=== PATIENT | female | born 1945 | race African-American/Black ===

== ENCOUNTER → 2020-02-18 13:51 | Outpatient (BNVA) | payer MEDICARE, SELFPAY | PROVIDERS: PCP Nurse Practitioner Family; Referring Provider Nurse Practitioner Family; Visit Provider Internal Medicine Cardiovascular Disease | DX: I42.1 Obstructive hypertrophic cardiomyopathy (principal); I10 Essential (primary) hypertension; Z87.891 Personal history of nicotine dependence | CPT/HCPCS: 99212 ==

== ENCOUNTER → 2020-03-31 15:30 | Outpatient (BNV) | payer MEDICARE, SELFPAY | PROVIDERS: PCP Nurse Practitioner Family; Visit Provider Internal Medicine Medical Oncology | DX: D47.2 Monoclonal gammopathy (principal) | CPT/HCPCS: 99212; 99213; 99443 ==

== ENCOUNTER → 2020-04-19 12:47 | Outpatient (BNVA) | payer MEDICARE, SELFPAY | PROVIDERS: PCP Nurse Practitioner Family; Referring Provider Nurse Practitioner Family; Visit Provider Surgery Vascular Surgery | DX: I83.12 Varicose veins of left lower extremity with inflammation (principal) | CPT/HCPCS: 99202 ==

== ENCOUNTER 2020-06-01 12:57 | Outpatient (REF) | payer MEDICARE, SELFPAY ==
--- NOTE | ~2020-06-01 | US_ITS ---
EXAMINATION: RIGHT and LEFT LOWER EXTREMITY VENOUS ULTRASOUND (Reflux Exam) CLINICAL INDICATION: Varicose veins of the left lower extremity with inflammation COMPARISON: December 25, 2019 TECHNIQUE: Color flow triplex imaging and compression Doppler was performed to evaluate both the deep and the superficial systems bilaterally. To evaluate the superficial system, the examination was performed in the upright position. Color-flow Doppler ultrasound and compression ultrasound were utilized. In addition, maneuvers were utilized to demonstrate reflux. FINDINGS: 1. DEEP VENOUS ULTRASOUND OF THE RIGHT LOWER EXTREMITY: Respiratory variation, normal compression and augmented flow are noted in the right common femoral vein as well as the right popliteal vein and there is no evidence of deep venous thrombosis at these locations. There is no evidence of reflux in the deep system in either the common femoral vein or the popliteal vein. No popliteal fossa cyst or popliteal artery aneurysm. 2. SUPERFICIAL ULTRASOUND WITH DOPPLER OF RIGHT LOWER EXTREMITY: The right great saphenous vein at the saphenofemoral junction measures 8 mm, at the mid thigh 3 mm, ikqge-[id number] 3 mm, [id number]-[id number] 3 mm, at mid calf 3 mm and at the ankle measures 4 mm. There is no reflux demonstrated in the right great saphenous vein. The right small saphenous vein measures 3 mm and shows no reflux. 3. DEEP VENOUS ULTRASOUND OF THE LEFT LOWER EXTREMITY: Respiratory variation, normal compression and augmented flow are noted in the left common femoral vein as well as the left popliteal vein and there is no evidence of deep venous thrombosis at these locations. There is no evidence of reflux in the deep system in either the common femoral vein or the popliteal vein. . No popliteal fossa cyst or popliteal artery aneurysm. 4. SUPERFICIAL ULTRASOUND WITH DOPPLER OF LEFT LOWER EXTREMITY: Left great saphenous vein at the saphenofemoral junction measures 10 mm with no reflux, at the mid thigh 4 mm with reflux up to 1.5 seconds duration, yjbbn-zyf-[id number] 3 mm no reflux, hfcos-fmr-[id number] 2 mm, at mid calf 3 mm with reflux up to 1.8 seconds, and at the ankle measures 3 mm without reflux. The left small saphenous vein measures 3 mm and shows no reflux. US/US venous duplex LE BI IMPRESSION: 1. No evidence of reflux or thrombus in the common femoral veins or popliteal veins bilaterally. 2. No significant reflux within the right saphenous system. 3. Reflux within the left greater saphenous vein within the proximal thigh and midcalf and not at the saphenofemoral junction.
== END 2020-06-01 12:58 | disposition home or self-care (01) ==
LOC: HO.US 12:57
PROVIDERS: Visit Provider Surgery Vascular Surgery
DX: I83.12 Varicose veins of left lower extremity with inflammation (principal); I83.893 Varicose veins of bilateral lower extremities with other complications
CPT/HCPCS: 93970

== ENCOUNTER → 2020-06-14 14:43 | Outpatient (BNVA) | payer MEDICARE, SELFPAY | PROVIDERS: PCP Nurse Practitioner Family; Visit Provider Surgery Vascular Surgery | DX: I83.12 Varicose veins of left lower extremity with inflammation (principal) | CPT/HCPCS: 99212 ==

== ENCOUNTER → 2021-02-07 13:15 | Outpatient (BNVA) | payer MEDICARE, SELFPAY | PROVIDERS: PCP Nurse Practitioner Family; Visit Provider Internal Medicine | DX: J44.9 Chronic obstructive pulmonary disease, unspecified (principal); G47.33 Obstructive sleep apnea (adult) (pediatric); I42.1 Obstructive hypertrophic cardiomyopathy | CPT/HCPCS: 99202 ==

== ENCOUNTER 2021-03-03 14:46 | Outpatient (REF) | payer MEDICARE, SELFPAY ==
--- NOTE | 2021-03-03 16:48 | PFT_ITS ---
FLOWS: FEV1 83% of predicted at 1.04 L. FVC 74% of predicted at 1.19 L. FEV1 to FVC ratio of 0.87. No bronchodilator response. LUNG VOLUMES: Total lung capacity 84% of predicted at 3.40 L. Residual volume 107% of predicted at 2.05 L. Slow vital capacity 53% of predicted at 1.65 L. Expiratory reserve volume 21% of predicted at 0.10 L. Diffusion capacity is moderately decreased, diffusion capacity corrects to normal after adjustment for alveolar ventilation. IMPRESSION: No obstructive or restrictive ventilatory defect. No bronchodilator response. Decreased expiratory reserve volume suggests extrathoracic restriction likely secondary to abdominal obesity. Davon Soto MD AP/MODL / [id number]
== END 2021-03-03 14:47 | disposition home or self-care (01) ==
LOC: HO.RESP 14:46
PROVIDERS: PCP Family Medicine; Visit Provider Internal Medicine
DX: J44.9 Chronic obstructive pulmonary disease, unspecified (principal)
CPT/HCPCS: 94060; 94727; 94729

== ENCOUNTER → 2021-03-13 13:02 | Outpatient (REF) | payer MEDICARE, SELFPAY | LOC: HO.SL 13:02 | PROVIDERS: Visit Provider Internal Medicine | DX: G47.33 Obstructive sleep apnea (adult) (pediatric) (principal); J44.9 Chronic obstructive pulmonary disease, unspecified | CPT/HCPCS: 95806 ==

== ENCOUNTER → 2021-05-02 14:47 | Outpatient (BNVA) | payer MEDICARE, SELFPAY | PROVIDERS: PCP Nurse Practitioner Family; Visit Provider Internal Medicine | DX: J45.909 Unspecified asthma, uncomplicated (principal); G47.33 Obstructive sleep apnea (adult) (pediatric); G47.34 Idiopathic sleep related nonobstructive alveolar hypoventilation; Z79.899 Other long term (current) drug therapy | CPT/HCPCS: 99212 ==

== ENCOUNTER → 2021-08-21 19:30 | Outpatient (REF) | payer OTHER, SELFPAY | LOC: HO.SL 19:30 | PROVIDERS: PCP Nurse Practitioner Family; Visit Provider Internal Medicine | DX: G47.33 Obstructive sleep apnea (adult) (pediatric) (principal) | CPT/HCPCS: 95811 ==

== ENCOUNTER → 2021-10-04 15:10 | Outpatient (BNVA) | payer OTHER, SELFPAY | PROVIDERS: PCP Nurse Practitioner Family; Visit Provider Internal Medicine | DX: J45.909 Unspecified asthma, uncomplicated (principal); J44.9 Chronic obstructive pulmonary disease, unspecified; G47.33 Obstructive sleep apnea (adult) (pediatric); G47.34 Idiopathic sleep related nonobstructive alveolar hypoventilation | CPT/HCPCS: 99212 ==

== ENCOUNTER → 2021-11-13 15:16 | Outpatient (BNVA) | payer OTHER, SELFPAY | PROVIDERS: PCP Nurse Practitioner Family; Visit Provider Internal Medicine | DX: J44.9 Chronic obstructive pulmonary disease, unspecified (principal); G47.33 Obstructive sleep apnea (adult) (pediatric); G47.34 Idiopathic sleep related nonobstructive alveolar hypoventilation; Z79.01 Long term (current) use of anticoagulants; Z79.899 Other long term (current) drug therapy; Z95.810 Presence of automatic (implantable) cardiac defibrillator | CPT/HCPCS: 99212 ==

== ENCOUNTER 2022-03-12 19:37 | Emergency (ER) | payer OTHER, SELFPAY ==
--- NOTE | ~2022-03-12 | XR_ITS ---
EXAMINATION: XR CHEST CLINICAL INFORMATION: Shortness of breath COMPARISON: None TECHNIQUE: Frontal view of the chest was obtained. FINDINGS: Minimal linear subsegmental atelectasis in the retrocardiac left lung base. No airspace consolidation. No pleural effusion or pneumothorax visualized. Heart size appears at the upper limits of normal. Prominence of the pulmonary vascularity, suggesting mild pulmonary vascular congestion. No overt pulmonary edema. Left-sided dual-chamber pacer/AICD with lead tips project over the right atrium and right ventricular apex. No acute osseous injury. XR/XR chest 1V IMPRESSION: 1. Mild pulmonary vascular congestion, possibly early interstitial edema. No pleural effusions. 2. Minimal left basilar subsegmental atelectasis.
[2022-03-12 19:53] VITALS: BP 162/68; BP 170/105; PULSE 79; PULSE 80; RESP 20; TEMP 36.7; O2SAT 96; O2SAT 98; BMI 33.1
--- NOTE | 2022-03-12 20:00 | ECG_ITS ---
Test Reason : sob Blood Pressure : / mmHG Vent. Rate : 078 BPM Atrial Rate : 078 BPM P-R Int : 230 ms QRS Dur : 134 ms QT Int : 454 ms P-R-T Axes : 076 025 035 degrees QTc Int : 517 ms Sinus rhythm with 1st degree A-V block Right bundle branch block Abnormal ECG When compared with ECG of 21-AUG-2019 00:24, Right bundle branch block is now Present Heart rate has decreased Referred By: Abdirashid Moore Electronically Signed By:KAJAL ROBLEDO MD
--- NOTE | 2022-03-12 20:07 | ED.SOB ---
HPI - SOB/Dyspnea General Chief Complaint: Dyspnea Stated Complaint: SOB Time Seen by Provider: 03/12/22 19:43 Source: patient Mode of arrival: EMS Limitations: no limitations History of Present Illness HPI Narrative: Patient is 76 years old with history of asthma, hypertension, HOCM status post AICD placement 09/2021, ?paroxysmal AFib on Eliquis comes here for increased shortness of breath for last 1 week with chest pressure-like feeling getting worse for last 3 days not on any diuretics patient feels just heavy in the mid of the chest also feeling she is more puffy with increased leg swelling lately as dry cough and shortness of breath no fever no chills Related Data Home Medications Medication Instructions Recorded Confirmed albuterol sulfate 90 mcg/actuation 90 mcg inhalation Q OTHER DAY 02/18/20 11/30/21 aerosol inhaler cholecalciferol (vitamin D3) 50 50 mcg PO DAILY 02/18/20 11/30/21 mcg (2,000 unit) tablet cyanocobalamin (vitamin B-12) 1,000 mcg PO DAILY 02/18/20 11/30/21 1,000 mcg tablet fluticasone propionate 50 1 spray intranasal BID 02/18/20 11/30/21 mcg/actuation nasal spray,suspension mirtazapine 30 mg tablet 30 mg PO BEDTIME 02/18/20 11/30/21 melatonin 5 mg tablet 5 mg PO BEDTIME PRN insomnia 04/19/20 11/30/21 fluticasone propionate 110 1 puff inhalation BID 02/07/21 11/30/21 mcg/actuation HFA aerosol inhaler (Flovent HFA) omeprazole 20 mg capsule,delayed 20 mg PO DAILY 02/07/21 11/30/21 release albuterol sulfate 2.5 mg/3 mL 2.5 mg inhalation Q6H PRN 05/02/21 11/30/21 (0.083 %) solution for nebulization Shortness Of Breath docusate sodium 100 mg capsule 100 mg PO BID PRN Constipation 05/02/21 11/30/21 (Stool Softener) folic acid 1 mg tablet 1 mg PO DAILY 05/02/21 11/30/21 rosuvastatin 10 mg tablet 10 mg PO BEDTIME 05/02/21 11/30/21 amiodarone 200 mg tablet 200 mg PO DAILY 11/13/21 11/30/21 apixaban 5 mg tablet (Eliquis) 5 mg PO BID 11/13/21 11/30/21 Previous Rx's Medication Instructions Recorded metoprolol succinate 50 mg 50 mg PO DAILY 90 days #90 tabs 10/28/20 tablet,extended release 24 hr furosemide 20 mg tablet (Lasix) 20 mg PO QAM #30 tabs 03/12/22 Allergies Allergy/AdvReac Type Severity Reaction Status Date / Time No Known Allergies Allergy Verified 11/30/21 14:24 [No Known Allergies*] Review of Systems Review of Systems: Yes all other systems are reviewed and are negative [facility] Past Medical History Medical History Asthma Cardiomyopathy COPD (chronic obstructive pulmonary disease) GERD (gastroesophageal reflux disease) Hypercholesteremia Hypertension Insomnia Nocturnal hypoxemia SHORTY (obstructive sleep apnea) Surgical History History of heart surgery History of implantable cardioverter-defibrillator (ICD) insertion Family History Family History Son No problems noted. Son No problems noted. Son No problems noted. Son No problems noted. Mother Diabetes Paternal Grandmother Ovarian cancer Social History Social History Household Members: None Housing: Apartment Are you a primary care services manager to a significant other at home: No Do you presently have visiting nurse or other home services: No Alcohol intake: current Alcohol intake frequency: a few times a month Alcohol type: beer Patient Tobacco Use Status: Former Tobacco user Advance Directives: No Advance Directives Information Provided: Yes service: No Current occupational status: retired Physical Exam Vital Signs: Vital Signs: Last Vital Signs Temp 97.9 F 03/12/22 21:08 Pulse 75 03/12/22 21:08 Resp 20 03/12/22 21:08 BP 178/73 H 03/12/22 21:08 Pulse Ox 95 03/12/22 21:08 O2 Del Method 03/12/22 21:08 BMI result Body Mass Index 33.1 Appearance: Alert. Oriented X3. No acute distress. Eyes: PERRLA, No Nystagmus ENT: Pharynx normal. Oral Mucosa moist puffiness of the face Neck: Normal inspection. Neck supple. CVS: Normal heart rate and rhythm. Pulses normal. No rub/gallop Respiratory: No respiratory distress. Equal air entry bilateral, no wheezing/rales/rhonchi Abdomen: Soft and nontender. Bowel sounds are present, no mass palpable, no CVA tenderness Skin: Skin warm and dry. Normal skin color. Normal skin turgor. Extremities: 2+ lower extremity edema. No calf tenderness Neuro: Oriented X 3. No motor deficit. No sensory deficit.No cerebellar signs , cranial nerves II-XII intact Medications Administered Discontinued Medications Generic Name Dose Route Start Last Admin Trade Name Freq PRN Reason Stop Dose Admin Furosemide 20 mg 03/12/22 22:22 03/12/22 22:56 Furosemide 20 Mg/2 Ml Vial IVPUSH 03/12/22 22:23 20 mg ONCE ONE Administration Protocol MDM - SOB/Dyspnea MDM Narrative Medical decision making narrative: Patient with mild CHF saturating 96% at room air on ambulation came with dull chest pain anddyspnea on exertion patient status post AICD 10/04 no known coronary artery disease 2 sets of high sensitive troponin negative chest x-ray showed mild congestion will start patient on Lasix 20 mg daily at this time patient feels stable and comfortable going home in the ED patient walked to the bathroom and kept her oxygen saturation stayed above 95% at room air patient is well educated and would like to go home and follow-up with licensed psychologist director as outpatient Lab Data Attestation: I reviewed the patient's lab results. Result diagrams: 03/12/22 20:33 03/12/22 20:33 Labs: Lab Results 03/12/22 03/12/22 03/12/22 Range/Units 20:33 20:33 20:33 WBC 5.8 (4.8-10.8) X10*3/uL RBC 3.42 L (4.20-5.50) X10*6/uL Hgb 9.9 L (12.0-16.0) g/dl Hct 32.4 L (37.0-47.0) % MCV 94.7 (80.0-98.0) fL MCH 28.9 (27.0-33.0) pg MCHC 30.6 L (31.0-35.0) g/dl RDW 14.3 (11.0-16.0) % Plt Count 185 (160-400) X10*3/uL MPV 12.0 (9.4-12.3) fL Immature Gran % (Auto) 0.2 (0.0-0.4) % Neut % (Auto) 72.2 (45-73) % Lymph % (Auto) 15.1 L (20-40) % [place] % (Auto) 8.8 (2-11) % Eos % (Auto) 3.4 (0-4) % Baso % (Auto) 0.3 (0-2) % Lymph # (Auto) 0.9 L (1.2-4.9) X10*3/uL [place] # (Auto) 0.5 (0.1-1.2) X10*3/uL Eos # (Auto) 0.2 (0.0-0.4) X10*3/uL Baso # (Auto) 0.0 (0.0-0.2) X10*3/uL Abs Immat Gran (auto) 0.01 (0.00-0.03) X10*3/uL Absolute Neuts (auto) 4.2 (2.0-8.3) x10*3/uL Absolute Nucleated RBC 0.000 (0.0-0.012) X10*3/uL Nucleated RBC % (auto) 0.0 (0.0-0.2) /100WBC PT 18.5 H (10.0-13.1) SEC INR 1.6 H (0.9-1.1) Sodium (135-145) mmol/L Potassium (3.3-5.1) mmol/L Chloride (96-108) mmol/L Carbon Dioxide (22-29) mmol/L Anion Gap (12-20) BUN (9-16) mg/dL Creatinine (0.5-1.4) mg/dL Estim Creat Clear Calc Estimated GFR Random Glucose (60-115) mg/dL Calcium (8.4-10.2) mg/dL Magnesium (1.6-2.6) mg/dL Total Bilirubin (0.0-1.0) mg/dL AST (5-31) U/L ALT (0-31) U/L Alkaline Phosphatase (39-117) U/L Troponin I High Sens 9.0 (<3.5-17.0) ng/L B-Natriuretic Peptide (<100) pg/mL Total Protein (6.5-8.0) g/dL Albumin (3.5-5.0) g/dL TSH (0.32-4.0) uIU/mL 03/12/22 03/12/22 03/12/22 Range/Units 20:33 20:33 22:53 WBC (4.8-10.8) X10*3/uL RBC (4.20-5.50) X10*6/uL Hgb (12.0-16.0) g/dl Hct (37.0-47.0) % MCV (80.0-98.0) fL MCH (27.0-33.0) pg MCHC (31.0-35.0) g/dl RDW (11.0-16.0) % Plt Count (160-400) X10*3/uL MPV (9.4-12.3) fL Immature Gran % (Auto) (0.0-0.4) % Neut % (Auto) (45-73) % Lymph % (Auto) (20-40) % [place] % (Auto) (2-11) % Eos % (Auto) (0-4) % Baso % (Auto) (0-2) % Lymph # (Auto) (1.2-4.9) X10*3/uL [place] # (Auto) (0.1-1.2) X10*3/uL Eos # (Auto) (0.0-0.4) X10*3/uL Baso # (Auto) (0.0-0.2) X10*3/uL Abs Immat Gran (auto) (0.00-0.03) X10*3/uL Absolute Neuts (auto) (2.0-8.3) x10*3/uL Absolute Nucleated RBC (0.0-0.012) X10*3/uL Nucleated RBC % (auto) (0.0-0.2) /100WBC PT (10.0-13.1) SEC INR (0.9-1.1) Sodium 146 H (135-145) mmol/L Potassium 4.0 D (3.3-5.1) mmol/L Chloride 108 (96-108) mmol/L Carbon Dioxide 27 (22-29) mmol/L Anion Gap 15 (12-20) BUN 10 (9-16) mg/dL Creatinine 0.83 (0.5-1.4) mg/dL Estim Creat Clear Calc 57.6 Estimated GFR > 60 Random Glucose 90 (60-115) mg/dL Calcium 9.5 (8.4-10.2) mg/dL Magnesium 2.0 (1.6-2.6) mg/dL Total Bilirubin 0.4 (0.0-1.0) mg/dL AST 7 (5-31) U/L ALT 8 (0-31) U/L Alkaline Phosphatase 62 (39-117) U/L Troponin I High Sens 10.7 (<3.5-17.0) ng/L B-Natriuretic Peptide 680 H (<100) pg/mL Total Protein 7.0 (6.5-8.0) g/dL Albumin 3.7 (3.5-5.0) g/dL TSH 0.97 (0.32-4.0) uIU/mL ECG Data Attestation: I personally reviewed and interpreted this ECG as follows: Interpretation: Normal sinus rhythm heart rate 78 beats per minute right bundle-branch block no acute ST wave changes no acute ischemia Discharge Plan Discharge Clinical Impression: Congestive heart failure, Chest pain Patient Disposition: Home, Self-Care Instructions: Heart Failure (ED), Chest Pain (DC) Additional Instructions: Decrease salt intake Start taking water pill in the morning See your licensed psychologist director for further evaluation Check your weight daily Prescriptions: New furosemide [Lasix] 20 mg tablet 20 mg PO QAM Qty: 30 0RF No Action metoprolol succinate 50 mg tablet extended release 24 hr 50 mg PO DAILY 90 Days Qty: 90 0RF Rx Instructions: Please call and schedule an appointment for refills melatonin 5 mg tablet 5 mg PO BEDTIME PRN (Reason: insomnia) fluticasone propionate 50 mcg/actuation spray,suspension 1 spray intranasal BID cyanocobalamin (vitamin B-12) 1,000 mcg tablet 1,000 mcg PO DAILY mirtazapine 30 mg tablet 30 mg PO BEDTIME cholecalciferol (vitamin D3) 50 mcg (2,000 unit) tablet 50 mcg PO DAILY albuterol sulfate 90 mcg/actuation HFA aerosol inhaler 90 mcg inhalation Q OTHER DAY omeprazole 20 mg capsule,delayed release(DR/EC) 20 mg PO DAILY Flovent HFA 110 mcg/actuation HFA aerosol inhaler 1 puff inhalation BID docusate sodium [Stool Softener] 100 mg capsule 100 mg PO BID PRN (Reason: Constipation) amiodarone 200 mg tablet 200 mg PO DAILY Eliquis 5 mg tablet 5 mg PO BID rosuvastatin 10 mg tablet 10 mg PO BEDTIME folic acid 1 mg tablet 1 mg PO DAILY albuterol sulfate 2.5 mg /3 mL (0.083 %) solution for nebulization 2.5 mg inhalation Q6H PRN (Reason: Shortness Of Breath) Referrals: Severo García MD [Physician] - 1 week
[2022-03-12 20:41] LABS: MANUAL DIFF FLAG NO
[2022-03-12 20:43] LABS: Basophils Percent Auto 0.3 % (0-2); Eosinophils Absolute Auto 0.2 X10*3/uL (0.0-0.4); Eosinophils Percent Auto 3.4 % (0-4); Hematocrit 32.4 % (37.0-47.0); Hemoglobin 9.9 g/dl (12.0-16.0); Imm Gran Abs Auto 0.01 X10*3/uL (0.00-0.03); Imm Gran Pct Auto 0.2 % (0.0-0.4); Lymphocytes Absolute Auto 0.9 X10*3/uL (1.2-4.9); Lymphocytes Percent Auto 15.1 % (20-40); Mean Corpuscular HGB Conc 30.6 g/dl (31.0-35.0); Mean Corpuscular Hemoglobin 28.9 pg (27.0-33.0); Mean Corpuscular Volume 94.7 fL (80.0-98.0); Monocytes Absolute Auto 0.5 X10*3/uL (0.1-1.2); Monocytes Percent Auto 8.8 % (2-11); Neutrophils Absolute Auto 4.2 x10*3/uL (2.0-8.3); Neutrophils Percent Auto 72.2 % (45-73); Platelet Count 185 X10*3/uL (160-400); Red Blood Count 3.42 X10*6/uL (4.20-5.50); Red Cell Distribution Width 14.3 % (11.0-16.0); White Blood Count 5.8 X10*3/uL (4.8-10.8)
[2022-03-12 20:45] LABS: INTERNATIONAL NORM RATIO 1.6 (0.9-1.1); Prothrombin Time 18.5 SEC (10.0-13.1)
[2022-03-12 21:05] LABS: Alanine Aminotransferase 8 U/L (0-31); Albumin Level 3.7 g/dL (3.5-5.0); Alkaline Phosphatase 62 U/L (39-117); Anion Gap 15 (12-20); Aspartate Amino Transferase 7 U/L (5-31); Bilirubin Total 0.4 mg/dL (0.0-1.0); Blood Urea Nitrogen 10 mg/dL (9-16); Calcium 9.5 mg/dL (8.4-10.2); Carbon Dioxide 27 mmol/L (22-29); Chloride 108 mmol/L (96-108); Creatinine Clr Calc Pharmacy 57.6; Estimated Glomerular Filt Rate > 60; Glucose Random 90 mg/dL (60-115); Sodium 146 mmol/L (135-145)
[2022-03-12 21:08] VITALS: BP 178/73; PULSE 75; RESP 20; TEMP 36.6; O2SAT 95
[2022-03-12 21:10] LABS: B Type Natriuretic Peptide 680 pg/mL (<100)
[2022-03-12 21:25] LABS: Thyroid Stimulating Hormone 0.97 uIU/mL (0.32-4.0)
[2022-03-12] MEDS: Furosemide 20 MG/2 ML VIAL IVPUSH (22:56)
[2022-03-12 23:18] LABS: Troponin-I High Sensitivity 10.7 ng/L (<3.5-17.0)
--- NOTE | 2022-03-12 23:59 | PC.NURSE ---
pt's son at bedside at time of discharge. iv removed. pt reports 0/10 pain at this time. discharge packet provided to pt. pt verbalized understanding of discharge plan. this rn assisted pt via wheelchair into sons car at ED main entrance
== END 2022-03-13 00:01 | disposition home or self-care (01) ==
PROVIDERS: Emergency Provider Internal Medicine; PCP Nurse Practitioner Family
DX: I11.0 Hypertensive heart disease with heart failure (principal); I50.9 Heart failure, unspecified; R07.9 Chest pain, unspecified; R06.02 Shortness of breath; J45.909 Unspecified asthma, uncomplicated; E78.00 Pure hypercholesterolemia, unspecified; I48.0 Paroxysmal atrial fibrillation; Z87.891 Personal history of nicotine dependence; Z79.02 Long term (current) use of antithrombotics/antiplatelets; Z79.899 Other long term (current) drug therapy; Z79.01 Long term (current) use of anticoagulants
CPT/HCPCS: 36415; 71045; 80053; 83735; 83880; 84443; 84484; 85025; 85610; 93005; 96374; 99284; J1940

== ENCOUNTER 2022-04-17 15:00 | Outpatient (RCR) | payer OTHER, SELFPAY | END 2022-07-16 12:39 | disposition home or self-care (01) | LOC: HO.PT 15:00 | PROVIDERS: PCP Nurse Practitioner Family; Visit Provider Nurse Practitioner Family | DX: R26.89 Other abnormalities of gait and mobility (principal) | CPT/HCPCS: 97110; 97112; 97116; 97162; 97530; 97535 ==

== ENCOUNTER → 2022-06-05 14:47 | Outpatient (BNVA) | payer OTHER, SELFPAY | PROVIDERS: PCP General Practice; Visit Provider Internal Medicine | DX: G47.33 Obstructive sleep apnea (adult) (pediatric) (principal); G47.34 Idiopathic sleep related nonobstructive alveolar hypoventilation; J44.9 Chronic obstructive pulmonary disease, unspecified | CPT/HCPCS: 99212 ==

== ENCOUNTER 2022-06-27 12:34 | Emergency (ER) | payer OTHER, SELFPAY ==
[2022-06-27] VITALS (7 sets, daily range): BP systolic 136–171; BP diastolic 59–76; PULSE 60–69; RESP 15–20; TEMP 36.6–36.9; O2SAT 96–99; BMI 27.9
--- NOTE | ~2022-06-27 | CT_ITS ---
EXAMINATION: CT HEAD WITHOUT CONTRAST CLINICAL INFORMATION: Dizziness and headaches COMPARISON: None available. TECHNIQUE: Contiguous axial imaging was performed from the skull base to vertex without intravenous administration of contrast. This CT examination was performed using dose optimization techniques as appropriate, variously including the following: *Automated exposure control *Adjustment of mA and/or kV according to patient size (this includes techniques or standardized protocols for targeted exams where dose is matched to indication/reason for exam; i.e. extremities or head) *Use of iterative reconstruction technique DLP: 712 mGy-cm FINDINGS: Sulci and ventricles are appropriate. There are no intra or extra-axial fluid collections or hemorrhage, mass or mass effect. Calvarium intact. There is minor mucoperiosteal thickening in the ethmoid sinuses. CT/CT head/brain wo IV con IMPRESSION: No acute intracranial pathology.
--- NOTE | ~2022-06-27 | XR_ITS ---
EXAMINATION: XR CHEST CLINICAL INFORMATION: Shortness of breath COMPARISON: 03/04/2022 TECHNIQUE: Frontal view of the chest was obtained. FINDINGS: Heart size normal. Normal caliber pulmonary vessels. No evidence for congestive failure at this time. Overall improvement from the prior study. Lungs grossly clear. Left-sided pacer observed with distal tips in stable position. XR/XR chest 1V IMPRESSION: No active disease.
--- NOTE | 2022-06-27 12:41 | ED_ITS ---
HPI - Fall General Chief Complaint: Dyspnea <GEORGE Diop - Last Filed: 06/27/22 16:07> Stated Complaint: SOB/ Left Arm pain <GEORGE Diop - Last Filed: 06/27/22 16:07> Time Seen by Provider: 06/27/22 14:21 <GEORGE Diop - Last Filed: 06/27/22 16:07> Source: patient, family and old records reviewed <GEORGE Meade - Last Filed: 06/27/22 17:37> Mode of arrival: ambulatory <GEORGE Meade - Last Filed: 06/27/22 17:37> Limitations: no limitations <GEORGE Meade - Last Filed: 06/27/22 17:37> History of Present Illness HPI Narrative: 76 yo female with history of CHF, hypertrophic obstructive cardiomyopathy s/p septal ablation 10/09/21, s/p AICD 10/11/21, on Eliquis, CAD, MGUS, SHORTY on QHS O2, COPD, HTN, asthma who presents to the ER from her [employer] office for evaluation of lightheadedness, dizziness, chest heaviness, along with some shortness of breath and headache. 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 She states she has been feeling ?off? for the last couple of days. About 3 or 4 days ago she had episode nausea, upset stomach, shaking arms and legs and feeling very hot. This resolved. Today before she left the house she felt new onset of central chest heaviness. She developed lightheadedness and dizziness. She has a sore left shoulder but does not think this pain is coming from her chest. Her dizziness is worse with position changes and bending down. She states she had a similar episode back in February when she was found to be in acute heart failure. She denies any changes in her diuretic medication, salt intake or weight. She denies any focal neuro deficits. She does endorse a slight frontal headache. No fall or trauma. Currently she states her worst symptom is the ongoing dizziness. Chest heaviness is better since this morning, only mild now. <GEORGE Meade - Last Filed: 06/27/22 17:37> MD complaint: other (Dizziness, presyncopal episode) <GEORGE Meade - Last Filed: 06/27/22 17:37> Onset (ago): hour(s) <GEORGE Meade - Last Filed: 06/27/22 17:37> Associated symptoms (after fall): headache, chest pain, shortness of breath and lightheaded <GEORGE Meade - Last Filed: 06/27/22 17:37> Related Data Home Medications: Home Medications Medication Instructions Recorded Confirmed albuterol sulfate 90 mcg/actuation 90 mcg inhalation Q OTHER DAY 02/18/20 06/27/22 aerosol inhaler cholecalciferol (vitamin D3) 50 50 mcg PO DAILY 02/18/20 06/27/22 mcg (2,000 unit) tablet cyanocobalamin (vitamin B-12) 1,000 mcg PO DAILY 02/18/20 06/27/22 1,000 mcg tablet mirtazapine 30 mg tablet 30 mg PO BEDTIME 02/18/20 06/27/22 melatonin 5 mg tablet 5 mg PO BEDTIME PRN insomnia 04/19/20 06/27/22 fluticasone propionate 110 1 puff inhalation BID 02/07/21 06/27/22 mcg/actuation HFA aerosol inhaler (Flovent HFA) omeprazole 20 mg capsule,delayed 20 mg PO DAILY 02/07/21 06/27/22 release albuterol sulfate 2.5 mg/3 mL 2.5 mg inhalation Q6H PRN 05/02/21 06/27/22 (0.083 %) solution for nebulization Shortness Of Breath docusate sodium 100 mg capsule 100 mg PO BID PRN Constipation 05/02/21 06/27/22 (Stool Softener) folic acid 1 mg tablet 1 mg PO DAILY 05/02/21 06/27/22 rosuvastatin 10 mg tablet 10 mg PO BEDTIME 05/02/21 06/27/22 apixaban 5 mg tablet (Eliquis) 5 mg PO BID 11/13/21 06/27/22 metoprolol succinate 50 mg 50 mg PO BID 06/05/22 06/27/22 tablet,extended release 24 hr montelukast 10 mg tablet 10 mg PO QPM 06/05/22 06/27/22 Previous Rx's Medication Instructions Recorded furosemide 20 mg tablet (Lasix) 20 mg PO QAM #30 tabs 03/12/22 <GEORGE Diop - Last Filed: 06/27/22 16:07> Allergies/Adverse Reactions: Allergies Allergy/AdvReac Type Severity Reaction Status Date / Time No Known Allergies Allergy Verified 06/27/22 12:42 [No Known Allergies*] <GEORGE Diop - Last Filed: 06/27/22 16:07> Review of Systems Review of Systems: Yes all other systems are reviewed and are negative <GEORGE Meade - Last Filed: 06/27/22 17:37> [facility] Past Medical History Medical History: Medical History Asthma Cardiomyopathy COPD (chronic obstructive pulmonary disease) GERD (gastroesophageal reflux disease) Hypercholesteremia Hypertension Insomnia Nocturnal hypoxemia SHORTY (obstructive sleep apnea) <GEORGE Diop - Last Filed: 06/27/22 16:07> Surgical History: Surgical History History of heart surgery History of implantable cardioverter-defibrillator (ICD) insertion <GEORGE Diop - Last Filed: 06/27/22 16:07> Family History Family History: Family History Son No problems noted. Son No problems noted. Son No problems noted. Son No problems noted. Mother Diabetes Paternal Grandmother Ovarian cancer <GEORGE Diop - Last Filed: 06/27/22 16:07> Social History Social History: Social History Household Members: None Housing: Apartment Are you a primary coronary care unit nurse to a significant other at home: No Do you presently have visiting nurse or other home services: No Alcohol intake: never Patient Tobacco Use Status: Former Tobacco user Smoked in Last 30 Days: No Use of substances other than those prescribed or required for medical reasons: No Advance Directives: No Advance Directives Information Provided: Yes service: No Current occupational status: retired <GEORGE Diop Last Filed: 06/27/22 16:07> Physical Exam Vital Signs: Vital Signs: Last Vital Signs Temp 98 F 06/27/22 16:00 Pulse 69 06/27/22 16:00 Resp 16 06/27/22 16:00 BP 162/69 H 06/27/22 16:00 Pulse Ox 99 06/27/22 16:00 O2 Del Method 06/27/22 16:00 BMI result Body Mass Index 27.9 <GEORGE Diop - Last Filed: 06/27/22 16:07> Vital Signs: Last Vital Signs Temp 98 F 06/27/22 16:00 Pulse 69 06/27/22 16:00 Resp 16 06/27/22 16:00 BP 162/69 H 06/27/22 16:00 Pulse Ox 99 06/27/22 16:00 O2 Del Method 06/27/22 16:00 BMI result Body Mass Index 27.9 <GEORGE Meade - Last Filed: 06/27/22 17:37> Appearance: Alert. Oriented X3. No acute distress. Eyes: Pupils equal, round and reactive to light. No nystagmus ENT: Pharynx normal. Neck: Normal inspection. Neck supple. CVS: Normal heart rate and rhythm. +murmur Respiratory: No respiratory distress. Breath sounds normal. Abdomen: Obese Soft and nontender. +BS x4 Skin: Skin warm and dry. Normal skin color. Normal skin turgor. No rashes. Extremities: No lower extremity edema. Neuro: Oriented X 3. No motor deficit. No sensory deficit. CN II-XII intact. Normal speech and cognition. Steady gait. Nonfocal. Normal finger to nose and heel to herrera bilaterally <GEORGE Meade - Last Filed: 06/27/22 17:37> Course Course Course Narrative: RME--68-year-old female with a past medical history of asthma, COPD, GERD, HLD, HTN, SHORTY, defibrillator, presenting to the ED complaining of chest pressure radiating to left shoulder, SOB, room spinning dizziness x today. States unable to lay flat at [employer]'s office for echo [employer] due to feeling dizzy. Lungs CTA. Ambulating with steady gait EKG, labs, CXR, COVID/flu, orthostatics ordered <GEORGE Diop - Last Filed: 06/27/22 16:07> Medical Decision Making Medical Decision Making MDM Narrative: 76 yo female with extensive cardiac history presenting to the ER for evaluation of a pre-syncopal episode at the [employer] office today along with dizziness/lightheadedness, chest heaviness, SOB, headache, left shoulder soreness. VSS on arrival. Reports ongoing lightheadedness w/ position changes. No neuro deficits. Symptoms non-debilitating and are not consistent with posterior CVA. EKG without ischemic changes. 17:30 - Troponin negative x2. Orthostatics are negative. She is feeling better. Steady gait to the bathroom. <GEORGE Meade - Last Filed: 06/27/22 17:37> Differential Diagnosis Differential Diagnoses: The differential diagnosis associated with the presentation includes <GEORGE Meade - Last Filed: 06/27/22 17:37> Vertigo, orthostatic hypotension, dehydration, anemia, acute heart failure exacerbation, ACS, PE, arrhythmia, less likely posterior CVA <GEORGE Meade - Last Filed: 06/27/22 17:37> Admission/Observation Consideration of admission/observation: Escalation of care including admission/observation considered <GEORGE Harmon - Last Filed: 06/27/22 17:37> case d/w Dr. García, patient and son at the bedside - we discussed admission vs d/c home. patient feels comfortable being discharged home. 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 García - given she has negative biomarkers, negative orthostatics and she did have her cardiac ablation to treat her HOCM, she does not require urgent admission/ECHO/or transfer <GEORGE Meade Last Filed: 06/27/22 17:37> Lab Data MDM Lab Attestation statement: I reviewed the patient's lab results. <GEORGE Meade Last Filed: 06/27/22 17:37> Result Diagrams: 06/27/22 13:02 06/27/22 13:02 <GEORGE Diop - Last Filed: 06/27/22 16:07> Labs: Lab Results 06/27/22 06/27/22 06/27/22 Range/Units 13:02 13:02 13:02 WBC 3.9 L (4.8-10.8) X10*3/uL RBC 3.79 L (4.20-5.50) X10*6/uL Hgb 11.0 L (12.0-16.0) g/dl Hct 33.5 L (37.0-47.0) % MCV 88.4 (80.0-98.0) fL MCH 29.0 (27.0-33.0) pg MCHC 32.8 (31.0-35.0) g/dl RDW 13.2 (11.0-16.0) % Plt Count 212 (160-400) X10*3/uL MPV 11.4 (9.4-12.3) fL Immature Gran % (Auto) 0.5 H (0.0-0.4) % Neut % (Auto) 52.0 (45-73) % Lymph % (Auto) 30.7 (20-40) % [place] % (Auto) 11.7 H (2-11) % Eos % (Auto) 4.8 H (0-4) % Baso % (Auto) 0.3 (0-2) % Lymph # (Auto) 1.2 (1.2-4.9) X10*3/uL [place] # (Auto) 0.5 (0.1-1.2) X10*3/uL Eos # (Auto) 0.2 (0.0-0.4) X10*3/uL Baso # (Auto) 0.0 (0.0-0.2) X10*3/uL Abs Immat Gran (auto) 0.02 (0.00-0.03) X10*3/uL Absolute Neuts (auto) 2.1 (2.0-8.3) x10*3/uL Absolute Nucleated RBC 0.000 (0.0-0.012) X10*3/uL Nucleated RBC % (auto) 0.0 (0.0-0.2) /100WBC Sodium 135 (135-145) mmol/L Potassium 4.6 (3.3-5.1) mmol/L Chloride 98 (96-108) mmol/L Carbon Dioxide 27 (22-29) mmol/L Anion Gap 15 (12-20) BUN 14 (9-16) mg/dL Creatinine 0.98 (0.5-1.4) mg/dL Estim Creat Clear Calc 53.6 Estimated GFR 55 Random Glucose 88 (60-115) mg/dL Calcium 9.9 (8.4-10.2) mg/dL Magnesium 1.8 (1.6-2.6) mg/dL Total Bilirubin 0.4 (0.0-1.0) mg/dL Direct Bilirubin < 0.2 (0.0-0.5) mg/dL AST 10 (5-31) U/L ALT 12 (0-31) U/L Alkaline Phosphatase 72 (39-117) U/L Troponin I High Sens 7.4 (<3.5-17.0) ng/L B-Natriuretic Peptide (<100) pg/mL Total Protein 7.1 (6.5-8.0) g/dL Albumin 3.9 (3.5-5.0) g/dL Urine Color Urine Appearance Urine pH (5.0-9.0) Ur Specific [place]ach[place] (1.005-1.025) Urine Protein (Neg-Trace) mg/dL Urine Glucose (UA) (Negative) mg/dL Urine Ketones (Negative) mg/dL Urine Blood (Negative) Urine Nitrite (Negative) Ur Leukocyte Esterase (Negative) Urine RBC (0-2) /HPF Urine WBC (0-5) /HPF Ur Squamous Epith Cells (0-2) /HPF Urine Bacteria (None Seen) Hyaline Casts (0-2) /LPF COVID-19 (CHRISTOPH) (Negative) COVID-19 Clin Com Influenza Type A (ALLYN) (Negative) Influenza Type B (ALLYN) (Negative) Influenza A & B Note 06/27/22 06/27/22 06/27/22 Range/Units 13:02 13:02 13:02 WBC (4.8-10.8) X10*3/uL RBC (4.20-5.50) X10*6/uL Hgb (12.0-16.0) g/dl Hct (37.0-47.0) % MCV (80.0-98.0) fL MCH (27.0-33.0) pg MCHC (31.0-35.0) g/dl RDW (11.0-16.0) % Plt Count (160-400) X10*3/uL MPV (9.4-12.3) fL Immature Gran % (Auto) (0.0-0.4) % Neut % (Auto) (45-73) % Lymph % (Auto) (20-40) % [place] % (Auto) (2-11) % Eos % (Auto) (0-4) % Baso % (Auto) (0-2) % Lymph # (Auto) (1.2-4.9) X10*3/uL [place] # (Auto) (0.1-1.2) X10*3/uL Eos # (Auto) (0.0-0.4) X10*3/uL Baso # (Auto) (0.0-0.2) X10*3/uL Abs Immat Gran (auto) (0.00-0.03) X10*3/uL Absolute Neuts (auto) (2.0-8.3) x10*3/uL Absolute Nucleated RBC (0.0-0.012) X10*3/uL Nucleated RBC % (auto) (0.0-0.2) /100WBC Sodium (135-145) mmol/L Potassium (3.3-5.1) mmol/L Chloride (96-108) mmol/L Carbon Dioxide (22-29) mmol/L Anion Gap (12-20) BUN (9-16) mg/dL Creatinine (0.5-1.4) mg/dL Estim Creat Clear Calc Estimated GFR Random Glucose (60-115) mg/dL Calcium (8.4-10.2) mg/dL Magnesium (1.6-2.6) mg/dL Total Bilirubin (0.0-1.0) mg/dL Direct Bilirubin (0.0-0.5) mg/dL AST (5-31) U/L ALT (0-31) U/L Alkaline Phosphatase (39-117) U/L Troponin I High Sens (<3.5-17.0) ng/L B-Natriuretic Peptide 241 H (<100) pg/mL Total Protein (6.5-8.0) g/dL Albumin (3.5-5.0) g/dL Urine Color Urine Appearance Urine pH (5.0-9.0) Ur Specific [place] (1.005-1.025) Urine Protein (Neg-Trace) mg/dL Urine Glucose (UA) (Negative) mg/dL Urine Ketones (Negative) mg/dL Urine Blood (Negative) Urine Nitrite (Negative) Ur Leukocyte Esterase (Negative) Urine RBC (0-2) /HPF Urine WBC (0-5) /HPF Ur Squamous Epith Cells (0-2) /HPF Urine Bacteria (None Seen) Hyaline Casts (0-2) /LPF COVID-19 (CHRISTOPH) Negative (Negative) COVID-19 Clin Com See Note Influenza Type A (ALLYN) Negative (Negative) Influenza Type B (ALLYN) Negative (Negative) Influenza A & B Note See Note 06/27/22 06/27/22 Range/Units 15:07 16:51 WBC (4.8-10.8) X10*3/uL RBC (4.20-5.50) X10*6/uL Hgb (12.0-16.0) g/dl Hct (37.0-47.0) % MCV (80.0-98.0) fL MCH (27.0-33.0) pg MCHC (31.0-35.0) g/dl RDW (11.0-16.0) % Plt Count (160-400) X10*3/uL MPV (9.4-12.3) fL Immature Gran % (Auto) (0.0-0.4) % Neut % (Auto) (45-73) % Lymph % (Auto) (20-40) % [place] % (Auto) (2-11) % Eos % (Auto) (0-4) % Baso % (Auto) (0-2) % Lymph # (Auto) (1.2-4.9) X10*3/uL [place] # (Auto) (0.1-1.2) X10*3/uL Eos # (Auto) (0.0-0.4) X10*3/uL Baso # (Auto) (0.0-0.2) X10*3/uL Abs Immat Gran (auto) (0.00-0.03) X10*3/uL Absolute Neuts (auto) (2.0-8.3) x10*3/uL Absolute Nucleated RBC (0.0-0.012) X10*3/uL Nucleated RBC % (auto) (0.0-0.2) /100WBC Sodium (135-145) mmol/L Potassium (3.3-5.1) mmol/L Chloride (96-108) mmol/L Carbon Dioxide (22-29) mmol/L Anion Gap (12-20) BUN (9-16) mg/dL Creatinine (0.5-1.4) mg/dL Estim Creat Clear Calc Estimated GFR Random Glucose (60-115) mg/dL Calcium (8.4-10.2) mg/dL Magnesium (1.6-2.6) mg/dL Total Bilirubin (0.0-1.0) mg/dL Direct Bilirubin (0.0-0.5) mg/dL AST (5-31) U/L ALT (0-31) U/L Alkaline Phosphatase (39-117) U/L Troponin I High Sens 8.3 (<3.5-17.0) ng/L B-Natriuretic Peptide (<100) pg/mL Total Protein (6.5-8.0) g/dL Albumin (3.5-5.0) g/dL Urine Color Yellow Urine Appearance Clear Urine pH 8.5 (5.0-9.0) Ur Specific [place]achute <= 1.005 (1.005-1.025) Urine Protein Negative (Neg-Trace) mg/dL Urine Glucose (UA) Negative (Negative) mg/dL Urine Ketones Negative (Negative) mg/dL Urine Blood Negative (Negative) Urine Nitrite Negative (Negative) Ur Leukocyte Esterase Small (1+) H (Negative) Urine RBC 0-2 (0-2) /HPF Urine WBC 0-5 (0-5) /HPF Ur Squamous Epith Cells 3-5 (0-2) /HPF Urine Bacteria None Seen (None Seen) Hyaline Casts 0-2 (0-2) /LPF COVID-19 (CHRISTOPH) (Negative) COVID-19 Clin Com Influenza Type A (ALLYN) (Negative) Influenza Type B (ALLYN) (Negative) Influenza A & B Note <GEORGE Diop - Last Filed: 06/27/22 16:07> Lab Results 06/27/22 06/27/22 06/27/22 Range/Units 13:02 13:02 13:02 WBC 3.9 L (4.8-10.8) X10*3/uL RBC 3.79 L (4.20-5.50) X10*6/uL Hgb 11.0 L (12.0-16.0) g/dl Hct 33.5 L (37.0-47.0) % MCV 88.4 (80.0-98.0) fL MCH 29.0 (27.0-33.0) pg MCHC 32.8 (31.0-35.0) g/dl RDW 13.2 (11.0-16.0) % Plt Count 212 (160-400) X10*3/uL MPV 11.4 (9.4-12.3) fL Immature Gran % (Auto) 0.5 H (0.0-0.4) % Neut % (Auto) 52.0 (45-73) % Lymph % (Auto) 30.7 (20-40) % [place] % (Auto) 11.7 H (2-11) % Eos % (Auto) 4.8 H (0-4) % Baso % (Auto) 0.3 (0-2) % Lymph # (Auto) 1.2 (1.2-4.9) X10*3/uL [place] # (Auto) 0.5 (0.1-1.2) X10*3/uL Eos # (Auto) 0.2 (0.0-0.4) X10*3/uL Baso # (Auto) 0.0 (0.0-0.2) X10*3/uL Abs Immat Gran (auto) 0.02 (0.00-0.03) X10*3/uL Absolute Neuts (auto) 2.1 (2.0-8.3) x10*3/uL Absolute Nucleated RBC 0.000 (0.0-0.012) X10*3/uL Nucleated RBC % (auto) 0.0 (0.0-0.2) /100WBC Sodium 135 (135-145) mmol/L Potassium 4.6 (3.3-5.1) mmol/L Chloride 98 (96-108) mmol/L Carbon Dioxide 27 (22-29) mmol/L Anion Gap 15 (12-20) BUN 14 (9-16) mg/dL Creatinine 0.98 (0.5-1.4) mg/dL Estim Creat Clear Calc 53.6 Estimated GFR 55 Random Glucose 88 (60-115) mg/dL Calcium 9.9 (8.4-10.2) mg/dL Magnesium 1.8 (1.6-2.6) mg/dL Total Bilirubin 0.4 (0.0-1.0) mg/dL Direct Bilirubin < 0.2 (0.0-0.5) mg/dL AST 10 (5-31) U/L ALT 12 (0-31) U/L Alkaline Phosphatase 72 (39-117) U/L Troponin I High Sens 7.4 (<3.5-17.0) ng/L B-Natriuretic Peptide (<100) pg/mL Total Protein 7.1 (6.5-8.0) g/dL Albumin 3.9 (3.5-5.0) g/dL Urine Color Urine Appearance Urine pH (5.0-9.0) Ur Specific [place] (1.005-1.025) Urine Protein (Neg-Trace) mg/dL Urine Glucose (UA) (Negative) mg/dL Urine Ketones (Negative) mg/dL Urine Blood (Negative) Urine Nitrite (Negative) Ur Leukocyte Esterase (Negative) Urine RBC (0-2) /HPF Urine WBC (0-5) /HPF Ur Squamous Epith Cells (0-2) /HPF Urine Bacteria (None Seen) Hyaline Casts (0-2) /LPF COVID-19 (CHRISTOPH) (Negative) COVID-19 Clin Com Influenza Type A (ALLYN) (Negative) Influenza Type B (ALLYN) (Negative) Influenza A & B Note 06/27/22 06/27/22 06/27/22 Range/Units 13:02 13:02 13:02 WBC (4.8-10.8) X10*3/uL RBC (4.20-5.50) X10*6/uL Hgb (12.0-16.0) g/dl Hct (37.0-47.0) % MCV (80.0-98.0) fL MCH (27.0-33.0) pg MCHC (31.0-35.0) g/dl RDW (11.0-16.0) % Plt Count (160-400) X10*3/uL MPV (9.4-12.3) fL Immature Gran % (Auto) (0.0-0.4) % Neut % (Auto) (45-73) % Lymph % (Auto) (20-40) % [place] % (Auto) (2-11) % Eos % (Auto) (0-4) % Baso % (Auto) (0-2) % Lymph # (Auto) (1.2-4.9) X10*3/uL [place] # (Auto) (0.1-1.2) X10*3/uL Eos # (Auto) (0.0-0.4) X10*3/uL Baso # (Auto) (0.0-0.2) X10*3/uL Abs Immat Gran (auto) (0.00-0.03) X10*3/uL Absolute Neuts (auto) (2.0-8.3) x10*3/uL Absolute Nucleated RBC (0.0-0.012) X10*3/uL Nucleated RBC % (auto) (0.0-0.2) /100WBC Sodium (135-145) mmol/L Potassium (3.3-5.1) mmol/L Chloride (96-108) mmol/L Carbon Dioxide (22-29) mmol/L Anion Gap (12-20) BUN (9-16) mg/dL Creatinine (0.5-1.4) mg/dL Estim Creat Clear Calc Estimated GFR Random Glucose (60-115) mg/dL Calcium (8.4-10.2) mg/dL Magnesium (1.6-2.6) mg/dL Total Bilirubin (0.0-1.0) mg/dL Direct Bilirubin (0.0-0.5) mg/dL AST (5-31) U/L ALT (0-31) U/L Alkaline Phosphatase (39-117) U/L Troponin I High Sens (<3.5-17.0) ng/L B-Natriuretic Peptide 241 H (<100) pg/mL Total Protein (6.5-8.0) g/dL Albumin (3.5-5.0) g/dL Urine Color Urine Appearance Urine pH (5.0-9.0) Ur Specific [place] (1.005-1.025) Urine Protein (Neg-Trace) mg/dL Urine Glucose (UA) (Negative) mg/dL Urine Ketones (Negative) mg/dL Urine Blood (Negative) Urine Nitrite (Negative) Ur Leukocyte Esterase (Negative) Urine RBC (0-2) /HPF Urine WBC (0-5) /HPF Ur Squamous Epith Cells (0-2) /HPF Urine Bacteria (None Seen) Hyaline Casts (0-2) /LPF COVID-19 (CHRISTOPH) Negative (Negative) COVID-19 Clin Com See Note Influenza Type A (ALLYN) Negative (Negative) Influenza Type B (ALLYN) Negative (Negative) Influenza A & B Note See Note 06/27/22 06/27/22 Range/Units 15:07 16:51 WBC (4.8-10.8) X10*3/uL RBC (4.20-5.50) X10*6/uL Hgb (12.0-16.0) g/dl Hct (37.0-47.0) % MCV (80.0-98.0) fL MCH (27.0-33.0) pg MCHC (31.0-35.0) g/dl RDW (11.0-16.0) % Plt Count (160-400) X10*3/uL MPV (9.4-12.3) fL Immature Gran % (Auto) (0.0-0.4) % Neut % (Auto) (45-73) % Lymph % (Auto) (20-40) % [place] % (Auto) (2-11) % Eos % (Auto) (0-4) % Baso % (Auto) (0-2) % Lymph # (Auto) (1.2-4.9) X10*3/uL [place] # (Auto) (0.1-1.2) X10*3/uL Eos # (Auto) (0.0-0.4) X10*3/uL Baso # (Auto) (0.0-0.2) X10*3/uL Abs Immat Gran (auto) (0.00-0.03) X10*3/uL Absolute Neuts (auto) (2.0-8.3) x10*3/uL Absolute Nucleated RBC (0.0-0.012) X10*3/uL Nucleated RBC % (auto) (0.0-0.2) /100WBC Sodium (135-145) mmol/L Potassium (3.3-5.1) mmol/L Chloride (96-108) mmol/L Carbon Dioxide (22-29) mmol/L Anion Gap (12-20) BUN (9-16) mg/dL Creatinine (0.5-1.4) mg/dL Estim Creat Clear Calc Estimated GFR Random Glucose (60-115) mg/dL Calcium (8.4-10.2) mg/dL Magnesium (1.6-2.6) mg/dL Total Bilirubin (0.0-1.0) mg/dL Direct Bilirubin (0.0-0.5) mg/dL AST (5-31) U/L ALT (0-31) U/L Alkaline Phosphatase (39-117) U/L Troponin I High Sens 8.3 (<3.5-17.0) ng/L B-Natriuretic Peptide (<100) pg/mL Total Protein (6.5-8.0) g/dL Albumin (3.5-5.0) g/dL Urine Color Yellow Urine Appearance Clear Urine pH 8.5 (5.0-9.0) Ur Specific [place] <= 1.005 (1.005-1.025) Urine Protein Negative (Neg-Trace) mg/dL Urine Glucose (UA) Negative (Negative) mg/dL Urine Ketones Negative (Negative) mg/dL Urine Blood Negative (Negative) Urine Nitrite Negative (Negative) Ur Leukocyte Esterase Small (1+) H (Negative) Urine RBC 0-2 (0-2) /HPF Urine WBC 0-5 (0-5) /HPF Ur Squamous Epith Cells 3-5 (0-2) /HPF Urine Bacteria None Seen (None Seen) Hyaline Casts 0-2 (0-2) /LPF COVID-19 (CHRISTOPH) (Negative) COVID-19 Clin Com Influenza Type A (ALLYN) (Negative) Influenza Type B (ALLYN) (Negative) Influenza A & B Note <GEORGE Meade - Last Filed: 06/27/22 17:37> Independent Interpretation I performed an independent interpretation of an: EKG, Plain X-Ray and CT Scan <GEORGE Meade - Last Filed: 06/27/22 17:37> Interpretation: CXR reviewed - no PNA, pleural effusion, agree w/ radiology read EKG with atrial paced rhythm, HR 60 bpm, RBBB, (old), no ST segment elevations or depressions CT head without obvious bleed or stroke <GEORGE Meade - Last Filed: 06/27/22 17:37> Radiology Impression Discussion of test interpretation with radiology: I have reviewed the radiologist's reading. <GEORGE Meade - Last Filed: 06/27/22 17:37> Radiologist Impression: EXAMINATION: XR CHEST CLINICAL INFORMATION: Shortness of breath COMPARISON: 03/04/2022 TECHNIQUE: Frontal view of the chest was obtained. FINDINGS: Heart size normal. Normal caliber pulmonary vessels. No evidence for congestive failure at this time. Overall improvement from the prior study. Lungs grossly clear. Left-sided pacer observed with distal tips in stable position. XR/XR chest 1V IMPRESSION: No active disease. XAMINATION: CT HEAD WITHOUT CONTRAST CLINICAL INFORMATION: Dizziness and headaches? COMPARISON: None available.? TECHNIQUE: Contiguous axial imaging was performed from the skull base to vertex without intravenous administration of contrast. This CT examination was performed using dose optimization techniques as appropriate, variously including the following: *Automated exposure control *Adjustment of mA and/or kV according to patient size (this includes techniques or standardized protocols for targeted exams where dose is matched to indication/reason for exam; i.e. extremities or head) *Use of iterative reconstruction technique DLP: 712 mGy-cm FINDINGS: Sulci and ventricles are appropriate. There are no intra or extra-axial fluid collections or hemorrhage, mass or mass effect. Calvarium intact. There is minor mucoperiosteal thickening in the ethmoid sinuses. ? CT/CT head/brain wo IV con IMPRESSION: No acute intracranial pathology. ? <GEORGE Meade Last Filed: 06/27/22 17:37> Independent Historian Clinical information obtained from an independent historian. History obtained from or confirmed by: Other (son at the bedside) <GEORGE Meade - Last Filed: 06/27/22 17:37> son confirms she had her septal ablation done in September <GEORGE Meade - Last Filed: 06/27/22 17:37> External Record Review External record reviewed: Office record and Prior outpatient labs <GEORGE Meade - Last Filed: 06/27/22 17:37> Chronic Conditions Patient?s care impacted by: Hypertension and Other (HOCM) <GEORGE Meade - Last Filed: 06/27/22 17:37> Scores Heart Score History: -1- moderately suspicious <GEORGE Meade - Last Filed: 06/27/22 17:37> ECG: -0- normal <GEORGE Meade - Last Filed: 06/27/22 17:37> Age: -2- > or = 65 <GEORGE Meade - Last Filed: 06/27/22 17:37> Risk factory: -1- 1 or 2 risk factors <GEORGE Meade - Last Filed: 06/27/22 17:37> Troponin: -0- < or = normal limit <GEORGE Meade - Last Filed: 06/27/22 17:37> Score: 6 <GEORGE Diop - Last Filed: 06/27/22 16:07> 4 <GEORGE Meade - Last Filed: 06/27/22 17:37> Risk: 16.6% <GEORGE Diop - Last Filed: 06/27/22 16:07> 16.6% <GEORGE Meade - Last Filed: 06/27/22 17:37> Critical Care Time Critical Care Time Critical Care Time: Yes <GEORGE Meade - Last Filed: 06/27/22 17:37> Total Critical Care Time: 36 <GEORGE Meade - Last Filed: 06/27/22 17:37> Attestation: I have personally provided critical care time exclusive of time spent on separately billable procedures. Time includes review of lab data, radiology results, discussion with consultants, and monitoring for potential decompensation. Intervention performed as documented. <GEORGE Meade - Last Filed: 06/27/22 17:37> Discharge Plan Discharge Clinical Impression: Dizziness, Chest heaviness <GEORGE Diop Last Filed: 06/27/22 16:07> Patient Disposition: Home, Self-Care <GEORGE Diop Last Filed: 06/27/22 16:07> Instructions: Lightheadedness (ED) <GEORGE Diop Last Filed: 06/27/22 16:07> Additional Instructions: Your lab workup today was unremarkable. Your heart enzymes the not show any evidence of strain on her heart. Your vital signs when your lying, sitting, standing did not have any concerning changes. Your CT scan was normal. Your x-ray was normal. 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 If you develop new or worsening symptoms call 911 or come back to the ER for further evaluation. <GEORGE Diop - Last Filed: 06/27/22 16:07> Prescriptions: No Action furosemide [Lasix] 20 mg tablet 20 mg PO QAM Qty: 30 0RF melatonin 5 mg tablet 5 mg PO BEDTIME PRN (Reason: insomnia) cyanocobalamin (vitamin B-12) 1,000 mcg tablet 1,000 mcg PO DAILY mirtazapine 30 mg tablet 30 mg PO BEDTIME cholecalciferol (vitamin D3) 50 mcg (2,000 unit) tablet 50 mcg PO DAILY albuterol sulfate 90 mcg/actuation HFA aerosol inhaler 90 mcg inhalation Q OTHER DAY omeprazole 20 mg capsule,delayed release(DR/EC) 20 mg PO DAILY Flovent HFA 110 mcg/actuation HFA aerosol inhaler 1 puff inhalation BID docusate sodium [Stool Softener] 100 mg capsule 100 mg PO BID PRN (Reason: Constipation) Eliquis 5 mg tablet 5 mg PO BID metoprolol succinate 50 mg tablet extended release 24 hr 50 mg PO BID Rx Instructions: Please call and schedule an appointment for refills montelukast 10 mg tablet 10 mg PO QPM rosuvastatin 10 mg tablet 10 mg PO BEDTIME folic acid 1 mg tablet 1 mg PO DAILY albuterol sulfate 2.5 mg /3 mL (0.083 %) solution for nebulization 2.5 mg inhalation Q6H PRN (Reason: Shortness Of Breath) <GEORGE Diop - Last Filed: 06/27/22 16:07> Referrals: Yasmeen Willams MD [Primary Care Provider] - <GEORGE Diop - Last Filed: 06/27/22 16:07>
--- NOTE | 2022-06-27 12:42 | ECG_ITS ---
Test Reason : sob Blood Pressure : / mmHG Vent. Rate : 060 BPM Atrial Rate : 060 BPM P-R Int : 246 ms QRS Dur : 140 ms QT Int : 474 ms P-R-T Axes : 000 012 037 degrees QTc Int : 474 ms Atrial-paced rhythm with prolonged AV conduction Right bundle branch block Possible Inferior infarct , age undetermined Abnormal ECG When compared with ECG of 12-MAR-2022 20:11, Electronic atrial pacemaker has replaced Sinus rhythm Referred By: Soha Chew Electronically Signed By:Severo García
[2022-06-27 13:16] LABS: MANUAL DIFF FLAG NO
[2022-06-27 13:20] LABS: Basophils Percent Auto 0.3 % (0-2); Eosinophils Absolute Auto 0.2 X10*3/uL (0.0-0.4); Eosinophils Percent Auto 4.8 % (0-4); Hematocrit 33.5 % (37.0-47.0); Imm Gran Abs Auto 0.02 X10*3/uL (0.00-0.03); Imm Gran Pct Auto 0.5 % (0.0-0.4); Lymphocytes Absolute Auto 1.2 X10*3/uL (1.2-4.9); Lymphocytes Percent Auto 30.7 % (20-40); Mean Corpuscular HGB Conc 32.8 g/dl (31.0-35.0); Mean Corpuscular Volume 88.4 fL (80.0-98.0); Mean Platelet Volume 11.4 fL (9.4-12.3); Monocytes Absolute Auto 0.5 X10*3/uL (0.1-1.2); Monocytes Percent Auto 11.7 % (2-11); Neutrophils Absolute Auto 2.1 x10*3/uL (2.0-8.3); Platelet Count 212 X10*3/uL (160-400); Red Blood Count 3.79 X10*6/uL (4.20-5.50); Red Cell Distribution Width 13.2 % (11.0-16.0); White Blood Count 3.9 X10*3/uL (4.8-10.8)
[2022-06-27 13:33] LABS: COVID-19 Test Negative (Negative); IDNOW Serial# 08D9AD1C; IDNOW Serial# BCCEAD1C; Influenza A Negative (Negative); Influenza B2 Negative (Negative)
[2022-06-27 13:39] LABS: Alanine Aminotransferase 12 U/L (0-31); Albumin Level 3.9 g/dL (3.5-5.0); Alkaline Phosphatase 72 U/L (39-117); Anion Gap 15 (12-20); Aspartate Amino Transferase 10 U/L (5-31); Bilirubin Direct < 0.2 mg/dL (0.0-0.5); Bilirubin Total 0.4 mg/dL (0.0-1.0); Blood Urea Nitrogen 14 mg/dL (9-16); Calcium 9.9 mg/dL (8.4-10.2); Carbon Dioxide 27 mmol/L (22-29); Chloride 98 mmol/L (96-108); Creatinine Clr Calc Pharmacy 53.6; Estimated Glomerular Filt Rate 55; Glucose Random 88 mg/dL (60-115); Magnesium 1.8 mg/dL (1.6-2.6); Potassium 4.6 mmol/L (3.3-5.1); Sodium 135 mmol/L (135-145); Total Protein 7.1 g/dL (6.5-8.0)
[2022-06-27 13:44] LABS: B Type Natriuretic Peptide 241 pg/mL (<100)
[2022-06-27 13:45] LABS: Troponin-I High Sensitivity 7.4 ng/L (<3.5-17.0)
--- NOTE | 2022-06-27 14:52 | PC.NURSE ---
pt Aox3, vss. ortho stats negative for hypotension. air sampling and monitoring intact.
--- NOTE | 2022-06-27 14:53 | PC.NURSE ---
Addendum entered by Cynthia Verma 06/27/22 14:55: breathsounds clear throughout, though diminished Original Note: pt reports lightheadedness when raising from lying down to sitting up
[2022-06-27 15:19] LABS: Appearance Urine Clear; Color Urine Yellow; Glucose Urine UA Negative (Negative); Leukocyte Esterase Urine Small (1+) (Negative); Nitrite Urine Negative (Negative); PH 8.5 (5.0-9.0); Specific Gravity - Urine <= 1.005 (1.005-1.025); UMIC TRIGGER UACC YES; Urine Blood Negative (Negative); Urine Ketones Negative (Negative); Urine Protein Negative (Neg-Trace)
[2022-06-27 15:26] LABS: Bacteria Urine None Seen (None Seen); Hyaline Casts Urine 0-2 /LPF (0-2); RBC Urine 0-2 /HPF (0-2); UACC Culture Trigger YES; WBC Urine 0-5 /HPF (0-5)
--- NOTE | 2022-06-27 16:26 | PC.NURSE ---
pt resting - reports intermit. dizziness. VSS- pt hypertensive. reports that they took their metoprolol today.
--- NOTE | 2022-06-27 16:53 | PC.NURSE ---
repeat trop drawn by tech and sent
--- NOTE | 2022-06-27 16:58 | PHA.MEDREC ---
Pharmacy Consult ? Medication Reconciliation Pharmacy has completed the medication reconciliation.
[2022-06-27 17:18] LABS: Troponin-I High Sensitivity 8.3 ng/L (<3.5-17.0)
== END 2022-06-27 18:18 | disposition home or self-care (01) ==
PROVIDERS: Physician Assistant; Emergency Provider Emergency Medicine; PCP General Practice
DX: J44.9 Chronic obstructive pulmonary disease, unspecified (principal); R06.02 Shortness of breath; R07.89 Other chest pain; M79.602 Pain in left arm; I10 Essential (primary) hypertension; R42 Dizziness and giddiness; Z20.828 Contact with and (suspected) exposure to other viral communicable diseases; Z20.822 Contact with and (suspected) exposure to COVID-19; Z99.81 Dependence on supplemental oxygen; Z79.899 Other long term (current) drug therapy; Z87.891 Personal history of nicotine dependence
CPT/HCPCS: 36415; 70450; 71045; 80048; 80076; 81001; 83735; 83880; 84484; 85025; 87086; 87502; 87635; 93005; 99284; 99285

== ENCOUNTER → 2022-09-04 14:54 | Outpatient (BNVA) | payer OTHER, SELFPAY ==
[2022-07-13 12:51] VITALS: BP 126/56; BP 142/76
[2022-09-04 13:32] VITALS: BP 104/56; BMI 32.5
== END ==
PROVIDERS: PCP General Practice; Visit Provider Internal Medicine
DX: J44.9 Chronic obstructive pulmonary disease, unspecified (principal); J45.909 Unspecified asthma, uncomplicated; G47.33 Obstructive sleep apnea (adult) (pediatric); G47.34 Idiopathic sleep related nonobstructive alveolar hypoventilation
CPT/HCPCS: 99212

== ENCOUNTER 2022-09-07 12:48 | Outpatient (REF) | payer OTHER, SELFPAY ==
[2022-07-13 12:51] VITALS: BP 126/56; BP 142/76
[2022-09-04 13:32] VITALS: BP 104/56; BMI 32.5
[2022-09-10 18:33] LABS: PES - Abn Protein Band 1 0.7 g/dL (NONE DETECTED); Prot Elec - Albumin 4.2 g/dL (3.8-4.8); Prot Elec - Alpha1 0.5 g/dL (0.2-0.3); Prot Elec - Alpha2 0.7 g/dL (0.5-0.9); Prot Elec - Beta 1 0.4 g/dL (0.4-0.6); Prot Elec - Beta 2 0.3 g/dL (0.2-0.5); Prot Elec - Gamma 1.7 g/dL (0.8-1.7); Prot Elec - Total Protein 7.7 g/dL (6.1-8.1)
[2022-09-12 14:59] LABS: Kappa Light Chain, Free Serum 53.1 mg/L (3.3-19.4); Kappa/Lambda Lt Ch Free Ratio 3.11 (0.26-1.65); Lambda Light Chain, Free Serum 17.1 mg/L (5.7-26.3)
== END 2022-09-07 12:49 | disposition home or self-care (01) ==
LOC: HO.LAB 12:48
PROVIDERS: PCP General Practice; Visit Provider General Practice
DX: D47.2 Monoclonal gammopathy (principal)
CPT/HCPCS: 36415; 83521; 84165

== ENCOUNTER 2022-09-25 11:47 | Emergency (ER) | payer OTHER, SELFPAY ==
[2022-07-13 12:51] VITALS: BP 126/56; BP 142/76
[2022-09-04 13:32] VITALS: BP 104/56; BMI 32.5
--- NOTE | ~2022-09-25 | XR_ITS ---
EXAMINATION: XR CHEST CLINICAL INFORMATION: Shortness of breath COMPARISON: Chest x-ray 06/27/2022 TECHNIQUE: Frontal view of the chest was obtained. FINDINGS: The lungs are well-expanded and clear of acute process. The heart size and pulmonary vascularity is normal. There are dual pacer electrodes in right atrium and right ventricle. No gross bony abnormality seen. XR/XR chest 1V IMPRESSION: Unremarkable chest exam.
[2022-09-25 11:54] VITALS: BP 104/66; PULSE 72; O2SAT 98
--- NOTE | 2022-09-25 11:54 | ECG_ITS ---
Test Reason : CHEST PAIN Blood Pressure : / mmHG Vent. Rate : 062 BPM Atrial Rate : 062 BPM P-R Int : 226 ms QRS Dur : 136 ms QT Int : 484 ms P-R-T Axes : 000 005 026 degrees QTc Int : 491 ms Atrial-paced rhythm with prolonged AV conduction Right bundle branch block Minimal voltage criteria for LVH, may be normal variant ( R in aVL ) Inferior infarct (cited on or before 27-JUN-2022) Abnormal ECG When compared with ECG of 27-JUN-2022 12:47, No significant change was found Referred By: Generic ED Physician Electronically Signed By:MITCH HUNTLEY MD
[2022-09-25 11:57] VITALS: BP 100/54; PULSE 61; RESP 18; TEMP 36.9; O2SAT 97; BMI 32.6
--- NOTE | 2022-09-25 12:03 | ED_ITS ---
HPI - Chest Pain General Chief Complaint: Chest Pain Stated Complaint: CP,ABD PAIN,SOB FROM MD OFFICE PER EMS Time Seen by Provider: 09/25/22 12:01 Source: patient Mode of arrival: EMS Limitations: no limitations History of Present Illness HPI narrative: chest pain for a week. Was seen at cardiac rehab yesterday but has had continual pain. A portable unit went out to see her and sent her in. Patient states when she gets lightheaded. Patient states that she had stents and a defibrillator for one year. MD complaint: chest pain Pertinent past history: coronary artery disease Onset (ago): week(s) Timing of current episode: episodic Pain location: substernal Severity: mild Quality: tightness and aching Risk Factors Coronary artery disease risk factors: hyperlipidemia and hypertension Related Data Home Medications Medication Instructions Recorded Confirmed albuterol sulfate 90 mcg/actuation 90 mcg inhalation Q OTHER DAY 02/18/20 09/04/22 aerosol inhaler cholecalciferol (vitamin D3) 50 50 mcg PO DAILY 02/18/20 09/04/22 mcg (2,000 unit) tablet cyanocobalamin (vitamin B-12) 1,000 mcg PO DAILY 02/18/20 09/04/22 1,000 mcg tablet mirtazapine 30 mg tablet 30 mg PO BEDTIME 02/18/20 09/04/22 melatonin 5 mg tablet 5 mg PO BEDTIME PRN insomnia 04/19/20 09/04/22 fluticasone propionate 110 1 puff inhalation BID 02/07/21 09/04/22 mcg/actuation HFA aerosol inhaler (Flovent HFA) omeprazole 20 mg capsule,delayed 20 mg PO DAILY 02/07/21 09/04/22 release albuterol sulfate 2.5 mg/3 mL 2.5 mg inhalation Q6H PRN 05/02/21 09/04/22 (0.083 %) solution for nebulization Shortness Of Breath docusate sodium 100 mg capsule 100 mg PO BID PRN Constipation 05/02/21 09/04/22 (Stool Softener) folic acid 1 mg tablet 1 mg PO DAILY 05/02/21 09/04/22 rosuvastatin 10 mg tablet 10 mg PO BEDTIME 05/02/21 09/04/22 apixaban 5 mg tablet (Eliquis) 5 mg PO BID 11/13/21 09/04/22 metoprolol succinate 50 mg 50 mg PO BID 06/05/22 09/04/22 tablet,extended release 24 hr montelukast 10 mg tablet 10 mg PO QPM 06/05/22 09/04/22 Previous Rx's Medication Instructions Recorded furosemide 20 mg tablet (Lasix) 20 mg PO QAM #30 tabs 03/12/22 Allergies Allergy/AdvReac Type Severity Reaction Status Date / Time No Known Allergies Allergy Verified 09/25/22 12:03 [No Known Allergies*] Review of Systems Review of Systems: Yes all other systems are reviewed and are negative Cardiovascular: Comments: chest pain and lightheaded Neurologic: Denies Sensory deficit (Neuro) [facility] Past Medical History Medical History Asthma Cardiomyopathy COPD (chronic obstructive pulmonary disease) (Unknown) GERD (gastroesophageal reflux disease) Hypercholesteremia Hypertension Insomnia Nocturnal hypoxemia SHORTY (obstructive sleep apnea) Surgical History History of heart surgery History of implantable cardioverter-defibrillator (ICD) insertion Family History Family History Son No problems noted. Son No problems noted. Son No problems noted. Son No problems noted. Mother Diabetes Paternal Grandmother Ovarian cancer Social History Social History Household Members: None Housing: Apartment Are you a primary animal care service worker to a significant other at home: No Do you presently have visiting nurse or other home services: No Alcohol intake: never Patient Tobacco Use Status: Former Tobacco user Quit Date: 2020 Cigarette Packs Per Day: 0.5 Years Smoked: 5 Smoked in Last 30 Days: No Use of substances other than those prescribed or required for medical reasons: No Advance Directives: No Advance Directives Information Provided: Yes service: No Current occupational status: retired Physical Exam Vital Signs: Vital Signs: Last Vital Signs Temp 98.4 F 09/25/22 14:14 Pulse 64 09/25/22 14:14 Resp 13 09/25/22 14:14 BP 104/53 L 09/25/22 14:14 Pulse Ox 98 09/25/22 14:14 O2 Del Method Room Air 09/25/22 14:14 BMI result Body Mass Index 32.6 Const: Nutritional Appearance: obese Orientation/consciousness: oriented to person and patient oriented x3 Limitations: no limitations HEENT: Head: Yes normal to inspection Ears: external ears normal General nose exam: Normal external nose present Mouth: Normal oral and palatal mucosa present and oropharynx normal Throat: Yes posterior oropharynx normal Eyes: General: appearance normal, both eyes and all related structures Neck: Other: supple Neck: Yes normal visual inspection Chest: Chest palpation & inspection: normal inspection of the chest Resp: Auscultation: clear to auscultation bilaterally Cardio: Jugular venous distension: no JVD Rate: regular rate Rhythm: regular rhythm Heart sounds: S1 normal heart sound present and S2 normal heart sound present GI: Inspection: Yes normal to inspection Palpation (GI): Soft to palpation, nontender and No hepatosplenomegaly present Auscultation: normal bowel sounds : General: Yes no CVA tenderness Back/Spine/Pelvis: Back: no CVA tenderness Skin: General skin exam: no rashes or lesions noted Neuro: General: oriented to person and patient oriented x3 Cranial nerves: Yes CN's II-XII intact bilaterally Motor exam (neuro): 5/5 motor strength present throughout Sensory Exam: No Sensory deficit (Neuro) Extrem: General: Yes normal to inspection Psych: Appearance: grossly normal Course Reevaluation(s) Reevaluation #1: patient with normal labs , non ischemic EKG, negative troponin, normal CXR. no evidence of ischemia or chf will dc home Time: 16:09 Medical Decision Making Differential Diagnosis Differential Diagnoses: The differential diagnosis associated with the presentation includes (Cardiac ischemia, pneumonia, congestive heart failure were all considered) Admission/Observation in this patient with CHF and obesity now with chest pain patient was immediately considered for admission Lab Data MDM Lab Attestation statement: I reviewed the patient's lab results. 09/25/22 12:30 09/25/22 12:30 Labs: Lab Results 09/25/22 09/25/22 09/25/22 Range/Units 12:30 12:30 12:30 WBC 5.4 (4.8-10.8) X10*3/uL RBC 3.36 L (4.20-5.50) X10*6/uL Hgb 10.0 L (12.0-16.0) g/dl Hct 31.1 L (37.0-47.0) % MCV 92.6 (80.0-98.0) fL MCH 29.8 (27.0-33.0) pg MCHC 32.2 (31.0-35.0) g/dl RDW 12.6 (11.0-16.0) % Plt Count 155 L D (160-400) X10*3/uL MPV 12.0 (9.4-12.3) fL Immature Gran % (Auto) 0.4 (0.0-0.4) % Neut % (Auto) 68.9 (45-73) % Lymph % (Auto) 17.1 L (20-40) % [place] % (Auto) 10.6 (2-11) % Eos % (Auto) 2.6 (0-4) % Baso % (Auto) 0.4 (0-2) % Lymph # (Auto) 0.9 L (1.2-4.9) X10*3/uL [place] # (Auto) 0.6 (0.1-1.2) X10*3/uL Eos # (Auto) 0.1 (0.0-0.4) X10*3/uL Baso # (Auto) 0.0 (0.0-0.2) X10*3/uL Abs Immat Gran (auto) 0.02 (0.00-0.03) X10*3/uL Absolute Neuts (auto) 3.7 (2.0-8.3) x10*3/uL Absolute Nucleated RBC 0.000 (0.0-0.012) X10*3/uL Nucleated RBC % (auto) 0.0 (0.0-0.2) /100WBC Sodium 140 (135-145) mmol/L Potassium 4.3 (3.3-5.1) mmol/L Chloride 106 (96-108) mmol/L Carbon Dioxide 27 (22-29) mmol/L Anion Gap 11 L (12-20) BUN 16 (9-16) mg/dL Creatinine 0.86 (0.5-1.4) mg/dL Estim Creat Clear Calc 55.2 Estimated GFR > 60 Random Glucose 95 (60-115) mg/dL Calcium 9.8 (8.4-10.2) mg/dL Troponin I High Sens 5.6 (<3.5-17.0) ng/L B-Natriuretic Peptide (<100) pg/mL 09/25/22 Range/Units 12:30 WBC (4.8-10.8) X10*3/uL RBC (4.20-5.50) X10*6/uL Hgb (12.0-16.0) g/dl Hct (37.0-47.0) % MCV (80.0-98.0) fL MCH (27.0-33.0) pg MCHC (31.0-35.0) g/dl RDW (11.0-16.0) % Plt Count (160-400) X10*3/uL MPV (9.4-12.3) fL Immature Gran % (Auto) (0.0-0.4) % Neut % (Auto) (45-73) % Lymph % (Auto) (20-40) % [place] % (Auto) (2-11) % Eos % (Auto) (0-4) % Baso % (Auto) (0-2) % Lymph # (Auto) (1.2-4.9) X10*3/uL [place] # (Auto) (0.1-1.2) X10*3/uL Eos # (Auto) (0.0-0.4) X10*3/uL Baso # (Auto) (0.0-0.2) X10*3/uL Abs Immat Gran (auto) (0.00-0.03) X10*3/uL Absolute Neuts (auto) (2.0-8.3) x10*3/uL Absolute Nucleated RBC (0.0-0.012) X10*3/uL Nucleated RBC % (auto) (0.0-0.2) /100WBC Sodium (135-145) mmol/L Potassium (3.3-5.1) mmol/L Chloride (96-108) mmol/L Carbon Dioxide (22-29) mmol/L Anion Gap (12-20) BUN (9-16) mg/dL Creatinine (0.5-1.4) mg/dL Estim Creat Clear Calc Estimated GFR Random Glucose (60-115) mg/dL Calcium (8.4-10.2) mg/dL Troponin I High Sens (<3.5-17.0) ng/L B-Natriuretic Peptide 248 H (<100) pg/mL Independent Interpretation I performed an independent interpretation of an: EKG (atrial paced with RBBB no ischemia) and Plain X-Ray (CXR no infiltrate) Independent Historian Clinical information obtained from an independent historian. History obtained from or confirmed by: Other (family) Chronic Conditions Patient?s care impacted by: Hypertension Discharge Plan Discharge Clinical Impression: Chest pain Patient Disposition: Home, Self-Care Instructions: Chest Pain (ED) Prescriptions: No Action furosemide [Lasix] 20 mg tablet 20 mg PO QAM Qty: 30 0RF melatonin 5 mg tablet 5 mg PO BEDTIME PRN (Reason: insomnia) cyanocobalamin (vitamin B-12) 1,000 mcg tablet 1,000 mcg PO DAILY mirtazapine 30 mg tablet 30 mg PO BEDTIME cholecalciferol (vitamin D3) 50 mcg (2,000 unit) tablet 50 mcg PO DAILY albuterol sulfate 90 mcg/actuation HFA aerosol inhaler 90 mcg inhalation Q OTHER DAY omeprazole 20 mg capsule,delayed release(DR/EC) 20 mg PO DAILY Flovent HFA 110 mcg/actuation HFA aerosol inhaler 1 puff inhalation BID docusate sodium [Stool Softener] 100 mg capsule 100 mg PO BID PRN (Reason: Constipation) Eliquis 5 mg tablet 5 mg PO BID metoprolol succinate 50 mg tablet extended release 24 hr 50 mg PO BID Rx Instructions: Please call and schedule an appointment for refills montelukast 10 mg tablet 10 mg PO QPM rosuvastatin 10 mg tablet 10 mg PO BEDTIME folic acid 1 mg tablet 1 mg PO DAILY albuterol sulfate 2.5 mg /3 mL (0.083 %) solution for nebulization 2.5 mg inhalation Q6H PRN (Reason: Shortness Of Breath) Referrals: Yasmeen Willams MD [Primary Care Provider] - 3 days
[2022-09-25 12:04] VITALS: PULSE 61; PULSE 62; O2SAT 97
--- NOTE | 2022-09-25 12:06 | PC.NURSE ---
Pt is alert/oriented. Reports mid chest pain burning and heaviness since Saturday worse last night. States symptomatic at cardiac rehab yesterday with elevated hr and SOB. Cardiac rehab followed up with pt today encouraging her to call EMS which prompted pts visit here. At this time pt rates pain 11/22. Skin pwd. NSR on tele A paced. LS clear. Speaking full sentences. IV placed by portable clinic at home. Pt reports no change s/p nitro given. Pt reports left shoulder discomfort, SOB and lightheaded. Mild LE swelling, pt reports swelling has been worse in past but a little more than her usual.
[2022-09-25 12:40] LABS: MANUAL DIFF FLAG NO
[2022-09-25 12:42] LABS: Basophils Percent Auto 0.4 % (0-2); Eosinophils Absolute Auto 0.1 X10*3/uL (0.0-0.4); Eosinophils Percent Auto 2.6 % (0-4); Hematocrit 31.1 % (37.0-47.0); Imm Gran Abs Auto 0.02 X10*3/uL (0.00-0.03); Imm Gran Pct Auto 0.4 % (0.0-0.4); Lymphocytes Absolute Auto 0.9 X10*3/uL (1.2-4.9); Lymphocytes Percent Auto 17.1 % (20-40); Mean Corpuscular HGB Conc 32.2 g/dl (31.0-35.0); Mean Corpuscular Hemoglobin 29.8 pg (27.0-33.0); Mean Corpuscular Volume 92.6 fL (80.0-98.0); Monocytes Absolute Auto 0.6 X10*3/uL (0.1-1.2); Monocytes Percent Auto 10.6 % (2-11); Neutrophils Absolute Auto 3.7 x10*3/uL (2.0-8.3); Neutrophils Percent Auto 68.9 % (45-73); Platelet Count 155 X10*3/uL (160-400); Red Blood Count 3.36 X10*6/uL (4.20-5.50); Red Cell Distribution Width 12.6 % (11.0-16.0); White Blood Count 5.4 X10*3/uL (4.8-10.8)
[2022-09-25 12:59] LABS: Anion Gap 11 (12-20); Blood Urea Nitrogen 16 mg/dL (9-16); Calcium 9.8 mg/dL (8.4-10.2); Carbon Dioxide 27 mmol/L (22-29); Chloride 106 mmol/L (96-108); Creatinine Clr Calc Pharmacy 55.2; Estimated Glomerular Filt Rate > 60; Glucose Random 95 mg/dL (60-115); Potassium 4.3 mmol/L (3.3-5.1); Sodium 140 mmol/L (135-145)
[2022-09-25 13:03] LABS: B Type Natriuretic Peptide 248 pg/mL (<100)
[2022-09-25 13:07] LABS: Troponin-I High Sensitivity 5.6 ng/L (<3.5-17.0)
--- NOTE | 2022-09-25 13:52 | PC.NURSE ---
Alert and oriented, resting comfortably in bed at this time. States ambulated to the bathroom but still feels a burning sensation on her chest.
[2022-09-25 14:14] VITALS: BP 104/53; PULSE 64; RESP 13; TEMP 36.9; O2SAT 98
--- NOTE | 2022-09-25 16:27 | PC.NURSE ---
Alert and oriented. Discharge plan reviewed with grandson and patient who verbalized understanding
== END 2022-09-25 16:26 | disposition home or self-care (01) ==
PROVIDERS: Emergency Provider Emergency Medicine; PCP General Practice
DX: R07.89 Other chest pain (principal); R06.02 Shortness of breath; Z87.891 Personal history of nicotine dependence; I25.10 Atherosclerotic heart disease of native coronary artery without angina pectoris; Z79.01 Long term (current) use of anticoagulants; Z79.899 Other long term (current) drug therapy
CPT/HCPCS: 36415; 71045; 80048; 83880; 84484; 85025; 93005; 99283; 99285

== ENCOUNTER 2023-01-07 14:46 | Outpatient (AMB) | payer OTHER, SELFPAY ==
[2022-07-13 12:51] VITALS: BP 126/56; BP 142/76
[2022-09-04 13:32] VITALS: BP 104/56; BMI 32.5
--- NOTE | 2023-01-07 15:12 | MHC.OFFVIS ---
Intake Vital Signs 01/07/23 15:13 Height 5 ft 3 in Weight 179 lb BMI 31.7 BP 110/64 Blood Pressure Location Lt brachial Position Sitting Pulse 75 Pulse Source Pulse Oximeter Pulse Oximetry (%) 99 Oxygen Delivery Method Room Air Intake Visit Reasons: Obstructive sleep apnea Intake Note: pt is here for follow up and is using oxygen at night, today she feels little tight/burning in chest before leaving her house. 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: No Allergies No Known Allergies [No Known Allergies*] Allergy (Verified 01/07/23 15:31) Medication List - Last Reconciled 01/07/23 by Emmanuel Cifuentes MD albuterol sulfate 90 mcg/actuation 90 mcg inhalation Q OTHER DAY albuterol sulfate 2.5 mg inhalation Q6H PRN apixaban (Eliquis) 5 mg PO BID cholecalciferol (vitamin D3) 50 mcg PO DAILY docusate sodium (Stool Softener) 100 mg PO BID PRN fluticasone propionate 110 mcg/actuation (Flovent HFA) 1 puff inhalation BID PRN folic acid 1 mg PO DAILY furosemide (Lasix) 20 mg PO QAM melatonin 5 mg PO BEDTIME PRN metoprolol succinate ER 50 mg PO DAILY mirtazapine 30 mg PO BEDTIME montelukast 10 mg PO QPM omeprazole 20 mg PO DAILY rosuvastatin 10 mg PO BEDTIME Do you need a note to return to daycare/school/sports/work: No HPI Obstructive sleep apnea HPI Details 77 years old very pleasant female comes after 6 months for follow-up. She has mild bronchial asthma for which she uses albuterol just as needed. She was also on Flovent but has not been. using it Claims that breathing has been stable, except that on certain days she has some tightness in the chest, which is relieved by using albuterol. She is sleeping at night with oxygen 2 L/minute and sleeps good. She denies any frequent awakening and also denies. Daytime sleepiness She is a case of obstructive sleep apnea was supposed to use BiPAP and oxygen. But could not use the BiPAP. So she is doing well just on oxygen 2 L/minutes. She has been losing weight in small amounts. She say is her cardiac status has remained very stable. And does not retain any fluid. [facility] Medical History Nocturnal hypoxemia SHORTY (obstructive sleep apnea) COPD (chronic obstructive pulmonary disease) (Unknown) Cardiomyopathy Insomnia GERD (gastroesophageal reflux disease) Hypercholesteremia Asthma Hypertension Surgical History History of heart surgery History of implantable cardioverter-defibrillator (ICD) insertion Family History Son No problems noted. Son No problems noted. Son No problems noted. Son No problems noted. Mother Diabetes Paternal Grandmother Ovarian cancer Social History Household Members: None Housing: Apartment Are you a primary rn wound care to a significant other at home: No Do you presently have visiting nurse or other home services: No Alcohol intake: never Patient Tobacco Use Status: Former Tobacco user Quit Date: 2020 Cigarette Packs Per Day: 0.5 Years Smoked: 5 service: No Current occupational status: retired Review of Systems Const All systems reviewed & are unremarkable except as noted in HPI and below Eyes Reports no additional complaints ENT Reports no additional complaints Card Denies chest pain, Denies irregular heart rhythm, Denies leg edema and Reports dyspnea on exertion Resp Reports as per HPI and Reports dyspnea on exertion GI Reports heartburn (Symptoms of GERD being treated with omeprazole) Reports no additional complaints Musc Reports no additional complaints Skin/Breast Reports system reviewed and no additional complaints, except as documented Neuro Reports no additional complaints Psych Reports depression Endo Reports no additional complaints Physical Exam Vital Signs: Last Vital Signs Pulse 75 01/07/23 15:13 BP 110/64 01/07/23 15:13 Pulse Ox 99 01/07/23 15:13 Oxygen Delivery Method Room Air 01/07/23 15:13 BMI result Body Mass Index 31.7 Const General: comfortable, no acute distress, alert and awake Orientation/consciousness: patient oriented x3 HEENT Head: Yes normal to inspection General nose exam: No nasal polyps present and No nasal discharge present Face and sinus: Yes sinuses nontender Mouth: oropharynx normal Throat: Yes posterior oropharynx normal Eyes General: appearance normal, both eyes and all related structures Neck Neck: Yes normal visual inspection, Yes no lymphadenopathy, Yes trachea midline and Yes no JVD Thyroid: Thyroid normal Chest Chest palpation & inspection: normal inspection of the chest, normal palpation of entire chest wall and no tenderness Resp Other: Percussion note resonant, breath sounds are slightly distant. No audible wheezes rhonchi or crepitations. Cardio Palpation: normal PMI Rate: regular rate Rhythm: regular rhythm Heart sounds: no gallops and Murmur heart sound present (Loud systolic murmur over the aortic area and LSB.) GI Palpation (GI): Soft to palpation, nontender, No hepatosplenomegaly present and no masses Auscultation: normal bowel sounds Back/Spine/Pelvis Thoracic/Lumbar Spine: thoracic and lumbar spine normal to inspection Skin General skin exam: no rashes or lesions noted Neuro General: patient oriented x3 and no focal motor deficits Cranial nerves: Yes CN's II-XII intact bilaterally Extrem General: Yes normal to inspection, Yes no clubbing, cyanosis or edema and Yes no calf tenderness Psych Appearance: grossly normal and well kempt Speech and movement: Normal speech and movement present Assessment & Plan Assessment & Plan (1) Asthma: Comment: PULMONARY FUNCTION TEST WAS NEGATIVE FOR ANY SIGNIFICANT COPD, OR REVERSIBLE BRONCHOSPASM. SHE COULD STILL HAVE MILD BRONCHIAL ASTHMA. SHE HAS STOPPED USING THE FLOVENT, USES ALBUTEROL JUST P.R.N.. [place]: ALBUTEROL HFA 2 PUFFS Q 4-6 HOURS ONLY P.R.N. ( NOT ON REGULAR BASIS) Code(s): J45.909 - Unspecified asthma, uncomplicated (2) SHORTY (obstructive sleep apnea): Comment: PATIENT IS A KNOWN CASE OF OBSTRUCTIVE SLEEP APNEA WELL NOCTURNAL HYPOXEMIA. SHE HAD CPAP TITRATION IN THE SLEEP LAB LAST YEAR AND REQUIRED BIPAP, WHICH SHE WAS NOT ABLE TO USE LATER ON. FOR NOCTURNAL HYPOXEMIA SHE HAS BEEN USING O2 2 L/MINUTE EVERY NIGHT REGULARLY SHE CLAIMS THAT SHE SLEEPS GOOD AND WAKES REFRESHED. Code(s): G47.33 - Obstructive sleep apnea (adult) (pediatric) (3) Nocturnal hypoxemia: Comment: THIS WAS PART OF SLEEP APNEA. PATIENT WAS NOT ABLE TO USE THE BIPAP. NOW SHE IS ADVISED TO USE OXYGEN AT LEAST 2 L/MINUTE AT NIGHT. Code(s): G47.34 - Idiopathic sleep related nonobstructive alveolar hypoventilation (4) HOCM (hypertrophic obstructive cardiomyopathy): Comment: Patient being followed by cardiology service. Code(s): I42.1 - Obstructive hypertrophic cardiomyopathy Coding Level of Care Code Est Pt Level 3 (75641) Diagnoses Asthma J45.909 SHORTY (obstructive sleep apnea) G47.33 Nocturnal hypoxemia G47.34 HOCM (hypertrophic obstructive cardiomyopathy) I42.1
[2023-01-07 15:13] VITALS: BP 110/64; PULSE 75; O2SAT 99; BMI 31.7
== END 2023-01-07 15:37 | disposition home or self-care (01) ==
PROVIDERS: Visit Provider Internal Medicine
DX: J45.909 Unspecified asthma, uncomplicated (principal); G47.33 Obstructive sleep apnea (adult) (pediatric); G47.34 Idiopathic sleep related nonobstructive alveolar hypoventilation; I42.1 Obstructive hypertrophic cardiomyopathy
CPT/HCPCS: 99213

== ENCOUNTER → 2023-01-07 14:46 | Outpatient (BNVA) | payer OTHER, SELFPAY ==
[2022-07-13 12:51] VITALS: BP 126/56; BP 142/76
[2023-01-07 14:46] VITALS: BP 114/64; BMI 32.9
== END ==
PROVIDERS: Visit Provider Internal Medicine
DX: J45.909 Unspecified asthma, uncomplicated (principal); G47.33 Obstructive sleep apnea (adult) (pediatric); G47.34 Idiopathic sleep related nonobstructive alveolar hypoventilation; I42.1 Obstructive hypertrophic cardiomyopathy
CPT/HCPCS: 99212

== ENCOUNTER 2023-02-01 13:00 | Outpatient (RCR) | payer OTHER, SELFPAY ==
[2022-07-13 12:51] VITALS: BP 126/56; BP 142/76; BMI 32.5
--- NOTE | 2022-07-13 14:42 | MHC.CR.ITI ---
[address] [phone] F: [phone] Please see additional notes from [facility] Initial Assessment/ITP Cardiac Rehab Initial Assessment/ITP Start: 07/12/22 09:48 Freq: Status: Active Protocol: Activity Type Activity Date Activity User E-sign Co-sign Detail Recorded Client Recorded Date Recorded By Document 07/13/22 12:51 KAITLIN [id number] 07/13/22 13:54 KAITLIN 07/13/22 12:51 Cardiac Rehab ITP Initial [Excercise] -Dumpster Operator Required No -Preferred Language Persian -Number of sessions approved 36 -Diagnosis Current Stable Angina I20.9 -Other Diagnosis PAF with dual chamber PPM ICD , HF, HTN, HLD -Comments ASTHMA, COPD, GERD, INSOMNIA, SHORTY [Functional Assessment] -6 Min Walk (distance in ft) 800 -METS Achieved 2.16 -Resting HR 80 -Resting BP 126/56 -Resting SpO2 95 -Exercise HR 95 -Exercise BP 142/76 -Exercise SpO2 98 -RPE 12 -Dyspnea No -ECG Summary SR -Comments NO PACING NOTED [Pre Rehab] -Pre Rehab Home Exercise Yes -Mode LEG EX'S -Exercise Minutes/Day 15 -Exercise Days/Week 5 -Intensity LIGHT -Comments WAS EX REGULARLY UNTIL 3 WEEKS AGO -Risk Stratification: Low Risk No significant Participants left ventricular dysfunction (EF > = 30%) -Fall Risk Yes -Assistive Devices None -Comments WALKS INDEPENDENTLY BUT HAS MILDLY UNSTEADY GAIT AND HX OF LIGHTHEADEDNESS /DIZZINESS [Exercise Plan] [Intervention] -Exercise Prescription NuStep, Recumbent Bike, Recumbent Elliptical, Rower,Treadmill ,UBE,Upright Bike,Weights -Duration Intensity 0.5-1.0 METS -Frequency 2-3x/week -Angina with Exercise No [Exercise Education] -Exercise Education Exercise orientation, Exercise safety ,Home exercise, RPE,Self pulse checking,Signs and symptoms, Warmup/cooldown -Date Completed 07/13/22 -Initials CPS -Education Summary TODAY AND ONGOING THROUGHOUT REHAB [Exercise Goals] -Exercise Most Days of the Week Yes -Exercise 30-45 mins/day Yes -Target HR Range +20 - +30 beats above resting -Target RPE range 11-13 -Increase METS next 30 days 0.5-1.0 METS Every two weeks -METs goal by Discharge 4 METS -Comments SHE PERSONALLY WOULD LIKE TO EXERCISE DAILY WITHOUT DIZZINESS [Nutrition] [Hyperlipidemia] -Hyperlipidemia Yes -Are lab results available No [Diabetes] -Diabetes No -Are lab results available Yes -HbA1C 5.70 -Date 10/08/21 -Monitors Glucose No [Weight Management] -Height 5 ft 2 in -Weight 83.2 kg -BMI 32.5 -Recommended Diet DASH, LOW SODIUM -Comments SHE TRIES TO EAT HEALTHY DIET AND IS VERY OPEN TO EDUCATION [Drug/Alchohol Use] -Drug/Alcohol Use No -Comment DOES NOT DRINK DUE TO MEDICATION [Nutritional Screen (Rate Your Plate)] -Score 35 -Interpretation of Score THERE ARE WAYS TO HELP DIET TO BE HEALTHIER -Comments SHE WOULD LIKE MORE INFORMATION ON BETTER EATING [Nutrition Plan] [Intervention] -Referral(s) Nutrition Brochures [Nutrition Education] -Nutrition Education Hydration, Nutrition, Reading food labels,Signs and symptoms of Hypo/Hyper- glycemia -Date Completed 07/13/22 -Initials CSP -Education Summary TODAY AND ONGOING [Nutrition Goals] -Goals BMI < 25, Fasting BG 80- 120 mg/dL,HDL > 40,LDL < 70, Total CHOL < 200 -Weight goal 178 -Comments SHE WOULD LIKE TO LOSE SOME WEIGHT [Psycho/Social] -Stage of Change Contemplation, Maintenance,Pre -Contemplation -Learning Barriers None -Occupation Retired -Job Description WORKED IN [employer] -PHQ9 Score 10 -Interpretation of Score AT RISK FOR DEPRESSION -Plan of Action/Follow-up [place] [facility] [employer] [facility] AND ALSO LEANS ON [employer] FOR SUPPORT. USES PRAYER. -Comments FEELS COMFORTABLE REACHING OUT IF MOOD DECLINES -Patient Self-Reports Depression No: I DON'T FEEL DEPRESSED AT ALL -Family Support SON -Comments JUST LACKS ENERGY AND MOTIVATION AT TIMES [Psycho/Social Plan] [Intervention] -Referral(s) Receiving counseling [Psycho/Social Education] -Psycho/Social Education Advanced directives, Coping techniques, Depression and CAD,Positive support system, Relaxation Techniques, Reviewed PHQ9 Score w/pt, Sexuality and CAD,Signs and symptoms of CAD ,Stress management -Date Completed 07/13/22 -Initials CSP -Education Summary TODAY AND ONGOING DURING REHAB SESSIONS [Psycho/Social Goals] -Goals Improve depression screen score, Manage/reduce stress -Comments SHEI SHOPEFUL THAT EXERCISE IMPROVES HER ENERGY LEVEL [Other Core Comp] [Risk Factors] -Risk Factors Diabetes, Dyslipidemia, Family History of CAD, Hypertension, Obesity, Physical Inactivity -Comments: FATHER HAD HEART ATTACK, OF CAD [Hypertension] -Hypertention Yes [Tobacco Use] -Patient Tobacco Use Status Former Tobacco user -Smoking packs per day 0.5 -Years smoked 5 -Patient Interested in Nicotine No Replacement -Smoking Quit Date 2020 -Exposure to secondhand smoke No -Comments SON THAT LIVES WITH HER SMOLES OUTSIDE HAS OYGEN IN HOME SLEEPS WITH IT AT NIGHT. SLEEP APNEA MACHINE TAKEN AWAY DUE TO NOT USING [Heart Failure] -Heart Failure Yes -EF% 55 -Dyspnea at Rest No -Dyspnea with Exercise No -Last Hospitalization 2021 -Comments HAD PACE MAKER PLACED IN SEPTEMBER 2021 [Other Core Comp Plan] [Intervention] -Referral(s) Self Monitoring BP [Other Core Comp Education] -Other Core Comp Education HF Disease progression, Medication compliance,Risk factor modifications, RPD Scale/SOB management, Smoking and CAD ,Tobacco triggers, Understanding hypertension, Not Applicable -Date Completed 07/13/22 -Initials CSP -Education Summary MINIMAL EDUCATION ON HF ADDRESSED TODAY. PAMPHLETS GIVEN AND FURTHER EDUCATION TO OCCUR AT NEXT VISIT AND THEN ONGOING WELL [Other Core Comp Goals] -Goals Improve dyspnea ,Manage risk factors,Manage signs and symptoms of CHF ,Medication compliance, Resting BP < 130/80,Tobacco cessation,Not Applicable -Comments TODAY AND ONGOING SHE HAS BASIC UNDERSTANDING OF HF AND IS OPEN TO FURTHER LEARNING [Medication Plan] [Intervention] -Medications ALBUTEROL 90MCG INHALER PRN Q4HRS AMIONDERONE 200 MG DAILY APIXABAN 5 MG BID CHOLECALCIFEROL 50 MCG DAILY DOCUSATE 100 MG BID FUROSEMIDE 20 MG DAILY ( TITRATE DOES TO 40 MG FOR INCREASED WATER RETENTION FOR A FEW DAYS AT ATIME) MELATONIN 5 MG HS METOPROLOL ER 50 MG DAILY MIRTAZEPINE 30 MG HS MONTELUKAST 10 MG HS OMEPRASOLE 20 MG DAILY ROSUVATATIN 5 MG DAILY -Compliance Patient reports compliance w/ prescribed meds [Medication Education] -Education Importance of medication compliance, Medication purpose, Medication schedule, Medication side effects -Date Completed 07/13/22 -Initials CSP -Education Summary UNDERSTANDS MOST MEDICATIONS. TODAY AND ONGOING. [Medication Goals] -Goals Adherence to medication compliance -Comments CONTINUED MED COMPLIANCE [Treatment Times] -Rehab Services with ECG Monitor -Time 1315 -End Time 1430 -Visit Duration 75
[2022-08-07 09:02] VITALS: BP 104/56; BMI 32.5
--- NOTE | 2022-08-07 09:45 | MHC.CR.ITR ---
[address] [phone] F: [phone] Please see additional notes from [facility] Reassessment/ITP Cardiac Rehab Reassessment/ITP Start: 07/12/22 09:48 Freq: Status: Active Protocol: Activity Type Activity Date Activity User E-sign Co-sign Detail Recorded Client Recorded Date Recorded By Document 08/07/22 09:02 VANE Desktop 08/07/22 09:44 VANE 08/07/22 09:02 Cardiac Rehab Reassessment/ITP [Exercise] -Nursing Home Director Required No -Preferred Language Slovak -Progress Note Type 30-Day Note -Total Sessions Attended 3 -Comments ASTHMA, COPD, GERD, INSOMNIA, SHORTY ATTENDANCE HAS BEEN SPORADIC DUE TO VARIOUS MEDICAL CONDITIONS (NOT CR RELATED) AND TRANSPORTATION ISSUES [Functional Assessment] -ECG Summary SR -Home-Based Rehab Pt approved for home-based exercise -Comments [facility] DID LIGHT LEG EXERCISES 15 MINUTES/ DAY, 5 DAYS/ WEEK UP UNTIL 3 WEEKS BEFOR INTAKE. -Fall Risk Yes [Exercise Plan] [Intervention] -Exercise Prescription NuStep, Recumbent Bike, Recumbent Elliptical, Rower,Treadmill ,UBE,Upright Bike,Weights -Duration Intensity 0.5-1.0 METS -Angina with Exercise No [Home Exercise] -Mode WALK -Frequency DAILY -Intensity MODERATE -Comments ENCOURAGED TO INCREADSE DURATION OF HOME WALKING [Exercise Education] -Exercise Education Exercise orientation, Exercise safety ,Home exercise, RPE,Self pulse checking,Signs and symptoms, Warmup/cooldown -Date Completed 07/13/22 -Initials CPS -Education Summary TODAY AND ONGOING THROUGHOUT REHAB [Exercise Goals] -Exercise Most Days of the Week Yes -Exercise 30-45 mins/day Yes -Target HR Range +20 - +30 beats above resting -Target RPE range 11-13 -Increase METS next 30 days 0.5-1.0 METS Every two weeks -METs goal by Discharge 4 METS -Comments SHE PERSONALLY WOULD LIKE TO EXERCISE DAILY WITHOUT DIZZINESS [Nutrition] [Hyperlipidemia] -Are lab results available No -Hyperlipidemia Yes [Diabetes] -Diabetes No -HbA1C 5.70 -Date 10/08/21 [Weight Management] -Weight 83.2 kg -BMI 32.5 -Comments SHE TRIES TO EAT HEALTHY DIET AND IS VERY OPEN TO EDUCATION [Drug/Alchohol Use] -Drug/Alcohol Use No -Comment DOES NOT DRINK DUE TO MEDICATION [Nutrition Plan] [Intervention] -Attended Nutrition Brochures [Nutrition Education] -Nutrition Education Hydration, Nutrition, Reading food labels,Signs and symptoms of Hypo/Hyper- glycemia -Date Completed 07/13/22 -Initials CSP -Education Summary TODAY AND ONGOING [Nutrition Goals] -Goals BMI < 25, Fasting BG 80- 120 mg/dL,HDL > 40,LDL < 70, Total CHOL < 200 -Weight goal 178 -Comments SHE WOULD LIKE TO LOSE SOME WEIGHT [Psycho/Social] -Stage of Change Contemplation, Maintenance,Pre -Contemplation -Occupation Retired -PHQ9 Score 10 -Interpretation of Score AT RISK FOR DEPRESSION -Plan of Action/Follow-up [facility]IP[facility] ACTIVELY IN [employer] [facility] MONTH AND ALSO LEANS ON [employer] FOR SUPPORT. USES PRAYER. -Patient Self-Reports Depression No: I DON'T FEEL DEPRESSED AT ALL -Comments FEELS COMFORTABLE REACHING OUT IF MOOD DECLINES [Psycho/Social Plan] [Intervention] -Attended Receiving counseling [Psycho/Social Education] -Psycho/Social Education Advanced directives, Coping techniques, Depression and CAD,Positive support system, Relaxation Techniques, Reviewed PHQ9 Score w/pt, Sexuality and CAD,Signs and symptoms of CAD ,Stress management -Date Completed 07/13/22 -Initials CSP -Education Summary TODAY AND ONGOING DURING REHAB SESSIONS [Psycho/Social Goals] -Goals Improve depression screen score, Manage/reduce stress -Comments SHE IS HOPEFUL THAT EXERCISE IMPROVES HER ENERGY LEVEL [Other Core Comp] [Hypertension] -Hypertention Yes -Resting BP: 104/56 -Medication Changes No [Tobacco Use] -Change in Use No -Comments SON THAT LIVES WITH HER SMOLES OUTSIDE HAS OYGEN IN HOME SLEEPS WITH IT AT NIGHT. 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 PAMPHLETS GIVEN AND FURTHER EDUCATION TO OCCUR AT NEXT VISIT AND THEN ONGOING WELL [Other Core Comp Goals] -Goals Improve dyspnea ,Manage risk factors,Manage signs and symptoms of CHF ,Medication compliance, Resting BP < 130/80,Tobacco cessation,Not Applicable -Comments TODAY AND ONGOING SHE HAS BASIC UNDERSTANDING OF HF AND IS OPEN TO FURTHER LEARNING [Medication Plan] [Intervention] -Medications ALBUTEROL 90MCG INHALER PRN Q4HRS AMIONDERONE 200 MG DAILY APIXABAN 5 MG BID CHOLECALCIFEROL 50 MCG DAILY DOCUSATE 100 MG BID FUROSEMIDE 20 MG DAILY ( TITRATE DOES TO 40 MG FOR INCREASED WATER RETENTION FOR A FEW DAYS AT ATIME) MELATONIN 5 MG HS METOPROLOL ER 50 MG DAILY MIRTAZEPINE 30 MG HS MONTELUKAST 10 MG HS OMEPRASOLE 20 MG DAILY ROSUVATATIN 5 MG DAILY -Compliance Patient reports compliance w/ prescribed meds [Medication Education] -Education Importance of medication compliance, Medication purpose, Medication schedule, Medication side effects -Date Completed 07/13/22 -Initials CSP -Education Summary UNDERSTANDS MOST MEDICATIONS. TODAY AND ONGOING. [Medication Goals] -Goals Adherence to medication compliance -Comments CONTINUED MED COMPLIANCE
[2022-09-04 13:32] VITALS: BP 104/56; BMI 32.5
--- NOTE | 2022-09-04 13:43 | MHC.CR.ITR ---
[address] [phone] F: [phone] Please see additional notes from [facility] Reassessment/ITP Cardiac Rehab Reassessment/ITP Start: 07/12/22 09:48 Freq: Status: Active Protocol: Activity Type Activity Date Activity User E-sign Co-sign Detail Recorded Client Recorded Date Recorded By Document 09/04/22 13:32 KAITLIN Desktop 09/04/22 13:43 KAITLIN 09/04/22 13:32 Cardiac Rehab Reassessment/ITP [Exercise] -Commissary Steward Required No -Preferred Language Romansh -Progress Note Type 60-Day Note -Total Sessions Attended 7 -Comments ASTHMA, COPD, GERD, INSOMNIA, SHORTY ATTENDANCE HAS BEEN SPORADIC DUE TO VARIOUS MEDICAL CONDITIONS (NOT CR RELATED) AND TRANSPORTATION ISSUES 60 day Reassessment: Gilless attendance has been inconsistent, and only has attended 4 more visits since last assessment . She has not attended since 08/22/2022. Progress is limited due to attendance. [Functional Assessment] -ECG Summary SR w/rare PVC'S -Home-Based Rehab Pt approved for home-based exercise -Comments [facility] DID LIGHT LEG EXERCISES 15 MINUTES/ DAY, 5 DAYS/ WEEK UP UNTIL 3 WEEKS BEFOR INTAKE. -Fall Risk Yes [Exercise Plan] [Intervention] -Exercise Prescription NuStep, Recumbent Bike, Recumbent Elliptical, Rower,Treadmill ,UBE,Upright Bike,Weights -Duration Intensity 36 Sessions -Exercise Minutes/Day 35 -Exercise Days/Week 1 -Angina with Exercise No -Peak METs 2.4 [Home Exercise] -Mode WALK -Frequency DAILY -Intensity MODERATE -Comments ENCOURAGED TO INCREADSE DURATION OF HOME WALKING [Exercise Education] -Exercise Education Exercise orientation, Exercise safety ,Home exercise, RPE,Self pulse checking,Signs and symptoms, Warmup/cooldown -Date Completed 07/13/22 -Initials CPS -Education Summary TODAY AND ONGOING THROUGHOUT REHAB 09/04/22 becoming more familiar with equip and goals of ex. [Exercise Goals] -Exercise Most Days of the Week Yes -Exercise 30-45 mins/day Yes -Target HR Range +20 - +30 beats above resting -Target RPE range 11-13 -Increase METS next 30 days 0.5-1.0 METS Every two weeks -METs goal by Discharge 4 METS -Comments SHE PERSONALLY WOULD LIKE TO EXERCISE DAILY WITHOUT DIZZINESS No reports of dizziness 09/04 [Nutrition] [Hyperlipidemia] -Are lab results available No -Hyperlipidemia Yes [Diabetes] -Diabetes No -HbA1C 5.70 -Date 10/08/21 [Weight Management] -Weight 83.2 kg -BMI 32.5 -Comments SHE TRIES TO EAT HEALTHY DIET AND IS VERY OPEN TO EDUCATION [Drug/Alchohol Use] -Drug/Alcohol Use No -Comment DOES NOT DRINK DUE TO MEDICATION [Nutrition Plan] [Intervention] -Attended Nutrition Brochures [Nutrition Education] -Nutrition Education Hydration, Nutrition, Reading food labels,Signs and symptoms of Hypo/Hyper- glycemia -Date Completed 07/13/22 -Initials CSP -Education Summary TODAY AND ONGOING [Nutrition Goals] -Goals BMI < 25, Fasting BG 80- 120 mg/dL,HDL > 40,LDL < 70, Total CHOL < 200 -Weight goal 178 -Comments SHE WOULD LIKE TO LOSE SOME WEIGHT [Psycho/Social] -Stage of Change Contemplation, Maintenance,Pre -Contemplation -Occupation Retired -PHQ9 Score 10 -Interpretation of Score AT RISK FOR DEPRESSION -Plan of Action/Follow-up PARTICIPATES ACTIVELY IN [employer] 1 TIME MONTH AND ALSO LEANS ON YARSANISM FOR SUPPORT. USES PRAYER. -Patient Self-Reports Depression No: I DON'T FEEL DEPRESSED AT ALL -Comments FEELS COMFORTABLE REACHING OUT IF MOOD DECLINES [Psycho/Social Plan] [Intervention] -Attended Receiving counseling [Psycho/Social Education] -Psycho/Social Education Advanced directives, Coping techniques, Depression and CAD,Positive support system, Relaxation Techniques, Reviewed PHQ9 Score w/pt, Sexuality and CAD,Signs and symptoms of CAD ,Stress management -Date Completed 07/13/22 -Initials CSP -Education Summary TODAY AND ONGOING DURING REHAB SESSIONS [Psycho/Social Goals] -Goals Improve depression screen score, Manage/reduce stress -Comments SHE IS HOPEFUL THAT EXERCISE IMPROVES HER ENERGY LEVEL [Other Core Comp] [Hypertension] -Hypertention Yes -Resting BP: 104/56 -Medication Changes No [Tobacco Use] -Change in Use No -Comments SON THAT LIVES WITH HER SMOLES OUTSIDE HAS OYGEN IN HOME SLEEPS WITH IT AT NIGHT. 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 PAMPHLETS GIVEN AND FURTHER EDUCATION TO OCCUR AT NEXT VISIT AND THEN ONGOING WELL [Other Core Comp Goals] -Goals Improve dyspnea ,Manage risk factors,Manage signs and symptoms of CHF ,Medication compliance, Resting BP < 130/80,Tobacco cessation,Not Applicable -Comments TODAY AND ONGOING SHE HAS BASIC UNDERSTANDING OF HF AND IS OPEN TO FURTHER LEARNING [Medication Plan] [Intervention] -Medications ALBUTEROL 90MCG INHALER PRN Q4HRS AMIONDERONE 200 MG DAILY APIXABAN 5 MG BID CHOLECALCIFEROL 50 MCG DAILY DOCUSATE 100 MG BID FUROSEMIDE 20 MG DAILY ( TITRATE DOES TO 40 MG FOR INCREASED WATER RETENTION FOR A FEW DAYS AT ATIME) MELATONIN 5 MG HS METOPROLOL ER 50 MG DAILY MIRTAZEPINE 30 MG HS MONTELUKAST 10 MG HS OMEPRASOLE 20 MG DAILY ROSUVATATIN 5 MG DAILY -Compliance Patient reports compliance w/ prescribed meds [Medication Education] -Education Importance of medication compliance, Medication purpose, Medication schedule, Medication side effects -Date Completed 07/13/22 -Initials CSP -Education Summary UNDERSTANDS MOST MEDICATIONS. TODAY AND ONGOING. Reports medication compliance [Medication Goals] -Goals Adherence to medication compliance -Comments CONTINUED MED COMPLIANCE
[2022-10-01 13:48] VITALS: BP 122/64; BMI 32.5
--- NOTE | 2022-10-01 14:02 | MHC.CR.ITR ---
[address] [phone] F: [phone] Please see additional notes from [facility] Cardiac Rehab Reassessment/ITP Cardiac Rehab Reassessment/ITP Start: 07/12/22 09:48 Freq: Status: Active Protocol: Activity Type Activity Date Activity User E-sign Co-sign Detail Recorded Client Recorded Date Recorded By Document 10/01/22 13:48 KAITLIN [id number] 10/01/22 13:53 KAITLIN 10/01/22 13:48 Cardiac Rehab Reassessment/ITP [Exercise] -Fertilizer Mixer Required No -Preferred Language Macedonian -Progress Note Type 60-Day Note -Total Sessions Attended 14 -Comments ASTHMA, COPD, GERD, INSOMNIA, SHORTY ATTENDANCE HAS BEEN SPORADIC DUE TO VARIOUS MEDICAL CONDITIONS (NOT CR RELATED) AND TRANSPORTATION ISSUES 60 day Reassessment: Gilless attendance has been inconsistent, and only has attended 4 more visits since last assessment . She has not attended since 08/22/2022. Progress is limited due to attendance. SHE HAS NOW COMPLETED 14 CR VISITS. MAX METS ACHIEVED IS 2. 75 AND 40 MIN OF EX AT LAST VISIT. SHE WILL BE OFF FOR THE REST OF THIS WEEK WITH FAMILY ENGAGEMENTS AND WILL RETURN NEXT WEEK. SHE IS COMPLIANT WITH MEDICATION AND EXPRESSES NO PERSONAL STRESS . 90 DAY REASSESSMENT : ATTENDANCE HAS IMPROVED. [Functional Assessment] -ECG Summary SR w/rare PVC'S -Home-Based Rehab Pt approved for home-based exercise -Comments STATEWS DID LIGHT LEG EXERCISES 15 MINUTES/ DAY, 5 DAYS/ WEEK UP UNTIL 3 WEEKS BEFOR INTAKE. -Fall Risk Yes [Exercise Plan] [Intervention] -Exercise Prescription NuStep, Recumbent Bike, Recumbent Elliptical, Rower,Treadmill ,UBE,Upright Bike,Weights -Duration Intensity 36 Sessions -Exercise Minutes/Day 35 -Exercise Days/Week 1 -Angina with Exercise No -Peak METs 2.4 [Home Exercise] -Mode WALK -Frequency DAILY -Intensity MODERATE -Comments ENCOURAGED TO INCREADSE DURATION OF HOME WALKING [Exercise Education] -Exercise Education Exercise orientation, Exercise safety ,Home exercise, RPE,Self pulse checking,Signs and symptoms, Warmup/cooldown -Date Completed 07/13/22 -Initials CPS -Education Summary TODAY AND ONGOING THROUGHOUT REHAB 09/04/22 becoming more familiar with equip and goals of ex. [Exercise Goals] -Exercise Most Days of the Week Yes -Exercise 30-45 mins/day Yes -Target HR Range +20 - +30 beats above resting -Target RPE range 11-13 -Increase METS next 30 days 0.5-1.0 METS Every two weeks -METs goal by Discharge 4 METS -Comments SHE PERSONALLY WOULD LIKE TO EXERCISE DAILY WITHOUT DIZZINESS No reports of dizziness 09/04 [Nutrition] [Hyperlipidemia] -Are lab results available No -Hyperlipidemia Yes [Diabetes] -Diabetes No -HbA1C 5.70 -Date 10/08/21 [Weight Management] -Weight 83.2 kg -BMI 32.5 -Comments SHE TRIES TO EAT HEALTHY DIET AND IS VERY OPEN TO EDUCATION [Drug/Alchohol Use] -Drug/Alcohol Use No -Comment DOES NOT DRINK DUE TO MEDICATION [Nutrition Plan] [Intervention] -Attended Nutrition Brochures [Nutrition Education] -Nutrition Education Hydration, Nutrition, Reading food labels,Signs and symptoms of Hypo/Hyper- glycemia -Date Completed 07/13/22 -Initials CSP -Education Summary TODAY AND ONGOING [Nutrition Goals] -Goals BMI < 25, Fasting BG 80- 120 mg/dL,HDL > 40,LDL < 70, Total CHOL < 200 -Weight goal 178 -Comments SHE WOULD LIKE TO LOSE SOME WEIGHT [Psycho/Social] -Stage of Change Contemplation, Maintenance,Pre -Contemplation -Occupation Retired -PHQ9 Score 10 -Interpretation of Score AT RISK FOR DEPRESSION -Plan of Action/Follow-up PARTICIPATES ACTIVELY IN [employer] 1 TIME MONTH AND ALSO LEANS ON [employer] FOR SUPPORT. USES PRAYER. -Patient Self-Reports Depression No: I DON'T FEEL DEPRESSED AT ALL -Comments FEELS COMFORTABLE REACHING OUT IF MOOD DECLINES [Psycho/Social Plan] [Intervention] -Attended Receiving counseling [Psycho/Social Education] -Psycho/Social Education Advanced directives, Coping techniques, Depression and CAD,Positive support system, Relaxation Techniques, Reviewed PHQ9 Score w/pt, Sexuality and CAD,Signs and symptoms of CAD ,Stress management -Date Completed 07/13/22 -Initials CSP -Education Summary TODAY AND ONGOING DURING REHAB SESSIONS [Psycho/Social Goals] -Goals Improve depression screen score, Manage/reduce stress -Comments SHE IS HOPEFUL THAT EXERCISE IMPROVES HER ENERGY LEVEL [Other Core Comp] [Hypertension] -Hypertention Yes -Resting BP: 122/64 -Medication Changes No -Comments RESTING BP A LITTLE HIGHER THAN LAST DOCUMENTATION. (10/01/2022) [Tobacco Use] -Change in Use No -Comments SON THAT LIVES WITH HER SMOLES OUTSIDE HAS OYGEN IN HOME SLEEPS WITH IT AT NIGHT. 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 PAMPHLETS GIVEN AND FURTHER EDUCATION TO OCCUR AT NEXT VISIT AND THEN ONGOING WELL [Other Core Comp Goals] -Goals Improve dyspnea ,Manage risk factors,Manage signs and symptoms of CHF ,Medication compliance, Resting BP < 130/80,Tobacco cessation,Not Applicable -Comments TODAY AND ONGOING SHE HAS BASIC UNDERSTANDING OF HF AND IS OPEN TO FURTHER LEARNING [Medication Plan] [Intervention] -Medications ALBUTEROL 90MCG INHALER PRN Q4HRS AMIONDERONE 200 MG DAILY APIXABAN 5 MG BID CHOLECALCIFEROL 50 MCG DAILY DOCUSATE 100 MG BID FUROSEMIDE 20 MG DAILY ( TITRATE DOES TO 40 MG FOR INCREASED WATER RETENTION FOR A FEW DAYS AT ATIME) MELATONIN 5 MG HS METOPROLOL ER 50 MG DAILY MIRTAZEPINE 30 MG HS MONTELUKAST 10 MG HS OMEPRASOLE 20 MG DAILY ROSUVATATIN 5 MG DAILY -Compliance Patient reports compliance w/ prescribed meds [Medication Education] -Education Importance of medication compliance, Medication purpose, Medication schedule, Medication side effects -Date Completed 07/13/22 -Initials CSP -Education Summary UNDERSTANDS MOST MEDICATIONS. TODAY AND ONGOING. Reports medication compliance [Medication Goals] -Goals Adherence to medication compliance -Comments CONTINUED MED COMPLIANCE
[2022-11-02 14:35] VITALS: BP 114/64; BMI 32.9
--- NOTE | 2022-11-02 15:25 | MHC.CR.ITR ---
[address] [phone] F: [phone] Please see additional notes from [facility] Reassessment/ITP Cardiac Rehab Reassessment/ITP Start: 07/12/22 09:48 Freq: Status: Active Protocol: Activity Type Activity Date Activity User E-sign Co-sign Detail Recorded Client Recorded Date Recorded By Document 11/02/22 14:35 ANISA [id number] 11/02/22 15:24 ANISA 11/02/22 14:35 Cardiac Rehab Reassessment/ITP [Exercise] -Congressional Representative Required No -Preferred Language Maltese -Progress Note Type 120-Day Note -Total Sessions Attended 17 -Comments ASTHMA, COPD, GERD, INSOMNIA, SHORTY ATTENDANCE HAS BEEN SPORADIC DUE TO VARIOUS MEDICAL CONDITIONS (NOT CR RELATED) AND TRANSPORTATION ISSUES 60 day Reassessment: Tabitha's attendance has been inconsistent, and only has attended 4 more visits since last assessment . She has not attended since 08/22/2022. Progress is limited due to attendance. SHE HAS NOW COMPLETED 14 CR VISITS. 120 Day: As above. Tabitha has completed 17 sessions. She expressed plan to be more consistent today. 120 Day-Tabitha has been somewhat inconsistent due to health issues and transportation. MAX METS ACHIEVED IS 2. 75 AND 40 MIN OF EX AT LAST VISIT. SHE WILL BE OFF FOR THE REST OF THIS WEEK WITH FAMILY ENGAGEMENTS AND WILL RETURN NEXT WEEK. SHE IS COMPLIANT WITH MEDICATION AND EXPRESSES NO PERSONAL STRESS . 90 DAY REASSESSMENT : ATTENDANCE HAS IMPROVED. [Functional Assessment] -ECG Summary SR w/rare PVC'S -Home-Based Rehab Pt approved for home-based exercise -Comments [facility] DID LIGHT LEG EXERCISES 15 MINUTES/ DAY, 5 DAYS/ WEEK UP UNTIL 3 WEEKS BEFOR INTAKE. 11/02/22- Stretches reviewed. States she has some intermittent difficulty with right leg feeling like it will give out. She is to discuss PT with PCP. No discomfort today in CR. Some stiffness noted with stretches. -Fall Risk Yes [Exercise Plan] [Intervention] -Exercise Prescription NuStep, Recumbent Bike, Recumbent Elliptical, Rower,Treadmill ,UBE,Upright Bike,Weights -Duration Intensity 36 Sessions -Exercise Minutes/Day 35 -Exercise Days/Week 2 -Angina with Exercise No -Peak METs 2.6 [Home Exercise] -Mode WALK -Frequency DAILY -Intensity MODERATE -Comments ENCOURAGED TO INCREADSE DURATION OF HOME WALKING [Exercise Education] -Exercise Education Exercise orientation, Exercise safety ,Home exercise, RPE,Self pulse checking,Signs and symptoms, Warmup/cooldown -Date Completed 07/13/22 -Initials CPS -Education Summary TODAY AND ONGOING THROUGHOUT REHAB 09/04/22 becoming more familiar with equip and goals of ex. 11/02/22- Equipment reviewed with Tabitha at her request. States she does not always remember instructions. S/S to report discussed. No complaints. [Exercise Goals] -Exercise Most Days of the Week Yes -Exercise 30-45 mins/day Yes -Target HR Range +20 - +30 beats above resting -Target RPE range 11-13 -Increase METS next 30 days 0.5-1.0 METS Every two weeks -METs goal by Discharge 4 METS -Comments SHE PERSONALLY WOULD LIKE TO EXERCISE DAILY WITHOUT DIZZINESS No reports of dizziness 09/0411/02/22-No dizziness. [facility]; medication being considered. She is working with insurance RN when issues arise at home. She had recent nosebleed; states MD/RN is aware. [Nutrition] [Hyperlipidemia] -Are lab results available No -Hyperlipidemia Yes -Medication Changes No [Diabetes] -Diabetes No -HbA1C 5.70 -Date 10/08/21 [Weight Management] -Weight 84.2 kg -BMI 32.9 -Comments SHE TRIES TO EAT HEALTHY DIET AND IS VERY OPEN TO EDUCATION [Drug/Alchohol Use] -Drug/Alcohol Use No -Change in Use No -Comment DOES NOT DRINK DUE TO MEDICATION [Nutrition Plan] [Intervention] -Attended Nutrition Brochures [Nutrition Education] -Nutrition Education Hydration, Nutrition, Reading food labels,Signs and symptoms of Hypo/Hyper- glycemia -Date Completed 07/13/22 -Initials CSP -Education Summary TODAY AND ONGOING 11/02/22-Water during class encouraged. [Nutrition Goals] -Goals BMI < 25, Fasting BG 80- 120 mg/dL,HDL > 40,LDL < 70, Total CHOL < 200 -Weight goal 178 -Comments SHE WOULD LIKE TO LOSE SOME WEIGHT. 11/02/22-Tabitha's attendance has been sporadic. She plans on being more consistent. Will review diet during sessions. [Psycho/Social] -Stage of Change Contemplation, Maintenance,Pre -Contemplation -Occupation Retired -PHQ9 Score 10 -Interpretation of Score AT RISK FOR DEPRESSION -Plan of Action/Follow-up PARTICIPATES ACTIVELY IN COUSELING 1 TIME MONTH AND ALSO LEANS ON JAINISM FOR SUPPORT. 11/02/22-Tabitha is [facility] and medication is being discussed for her anxiety/ depression. She is overwhelmed with her health issues and that her son is leaving for [place] for a month. USES PRAYER. -Patient Self-Reports Depression No: I DON'T FEEL DEPRESSED AT ALL -Comments 11/02/22-Patient reports recent anxiety/ depression. She is working with a support group and MD. She expresses medication is being discussed . FEELS COMFORTABLE REACHING OUT IF MOOD DECLINES 11/02/22-As above. Support given during class today. She is working with MD. Her medications are presently being reviewed before starting new medication per patient. [Psycho/Social Plan] [Intervention] -Attended Receiving counseling, Support group [Psycho/Social Education] -Psycho/Social Education Advanced directives, Coping techniques, Depression and CAD,Positive support system, Relaxation Techniques, Reviewed PHQ9 Score w/pt, Sexuality and CAD,Signs and symptoms of CAD ,Stress management -Date Completed 07/13/22 -Initials CSP -Education Summary TODAY AND ONGOING DURING REHAB SESSIONS 11/02/22-Handout given on coping and relaxation; handout reviewed. Patient teary today. Support given. [Psycho/Social Goals] -Goals Improve depression screen score, Manage/reduce stress -Comments SHE IS HOPEFUL THAT EXERCISE IMPROVES HER ENERGY LEVEL 11/02/22-Working with MD currently. Question if medication will be started. No SI or HI. Support given. [Other Core Comp] [Hypertension] -Hypertention Yes -Resting BP: 114/64 -Medication Changes No -Comments RESTING BP A LITTLE HIGHER THAN LAST DOCUMENTATION. (10/01/2022) 11/02/22-Resting BP 100/58 and 114/64 today. [Tobacco Use] -Change in Use No -Comments SON THAT LIVES WITH HER SMOLES OUTSIDE HAS OYGEN IN HOME SLEEPS WITH IT AT NIGHT. SLEEP APNEA MACHINE TAKEN AWAY DUE TO NOT USING [Heart Failure] -Heart Failure Yes -Dyspnea at Rest No -Dyspnea with Exercise No -Comments HAD PACE MAKER PLACED IN SEPTEMBER 2021. 11/02/22-No S/S of CHF. [Other Core Comp Plan] [Intervention] -Attended Self Monitoring BP [Other Core Comp Education] -Other Core Comp Education HF Disease progression, Medication compliance,Risk factor modifications, RPD Scale/SOB management, Smoking and CAD ,Tobacco triggers, Understanding hypertension, Not Applicable -Date Completed 07/13/22 -Initials CSP -Education Summary MINIMAL EDUCATION ON HF ADDRESSED TODAY. PAMPHLETS GIVEN AND FURTHER EDUCATION TO OCCUR AT NEXT VISIT AND THEN ONGOING WELL 11/02/22-No dyspnea. Not smoking. Medications being reviewed by MD. BP WNL today. [Other Core Comp Goals] -Goals Improve dyspnea ,Manage risk factors,Manage signs and symptoms of CHF ,Medication compliance, Resting BP < 130/80,Tobacco cessation,Not Applicable -Comments TODAY AND ONGOING SHE HAS BASIC UNDERSTANDING OF HF AND IS OPEN TO FURTHER LEARNING 11/02/22- Attendance has been sporadic. EXPRESSES PLAN TO BE MORE CONSISTENT. Will continue education each session. [Medication Plan] [Intervention] -Medications ALBUTEROL 90MCG INHALER PRN Q4HRS AMIONDERONE 200 MG DAILY APIXABAN 5 MG BID CHOLECALCIFEROL 50 MCG DAILY DOCUSATE 100 MG BID FUROSEMIDE 20 MG DAILY ( TITRATE DOES TO 40 MG FOR INCREASED WATER RETENTION FOR A FEW DAYS AT ATIME) MELATONIN 5 MG HS METOPROLOL ER 50 MG DAILY MIRTAZEPINE 30 MG HS MONTELUKAST 10 MG HS OMEPRASOLE 20 MG DAILY ROSUVATATIN 5 MG DAILY -Compliance Patient reports compliance w/ prescribed meds [Medication Education] -Education Importance of medication compliance, Medication purpose, Medication schedule, Medication side effects -Date Completed 07/13/22 -Initials CSP -Education Summary UNDERSTANDS MOST MEDICATIONS. TODAY AND ONGOING. Reports medication compliance 11/02/22-S/S to report with Marthanitin discussed; states she had a recent nosebleed. No other bleeding. Beta Blockers also discussed. Will follow up next visit(pt. states meds being reviewed by MD) [Medication Goals] -Goals Adherence to medication compliance -Comments CONTINUED MED COMPLIANCE
[2023-03-27 14:59] VITALS: BP 126/66; BP 130/64; BMI 32.9
--- NOTE | 2023-03-27 15:18 | MHC.CR.ITD ---
[address] [phone] F: [phone] Please see additional notes from [facility] Discharge/ITP Cardiac Rehab Discharge/ITP Start: 07/12/22 09:48 Freq: Status: Active Protocol: Activity Type Activity Date Activity User E-sign Co-sign Detail Recorded Client Recorded Date Recorded By Document 03/27/23 14:59 KAITLIN Desktop 03/27/23 15:18 KAITLIN 03/27/23 14:59 Cardiac Rehab Discharge/ITP [Exercise] -Handy Worker Required No -Preferred Language Sinhala -Total Sessions Attended 36 -Comments ASTHMA, COPD, GERD, INSOMNIA, SHORTY ATTENDANCE HAS BEEN SPORADIC DUE TO VARIOUS MEDICAL CONDITIONS (NOT CR RELATED) AND TRANSPORTATION ISSUES 60 day Reassessment: Tabitha's attendance has been inconsistent, and only has attended 4 more visits since last assessment . She has not attended since 08/22/2022. Progress is limited due to attendance. SHE HAS NOW COMPLETED 14 CR VISITS. 120 Day: As above. Tabitha has completed 17 sessions. She expressed plan to be more consistent today. 120 Day-Tabitha has been somewhat inconsistent due to health issues and transportation. MAX METS ACHIEVED IS 2. 75 AND 40 MIN OF EX AT LAST VISIT. SHE WILL BE OFF FOR THE REST OF THIS WEEK WITH FAMILY ENGAGEMENTS AND WILL RETURN NEXT WEEK. SHE IS COMPLIANT WITH MEDICATION AND EXPRESSES NO PERSONAL STRESS . 90 DAY REASSESSMENT : ATTENDANCE HAS IMPROVED. Discharge summary: Errol has been inconsistent with attendance and actually has already completed 36 visits. Had he rcome in to complete discharge visit and get assessments completed. She completed PHQ9 , Rate my Plate and 6 min walk . [Functional Assessment] -6 Min Walk (distance in ft) 1,000 -Stress Test (Mode) walk -METS Achieved 2.46 -Resting HR 77 -Resting BP 130/64 -Resting SpO2 96 -Exercise HR 130 -Exercise BP 126/66 -Exercise SpO2 95 -RPE 11 -Dyspnea 0 -ECG Summary SR/ST w/rare PVC'S Pacing as well -Fall Risk Yes [Exercise Plan] [Intervention] -Exercise Prescription NuStep, Recumbent Bike, Recumbent Elliptical, Rower,Treadmill ,UBE,Upright Bike,Weights -Duration Intensity 36 Sessions -Exercise Minutes/Day 35 -Exercise Days/Week 3 -Angina with Exercise No -Peak METs 2.8 [Home Exercise] -Mode WALK -Frequency DAILY -Intensity MODERATE -Comments ENCOURAGED TO INCREADSE DURATION OF HOME WALKING She would like to return to [facility] for phase 3 rehab, however it is dependent on insurance coverage and transportation. [Exercise Education] -Exercise Education Exercise orientation, Exercise safety ,Home exercise, RPE,Self pulse checking,Signs and symptoms, Warmup/cooldown -Date Completed 07/13/22 -Initials CPS -Education Summary TODAY AND ONGOING THROUGHOUT REHAB 09/04/22 becoming more familiar with equip and goals of ex. 11/02/22- Equipment reviewed with Tabitha at her request. States she does not always remember instructions. S/S to report discussed. No complaints. discharge: pt understands she can obtain a pulse oximeter to monitor HR if she wants and reviewed taking self pulse. It is difficult for her. Her BP cuff does give HR. [Exercise Goals] -Exercise Most Days of the Week Yes -Exercise 30-45 mins/day Yes -Target HR Range +20 - +30 beats above resting -Target RPE range 11-13 -Increase METS next 30 days 0.5-1.0 METS Every two weeks -METs goal by Discharge 4 METS -Comments SHE PERSONALLY WOULD LIKE TO EXERCISE DAILY WITHOUT DIZZINESS No reports of dizziness 09/0411/02/22-No dizziness. [facility]; medication being considered. She is working with insurance RN when issues arise at home. She had recent nosebleed; states MD/RN is aware. Met of 2.8 achieved. Pt not consistent enough to make steady gradual gains. She has been out for almost a month. [Nutrition] [Hyperlipidemia] -Are lab results available No -Hyperlipidemia Yes -Comments no new labs available in [facility] at discharge . [Diabetes] -Diabetes No -HbA1C 5.70 -Date 10/08/21 -Comments No new labs available. [Weight Management] -Weight 84.2 kg -BMI 32.9 -Comments SHE TRIES TO EAT HEALTHY DIET AND IS VERY OPEN TO EDUCATION [Drug/Alchohol Use] -Drug/Alcohol Use No -Change in Use No -Comment DOES NOT DRINK DUE TO MEDICATION [Nutrition Plan] [Intervention] -Attended Nutrition Brochures [Nutrition Education] -Nutrition Education Hydration, Nutrition, Reading food labels,Signs and symptoms of Hypo/Hyper- glycemia -Date Completed 07/13/22 -Initials CSP -Education Summary TODAY AND ONGOING 11/02/22-Water during class encouraged. [Nutrition Goals] -Goals BMI < 25, Fasting BG 80- 120 mg/dL,HDL > 40,LDL < 70, Total CHOL < 200 -Weight goal 178 -Comments SHE WOULD LIKE TO LOSE SOME WEIGHT. 11/02/22-Tabitha's attendance has been sporadic. She plans on being more consistent. Will review diet during sessions. Discharge Rate my plate: 58 Showing that she is already implementing healthy eating life style. [Psycho/Social] -Stage of Change Contemplation, Maintenance,Pre -Contemplation -Occupation Retired -PHQ9 Score 6 -Interpretation of Score AT RISK FOR DEPRESSION -Plan of Action/Follow-up PARTICIPATES ACTIVELY IN [employer] [facility] 1 TIME MONTH AND ALSO LEANS ON [employer] FOR SUPPORT. 11/02/22-[facility] and medication is being discussed for her anxiety/ depression. She is overwhelmed with her health issues and that her son is leaving for [place] for a month. USES PRAYER. PHQ9 score down from a 10 to a 6. She states I feel so much better now , than when I started -Patient Self-Reports Depression No: I DON'T FEEL DEPRESSED AT ALL -Comments 11/02/22-Patient reports recent anxiety/ depression. She is working with a support group and MD. She expresses medication is being discussed . FEELS COMFORTABLE REACHING OUT IF MOOD DECLINES 11/02/22-As above. Support given during class today. She is working with MD. Her medications are presently being reviewed before starting new medication per patient. discharge: sees counselor as needed. -Medication Changes Yes: was put on med for allergies but then she stopped it. [Psycho/Social Plan] [Intervention] -Attended Receiving counseling, Support group [Psycho/Social Education] -Psycho/Social Education Advanced directives, Coping techniques, Depression and CAD,Positive support system, Relaxation Techniques, Reviewed PHQ9 Score w/pt, Sexuality and CAD,Signs and symptoms of CAD ,Stress management -Date Completed 07/13/22 -Initials CSP -Education Summary TODAY AND ONGOING DURING REHAB SESSIONS 11/02/22-Handout given on coping and relaxation; handout reviewed. Patient teary today. Support given. 01/02/23 session on Depression and positive support system and Relaxation. [Psycho/Social Goals] -Goals Improve depression screen score, Manage/reduce stress -Comments SHE IS HOPEFUL THAT EXERCISE IMPROVES HER ENERGY LEVEL 11/02/22-Working with MD currently. Question if medication will be started. No SI or HI. Support given. Discharge: pt is doing well emotionally. [Other Core Comp] [Hypertension] -Hypertention Yes -Resting BP: 130/64 -Medication Changes No -Comments RESTING BP A LITTLE HIGHER THAN LAST DOCUMENTATION. (10/01/2022) 11/02/22-Resting BP 100/58 and 114/64 today. Discharge Day. Resting BP a bit higher than usual. [Tobacco Use] -Change in Use No -Comments SON THAT LIVES WITH HER SMOLES OUTSIDE HAS OYGEN IN HOME SLEEPS WITH IT AT NIGHT. SLEEP APNEA MACHINE TAKEN AWAY DUE TO NOT USING [Heart Failure] -Dyspnea at Rest No -Dyspnea with Exercise No -Comments HAD PACE MAKER PLACED IN SEPTEMBER 2021. 11/02/22-No S/S of CHF. [Other Core Comp Plan] [Intervention] -Attended Self Monitoring BP [Other Core Comp Education] -Other Core Comp Education HF Disease progression, Medication compliance,Risk factor modifications, RPD Scale/SOB management, Smoking and CAD ,Tobacco triggers, Understanding hypertension, Not Applicable -Date Completed 07/13/22 -Initials CSP -Education Summary MINIMAL EDUCATION ON HF ADDRESSED TODAY. PAMPHLETS GIVEN AND FURTHER EDUCATION TO OCCUR AT NEXT VISIT AND THEN ONGOING WELL 11/02/22-No dyspnea. Not smoking. Medications being reviewed by MD. BP WNL today. Discharge: Reviewed over risk factor modification during last session. [Other Core Comp Goals] -Goals Improve dyspnea ,Manage risk factors,Manage signs and symptoms of CHF ,Medication compliance, Resting BP < 130/80,Tobacco cessation,Not Applicable -Comments TODAY AND ONGOING SHE HAS BASIC UNDERSTANDING OF HF AND IS OPEN TO FURTHER LEARNING 11/02/22- Attendance has been sporadic. EXPRESSES PLAN TO BE MORE CONSISTENT. Will continue education each session. Discharge: Pt is not afraid to self advocate. She has basic understanding of S%S of HF. [Medication Plan] [Intervention] -Medications ALBUTEROL 90MCG INHALER PRN Q4HRS AMIONDERONE 200 MG DAILY APIXABAN 5 MG BID CHOLECALCIFEROL 50 MCG DAILY DOCUSATE 100 MG BID FUROSEMIDE 20 MG DAILY ( TITRATE DOES TO 40 MG FOR INCREASED WATER RETENTION FOR A FEW DAYS AT ATIME) MELATONIN 5 MG HS METOPROLOL ER 50 MG DAILY MIRTAZEPINE 30 MG HS MONTELUKAST 10 MG HS OMEPRASOLE 20 MG DAILY ROSUVATATIN 5 MG DAILY -Compliance Patient reports compliance w/ prescribed meds [Medication Education] -Education Importance of medication compliance, Medication purpose, Medication schedule, Medication side effects -Date Completed 07/13/22 -Initials CSP -Education Summary UNDERSTANDS MOST MEDICATIONS. TODAY AND ONGOING. Reports medication compliance 11/02/22-S/S to report with Kathy discussed; states she had a recent nosebleed. No other bleeding. Beta Blockers also discussed. Will follow up next visit(pt. states meds being reviewed by MD) [Medication Goals] -Goals Adherence to medication compliance -Comments CONTINUED MED COMPLIANCE Discharge Reports good Med compliance.
== END 2023-04-02 06:58 | disposition home or self-care (01) ==
LOC: HO.CR 13:00
PROVIDERS: PCP General Practice; Visit Provider Internal Medicine Cardiovascular Disease
DX: I20.9 Angina pectoris, unspecified (principal); I42.2 Other hypertrophic cardiomyopathy; I48.0 Paroxysmal atrial fibrillation; I50.32 Chronic diastolic (congestive) heart failure
CPT/HCPCS: 93798

== ENCOUNTER 2023-05-10 10:26 | Outpatient (REF) | payer OTHER, SELFPAY | END 2023-05-10 10:27 | disposition home or self-care (01) | LOC: HO.MDS 10:26 | PROVIDERS: Visit Provider Internal Medicine Medical Oncology | DX: D50.9 Iron deficiency anemia, unspecified (principal) | CPT/HCPCS: 96365; J1756 ==

== ENCOUNTER 2023-05-20 13:58 | Outpatient (REF) | payer OTHER, SELFPAY | END 2023-05-20 13:59 | disposition home or self-care (01) | LOC: HO.MDS 13:58 | PROVIDERS: Visit Provider Internal Medicine Medical Oncology | DX: D50.9 Iron deficiency anemia, unspecified (principal) | CPT/HCPCS: 96365; J1756 ==

== ENCOUNTER 2023-07-01 14:05 | Outpatient (REF) | payer OTHER, SELFPAY ==
[2023-07-01 14:09] VITALS: BP 125/60; PULSE 64; RESP 16; TEMP 36.6; O2SAT 98
--- NOTE | 2023-07-01 14:15 | PC.NURSE ---
pharmacy called for injectafer
[2023-07-01] MEDS: SODIUM CHLORIDE 0.9% IV (14:49)
[2023-07-01] MEDS: FERRIC CARBOXYMALTOSE IV (14:49)
== END 2023-07-01 14:06 | disposition home or self-care (01) ==
LOC: HO.MDS 14:05
PROVIDERS: Visit Provider Internal Medicine Medical Oncology
DX: D50.9 Iron deficiency anemia, unspecified (principal)
CPT/HCPCS: 96374; J1439

== ENCOUNTER 2023-07-22 13:59 | Outpatient (RCR) | payer OTHER, SELFPAY ==
[2023-07-22 14:02] VITALS: BP 126/48; PULSE 62; RESP 18; TEMP 36.4; O2SAT 99; BMI 31.6
[2023-07-22] MEDS: Ferric Carboxymaltose 750 MG in 0.9 % Sodium Chloride 250 ML 1060 MG IV (14:26)
== END 2023-07-22 15:25 | disposition home or self-care (01) ==
LOC: HO.INF 13:59
PROVIDERS: Visit Provider Internal Medicine Medical Oncology
DX: D50.9 Iron deficiency anemia, unspecified (principal)
CPT/HCPCS: 96374; J1439

== ENCOUNTER 2023-09-30 14:04 | Outpatient (REF) | payer OTHER, SELFPAY | END 2023-09-30 14:05 | disposition home or self-care (01) | LOC: HO.HHCL 14:04 | PROVIDERS: Visit Provider Internal Medicine Medical Oncology | DX: Z13.89 Encounter for screening for other disorder (principal) ==

== ENCOUNTER 2023-09-30 14:40 | Outpatient (REF) | payer OTHER, SELFPAY ==
[2023-09-30 15:56] LABS: MANUAL DIFF FLAG NO
[2023-09-30 16:14] LABS: Basophils Percent Auto 0.6 % (0-2); Eosinophils Absolute Auto 0.1 X10*3/uL (0.0-0.4); Eosinophils Percent Auto 3.8 % (0-4); Hematocrit 33.1 % (37.0-47.0); Imm Gran Abs Auto 0.01 X10*3/uL (0.00-0.03); Imm Gran Pct Auto 0.3 % (0.0-0.4); Lymphocytes Percent Auto 29.7 % (20-40); Mean Corpuscular HGB Conc 33.2 g/dl (31.0-35.0); Mean Corpuscular Hemoglobin 30.6 pg (27.0-33.0); Mean Corpuscular Volume 91.9 fL (80.0-98.0); Mean Platelet Volume 11.8 fL (9.4-12.3); Monocytes Absolute Auto 0.4 X10*3/uL (0.1-1.2); Monocytes Percent Auto 12.6 % (2-11); Neutrophils Absolute Auto 1.8 x10*3/uL (2.0-8.3); Platelet Count 193 X10*3/uL (160-400); Red Cell Distribution Width 12.9 % (11.0-16.0); White Blood Count 3.4 X10*3/uL (4.8-10.8)
[2023-09-30 16:42] LABS: Ferritin 977 ng/mL (10-250)
[2023-09-30 16:54] LABS: Alanine Aminotransferase 17 U/L (0-31); Albumin Level 4.1 g/dL (3.5-5.0); Alkaline Phosphatase 75 U/L (39-117); Anion Gap 14 (12-20); Aspartate Amino Transferase 15 U/L (5-31); Bilirubin Total 0.4 mg/dL (0.0-1.0); Blood Urea Nitrogen 12 mg/dL (9-16); Calcium 9.7 mg/dL (8.4-10.2); Carbon Dioxide 25 mmol/L (22-29); Chloride 100 mmol/L (96-108); Estimated Glomerular Filt Rate > 60; Glucose Random 87 mg/dL (60-115); Potassium 4.9 mmol/L (3.3-5.1); Sodium 134 mmol/L (135-145); Total Protein 7.7 g/dL (6.5-8.0)
[2023-10-10 17:29] LABS: Kappa, Serum 372 mg/dL (176-443); Kappa/Lambda Ratio, Serum 3.32 (1.29-2.55); Lambda, Serum 112 mg/dL (91-240)
== END 2023-09-30 14:41 | disposition home or self-care (01) ==
LOC: HO.HHCL 14:40
PROVIDERS: Visit Provider Internal Medicine Medical Oncology
DX: D47.2 Monoclonal gammopathy (principal)
CPT/HCPCS: 36415; 80053; 82728; 83883; 85025

== ENCOUNTER 2024-02-14 11:51 | Outpatient (AMB) | payer OTHER, SELFPAY ==
--- NOTE | 2024-02-14 12:05 | MHC.OFFVIS ---
Vital Signs 02/14/24 12:07 Height 5 ft 2 in Weight 171 lb 1.259 oz BMI 31.3 BP 116/58 L Blood Pressure Location Rt brachial Position Sitting Pulse 62 Pulse Source Pulse Oximeter Pulse Oximetry (%) 98 Oxygen Delivery Method Room Air Intake Visit Reasons: Iron deficiency anemia - initial Intake Note: Relevant Flags or Indicators ? Requires Agency Service Coordinator? N Tabitha presents in office today for a scheduled colonoscopy consult - Iron deficiency anemia. CC; No recent labs, diagnostics, or med orders placed. ?PCP ordered labs. Relevant GI Sx as reported per pt? o?? Constipation - Pt taking powder laxative. ? Abdominal Pain o?? Lower B/L ? Bloating ? Abdominal distention ? Hx of any recent surgeries? None Pertinent Fmhx? Paternal Grandmother -- Ovarian cancer Allergies No Known Allergies [No Known Allergies*] Allergy (Verified 02/14/24 12:07) HPI HPI Iron deficiency anemia - initial: Details: 78-year-old female with past medical history of hypertrophic obstructive cardiomyopathy, MGUS, varicose veins of left lower extremity, nocturnal hypoxemia, SHORTY, COPD, asthma, hypertension, anemia is here today for initial consultation. Patient was sent to us by her chief deputy court clerk who sees patients for anemia. Patient have been on Eliquis, history of pacemaker/defibrillator placement in 2021. No issues with anesthesia in the past. Patient sees Dr. Cifuentes from pulmonology and is using oxygen at night time as she was unable to use BiPAP. No family history of CRC. Patient reports occasional acid reflux, however she states that she is using omeprazole and her symptoms are suppressed for most part. Patient denies any melena, hematochezia, unintentional weight loss or ribbon like stools. Patient denies dyspepsia, dysphagia or odynophagia. Laboratory Tests 06/05/23 12:30 RBC 3.81 L Hgb 10.9 L Hct 34.6 L MCV 90.8 Plt Count 230 Last lab work was done in May, we will have patient go and get the blood work done today. Patient is taking folic acid currently and iron supplements. Patient received iron infusion between April and July of 2023. Patient reports occasional abdominal bloating, occasional left lower quadrant discomfort, states that she is moving her bowels without any issues. [facility] Medical History Nocturnal hypoxemia SHORTY (obstructive sleep apnea) COPD (chronic obstructive pulmonary disease) (Unknown) Cardiomyopathy Insomnia GERD (gastroesophageal reflux disease) Hypercholesteremia Asthma Hypertension Surgical History History of heart surgery History of implantable cardioverter-defibrillator (ICD) insertion Family History Son No problems noted. Son No problems noted. Son No problems noted. Son No problems noted. Mother Diabetes Paternal Grandmother Ovarian cancer Social History Household Members: None Housing: Apartment Are you a primary career education teacher to a significant other at home: No Do you presently have visiting nurse or other home services: No Alcohol intake: never Patient Tobacco Use Status: Former Tobacco user Cigarette Packs Per Day: 0.5 Years Smoked: 5 Smoked in Last 30 Days: No Use of substances other than those prescribed or required for medical reasons: No Have you been hit, kicked, punched, or otherwise hurt by someone within the past year? If so, by whom?: No Do you have thoughts of harming others: None Do you have a plan to hurt others: No Plan Do you have the means to hurt others: No Recently lost weight without trying: No Eating poorly because of decreased appetite: No Patient : No service: No Current occupational status: retired Review of Systems Const Denies weight gain and Denies weight loss ENT Reports no additional complaints, Denies dysphagia and Denies odynophagia Card Reports no additional complaints Resp Reports no additional complaints GI Denies abdominal pain, Denies belching, Denies melena, Reports bloating, Denies change in bowel habits, Reports constipation (Occasional), Denies dysphagia, Denies excessive flatus, Denies dyspepsia, Denies heartburn, Denies diarrhea, Denies loose stools, Denies nausea, Denies odynophagia and Denies vomiting Musc Reports no additional complaints Neuro Reports no additional complaints Psych Reports no additional complaints Endo Reports no additional complaints Physical Exam Vital Signs: Last Vital Signs Pulse 62 02/14/24 12:07 BP 116/58 L 02/14/24 12:07 Pulse Ox 98 02/14/24 12:07 Oxygen Delivery Method Room Air 02/14/24 12:07 BMI result Body Mass Index 31.3 Const General: healthy appearing and no acute distress Nutritional Appearance: well nourished and obese Orientation/consciousness: patient oriented x3 Resp Effort & Inspection: normal respiratory effort, able to speak in complete sentences, no tracheal deviation and symmetric chest movement Auscultation: clear to auscultation bilaterally Cardio Rate: regular rate GI Inspection: Yes normal to inspection, No distended and Yes obesity Palpation (GI): Soft to palpation, not firm, nontender and No hepatosplenomegaly present Auscultation: normal bowel sounds General: Yes no CVA tenderness Back/Spine/Pelvis Back: no CVA tenderness Skin General skin exam: elasticity normal, turgor normal and dry skin Neuro General: patient oriented x3 Psych Appearance: grossly normal Mental Status: mental status grossly normal Assessment & Plan Assessment & Plan (1) Anemia: Code(s): D64.9 - Anemia, unspecified Category: Medical Qualifiers: Anemia type: iron deficiency Iron deficiency anemia type: unspecified iron deficiency Qualified Code(s): D50.9 - Iron deficiency anemia, unspecified (2) Screen for colon cancer: Code(s): Z12.11 - Encounter for screening for malignant neoplasm of colon (3) GERD (gastroesophageal reflux disease): Code(s): K21.9 - Gastro-esophageal reflux disease without esophagitis Qualifiers: Esophagitis presence: esophagitis presence not specified Qualified Code(s): K21.9 - Gastro-esophageal reflux disease without esophagitis Plan Will repeat blood work. Message sent to surgical schedulers to book upper endoscopy and colonoscopy for patient. Continue omeprazole daily. Continue iron supplements for now. Will call patient's soils analyst so she can be cleared for the procedure. As far as patient's SHROTY she uses oxygen at night time. Increase fluid intake and activity to promote better bowel motility. Patient will follow-up in 3 months, sooner on as needed basis. She is agreeable to this plan and verbalizes understanding of instructions. She was given the opportunity to ask questions and all questions answered. Thank you for allowing me to participate in her care Orders: Orders Complete Blood Count no Diff 11/01/24 K21.9 - Gastro-esophageal reflux disease without esophagitis Coding Level of Care Code New Pt Level 4 (76133) Diagnoses Iron deficiency anemia, unspecified iron deficiency anemia type D50.9 Anemia type: iron deficiency Iron deficiency anemia type: unspecified iron deficiency Screen for colon cancer Z12.11 Gastroesophageal reflux disease, unspecified whether esophagitis present K21.9 Esophagitis presence: esophagitis presence not specified Time Spent (min) 45 Comment 30 minutes spent with patient and additional 15 minutes spent reviewing her records
[2024-02-14 12:07] VITALS: BP 116/58; PULSE 62; O2SAT 98; BMI 31.3
== END 2024-02-14 13:02 | disposition home or self-care (01) ==
LOC: HO.HGI 11:52
PROVIDERS: PCP General Practice; Visit Provider Nurse Practitioner Family
DX: D50.9 Iron deficiency anemia, unspecified (principal); Z12.11 Encounter for screening for malignant neoplasm of colon; K21.9 Gastro-esophageal reflux disease without esophagitis
CPT/HCPCS: 99204

== ENCOUNTER → 2024-02-14 11:51 | Outpatient (BNVA) | payer OTHER, SELFPAY | PROVIDERS: PCP General Practice; Visit Provider Nurse Practitioner Family | DX: D50.9 Iron deficiency anemia, unspecified (principal); K21.9 Gastro-esophageal reflux disease without esophagitis; Z12.11 Encounter for screening for malignant neoplasm of colon | CPT/HCPCS: 99202 ==

== ENCOUNTER 2024-02-24 14:48 | Outpatient (REF) | payer OTHER, SELFPAY | END 2024-02-24 14:49 | disposition home or self-care (01) | LOC: HO.LAB 14:48 | PROVIDERS: PCP General Practice; Visit Provider Internal Medicine Medical Oncology | DX: Z13.89 Encounter for screening for other disorder (principal) ==

== ENCOUNTER → 2024-05-18 13:15 | Outpatient (BNVA) | payer OTHER, SELFPAY | PROVIDERS: PCP General Practice; Visit Provider Nurse Practitioner Family | DX: Z12.11 Encounter for screening for malignant neoplasm of colon (principal); K21.9 Gastro-esophageal reflux disease without esophagitis; D50.9 Iron deficiency anemia, unspecified | CPT/HCPCS: 99212 ==

== ENCOUNTER 2024-06-24 14:03 | Outpatient (AMB) | payer OTHER, SELFPAY ==
--- NOTE | 2024-06-24 14:18 | MHC.OFFVIS ---
Vital Signs 06/24/24 14:34 Height 5 ft 2 in Weight 176 lb 12.972 oz BMI 32.3 BP 132/62 Blood Pressure Location Rt brachial Position Sitting Pulse 64 Pulse Source Pulse Oximeter Pulse Oximetry (%) 98 Oxygen Delivery Method Room Air Intake Visit Reasons: discuss prep Intake Note: ESTABLISHED PATIENT for pre op appt. Chief Complaint; C/O intermittent epigastric pressure, bloating, constipation which has remained consistent since last visit. Pt does report having RLQ intermittent pains which typically only last for short periods of time prior to subsiding w/o tx. Pt has been trying different lifestyle adjustments with mixed results. Pt also reports that she had her appt with cardiology yesterday and was approved for surgery. 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 Avoid dietary triggers and late night snacking. Staying upright for minimum 3 hours after meals discussed with patient. Patient will make appointment for upper endoscopy and colonoscopy today with surgical schedulers. What to expect before during and after procedure discussed with patient. I will see patient 2-3 weeks before procedure to make sure that she is feeling better after starting pantoprazole. Stressed the importance of good bowel prep and clear liquid diet day before procedure. Both patient and her son are agreeable to plan of care and verbalizes understanding of instructions. They were given the opportunity to ask questions and all questions answered. ? Thank you for allowing me to participate in her care Medications New pantoprazole take one tablet half an hour before breakfast 40 mg PO DAILY 30 tabs 2RF K21.9 TODAY'S VISIT Patient is here today and reports that she has been feeling little better, however she continues to have bloating and occasional right lower quadrant cramping. Patient tried to change her diet adjust and change what she has been eating. Not much change or improvement. Pantoprazole has been somewhat helpful. Patient denies any dyspepsia, dysphagia or odynophagia. Denies any melena, hematochezia, unintentional weight loss or ribbon like stools. Patient denies any issues with anesthesia in the past. Patient is on Eliquis and cleared by Cardiology. History of sleep apnea and COPD. Patient denies any cardiac or respiratory symptoms. Here today to discuss the prep. Procedure scheduled for the 08 of July [facility] Medical History Depression Nocturnal hypoxemia SHORTY (obstructive sleep apnea) COPD (chronic obstructive pulmonary disease) (Unknown) Cardiomyopathy Insomnia GERD (gastroesophageal reflux disease) Hypercholesteremia Asthma Hypertension Surgical History History of heart surgery History of implantable cardioverter-defibrillator (ICD) insertion Family History Son No problems noted. Son No problems noted. Son No problems noted. Son No problems noted. Mother Diabetes Paternal Grandmother Ovarian cancer Social History Household Members: None Household Members Other:: lives alone Housing: Apartment Are you a primary child day care center worker to a significant other at home: No Do you presently have visiting nurse or other home services: No Alcohol intake: never Patient Tobacco Use Status: Former Tobacco user Cigarette Packs Per Day: 0.5 Years Smoked: 5 Use of substances other than those prescribed or required for medical reasons: No Currently Displaying Signs/Symptoms of Drug Intoxication Withdrawal: No Have you been hit, kicked, punched, or otherwise hurt by someone within the past year? If so, by whom?: No Are you DNR?: No Advance Directives: No Advance Directives Information Provided: Yes Advance Directives on File: No Do you have a plan to hurt others: No Plan Recently lost weight without trying: No Nutrition Risks: No Nutritional Risk Patient : No service: No Current occupational status: retired Review of Systems Const Denies weight gain and Denies weight loss ENT Reports no additional complaints, Denies dysphagia and Denies odynophagia Card Reports no additional complaints Resp Reports no additional complaints GI Denies abdominal pain, Denies belching, Denies melena, Reports bloating, Denies change in bowel habits, Reports constipation (Occasional), Denies dysphagia, Denies excessive flatus, Denies dyspepsia, Reports heartburn, Denies diarrhea, Denies loose stools, Denies nausea, Denies odynophagia and Denies vomiting Reports no additional complaints Musc Reports no additional complaints Neuro Reports no additional complaints Psych Reports no additional complaints Endo Reports no additional complaints Physical Exam Vital Signs: Last Vital Signs Pulse 64 06/24/24 14:34 BP 132/62 06/24/24 14:34 Pulse Ox 98 06/24/24 14:34 Oxygen Delivery Method Room Air 06/24/24 14:34 BMI result Body Mass Index 32.3 Const General: healthy appearing and no acute distress Nutritional Appearance: well nourished and obese Orientation/consciousness: patient oriented x3 Resp Effort & Inspection: normal respiratory effort, able to speak in complete sentences, no tracheal deviation and symmetric chest movement Auscultation: clear to auscultation bilaterally Cardio Rate: regular rate GI Inspection: Yes normal to inspection, No distended and Yes obesity Palpation (GI): Soft to palpation, not firm, nontender and No hepatosplenomegaly present Auscultation: normal bowel sounds General: Yes no CVA tenderness Back/Spine/Pelvis Back: no CVA tenderness Skin General skin exam: elasticity normal, turgor normal and dry skin Neuro General: patient oriented x3 Psych Appearance: grossly normal Mental Status: mental status grossly normal Assessment & Plan Assessment & Plan (1) Anemia: Code(s): D64.9 - Anemia, unspecified Category: Medical Qualifiers: Anemia type: iron deficiency Iron deficiency anemia type: unspecified iron deficiency Qualified Code(s): D50.9 - Iron deficiency anemia, unspecified (2) Screen for colon cancer: Code(s): Z12.11 - Encounter for screening for malignant neoplasm of colon (3) GERD (gastroesophageal reflux disease): Code(s): K21.9 - Gastro-esophageal reflux disease without esophagitis Qualifiers: Esophagitis presence: esophagitis presence not specified Qualified Code(s): K21.9 - Gastro-esophageal reflux disease without esophagitis Plan Continue current dose of pantoprazole. Avoid dietary triggers and late night snacking. Staying upright for minimum 3 hours after meals discussed with patient. Patient will be sent for upper endoscopy as well as colonoscopy. Procedure is scheduled for July 08. What to expect before during and after procedure discussed with patient. Stressed the importance of good bowel prep and clear liquid diet day before procedure. Patient will follow-up in our office after the procedure, sooner on as needed basis. She is agreeable to this plan and verbalizes understanding of instructions. She was given the opportunity to ask questions and all questions answered. Thank you for allowing me to participate in her care Medications: New polyethylene glycol 3350 (Miralax) As directed by gastroenterology department at [facility] 238 grams PO ONCE 238 grams 0RF Z12.11 - Encounter for screening for malignant neoplasm of colon bisacodyl (Dulcolax (bisacodyl)) 10 mg (2 x 5 mg) PO BEDTIME 180 tabs 4RF cetirizine (Zyrtec) 10 mg PO DAILY PRN 30 tabs 0RF allergy symptoms J31.0 - Chronic rhinitis Coding Level of Care Code Est Pt Level 4 (46644) Complex EM visit Add On G2211 Diagnoses Iron deficiency anemia, unspecified iron deficiency anemia type D50.9 Anemia type: iron deficiency Iron deficiency anemia type: unspecified iron deficiency Screen for colon cancer Z12.11 Gastroesophageal reflux disease, unspecified whether esophagitis present K21.9 Esophagitis presence: esophagitis presence not specified Time Spent (min) 35 Comment 25 minutes spent with patient and additional 10 minutes spent reviewing her records
[2024-06-24 14:34] VITALS: BP 132/62; PULSE 64; O2SAT 98; BMI 32.3
--- OUTSIDE RECORDS SUMMARY | 2024-06-24 16:35 | XMS_ITS | Encounter Summary ---
Author Organization [employer] Address [address] [facility] 7t [place] [address] Care Team Providers Care Overhead Crane Truck Loader Name Role Phone Yasmeen Willams MD Primary Care Provider [phone] Reason for Visit * Reason Comments Med Refill Encounter Details Date Type Department Care Team ([facility] Contact Info) Description 09/03/2022 Refill [facility] MEDICINE [address] [place] [address] [phone] Yasmeen Willams MD [address] [place] [address] [phone] Primary insomnia Social History Tobacco Use Types [...] Upcoming Encounters Date Type Department Care Team ([facility] Contact Info) Description 07/24/2024 2:15 PM EDT Office Visit [facility] MEDICINE [address] [place] [address] [phone] Yasmeen Willams MD [address] [place] [phone] documented as of this encounter Visit Diagnoses Diagnosis Primary insomnia Persistent disorder of initiating or maintaining sleep documented in this encounter Care Teams Overhead Crane Truck Loader Relationship Specialty Start Date End Date Yasmeen Willams MD [address] [place] [address] PCP - General Family Medicine 12/09/21 documented as of this encounter
--- OUTSIDE RECORDS SUMMARY | 2024-06-24 16:35 | XMS_ITS | Encounter Summary ---
Author Organization [employer] Address [address] [facility] 7t [place] [address] Care Team Providers Care Chamber Of Commerce Division Manager Name Role Phone Yasmeen Willams MD Primary Care Provider [phone] Reason for Visit * Reason Comments Med Refill Encounter Details Date Type Department Care Team ([facility] st Contact Info) Description 06/09/2024 Refill [facility] MEDICINE [address] [place], [place] [phone] Yasmeen Willams MD [address] [place] [phone] Social History Tobacco Use Types Packs/Day Years [...] Description 07/24/2024 2:15 PM EDT Office Visit [facility] MEDICINE [address] [place] [phone] Yasmeen Willams MD [address] [place] [address] documented as of this encounter Visit Diagnoses Not on filedocumented in this encounter Additional Health Concerns Assessment Noted Time PHQ-9 Depression Total Score: 0 02/03/20 24 1:41 PM EDT documented as of this encounter Care Teams [employer] Division Manager Relationship Specialty Start Date End Date Yasmeen Willams MD [address] [place] [phone] PCP - General Family Medicine 12/09/21 documented as of this encounter
--- OUTSIDE RECORDS SUMMARY | 2024-06-24 16:35 | XMS_ITS | Encounter Summary ---
Author Organization [employer] Address [address] [facility] 7t [place] [address] Care Team Providers Care Knife Setter Assembler Name Role Phone Yasmeen Willams MD Primary Care Provider [phone] Reason for Visit * Reason Comments Med Refill Encounter Details Date Type Department Care Team ([facility] st Contact Info) Description 03/16/2023 Refill [facility] MEDICINE [address] [place], [place] [phone] Yasmeen Willams MD [address] [place], [place] [phone] Social History Tobacco Use Types Packs/Day Years [...] t he electric, gas, oil or water [employer] threatened to shut off services in your [...] Description 07/24/2024 2:15 PM EDT Office Visit [facility] MEDICINE [address] [place] [address] [phone] Yasmeen Willams MD [address] [place] [phone] documented as of this encounter Visit Diagnoses Not on filedocumented in this encounter Care Teams Knife Setter Assembler Relationship Specialty Start Date End Date Yasmeen Willams MD [address] [place] [phone] PCP - General Family Medicine 12/09/21 documented as of this encounter
--- OUTSIDE RECORDS SUMMARY | 2024-06-24 16:35 | XMS_ITS | Encounter Summary ---
Author Organization [employer] Address [address] [facility] 7t [place] [address] Care Team Providers Care Director Speech Name Role Phone Yasmeen Willams MD Primary Care Provider [phone] Reason for Visit * Reason Comments Med Refill Encounter Details Date Type Department Care Team ([facility] st Contact Info) Description 06/07/2024 Refill [facility] MEDICINE [address] [place], [place] [phone] Yasmeen Willams MD [address] [place], [place] [phone] Insomnia, unspecified type; Gastroesophageal reflux disease without [...] Description 07/24/2024 2:15 PM EDT Office Visit [facility] MEDICINE [address] [place] [phone] Yasmeen Willams MD [address] [place] [phone] documented as of this encounter Visit Diagnoses Diagnosis Insomnia, unspecified type Gastroesophageal reflux disease without esophagitis Esophageal reflux documented in this encounter Additional Health Concerns Assessment Noted Time PHQ-9 Depression Total Score: 0 02/03/20 24 1:41 PM EDT documented as of this encounter Care Teams Director Speech Relationship Specialty Start Date End Date Yasmeen Willams MD [address] [place] [phone] PCP - General Family Medicine 12/09/21 documented as of this encounter
--- OUTSIDE RECORDS SUMMARY | 2024-06-24 16:35 | XMS_ITS | Encounter Summary ---
Author Organization [employer] Address [address] [facility] 7t [place] [address] Care Team Providers Care Commercial Green Retrofit Architect Name Role Phone Yasmeen Willams MD Primary Care Provider [phone] Reason for Visit * Reason Comments Med Refill Encounter Details Date Type Department Care Team ([facility] st Contact Info) Description 02/14/[address] [facility] MEDICINE [address] [place], [place] [phone] Yasmeen Willams MD [address] [place], [place] [phone] Other hyperlipidemia Social History Tobacco Use Types [...] 2:15 PM EDT Office Visit [facility] MEDICINE [address] [place], [place] [phone] Yasmeen Willams MD [address] [place] [phone] documented as of this encounter Visit Diagnoses Diagnosis Other hyperlipidemia documented in this encounter Care Teams Commercial Green Retrofit Architect Relationship Specialty Start Date End Date Yasmeen Willams MD [address] [place] [phone] PCP - General Family Medicine 12/09/21 documented as of this encounter
--- OUTSIDE RECORDS SUMMARY | 2024-06-24 16:35 | XMS_ITS | Data Portability ---
Author Organization [employer] Address [address] [place] [address] Care Team Providers Care Director Of Psychiatry Name Role Phone [facility] Referring Provider Assessment Encounter Date Assessment Date Assessment LastModified by Organization Details LastModified Time 09/25/2022 09/25/2022 I provided real -time medical direction via phone for this encounter, and was available for additional phone based assistance as needed. I have reviewed and agree with the Assessment and Plan as documented by the Asset Management Lead. Patient given the opportunity to ask questions. [email or web address] Not available 09/25/2022 14:59:32 04/01/2023 04/01/2023 I provided real -time medical direction via phone for this encounter, and was available for additional phone based assistance as needed. I have reviewed and agree with the Assessment and Plan as documented by the Asset Management Lead. Patient given the opportunity to ask questions. [...] days and a Z-Joe were sent to [facility] which was a pharmacy of her choice. [...] Imaging electrocard iogram 2022 [email or web address], [address], 15:06:51 Medication Orders prednisone 20 mg tablet 2022 023 [id number], [facility] [place], [place], [phone], 18:39:46 azithromyci n 250 mg tablet 2022 023 [facility] #[id number], [address] [place], [place], [phone], 18:39:46 Mucinex 600 mg tablet, extended release 2022 023 [facility] #[id number], [address] [place], [place], [phone], 18:42:07 nitroglycer in 0.4 mg sublingual tablet 2022 023 [email or web address] 0 Not available 15:06:51 Patient TargetsNo targets recorded. Patient Instructions Encounter Date Encounter Id Patient Instructions Last Modified By Organization Details Last Modified Time 09/25/2022 [id number] IV lock, initiate* [email or web address] Not available 09/25/2022 15:06:51 Reason for Referral None Reported. Results Created Date Observation Date Name Description Value Unit Range Abnormal Flag Note LastModifiedBy Organization Detail LastModifiedTime 09/26/19 23 09/25/2022 homero vann am No observ ation record ed. [email or web address] [address], [address], 09/25/2022 15:06:49 Result Notes None recorded. Procedures Surgical History None recorded. Imaging Results Imaging Date Name Status LastModified by Organization Details LastModified Time 09/25/2022 electrocardiogram completed [address], [address], 09/25/2022 15:06:49 Procedure Notes None recorded. Medical [...] % 98 % 72 /min 16 /min 21572.5 6 g 136 mm[Hg] 75 mm[Hg] Not Available [employer] 3 11:07:08 Date Recorded Oxygen saturation Oxygen saturation in Arterial blood by Pulse oximetry Respiratory rate Body height Body temperature Heart rate Body weight Systolic blood pressure Diastolic blood pressure Provider Name and Address Organization Details Last Updated DateTime 3 97 % 97 % 16 /min 157.48 cm 98.7 [degF] 75 /min 30818.6 g 144 mm[Hg] 84 mm[Hg] Not Available [employer] 3 18:37:54 Social History None recorded. Functional Status None recorded. Mental Status None recorded. Family History Nothing Reported. Medical History No medical history recorded. Gynecological HistoryNo gynecological history recorded. Obstetrics History GPAL:G 0 P 0 0 0 0 Past Encounters Encounter ID Performer Location Encounter Start Date Encounter Closed Date Diagnosis/Indication Diagnosis SNOMED-CT Code Diagnosis ICD10 Code Diagnosis Note [id number] Paola Weaver MD [facility] [address] [place] [phone] 09/25/2022 11:06:51 09/26/2022 10:31:30 Chest pain 19921993 R07.9 GIven patient's significan t cardiac PMH- [...] to give another-re port called to the [place] [facility] [id number] Verónica Childs MD [facility] [address] [place] [phone] 04/01/2023 18:37:41 04/02/2023 10:22:53 Acute exacerbation of chronic obstructive pulmonary disease 252507529 J44.1 Health Concerns Section Related Observation LastModified by Organization Detai ls LastModified Time None Recorded Concern Status LastModified by Organization Details LastModified Time None Recorded Advance Directives Directive None Recorded Payers Encounter Date Sequence Insurance Name Policy Number Policy Chu Covered Member ID Chu Member ID Guarantor Name 09/25/2022 1 [facility] - DOS ON OR AFTER 2022 - DUAL ELIGIBLE - USP OPTIONS AND ONE CARE (MEDICARE REPLACEMENT/ADV ANTAGE - HMO) Tabitha Desha [id number] Tabitha Desha 04/01/2023 1 [facility] - DOS ON OR AFTER 2022 - DUAL ELIGIBLE - USP OPTIONS AND ONE CARE (MEDICARE REPLACEMENT/ADV ANTAGE - HMO) Tabitha Desha [id number] Tabitha Desha Notes Date Note Type Note Provider Name [...] procedure , per member she had an [place] . Member was also found to have CHF And on diuretics', also on [employer] RED FLAGS REVIEWED OF WHEN TO CALL 911 .................... .................... .................... .................... .................... .................... .................... . Asset Management Lead Note From Daniel Alexandre: Pt reports intermittent SOB CALI and CP which she describes as midline burning up from her epigastric region for 6 days. Of note, pt has hx of CAD , HTN, HLD, AZ, A-fib, AICD and is currently enrolled in cardiac rehab. Pt presents alert, no distress. VSS. Afebrile. Neuro exam and gait normal. Lungs CTA. ABD is soft, non tender, non distended. No CVAT. No LLE. ECG: sinus with RBBB, several inverted T waves and prolonged QTI. [facility] contacted and advised the pt be seen in the ED and requested IV access and nitro. [facility] requests to hold ASA administration . IV access established and 0. 4 mg SL nitro administered with no change in pt condition or BP. Pt transported to [place] ED via [facility] ambulance. .................... .................... .................... .................... .................... .................... .................... . Disposition: Fulfilled SEGMD: above- has hx cardiomyopathy/ COPD/CHF /on eliquis for AF-CP/epigastric pain constant/ worse with breathing and exertion-no f/c/sweats- has some nausea- no vomiting- denied melena or BRBPR Paola Weaver MD [address] [facility], [place], [address], [employer] [facility]ENJAMIN QUINONES 09/25/2022 17:10:10 04/01/2023 [...] since then. Pt unable to come into [facility]. Agrees to [facility] referral. .................... .................... .................... [...] .................... .................... .................... .................... .................... .................... . Asset Management Lead Note From Daniel Alexandre: Pt reports 3 [...] URI. I recommend azithromycin, prednisone and mucinex. [facility] contacted and pt treated with azithromycin 500 mg PO, prednisone 40 mg PO. Pt instructed to continue her albuterol nebs q4-6h, f/u with PCP tomorrow and to seek emergent medical care for new or worsening sx, which are reviewed with her. .................... .................... .................... .................... .................... .................... .................... . Disposition: Allison Childs MD [address] [facility],[address], [place], [address], [employer] 04/01/2023 18:42:18 OBGyn Episode No OBEpisode recorded.
--- OUTSIDE RECORDS SUMMARY | 2024-06-24 16:35 | XMS_ITS | Clinical Summary ---
Author Organization [employer] Address [address] [facility] [address] [place] [address] Care Team Providers Care Replanter Name Role Phone Yasmeen Willams MD Primary Care Provider [phone] Allergies No known active allergies Medications amiodarone (Pacerone) 100 MG tablet Take 1 tablet by mouth every 12 (twelve) hours. Active apixaban (Eliquis) 5 MG tablet Take 1 tablet by mouth every 12 (twelve) hours. Active neomycin-bacitrac in-polymyxin (Neosporin) ointment apply to blistered skin once daily after cleansing Active psyllium (Metamucil) 0.52 g capsule take one daily for constipation 022 Active metoprolol succinate XL (Toprol-XL) 50 MG 24 hr tablet TAKE 1 TABLET BY MOUTH TWICE DAILY 022 Active dilTIAZem CD (Cardizem CD) 240 MG 24 hr capsule 022 Active Acetaminophen Extra Strength 500 MG tablet 023 Active aluminum-magnesiu m hydroxide-simethi cone (Mintox Maximum Strength) 400-400-40 MG/5ML suspension TAKE 5 ML BY MOUTH EVERY 6 HOURS NEEDED FOR INDIGESTION OR HEARTBURN FOR UP TO 10 DAYS Active montelukast (Singulair) 10 MG tablet TAKE 1 TABLET BY MOUTH EVERY EVENING 90 tablet 1 024 Active Multiple Vitamin (multivitamin) tablet Take 1 tablet by mouth Once per day. 90 tablet 3 024 Active cholecalciferol (Vitamin D-3) 50 MCG (2000 [...] of candidiasis. Do not swallow. 1 each 11 024 2024 Active nystatin (Mycostatin) 941552 UNIT/GM powderIndications :Candidiasis of skin Apply topically [...] NIGHT AT BEDTIME 90 tablet 3 Active chlorhexidine (Peridex) 0.12 % solution SWISH 15 ML IN THE MOUTH FOR 30 SECONDS THEN SPIT TWICE DAILY AFTER A MEAL 946 mL Active rosuvastatin (Crestor) 10 MG tabletIndications :Other hyperlipidemia Take 1 tablet (10 mg) by mouth Once per day. 90 tablet 3 Active docusate sodium (Colace) 100 MG capsuleIndication s:Constipation, unspecified constipation type TAKE ONE CAPSULE BY MOUTH EVERY DAY IF NEEDED FOR CONSTIPATION 90 capsule 3 Active polyethylene glycol, PEG, 3350 (Glycolax) 17 [...] BEFORE BREAKFAST 90 capsule 1 025 Active furosemide (Lasix) 20 MG tablet TAKE 1 TABLET BY MOUTH TWICE DAILY 60 tablet 3 025 Active mirtazapine (Remeron) 30 MG tabletIndications :Insomnia, unspecified type TAKE 1 TABLET BY MOUTH AT BEDTIME 90 tablet 3 024 2024 Discontinued cyanocobalamin (Vitamin B-12) 1000 MCG tablet Take 1 tablet (1,000 mcg) by mouth in the morning. 90 tablet 3 024 2024 omeprazole (PriLOSEC) [address] capsuleIndication s:Gastroesophagea l reflux disease without esophagitis TAKE 1 CAPSULE BY MOUTH EVERY MORNING BEFORE BREAKFAST 90 capsule 1 024 2024 Discontinued furosemide (Lasix) 20 MG tablet TAKE 1 TABLET BY MOUTH TWICE DAILY 60 tablet 3 024 2024 Discontinued Active Problems Problem Noted [...] appt Jan 01, 2023, recommend talking to salon stylist then about travelling Mild major depression 10/11/2022 [...] AM EST): Managed by cards in [facility] Patel, [facility] Monoclonal gammopathy of unknown significance (M MERCEDES) [...] Beta zheng and diuretics daily Follows with [facility] every 3-4 months Assessment & Plan [...] ICD in place and regular followup at [facility] Run of alerts 04/05 for VF, which was actually AF with RVR, at that point cardiology increased Metoprolol to 75mg daily Cardiac rehab ongoing Assessment & Plan (07/05/2022 2:45 PM EDT): Continue Metoprolol 50mg daily, which she has been doing for past week, contact [facility] for followup BNP of 241, increase Lasix [...] Encounters Date Type Department Care Team Description 06/09/2024 Refill [facility] [address] [place] [address] Yasmeen Willams MD 06/07/2024 Refill [facility] [address] [place] [address] Yasmeen Willams MD Insomnia, unspecified type; Gastroesophageal reflux disease without esophagitis 05/20/2024 Telephone [facility] MED[facility]INE [address] [place] [address] Lori Casas [place] Appointment Request 05/19/2024 Telephone [facility] MED[facility]INE [address] [place] [address] Lori Casas, [employer] recall 05/05/2024 Refill [facility]INE [address] [place] [address] Yasmeen Willams MD Monoclonal gammopathy of unknown significance (MGUS) 04/22/2024 Refill [facility] MED[facility]INE [address] [place], [place] [phone] Yasmeen Willams MD 04/11/2024 Refill [facility] MED[facility]INE [address] [place], [place] [phone] Yasmeen Willams MD Constipation, unspecified constipation type [...] Description 07/24/2024 2:15 PM EDT Office Visit [facility] [address] [facility] [place] [address] Yasmeen Willams MD [address] [facility] [place] [address] Health Maintenance Due Date Last Done Comments Zoster Vaccines (2 of 3) 06/28/2015 05/03/2015 [...] patient's age to complete this topic Hepatitis A Vaccines Aged Out No long er eligible [...] ?? Akash ALFREDO et al. ROLDAN. 2013;310(19): 5695-9135 ?? (http://education.[employer].com/faq/EOG920) Non-HDL Cholesterol 132(H) <130 mg/dL (calc) [facility] Comment: For patients with diabetes plus 1 major ASCVD risk ?? factor, treating to a non-HDL-C goal of <100 mg/dL ?? (LDL-C of <70 mg/dL) is considered a therapeutic ?? option. Triglycerides 99 <150 mg/dL [facility] 12/20/2021 2:35 PM EDT us Radha Howard [employer] LAB BLOOD ORDERABLES Final Res ult [facility] [address] from Last 3 Months or Most Recently Relevant to Health Maintenance Insurance [facility] Care Teams Replanter Relationship Specialty Start Date End Date Yasmeen Willams MD [address] [place] [id number] PCP - General Family Medicine 12/09/21
--- OUTSIDE RECORDS SUMMARY | 2024-06-24 16:35 | XMS_ITS | Encounter Summary ---
Author Organization [employer] Address [address] [facility] 7t [place] [address] Care Team Providers Care Chemistry Faculty Member Name Role Phone Yasmeen Willams MD Primary Care Provider [phone] Reason for Visit * Reason Comments Med Refill Encounter Details Date Type Department Care Team ([facility] st Contact Info) Description 12/12/[address] [facility] [address] [place], [place] [phone] Stella Maher MD [address] [place], [place] [phone] Gastroesophageal reflux disease without esophagitis Social History [...] the past 12 months, has t he [employer] oil or water company threatened to shut [...] Description 07/24/2024 2:15 PM EDT Office Visit [facility] [address] [place], [place] [phone] Yasmeen Willams MD [address] [place] [phone] documented as of this encounter Visit Diagnoses Diagnosis Gastroesophageal reflux disease without esophagitis Esophageal reflux documented in this encounter Care Teams Chemistry Faculty Member Relationship Specialty Start Date End Date Yasmeen Willams MD [address] [place] [address] [phone] PCP - General Family Medicine 12/09/21 documented as of this encounter
--- OUTSIDE RECORDS SUMMARY | 2024-06-24 16:35 | XMS_ITS | Encounter Summary ---
Author Organization [employer] Address [address] [facility] 7[address] [place] [address] Care Team Providers Care Senior Systems Engineer Name Role Phone Yasmeen Willams MD Primary Care Provider Reason for Visit * Reason Onset Date Comments Resend Script 06/21/2022 Encounter Details Date Type Department Care Team ([facility] st Contact Info) Description 06/21/2022 Telephone [facility] [address] [place] [address] Yasmeen Willams MD [address] [place] [address] Resend Script Social History Tobacco Use Types [...] - 06/21/2022 10:46 AM EST Tc judith [place] with [facility] requesting script for rosuvastatin (Crestor) 10 MG tablet andfolic acid (Folvite) 1 MG tablet. Pharmacy claims script was never received. Please contact pharmacy if any questions [phone] documented in this encounter Plan of Treatment Upcoming Encounters Date Type Department Care Team (Late st Contact Info) Description 07/24/2024 2:15 PM EDT Office Visit [facility] [address] [place], [place] [phone] Yasmeen Willams MD [address] [place] [address] documented as of this encounter Visit Diagnoses Diagnosis Monoclonal gammopathy of unknown significance (MGUS) Other hyperlipidemia documented in this encounter Care Teams Senior Systems Engineer Relationship Specialty Start Date End Date Yasmeen Willams MD [address] [place], [place] [phone] PCP - General Family Medicine 12/09/21 documented as of this encounter
== END 2024-06-24 14:56 | disposition home or self-care (01) ==
LOC: HO.HGI 14:03
PROVIDERS: PCP General Practice; Visit Provider Nurse Practitioner Family
DX: K21.9 Gastro-esophageal reflux disease without esophagitis (principal); D50.9 Iron deficiency anemia, unspecified; Z12.11 Encounter for screening for malignant neoplasm of colon
CPT/HCPCS: 99214; G2211

== ENCOUNTER → 2024-06-24 14:03 | Outpatient (BNVA) | payer OTHER, SELFPAY | PROVIDERS: PCP General Practice; Visit Provider Nurse Practitioner Family | DX: Z12.11 Encounter for screening for malignant neoplasm of colon (principal); K21.9 Gastro-esophageal reflux disease without esophagitis; D50.9 Iron deficiency anemia, unspecified | CPT/HCPCS: 99212 ==

== ENCOUNTER → 2024-07-08 08:57 | Outpatient (BNV) | payer OTHER, SELFPAY | PROVIDERS: PCP General Practice; Visit Provider Internal Medicine Gastroenterology | DX: D64.9 Anemia, unspecified (principal); K31.7 Polyp of stomach and duodenum; D13.2 Benign neoplasm of duodenum; D12.0 Benign neoplasm of cecum; D12.2 Benign neoplasm of ascending colon; K57.90 Diverticulosis of intestine, part unspecified, without perforation or abscess without bleeding; K64.0 First degree hemorrhoids | CPT/HCPCS: 43236; 43239; 43251; 45380; 45385 ==

== ENCOUNTER → 2024-07-08 12:11 | Outpatient (BNV) | payer OTHER, SELFPAY | PROVIDERS: PCP General Practice; Visit Provider Radiology Diagnostic Radiology | DX: R10.9 Unspecified abdominal pain (principal) | CPT/HCPCS: 71045; 74018; 74176 ==

== ENCOUNTER 2024-07-08 15:34 | Observation (INO) | payer OTHER, SELFPAY ==
--- OUTSIDE RECORDS SUMMARY | 2024-06-08 15:03 | XMS_ITS | Encounter Summary ---
Author Organization [employer] Address [address] [facility] [address] [place] [address] Care Team Providers Care Cold Patcher Name Role Phone Yasmeen Willams MD Primary Care Provider [phone] Reason for Visit * Reason Onset Date Comments Appointment Request 05/20/2024 Encounter Details Date Type Department Care Team ([facility] st Contact Info) Description 05/20/2024 Telephone [facility] [address] [place], [place] [phone] Lori Casas MA Appointment Request Social History Tobacco Use Types Packs/Day Years Used Date Smoking Tobacco: Former Cigarettes Smokeless Tobacco: Never Alcohol Use Standard Drinks/Week Comments Never 0 (1 standard drink = 0.6 oz pur e alcohol) Alcohol Answer Date Recorded Frequency of Alcohol Consumption Not on file 02/03/2024 Average Number of Drinks Not on file 024 Frequency of Binge Drinking Not on file 01/14 Score 0 02/03/2024 Depression Answer Date Recorded Patient Health Questionnaire-9 Score 0 02/03/2024 Patient Health Questionnaire-9 Score 0 02/03/2024 Last PHQ-9: Questionnaire Data Not on file 1 Housing Stability Answer Date Recorded What is your housing situation today? I have annabel bautista 06/14/[address] you li ve. Do you have problems with any of the following? None of the above 06/14/2023 Food Insecurity Answer Date Recorded Within the past 12 months, y ou worried that your food would run out before you got money to buy more: Never True 06/14/2023 Within the past 12 months,th e food you bought just didn't last and you didn't have enough money to get more: Never True 04/2023 Transportation Answer Date Recorded In the past 12 months, has l ack of transportation kept you from medical appts, meetings, work or from getting things needed for daily living? No 06/14/2023 Utilities Answer Date Recorded In the past 12 months, has t he electric, gas, oil or water company threatened to shut off services in your home? No 06/14/2023 Depression Answer Date Recorded Patient Health Questionnaire-2 Score 0 02/03/2024 Internet Access Answer Date Recorded Internet Access Q1 Yes 02/03/2024 Internet Access Q2 Not on file 02/03/2024 Comments Unknown Sex and Gender Information Value Date Recorded Sex Assigned at Female 02/12/2022 10:15 AM EDT Legal Sex Female 10:15 AM EDT Gender Identity Female 02/12/2022 10:15 AM EDT Sexual Orientation Choose not to disclose 2021 10:15 AM EDT documented as of this encounter Miscellaneous Notes * Telephone Encounter - Lori Casas MA - 05/20/2024 9:55 AM EST T/c placed to pt to schedule a tele visit to speak with her pcp. Lvm to cb documented in this encounter Plan of Treatment Upcoming Encounters Date Type Department Care Team (Late st Contact Info) Description 07/24/2024 2:15 PM EDT Office Visit [facility] [address] [place] [phone] Yasmeen Willams MD [address] [place] [phone] documented as of this encounter Visit Diagnoses Not on filedocumented in this encounter Additional Health Concerns Assessment Noted Time PHQ-9 Depression Total Score: 0 02/03/20 24 1:41 PM EDT documented as of this encounter Care Teams Cold Patcher Relationship Specialty Start Date End Date Yasmeen Willams MD [address] [place] [phone] PCP - General Family Medicine 12/09/21 documented as of this encounter
--- OUTSIDE RECORDS SUMMARY | 2024-06-08 15:03 | XMS_ITS | Encounter Summary ---
Author Organization [employer] Address [address] [facility] [address] [place] [address] Care Team Providers Care Infection Control Specialist Name Role Phone Yasmeen Willams MD Primary Care Provider Reason for Visit * Reason Comments Med Refill Encounter Details Date Type Department Care Team ([facility] Contact Info) Description 09/03/2022 Refill [facility] [address] [place] [address] [phone] Yasmeen Willams MD [address] [place] [address] [phone] Primary insomnia Social History Tobacco Use Types Packs/Day Years Used Date Smoking Tobacco: Former Cigarettes Smokeless Tobacco: Never Alcohol Use Standard Drinks/Week Comments Never 0 (1 standard drink = 0.6 oz pur e alcohol) Comments Unknown Sex and Gender Information Value Date Recorded Sex Assigned at Female 02/12/2022 10:15 AM EDT Legal Sex Female 10:15 AM EDT Gender Identity Female 02/12/2022 10:15 AM EDT Sexual Orientation Choose not to disclose 2021 10:15 AM EDT COVID-19 Exposure Response Date Recorded In the last 10 days, have yo u been in contact with someone who was confirmed or suspected to have Coronavirus/COVID-19? No / Unsure 08/31/2022 3:55 PM EDT documented as of this encounter Plan of Treatment Upcoming Encounters Date Type Department Care Team ([facility] Contact Info) Description 07/24/2024 2:15 PM EDT Office Visit [facility] [address] [place] [address] [phone] Yasmeen Willams MD [address] [place] [phone] documented as of this encounter Visit Diagnoses Diagnosis Primary insomnia Persistent disorder of initiating or maintaining sleep documented in this encounter Care Teams Infection Control Specialist Relationship Specialty Start Date End Date Yasmeen Willams MD [address] [place] [phone] PCP - General Family Medicine 12/09/21 documented as of this encounter
--- OUTSIDE RECORDS SUMMARY | 2024-06-08 15:03 | XMS_ITS | Data Portability ---
Author Organization [id number], [employer] Address [address] [place] [address] Care Team Providers Care Segmental Paver Installer Name Role Phone [facility] Referring Provider [phone] Assessment Encounter Date Assessment Date Assessment LastModified by Organization Details LastModified Time 09/25/2022 09/25/2022 I provided real -time medical direction via phone for this encounter, and was available for additional phone based assistance as needed. I have reviewed and agree with the Assessment and Plan as documented by the Crutching Contractor. Patient given the opportunity to ask questions. [email or web address] Not available 09/25/2022 14:59:32 04/01/2023 04/01/2023 I provided real -time medical direction via phone for this encounter, and was available for additional phone based assistance as needed. I have reviewed and agree with the Assessment and Plan as documented by the Crutching Contractor. Patient given the opportunity to ask questions. As per above, patient with about 3 weeks of symptoms that are suggestive of exacerbation of COPD. She does have baseline COPD that is fairly well controlled and over the past 3 weeks has had increasing cough and sputum production. She denies fever or chills. She has been using her nebulizers and inhalers more. She has not been around any sick contacts. She has responded well in the past to prednisone and has no absolute contraindication. She also he has a Z-Joe that is prescribed for her for community acquired pneumonia. A prednisone without taper bolus dose of 40 mg for total of 5 days and a Z-Joe were sent to [facility] which was a pharmacy of her choice. Red flags discussed as to when to seek a higher level of care. She denies any chest pain or severe dyspnea on exertion and shortness of breath. We discussed the diagnostic uncertainty of home visits and the risk associated with this. In this case, the patient and I felt this to be an acceptable and reasonable amount of risk given the benefit of avoiding an ED visit. We discussed the need to seek care urgently/emergentl y in the setting of any new or worsening serious symptoms, particularly fever chills lightheadedness altered mental status [email or web address] Not available 04/01/2023 18:41:25 Plan of Treatment Reminders Order Date Submit Date Provider Last Modified By Organization Details Last Modified Time Details Appointments None recorded. Lab None recorded. Referral None recorded. Procedures None recorded. Surgeries None recorded. Imaging electrocard iogram 2022 [email or web address], [address], 15:06:51 Medication Orders prednisone 20 mg tablet 2022 023 [facility][id number], [facility] [place], [place], [id number], 18:39:46 azithromyci n 250 mg tablet 2022 023 [facility] #[id number], [address] [place], [place], [id number], 18:39:46 Mucinex 600 mg tablet, extended release 2022 023 [facility] #[id number], [address] [place], [place], [id number], 18:42:07 nitroglycer in 0.4 mg sublingual tablet 2022 023 [email or web address] Not available 15:06:51 Patient TargetsNo targets recorded. Patient Instructions Encounter Date Encounter Id Patient Instructions Last Modified By Organization Details Last Modified Time 09/25/2022 [id number] IV lock, initiate* [email or web address] Not available 09/25/2022 15:06:51 Reason for Referral None Reported. Results Created Date Observation Date Name Description Value Unit Range Abnormal Flag Note LastModifiedBy Organization Detail LastModifiedTime 09/26/19 23 09/25/2022 homero vann am No observ ation record ed. [email or web address] [address], [address], 09/25/2022 15:06:49 Result Notes None recorded. Procedures Surgical History None recorded. Imaging Results Imaging Date Name Status LastModified by Organization Details LastModified Time 09/25/2022 electrocardiogram completed [email or web address] [address], [address], 09/25/2022 15:06:49 Procedure Notes None recorded. Medical Equipment None Reported. Allergies No known drug allergies Medications Name Sig Start Date Stop Date Status Note LastModified by Organization Details LastModified Time n/m melatonin 10mg tablets TAKE 1 TABLET BY MOUTH AT BEDTIME. active Not Available Not Available No t Available melatonin tab ex str active Not Available Not Available N ot Available multivitamin tablet TAKE 1 TABLET BY MOUTH EVERY MORNING active Not Available Not Available No t Available albuterol sulfate 2.5 mg/3 mL (0.083 %) solution for nebulization USE 1 VIAL VIA NEBULIZER EVERY 6 HOURS NEEDED active Not Available Not Available No t Available azithromycin 250 mg tablet TAKE 1 TABLET (250 MG) BY ORAL ROUTE ONCE DAILY FOR 4 DAYS active Not Available Not Available No t Available amiodarone 200 mg tablet TAKE 1 TABLET BY MOUTH EVERY DAY active Not Available Not Available No t Available metoprolol succinate ER 50 mg tablet,exten ded release 24 hr TAKE 1 TABLET BY MOUTH TWICE DAILY active Not Available Not Available No t Available prednisone 20 mg tablet TAKE 2 TABLETS BY MOUTH EVERY DAY FOR 4 DAYS active Not Available Not Available No t Available cyanocobalam in (vit B-12) 1,000 mcg tablet TAKE 1 TABLET BY MOUTH EVERY MORNING active Not Available Not Available No t Available acetaminophe n 500 mg tablet active Not Available Not Available Not Available amiodarone 400 mg tablet active Not Available Not Available Not Available mirtazapine 30 mg tablet TAKE 1 TABLET BY MOUTH AT BEDTIME active Not Available Not Available No t Available nitroglyceri n 0.4 mg sublingual tablet 0.4 mg sl x 1 for CP 2022 active Not Available Not Available Not Avai lable docusate sodium 100 mg capsule TAKE 1 CAPSULE BY MOUTH NEEDED FOR FOR CONSTIPATIO N active Not Available Not Available No t Available omeprazole 20 mg capsule,karen yed release TAKE 1 CAPSULE BY MOUTH EVERY DAY BEFORE A MEAL active Not Available Not Available No t Available folic acid 1 mg tablet TAKE 1 TABLET BY MOUTH EVERY DAY active Not Available Not Available No t Available montelukast 10 mg tablet TAKE 1 TABLET BY MOUTH EVERY EVENING active Not Available Not Available No t Available furosemide 20 mg tablet TAKE 1 TABLET BY MOUTH TWICE DAILY active Not Available Not Available No t Available metoprolol succinate ER 25 mg tablet,exten ded release 24 hr TAKE 1 TABLET BY MOUTH IN ADDITION TO 50 MG DAILY active Not Available Not Available Not Available polyethylene glycol 3350 17 gram/dose oral powder MIX 1 SCOOP WITH WATER OR JUICE AND DRINK 1-2 TIMES DAILY NEEDED FOR CONSTIPATIO N active Not Available Not Available No t Available clotrimazole 1 % topical cream APPLY TOPICALLY TO THE AFFECTED AND SURROUNDING AREAS TWICE DAILY IN THE MORNING AND IN THE EVENING active Not Available Not Available No t Available loratadine 10 mg tablet TAKE 1 TABLET BY MOUTH EVERY MORNING active Not Available Not Available No t Available Mucinex 600 mg tablet, extended release Take 1 tablet every 12 hours by oral route for 10 days. 2022 active Not Available Not Available Not Avai lable rosuvastatin 10 mg tablet TAKE 1 TABLET BY MOUTH EVERY DAY active Not Available Not Available No t Available Flovent HFA 110 mcg/actuatio n aerosol inhaler INHALE 2 PUFFS BY MOUTH TWICE DAILY active Not Available Not Available No t Available chlorhexidin e gluconate 0.12 % mouthwash RINSE AND SPIT 15ML BY MOUTH FOR 30 SECONDS TWICE DAILY AFTER A MEAL active Not Available Not Available No t Available Mintox Maximum Strength 400 mg-400 mg-40 mg/5 mL oral suspension TAKE 5 ML BY MOUTH EVERY 6 HOURS NEEDED FOR INDIGESTION OR HEARTBURN FOR UP TO 10 DAYS active Not Available Not Available No t Available melatonin 5 mg tablet TAKE 1 TABLET BY MOUTH EVERY NIGHT AT BEDTIME NEEDED FOR TROUBLE SLEEPING active Not Available Not Available No t Available cholecalcife rol (vitamin D3) 50 mcg (2,000 unit) tablet TAKE 1 TABLET BY MOUTH IN THE MORNING active Not Available Not Available Not Available Wal-Mucil Fiber 0.52 gram capsule TAKE 1 CAPSULE BY MOUTH EVERY DAY FOR CONSTIPATIO N active Not Available Not Available No t Available Eliquis 5 mg tablet active Not Available Not Available Not Available melatonin 10 mg-lemon balm leaf extract 1 mg tablet TAKE 1 TABLET BY MOUTH NEEDED EVERY NIGHT AT BEDTIME active Not Available Not Available N ot Available BinaxNOW COVID-19 Ag Self Test kit TEST DIRECTED TODAY active Not Available Not Available No t Available Vitals Date Recorded Body temperature Oxygen saturation Oxygen saturation in Arterial blood by Pulse oximetry Heart rate Respiratory rate Body weight Systolic blood pressure Diastolic blood pressure Provider Name and Address Organization Details Last Updated DateTime 3 97.9 [degF] 98 % 98 % 72 /min 16 /min 25216.5 6 g 136 mm[Hg] 75 mm[Hg] Not Available [facility] 11:07:08 Date Recorded Oxygen saturation Oxygen saturation in Arterial blood by Pulse oximetry Respiratory rate Body height Body temperature Heart rate Body weight Systolic blood pressure Diastolic blood pressure Provider Name and Address Organization Details Last Updated DateTime 3 97 % 97 % 16 /min 157.48 cm 98.7 [degF] 75 /min 00055.6 g 144 mm[Hg] 84 mm[Hg] Not Available [facility] 3 18:37:54 Social History None recorded. Functional Status None recorded. Mental Status None recorded. Family History Nothing Reported. Medical History No medical history recorded. Gynecological HistoryNo gynecological history recorded. Obstetrics History GPAL:G 0 P 0 0 0 0 Past Encounters Encounter ID Performer Location Encounter Start Date Encounter Closed Date Diagnosis/Indication Diagnosis SNOMED-CT Code Diagnosis ICD10 Code Diagnosis Note [id number] Paola Weaver MD [facility] [address] [place] [phone] 09/25/2022 11:06:51 09/26/2022 10:31:30 Chest pain 61711917 R07.9 GIven patient's significan t cardiac PMH- expl cannot r/o CAD/ ACS at home- needs ER eval- patient agreeable. pat does not take asa/ on eliquis- reports her cardiologi st told her never to take ASA, so would not allow dose. No change in CP or BP with 1 SL NTG- EMS arrived prior to being able to give another-re port called to the [facility] [id number] Verónica Childs MD [facility] [address] [place] [phone] 04/01/2023 18:37:41 04/02/2023 10:22:53 Acute exacerbation of chronic obstructive pulmonary disease 149759452 J44.1 Health Concerns Section Related Observation LastModified by Organization Detai ls LastModified Time None Recorded Concern Status LastModified by Organization Details LastModified Time None Recorded Advance Directives Directive None Recorded Payers Encounter Date Sequence Insurance Name Policy Number Policy Chu Covered Member ID Chu Member ID Guarantor Name 09/25/2022 1 [facility] - DOS ON OR AFTER 2022 - DUAL ELIGIBLE - CUSTODIAL OPTIONS AND ONE CARE (MEDICARE REPLACEMENT/ADV ANTAGE - HMO) Tabitha Crosby [id number] Tabitha Crosby 04/01/2023 1 [facility] - DOS ON OR AFTER 2022 - DUAL ELIGIBLE - CUSTODIAL OPTIONS AND ONE CARE (MEDICARE REPLACEMENT/ADV ANTAGE - HMO) Tabitha Crosby [id number] Tabitha Crosby Notes Date Note Type Note Provider Name and Address Organization Details Recorded Time 09/25/2022 text/html [facility] Nursing Assessment: Reason For Request: sob Chief Complaints: Shortness of Breath/Dyspnea, Nausea/Vomiting PMH: COPD/Asthma, CHF Allergies: No Known Comments: Verified identity by SOB Member c/o sob and nausea with chest pressure when breathing from top part of stomach, Member feels her HR is up per rehab. Member does have asthma but has been controlled. Member is currently in cardiac rehab , member has a ACID from last yr and started at regular rehab but was just switched to cardiac rehab. Member went in for a cardiac procedure and per member her heart stopped during the procedure , per member she had an OH . Member was also found to have CHF And on diuretics', also on [employer] RED FLAGS REVIEWED OF WHEN TO CALL 911 .................... .................... .................... .................... .................... .................... .................... . Crutching Contractor Note From Daniel Alexandre: Pt reports intermittent SOB CALI and CP which she describes as midline burning up from her epigastric region for 6 days. Of note, pt has hx of CAD , HTN, HLD, OH, A-fib, AICD and is currently enrolled in cardiac rehab. Pt presents alert, no distress. VSS. Afebrile. Neuro exam and gait normal. Lungs CTA. ABD is soft, non tender, non distended. No CVAT. No LLE. ECG: sinus with RBBB, several inverted T waves and prolonged QTI. [facility] contacted and advised the pt be seen in the ED and requested IV access and nitro. [facility] requests to hold ASA administration . IV access established and 0. 4 mg SL nitro administered with no change in pt condition or BP. Pt transported to [facility] ED via [facility] ambulance. .................... .................... .................... .................... .................... .................... .................... . Disposition: Fulfilled SEGMD: above- has hx cardiomyopathy/ COPD/CHF /on eliquis for AF-CP/epigastric pain constant/ worse with breathing and exertion-no f/c/sweats- has some nausea- no vomiting- denied melena or BRBPR Paola Weaver MD [address] [facility],[address], [place], [address], [place] - BENJAMIN QUINONES 09/25/2022 17:10:10 04/01/2023 text/html HPI: PMH: Cardiomyopathy, Hypertrophic obstructive cardiomyopathy, paroxysmal A-fib, ICD. Call to Tabitha Graham, reports having back pain and cough. Pt having wheezing with breathing. Per pt using albuterol nebulizer this morning. Per pt has had chest tightness. Per pt having SOB at both rest and with exertion. Per pt no worsening edema of upper or lower extremities. Per pt see in office on 03/20 and sx persist since then. Pt unable to come into [facility]. Agrees to [facility] referral. .................... .................... .................... .................... .................... .................... .................... . [facility] Nursing Assessment: Comments: Call into member for more information. Reports that on 03/20 member had cold and cough. c/o SOB- speaking in full sentences. Asthma kicking in- doing breathing treatments. Using albuterol this morning. No persistent chest pain- more of a tightness with breathing. BP 99/61- normal for member. Visit to assess member's respiratory status. Discussed red flag warnings and reasons to active emergency services- member verbalized understanding and agrees. Silvia Sanchez RN .................... .................... .................... .................... .................... .................... .................... . Crutching Contractor Note From Daniel Alexandre: Pt reports 3 weeks of sinus congestion, runny nose, dry cough and CALI. Pt denies SOB at rest, [place], dizziness, f/n/v/d. Pt sts she is using her neb machine more over the past few days and it seems to help with her sx. Pt is alert, NAD. VSS. Afebrile. Neuro exam and gait normal. Bilateral lower lobe rhonchi. Benign ABD exam. Trace BLE edema. Rapid covid and flu negative. ECG: RBBB. Pt? s sx seem c/w COPD exacerbation s/t viral URI. I recommend azithromycin, prednisone and mucinex. [facility] contacted and pt treated with azithromycin 500 mg PO, prednisone 40 mg PO. Pt instructed to continue her albuterol nebs q4-6h, f/u with PCP tomorrow and to seek emergent medical care for new or worsening sx, which are reviewed with her. .................... .................... .................... .................... .................... .................... .................... . Disposition: Allison Childs MD [address] [facility],[address], [place], [address], [id number] 04/01/2023 18:42:18 OBGyn Episode No OBEpisode recorded.
--- OUTSIDE RECORDS SUMMARY | 2024-06-08 15:03 | XMS_ITS | Encounter Summary ---
Author Organization [employer] Address [address] [facility] [address] [place] [address] Care Team Providers Care Streetcar Starter Name Role Phone Yasmeen Willams MD Primary Care Provider [phone] Reason for Visit * Reason Comments Med Refill Encounter Details Date Type Department Care Team ([facility] st Contact Info) Description 06/07/2024 Refill [facility] [address] [place], [place] [phone] Yasmeen Willams MD [address] [place], [place] [phone] Insomnia, unspecified type; Gastroesophageal reflux disease without esophagitis Social History Tobacco Use Types Packs/Day Years [...] AM EDT documented as of this encounter Plan of Treatment Upcoming Encounters Date Type Department Care Team (Late st Contact Info) Description 07/24/2024 2:15 PM EDT Office Visit [facility] [address] [place] [phone] Yasmeen Willams MD [address] [place] [phone] documented as of this encounter Visit Diagnoses Diagnosis Insomnia, unspecified type Gastroesophageal reflux disease without esophagitis Esophageal reflux documented in this encounter Additional Health Concerns Assessment Noted Time PHQ-9 Depression Total Score: 0 02/03/20 24 1:41 PM EDT documented as of this encounter Care Teams Streetcar Starter Relationship Specialty Start Date End Date Yasmeen Willams MD [address] [place] [phone] PCP - General Family Medicine 12/09/21 documented as of this encounter
--- OUTSIDE RECORDS SUMMARY | 2024-06-08 15:03 | XMS_ITS | Encounter Summary ---
Author Organization [employer] Address [address] [facility] [address] [place] [address] Care Team Providers Care Silver Solution Mixer Name Role Phone Yasmeen Willams MD Primary Care Provider Reason for Visit * Reason Comments Med Refill Encounter Details Date Type Department Care Team ([facility] st Contact Info) Description 02/14/2023 Refill [facility] [address] [place], [place] [phone] Yasmeen Willams MD [address] [place], [place] [phone] Other hyperlipidemia Social History Tobacco Use Types Packs/Day Years Used Date Smoking Tobacco: Former Cigarettes Smokeless Tobacco: Never Alcohol Use Standard Drinks/Week Comments Never 0 (1 standard drink = 0.6 oz pur e alcohol) Housing Stability Answer Date Recorded What is your housing situation today? I have annabelkevin bautista 01/30/[address] you li ve. Do you have problems with any of the following? None of the above 01/30/2023 Food Insecurity Answer Date Recorded Within the past 12 months, y ou worried that your food would run out before you got money to buy more: Never True 01/30/2023 Within the past 12 months,th e food you bought just didn't last and you didn't have enough money to get more: Never True Transportation Answer Date Recorded In the past 12 months, has l ack of transportation kept you from medical appts, meetings, work or from getting things needed for daily living? Yes, it has kept me from medical appointments or getting medications. 01/21/2023 Utilities Answer Date Recorded In the past 12 months, has t he electric, gas, oil or water company threatened to shut off services in your home? No 01/30/2023 Depression Answer Date Recorded Patient Health Questionnaire-2 Score 6 10/11/2022 Comments Unknown Sex and Gender Information Value [...] Description 07/24/2024 2:15 PM EDT Office Visit [facility] [address] [place], [place] [phone] Yasmeen Willams MD [address] [place] [phone] documented as of this encounter Visit Diagnoses Diagnosis Other hyperlipidemia documented in this encounter Care Teams Silver Solution Mixer Relationship Specialty Start Date End Date Yasmeen Willams MD [address] [place] [phone] PCP - General Family Medicine 12/09/21 documented as of this encounter
--- OUTSIDE RECORDS SUMMARY | 2024-06-08 15:03 | XMS_ITS | Encounter Summary ---
Author Organization [employer] Address [address] [facility] [address] [place] [address] Care Team Providers Care Needle Grinder Name Role Phone Yasmeen Willams MD Primary Care Provider [phone] Reason for Visit * Reason Comments Med Refill Encounter Details Date Type Department Care Team ([facility] st Contact Info) Description 03/16/2023 Refill [facility] [address] [place], [place] [phone] Yasmeen Willams MD [address] [place], [place] [phone] Social History Tobacco Use Types Packs/Day Years [...] t he electric, gas, oil or water [employer] threatened to shut off services in your [...] Description 07/24/2024 2:15 PM EDT Office Visit [facility] MED[facility]INE [address] [place] [phone] Yasmeen Willams MD [address] [place] [phone] documented as of this encounter Visit Diagnoses Not on filedocumented in this encounter Care Teams Needle Grinder Relationship Specialty Start Date End Date Yasmeen Willams MD [address] [place] [phone] PCP - General Family Medicine 12/09/21 documented as of this encounter
--- OUTSIDE RECORDS SUMMARY | 2024-06-08 15:03 | XMS_ITS | Clinical Summary ---
Author Organization [employer] Address [address] [facility] 7[address] [place] [address] Care Team Providers Care Anvilsmith Name Role Phone Yasmeen Willams MD Primary Care Provider [phone] Allergies No known active allergies Medications amiodarone (Pacerone) 100 MG tablet Take 1 tablet by mouth every 12 (twelve) hours. Active apixaban (Eliquis) 5 MG tablet Take 1 tablet by mouth every 12 (twelve) hours. Active neomycin-bacitrac in-polymyxin (Neosporin) ointment apply to blistered skin once daily after cleansing Active psyllium (Metamucil) 0.52 g capsule take one daily for constipation Active metoprolol succinate XL (Toprol-XL) 50 MG 24 hr tablet TAKE 1 TABLET BY MOUTH TWICE DAILY Active dilTIAZem CD (Cardizem CD) 240 MG 24 hr capsule Active Acetaminophen Extra Strength 500 MG tablet Active aluminum-magnesiu m hydroxide-simethi cone (Mintox Maximum Strength) 400-400-40 MG/5ML suspension TAKE 5 ML BY MOUTH EVERY 6 HOURS NEEDED FOR INDIGESTION OR HEARTBURN FOR UP TO 10 DAYS Active cyanocobalamin (Vitamin B-12) 1000 MCG tablet Take 1 tablet (1,000 mcg) by mouth in the morning. 90 tablet 3 024 2024 Active montelukast (Singulair) 10 MG tablet TAKE 1 TABLET BY MOUTH EVERY EVENING 90 tablet 1 024 Active Multiple Vitamin (multivitamin) tablet Take 1 tablet by mouth Once per day. 90 tablet 3 Active cholecalciferol (Vitamin D-3) 50 MCG (2000 UT) tablet Take 1 Units by mouth Once per day. 90 tablet 3 024 2024 Active albuterol (Ventolin HFA) 108 (90 Base) MCG/ACT inhalerIndication s:Mild persistent asthma without complication Inhale 2 puffs by inhalation route every 4-6 hours as needed 18 g 6 Active albuterol (2.5 MG/3ML) 0.083% nebulizer solutionIndicatio ns:Mild persistent asthma without complication Inhale 3 mL by nebulization route every 6 hours as needed 90 mL 6 Active loratadine (Claritin) 10 MG tablet Take 1 tablet (10 mg) by mouth Once per day. 90 tablet 3 024 2024 Active fluticasone furoate (Arnuity Ellipta) 100 MCG/ACT inhaler Inhale 1 puff Once per day. Rinse mouth with water after use to reduce aftertaste and incidence of candidiasis. Do not swallow. 1 each 024 2024 Active nystatin (Mycostatin) 742108 UNIT/GM powderIndications :Candidiasis of skin Apply topically 2 times daily. Put powder on after shower, no body spray! 60 g 3 024 2024 Active clotrimazole (Lotrimin) 1 % creamIndications: Candidiasis of skin Apply topically every 12 (twelve) hours. Under skin under the stomach in the morning and nighttime 85 g 3 Active melatonin 10 MG tabletIndications :Primary insomnia TAKE 1 TABLET BY MOUTH NEEDED EVERY NIGHT AT BEDTIME 90 tablet 3 Active furosemide (Lasix) 20 MG tablet TAKE 1 TABLET BY MOUTH TWICE DAILY 60 tablet 3 024 Active chlorhexidine (Peridex) 0.12 % solution SWISH 15 ML IN THE MOUTH FOR 30 SECONDS THEN SPIT TWICE DAILY AFTER A MEAL 946 mL Active rosuvastatin (Crestor) 10 MG tabletIndications :Other hyperlipidemia Take 1 tablet (10 mg) by mouth Once per day. 90 tablet 3 024 Active docusate sodium (Colace) 100 MG capsuleIndication s:Constipation, unspecified constipation type TAKE ONE CAPSULE BY MOUTH EVERY DAY IF NEEDED FOR CONSTIPATION 90 capsule 3 024 Active polyethylene glycol, PEG, 3350 (Glycolax) 17 GM/SCOOP powder DISSOLVE 17 GIVE IN LIQUID AND DRINK BY MOUTH 1-2 TIMES EVERY DAY NEEDED FOR CONSTIPATION 527 g 3 025 Active folic acid (Folvite) 1 MG tabletIndications :Monoclonal gammopathy of unknown significance (MGUS) TAKE 1 TABLET(1000 MCG) BY MOUTH IN THE MORNING 90 tablet 3 025 Active mirtazapine (Remeron) 30 MG tabletIndications :Insomnia, unspecified type TAKE 1 TABLET BY MOUTH AT BEDTIME 90 tablet 3 025 Active omeprazole (PriLOSEC) [address] capsuleIndication s:Gastroesophagea l reflux disease without esophagitis TAKE 1 CAPSULE BY MOUTH EVERY MORNING BEFORE BREAKFAST 90 capsule 1 025 Active mirtazapine (Remeron) 30 MG tabletIndications :Insomnia, unspecified type TAKE 1 TABLET BY MOUTH AT BEDTIME 90 tablet 3 024 2024 Discontinued omeprazole (PriLOSEC) [address] capsuleIndication s:Gastroesophagea l reflux disease without esophagitis TAKE 1 CAPSULE BY MOUTH EVERY MORNING BEFORE BREAKFAST 90 capsule 1 024 2024 Discontinued Active Problems Problem Noted Date Diagnosed Date Other constipation 10/01/2023 Assessment & Plan (10/01/2023 4:31 PM EDT): She is on Colace, psyllium, and Miralax Now with rising sensation of food at nighttime, despite regular PPI use Will refer to GI for further workup, consideration of other treatments Severe epistaxis 06/23/2023 Assessment & Plan (06/23/2023 9:21 PM EDT): Refer to ENT Chronic bilateral low back pain without sciatica 06/23/2023 Assessment & Plan (06/23/2023 9:22 PM EDT): Refer to chiropracter Chronic pain of left knee 03/21/2023 Patient does not have healthcare proxy Assessment & Plan (12/06/2022 8:30 PM EDT): Discussed this much of this visit Gave copies of MOLST and proxy to complete with son and return to clinic when they are complete and signed Continue cardiac rehab/followup Has appt Jan 01, 2023, recommend talking to telegraphic typewriter repairer then about travelling Mild major depression 10/11/2022 Atypical chest pain 10/11/2022 Overview (10/11/2022): DDX: sinus arrhythmia, myocardial infarction, malfunctioning ICD, aggravated GERD, MSK pain, anxiety Pertinent neg: Cardiac workup at ED on 09/25/22 was normal Osteopenia after menopause 03/17/2022 Paroxysmal atrial fibrillation 11/09/2021 Assessment & Plan (06/23/2023 9:25 PM EDT): On Metoprolol and Diltiazem for rate control On Eliquis 5mg BID for anticoagulation Assessment & Plan (05/31/2022 10:43 AM EST): On Metoprolol for rate control On Eliquis for anticoagulation ICD (implantable cardioverter-defibrillator) in place 11/09/2021 Assessment & Plan (05/31/2022 10:43 AM EST): [facility] Monoclonal gammopathy of unknown significance (M MERCEDES) 05/25/2021 Assessment & Plan (09/04/2022 9:16 PM EDT): Could her symptoms of hot flashes, dizziness be due to MGUS Will check protein electrophoresis, CBC Assessment & Plan (05/31/2022 10:43 AM EST): q 6 months with Heme Onc Hyperlipidemia 04/04/2021 Assessment & Plan (05/31/2022 10:44 AM EST): Continue statin Obstructive sleep apnea syndrome 04/04/2021 Assessment & Plan (05/31/2022 10:41 AM EST): cehck O2 at night, if <88%, to wear nocturnal oxygen At next pulm appointment ask about oral devices for SHORTY Hypertrophic obstructive cardiomyopathy 07/31/19 15 Assessment & Plan (10/01/2023 4:33 PM EDT): At dry weight currently BP < 130/80 Beta zheng and diuretics daily Follows with [facility] every 3-4 months Assessment & Plan (03/21/2023 11:32 AM EST): Will check renal function and BNP with increased dyspnea recently Unsure what to make of bleeding sensation in chest? Blood from nose bleed digesting? Will check CBC also Assessment & Plan (09/04/2022 9:16 PM EDT): Continue Metoprolol 50mg daily, HR 70-80s Check BNP, CMP today With ICD in place and regular followup at [facility] Run of alerts 04/05 for VF, which was actually AF with RVR, at that point cardiology increased Metoprolol to 75mg daily Cardiac rehab ongoing Assessment & Plan (07/05/2022 2:45 PM EDT): Continue Metoprolol 50mg daily, which she has been doing for past week, contact [facility] for followup BNP of 241, increase Lasix to 20mg BID x [address] in [address] Run of alerts 04/05 for VF, which was actually AF with RVR, at that point cardiology increased Metoprolol to 75mg daily Cardiac rehab upcoming Assessment & Plan (05/31/2022 10:42 AM EST): With ICD in place Run of alerts 04/05 for VF, which was actually AF with RVR cards increased Metoprolol to 75mg daily Cardiac rehab upcoming Insomnia 07/30/2014 Assessment & Plan (05/31/2022 10:41 AM EST): Increase Melatonin to 10mg prn Sleep in recliner Asthma 04/15/1959 Assessment & Plan (10/01/2023 4:29 PM EDT): Unclear picture of symptoms after Montelukast, but I am concerned about the depression and bloating, rising room in her throat - will restart ICS, Arnuity 100mcg prescribed, HOLD Montelukast and monitor GI and psych symptoms Benign hypertension 04/15/1959 Assessment & Plan (09/04/2022 9:17 PM EDT): At goal <140/90 Assessment & Plan (05/31/2022 10:41 AM EST): At goal <140/90 Depressive disorder 04/15/1959 Assessment & Plan (03/21/2023 11:32 AM EST): Glad that her therapist is someone that she likes to talk to Assessment & Plan (05/31/2022 10:43 AM EST): In remission currently Gastroesophageal reflux disease 04/15/1959 Assessment & Plan (03/21/2023 11:32 AM EST): Start Mylanta prn for bloating at nighttime Tobacco dependence due to cigarettes, in remissi on 04/15/1959 Assessment & Plan (05/31/2022 10:44 AM EST): Quit in 2020, has not started smoking again Encounters Date Type Department Care Team Description 06/07/2024 Refill [facility] [address] [place] [address] Yasmeen Willams MD Insomnia, unspecified type; Gastroesophageal reflux disease without esophagitis 05/20/2024 Telephone [facility] [address] [place] [address] Lori Casas MA Appointment Request 05/19/2024 Telephone [facility] [address] [place] [address] Lori Casas MA recall 05/05/2024 Refill [facility] [address] [place] [address] Yasmeen Willams MD Monoclonal gammopathy of unknown significance (MGUS) 04/22/2024 Refill [facility] [address] [place] [address] Yasmeen Willams MD 04/11/2024 Refill [facility] [address] [place] [address] Yasmeen Willams MD Constipation, unspecified constipation type from Last 3 Months Immunizations Name Administration Dates Next Due Influenza injectable quadriv alent preservative free 03/20/2023,05/30/2022,04/04/2021 Influenza, High Dose Seasona l, Preservative Free 02/03/2024,03/05/2019,01/28/2017,01/08 Moderna Covid-19 Vaccine 12+ 04/04/2021,06/25/19,05/27/2020 Pfizer Covid-19 Vaccine 12+ 02/03/2024 Pneumococcal Conjugate PCV 13 01/08/2015 Pneumococcal Conjugate PCV 20 05/30/2022 Pneumococcal Polysaccharide PPSV23 11/08/2005, TD (adult), 2 Lf tetanus tox oid, preservative free, adsorbed 11/08/2005,11/28/1995 Td (adult) 11/08/2005,11/28/1995 Tdap 11/05/2011 Zoster, live 05/03/2015 Social History Tobacco Use Types Packs/Day Years Used Date Smoking Tobacco: Former Cigarettes Smokeless Tobacco: Never Tobacco Cessation:Counseling Given: Not Answered Alcohol Use Standard Drinks/Week Comments Never 0 [...] your housing situation today? I have annabel michele 06/14/[address] you li [...] not to disclose 2021 10:15 AM EDT Last Filed Vital Signs Vital Sign Reading Time Taken Comments Blood Pressure 122/70 02/03/2024 1:34 PM EDT Pulse 62 02/03/2024 1:34 PM EDT Temperature 37 ??C (98.6 ??F) 02/03/2024 1:34 PM EDT Respiratory Rate 20 02/03/2024 1:34 PM EDT Oxygen Saturation 100% 02/03/2024 1:34 PM EDT Inhaled Oxygen Concentration - - Weight 78.8 kg (173 lb 12.8 oz) 02/03/2024 1:34 PM EDT Height 157.5 cm (5' 2 ) 02/03/2024 1:34 PM EDT Body Mass Index 31.79 02/03/2024 1:34 PM EDT Plan of Treatment Upcoming Encounters Date Type Department Care Team (Late st Contact Info) Description 07/24/2024 2:15 PM EDT Office Visit [facility] [address] [place] [address] Yasmeen Willams MD [address] [place] [id number] Health Maintenance Due Date Last Done Comments Hepatitis A Vaccines (1 of 2 - Risk 2-dose series) 10/05/1962 Zoster Vaccines (2 of 3) 06/28/2015 05/03/2015 RSV Patients and Patients Aged 60 years or older (1 - 1-dose 75+ series) 10/05/2018 DTaP/Tdap/Td Vaccines (2 - Td or Tdap) 11/04/2021 11/05/2011, 11/08/2005, 11/08/2005, Additional history exists Alcohol/Substance Use Screening 02/02/2025 02/03/2024 Depression Screening 02/02/2025 02/03/2024, 02/03/20 24 SDOH Screening 02/02/2025 02/03/2024 Tobacco Screening 02/02/2025 02/03/2024 Lipid Panel 12/20/2026 12/20/2021, 04/04/2021 Pneumococcal Vaccine: 50+ Years Completed 05/30/2022, 01/08/2015, 11/08/2005, Additional history exists COVID-19 Vaccine Completed 02/03/2024, , 06/24/2020, Additional history exists Influenza Vaccine Completed 02/03/2024, , 05/30/2022, Additional history exists HIB Vaccines Aged Out No longer eligi ble based on patient's age to complete this topic HPV Vaccines Aged Out No longer eligi ble based on patient's age to complete this topic Hepatitis B Vaccines Aged Out No long er eligible based on patient's age to complete this topic IPV Vaccines Aged Out No longer eligi ble based on patient's age to complete this topic Meningococcal Vaccine Aged Out No oleg stiven eligible based on patient's age to complete this topic RSV under 20 months Aged Out No longe r eligible based on patient's age to complete this topic Rotavirus Vaccines Aged Out No longer eligible based on patient's age to complete this topic Procedures Procedure Name Priority Date/Time Associated Diagnosis Comments LIPID PANEL, STANDARD Routine 12/20/2021 2:35 PM EDT from Last 3 Months or Most Recently Relevant to Health Maintenance Results * (ABNORMAL) LIPID PANEL, STANDARD (12/20/2021 2:35 PM EDT) Chol/HDLC Ratio 3.6 <5.0 (calc) [facility] Cholesterol, Total 183 <200 mg/dL [facility] HDL Cholesterol 51 > OR = 50 mg/dL [facility] LDL Cholesterol 111(H) mg/dL (calc) [facility] Comment: Reference range: <100 ?? Desirable range <100 mg/dL for primary prevention; ?? <70 mg/dL for patients with CHD or diabetic patients ?? with > or = 2 CHD risk factors. ?? LDL-C is now calculated using the Warren ?? calculation, which is a validated novel method providing ?? better accuracy than the Friedewald equation in the ?? estimation of LDL-C. ?? Akash ALFREDO et al. ROLDAN. 2013;310(19): 1013-5175 ?? (http://education.Eyesquad/faq/DUR175) Non-HDL Cholesterol 132(H) <130 mg/dL (calc) [facility] Comment: For patients with diabetes plus 1 major ASCVD risk ?? factor, treating to a non-HDL-C goal of <100 mg/dL ?? (LDL-C of <70 mg/dL) is considered a therapeutic ?? option. Triglycerides 99 <150 mg/dL [facility] 12/20/2021 2:35 PM EDT us Radha Howard MARKETING OPERATIONS CONSULTANT LAB BLOOD ORDERABLES Final Res ult [facility] [address] from Last 3 Months or Most Recently Relevant to Health Maintenance Insurance [facility] Care Teams Anvilsmith Relationship Specialty Start Date End Date Yasmeen Willams MD [address] [place] [phone] PCP - General Family Medicine 12/09/21
--- OUTSIDE RECORDS SUMMARY | 2024-06-08 15:03 | XMS_ITS | Encounter Summary ---
Author Organization [employer] Address [address] [facility] [address] [place] [address] Care Team Providers Care Pediatrics Physician Name Role Phone Yasmeen Willams MD Primary Care Provider [phone] Reason for Visit * Reason Onset Date Comments Resend Script 06/21/2022 Encounter Details Date Type Department Care Team ([facility] st Contact Info) Description 06/21/2022 Telephone [facility] MEDICINE [address] [place] [address] Yasmeen Willams MD [address] [place] [address] Resend Script Social History Tobacco Use Types Packs/Day Years Used Date Smoking Tobacco: Never Smokeless Tobacco: Never Alcohol Use Standard Drinks/Week [...] suspected to have Coronavirus/COVID-19? No / Unsure 05/30/2022 3:40 PM EST documented as of this encounter Miscellaneous Notes * Telephone Encounter - Shima Cross - 06/21/2022 10:46 AM EST Tc judith [place] with [facility] requesting script for rosuvastatin (Crestor) 10 MG tablet andfolic acid (Folvite) 1 MG tablet. Pharmacy claims script was never received. Please contact pharmacy if any questions [phone] documented in this encounter Plan of Treatment Upcoming Encounters Date Type Department Care Team (Late st Contact Info) Description 07/24/2024 2:15 PM EDT Office Visit [facility] MEDICINE [address] [place], [place] [phone] Yasmeen Willams MD [address] [place] [address] documented as of this encounter Visit Diagnoses Diagnosis Monoclonal gammopathy of unknown significance (MGUS) Other hyperlipidemia documented in this encounter Care Teams Pediatrics Physician Relationship Specialty Start Date End Date Yasmeen Willams MD [address] [place], [place] [phone] PCP - General Family Medicine 12/09/21 documented as of this encounter
--- OUTSIDE RECORDS SUMMARY | 2024-06-08 15:03 | XMS_ITS | Encounter Summary ---
Author Organization [employer] Address [address] [facility] [address] [place] [address] Care Team Providers Care Business Center Attendant Name Role Phone Yasmeen Willams MD Primary Care Provider [phone] Reason for Visit * Reason Onset Date Comments recall 05/19/2024 Encounter Details Date Type Department Care Team (Late st Contact Info) Description 05/19/2024 Telephone [facility] MEDICINE [address] [place], [place] [phone] Lori Casas MA recall Social History Tobacco Use Types Packs/Day Years [...] Telephone Encounter - Lori Casas MA - 05/19/2024 10:29 AM EST T/C placed spoke with pt, pt agreed to come in on 07/24/24 at 2:15pm documented in this encounter Plan of Treatment Upcoming Encounters Date Type Department Care Team (Late st Contact Info) Description 07/24/2024 2:15 PM EDT Office Visit [facility] MED[facility]INE [address] [place] [address] Yasmeen Willams MD [address] [place] [address] documented as of this encounter Visit Diagnoses Not on filedocumented in this encounter Additional Health Concerns Assessment Noted Time PHQ-9 Depression Total Score: 0 02/03/20 24 1:41 PM EDT documented as of this encounter Care Teams Business Center Attendant Relationship Specialty Start Date End Date Yasmeen Willams MD [address] [place] [phone] PCP - General Family Medicine 12/09/21 documented as of this encounter
--- OUTSIDE RECORDS SUMMARY | 2024-06-08 15:03 | XMS_ITS | Encounter Summary ---
Author Organization [employer] Address [address] [facility] 7t [place] [address] Care Team Providers Care Hearing Aid Fitter Name Role Phone Yasmeen Willams MD Primary Care Provider [phone] Reason for Visit * Reason Comments Med Refill Encounter Details Date Type Department Care Team ([facility] st Contact Info) Description 12/12/2023 Refill [facility] MEDICINE [address] [place], [place] [phone] Stella Maher MD [address] [place], [place] [phone] Gastroesophageal reflux disease without esophagitis Social History [...] the past 12 months, has t he [email or web address], [employer], oil or water company threatened to shut [...] Description 07/24/2024 2:15 PM EDT Office Visit [facility] MED[facility]INE [address] [place], [place] [phone] Yasmeen Willams MD [address] [place] [phone] documented as of this encounter Visit Diagnoses Diagnosis Gastroesophageal reflux disease without esophagitis Esophageal reflux documented in this encounter Care Teams Hearing Aid Fitter Relationship Specialty Start Date End Date Yasmeen Willams MD [address] [place] [phone] PCP - General Family Medicine 12/09/21 documented as of this encounter
[2024-07-06 14:15] VITALS: BMI 32.4
[2024-07-08] VITALS (19 sets, daily range): BP systolic 97–143; BP diastolic 53–79; PULSE 60–79; RESP 16–20; TEMP 36.1–36.9; O2SAT 92–100; BMI 31.9
--- NOTE | ~2024-07-08 | CT_ITS ---
EXAMINATION: CT ABDOMEN PELVIS WITHOUT IV CONTRAST HISTORY: abd pain s/p EGD and colonoscopy-r/o perf COMPARISON: Comparison is made with the prior examination dated 06/06/2017. TECHNIQUE: CT scan of the abdomen and pelvis was performed without contrast using standard departmental protocol. Coronal and sagittal reformatted images were generated and reviewed. This CT exam was performed with one or more of the following dose reduction techniques: automated exposure control, adjustment of the mA and/or kV according to patient size, use of iterative reconstruction technique. DLP: 585 mGy-cm FINDINGS: LOWER CHEST: The visualized lung bases are clear. There is no pleural effusion. CARDIOVASCULATURE: The heart is normal in size. There is no pericardial effusion. LIVER: The liver is normal in size and contour. The liver has an unremarkable unenhanced appearance. GALLBLADDER / BILE DUCTS: There is a calcified stone in the gallbladder. There is no intra or extrahepatic biliary ductal dilatation. SPLEEN: The spleen is normal in size and has an unremarkable unenhanced appearance. PANCREAS: The pancreas has an unremarkable unenhanced appearance. ADRENAL GLANDS: Unremarkable. KIDNEYS/RETROPERITONEUM: There are punctate nonobstructing calculi at the lower poles of both kidneys. There is no hydronephrosis. LYMPH NODES: No retroperitoneal lymphadenopathy is identified in the abdomen or pelvis. VASCULATURE: There is atherosclerotic calcification of the abdominal aorta which demonstrates 2.9 cm in maximum diameter. MESENTERY/PERITONEUM: No free fluid. No masses. There is no free intraperitoneal gas. STOMACH: There is a moderate hiatal hernia. The remainder of the stomach is largely collapsed. SMALL BOWEL: There is hyperdense material in the duodenum which may represent a small amount of ingested oral contrast material. This is felt to be too dense to represent hemorrhage (314 HU). There is a moderate-sized duodenal diverticulum. COLON: There is diverticulosis of the descending and sigmoid colon without evidence of diverticulitis. APPENDIX: Normal. URINARY BLADDER/PELVIC ORGANS: The urinary bladder is unremarkable. The uterus is unremarkable unenhanced appearance. BONES / SOFT TISSUES: There is degenerative disc disease of the spine. CT/CT abdomen pelvis wo IV con IMPRESSION: 1. No evidence of free intraperitoneal gas to suggest perforation. 2. Hyperdense material in the duodenum which may reflect a small amount of ingested oral contrast material. Clinical correlation is recommended. This is felt to be too dense to represent hemorrhage. 3. Cholelithiasis. Bilateral nephrolithiasis as described. 4. Diverticulosis of the descending and sigmoid colon, without evidence of diverticulitis. Electronically signed by: Byron Pastrana MD 07/08/2024 01:45 PM EDT
--- NOTE | ~2024-07-08 | XR_ITS ---
EXAMINATION: XR CHEST 1 VIEW HISTORY: pain after EGD, colonoscopy-r/o perf COMPARISON: Comparison is made with the prior examination dated 09/25/2022. FINDINGS: A single AP portable view of the chest performed at 12:27 PM is submitted. A left-sided dual-chamber pacemaker is unchanged in position. Again seen is scarring in the left midlung zone. The right lung is clear. There is no pleural effusion, pneumothorax, or pulmonary vascular congestion. The heart is normal in size. The aorta is calcified. There is degenerative disc disease of the spine. XR/XR chest 1V IMPRESSION: No acute cardiopulmonary abnormality. Electronically signed by: Byron Pastrana MD 07/08/2024 12:50 PM EDT
--- NOTE | ~2024-07-08 | XR_ITS ---
EXAMINATION: XR ABDOMEN 1 VIEW (KUB) HISTORY: pain after EGD, colonoscopy COMPARISON: There are no prior studies for comparison. FINDINGS: Two portable supine views of the abdomen performed at 12:25 PM are submitted. The bowel gas pattern is unremarkable, without evidence of mechanical obstruction. There are vascular calcifications in the pelvis. There are no abnormal soft tissue masses. There is moderate degenerative disc disease of the spine. XR/XR KUB IMPRESSION: Unremarkable bowel gas pattern. Electronically signed by: Byron Pastrana MD 07/08/2024 12:49 PM EDT
--- NOTE | 2024-07-08 09:54 | MHC.SHP ---
Pre-Procedural Eval Section A - 24 Hr Update-Section A only Date of Service: 07/08/24 Section B - Complete if H&P > 30 days Chief Complaint: gerd,anemia Relevant Family History (Specify if Yes): No Relevant Social History: None Present Medications: see Short Stay Collaborative assessment Medical History: Significant History (Nocturnal hypoxemia SHORTY (obstructive sleep apnea) COPD (chronic obstructive pulmonary disease) (Unknown) Cardiomyopathy Insomnia GERD (gastroesophageal reflux disease) Hypercholesteremia Asthma Hypertension) History of Previous Operations: Relevant previous surgery/procedure and date(s) (History of heart surgery History of implantable cardioverter-defibrillator (ICD) insertion) Allergies: Allergies Allergy/AdvReac Type Severity Reaction Status Date / Time No Known Allergies Allergy Verified 06/24/24 14:18 [No Known Allergies*] Review of Systems Sugical H&P ROS: Negative: Constitution, Cardiovascular, Respiratory, Neurological, Psychiatric, Hem-Onc, Allergic/Immunologic, Gastrointestinal, Genitourinary, Musculoskeletal, Integumentary, Endocrine and Eyes/Ears/Nose/Throat Exam Surgical H&P Exam: Normal: HEENT, Normal: Heart, Normal: Lungs, Normal: Extremities, Normal: Abdomen, Normal: Skin and Normal: Neurological Plan Diagnosis/Plan: Unchanged I have reviewed the history and physical and performed a pertinent physical examination on my patient. No changes have occurred unless specified. Time Spent With Patient Time: Total time managing care of this patient today ____ minutes.
[2024-07-08] MEDS: Lactated Ringers 1,000 ML 100 ML IVCONT ×2 (10:23→12:37)
--- NOTE | 2024-07-08 10:35 | P.CONAN_ITS ---
HPI - Anesthesia Eval Consult details Narrative: 78 yo female patient for EGD, Colonoscopy PMF Active Problems Active Problems: All Active Problems Anemia (Acute) Varicose veins of left lower extremity with inflammation (Acute) MGUS (monoclonal gammopathy of unknown significance) (Acute) HOCM (hypertrophic obstructive cardiomyopathy) (Acute) Nocturnal hypoxemia (Acute) SHORTY (obstructive sleep apnea) (Acute) COPD (chronic obstructive pulmonary disease) (Acute Unknown) Asthma (Acute) Hypertension (Acute) H/o VT during procedure for ?pacemaker/ cardiac cath. Converted to ? CABG. ICD placed days later Past Medical History Medical History Depression Nocturnal hypoxemia SHORTY (obstructive sleep apnea) COPD (chronic obstructive pulmonary disease) (Unknown) Cardiomyopathy Insomnia GERD (gastroesophageal reflux disease) Hypercholesteremia Asthma Hypertension Family History Family History Son No problems noted. Son No problems noted. Son No problems noted. Son No problems noted. Mother Diabetes Paternal Grandmother Ovarian cancer Family history of problems with anesthesia: No Surgical History Surgical History History of heart surgery History of implantable cardioverter-defibrillator (ICD) insertion History of Problems with Anesthesia: No Social History Social History Household Members: None Household Members Other:: lives alone Housing: Apartment Are you a primary rn progressive care unit to a significant other at home: No Do you presently have visiting nurse or other home services: No Alcohol intake: never Patient Tobacco Use Status: Former Tobacco user Cigarette Packs Per Day: 0.5 Years Smoked: 5 Use of substances other than those prescribed or required for medical reasons: No Have you been hit, kicked, punched, or otherwise hurt by someone within the past year? If so, by whom?: No Are you DNR?: No Advance Directives: No Advance Directives Information Provided: Yes Advance Directives on File: No Recently lost weight without trying: No Nutrition Risks: No Nutritional Risk Patient : No service: No Current occupational status: retired Meds Allergies Allergy/AdvReac Type Severity Reaction Status Date / Time No Known Allergies Allergy Verified 06/24/24 14:18 [No Known Allergies*] Active Medications: Current Medications Lactated Ringer's (Lr) 1,000 mls @ 100 mls/hr IVCONT .Q10H KARIN Last Admin: 07/08/24 10:23 Dose: 100 mls/hr Home Medications ?Medication ?Instructions ?Recorded ?Confirmed ?Last Taken ?Type albuterol sulfate 90 mcg/actuation 90 mcg inhalation Q OTHER DAY 02/18/20 07/08/24 07/08/24 08:00 History aerosol inhaler cholecalciferol (vitamin D3) 50 50 mcg PO DAILY 02/18/20 07/06/24 06/20/22 08:00 History mcg (2,000 unit) tablet melatonin 5 mg tablet 5 mg PO BEDTIME PRN insomnia 04/19/20 07/06/24 Unknown History albuterol sulfate 2.5 mg/3 mL 2.5 mg inhalation Q6H PRN 05/02/21 07/06/24 Unknown History (0.083 %) solution for nebulization Shortness Of Breath docusate sodium 100 mg capsule 100 mg PO BID PRN Constipation 05/02/21 02/24/24 Unknown History (Stool Softener) folic acid 1 mg tablet 1 mg PO DAILY 05/02/21 02/24/24 06/20/22 08:00 History rosuvastatin 10 mg tablet 10 mg PO BEDTIME 05/02/21 07/06/24 06/20/22 08:00 History apixaban 5 mg tablet (Eliquis) 5 mg PO BID 11/13/21 07/08/24 07/05/24 History fluticasone propionate 110 1 puff inhalation BID PRN Wheezing 01/07/23 02/24/24 Unknown History mcg/actuation HFA aerosol inhaler (Flovent HFA) metoprolol succinate 50 mg 50 mg PO DAILY 01/07/23 07/06/24 Unknown History tablet,extended release 24 hr mirtazapine 30 mg tablet 30 mg PO BEDTIME 06/24/24 07/06/24 Unknown History multivitamin 1 tab PO DAILY 06/24/24 Unknown History omeprazole 20 mg capsule,delayed 20 mg PO QAM 06/24/24 07/06/24 Unknown History release Exam Height,Weight and Vital Signs: Height 5 ft 2 in Weight 79.2 kg Last Vital Signs Temp 97.3 F 07/08/24 10:15 Pulse 75 07/08/24 10:15 Resp 16 07/08/24 10:15 BP 117/64 07/08/24 10:15 Pulse Ox 99 07/08/24 10:15 O2 Del Method Room Air 07/08/24 10:15 Airway Mallampati Class: III TM Dist: >3cm Neck ROM: Full Denture: Upper and Lower Loose/Missing/Broken Teeth: Yes (Full dentures ) Heart: RRR Lungs: CTAB. Diminished. ?Bowel sounds left Assessment and Plan Assessment Anesthesia Assessment: Anesthesia Plan Discussed and Chart Reviewed Final Anesthetic Review Family History of Problems with Anesthesia: No History of Problems with Anesthesia: No NPO: Yes ASA Class: III Final Preanesthetic Review: No Changes in Pt Med Stat, Meds/Allgs Chart Reviewed, Consent Obtained/Reviewed and Anes Risks/Benef Reviewed Patient Risk: High Procedure Risk: Low Assessment/Block/Sedation in SS: Assess/Block/Sedation-SS Anesthetic Plan Anesthetic Plan: TIVA Disposition: Standard PACU
--- NOTE | 2024-07-08 11:52 | HO.OPN-COLON ---
Colonoscopy Operative Note Operative Note Date of Service: 07/08/24 Narrative: Operative Information Procedure Description: EGD, Colonoscopy Indication: anemia Anesthesia: MAC FLEXIBLE TRANSORAL UPPER GASTROINTESTINAL ENDOSCOPY AND COLONOSCOPY PROCEDURE NOTE UPPER ENDOSCOPY Consent: Indications for the procedure and potential complications of bleeding, perforation, reaction to medications and missed diagnosis were discussed with the patient and informed consent was obtained. Instrument: Olympus GIF H 190 J mid size upper endoscope Monitoring: Vital signs and clinical assessment, continuous EKG monitoring, Pulse oximetry, Carbon Dioxide monitoring and blood pressure monitoring were done throughout the procedure. Procedure: The patient was placed in the left lateral decubitis position and pre-procedure medications were administered and a bite block was placed. The endoscope was inserted into the mouth and advanced under direct vision to the third part of duodenum. A careful inspection was made as the upper endoscope was withdrawn including a retroflexed examination of the proximal stomach; Findings and interventions are described below. Findings: Larynx:normal Esophagus: GE junction at 36 cm, diaphragm hiatus at 40 cm, consistent with 4 cm hiatal hernia Stomach: scattered fundic gland polyps. Biopsies were obtained. Grade 2 flap valve on retroflexed examination of the cardia. Duodenum: Normal bulb. In second part a large adenomatous appearing polyp noted on the posterior wall. It measured about 14-18 mm in length. It was lifted with eleview and then injected and sprayed with epinephrine. The polyp was removed piece meal using cold snare and cold forceps for residual tissue. The base of the defect was then ablated using APC and sprayed with hemospray Intervention: eleview and epinephrine lift with polypectomy and APC with hemospray COLONOSCOPY Instrument: Olympus variable stiffness pediatric scope 190L Colonoscopy Monitoring: Vital signs and clinical assessment, continuous EKG monitoring, Pulse oximetry, Carbon Dioxide monitoring and blood pressure monitoring were done throughout the procedure. Colon withdrawal time was 9 minutes. Procedure: The patient was placed in the left lateral decubitis position and pre-procedure medications were administered. After a digital rectal examination of the ano-rectum, the video colonoscope was inserted into the rectum and advanced through the colon to the cecum/TI. The colonoscope was slowly withdrawn in a retrograde panoramic fashion and the colon mucosa was carefully examined including a retroflexed view of the rectum. Findings and interventions are described below. Procedure Difficulty:moderate Findings: Terminal Ileum-normal Cecum: x 1 sessile polyp 4-5 mm removed with cold forceps Ascending Colon: x 2 sessile polyps 6-8 mm removed with cold snare, patchy diverticulosis Transverse Colon -normal Descending Colon: mild diverticulosis Sigmoid Colon: severe diverticulosis Rectum: Retroflexion with small internal hemorrhoids, grade I Anorectum - normal Colon preparation: [place] Bowel Preparation Scale Right colon; 2 Transverse colon: 2 Left colon; 2 (0 = Unprepared colon segment with mucosa not seen due to solid stool that cannot be cleared. 1 = Portion of mucosa of the colon segment seen, but other areas of the colon segment not well seen due to staining, residual stool and/or opaque liquid. 2 = Minor amount of residual staining, small fragments of stool and/or opaque liquid, but mucosa of colon segment seen well. 3 = Entire mucosa of colon segment seen well with no residual staining, small fragments of stool or opaque liquid) Impression and Post Procedure Diagnosis: Endoscopy Findings: fundic gland polyps duodenal polyp hiatal hernia Colonoscopy Findings: diverticulosis colon polyps internal hemorrhoids Plan: Await Pathology results Repeat Colonoscopy in 5 years if health allows or earlier if clinically indicated High fiber diet leaflet avoid straining at stool, epsom salts and sitz bath, anusol supps or cream repeat EGD in about 6-12 weeks range restart eliquis after 48 hrs i.e 10 July in the evening. Above findings were reviewed with the patient and relevant handouts were provided if indicated.
[2024-07-08] MEDS: fentaNYL citrate/PF 100 MCG/2 ML VIAL 25 MCG IVPUSH (12:19)
[2024-07-08] MEDS: ondansetron HCL 4 MG/2 ML VIAL IVPUSH ×2 (12:22→13:36)
[2024-07-08] MEDS: ceFAZolin Sodium/Dextrose,Iso 2 GM/50 ML PIGGYBACK IV (12:33)
[2024-07-08] MEDS: metroNIDAZOLE/NS 500 MG/100 ML PIGGYBACK 100 MG IV (12:40)
--- NOTE | 2024-07-08 13:01 | PC.NURSE ---
returned from ct. md evans at bedside- pt abd remains soft. no nausea. 8/10 pain generalized in abd. pt reports being cold and shivering.
[2024-07-08] MEDS: HYDROmorphone HCl 0.5 MG/0.5 ML SYRINGE 0.25 MG IVPUSH (13:30)
[2024-07-08 14:16] LABS: MANUAL DIFF FLAG NO
[2024-07-08 14:23] LABS: Basophils Percent Auto 0.2 % (0-2); Eosinophils Absolute Auto 0.1 X10*3/uL (0.0-0.4); Eosinophils Percent Auto 1.3 % (0-4); Hematocrit 29.1 % (37.0-47.0); Hemoglobin 10.3 g/dl (12.0-16.0); Imm Gran Abs Auto 0.03 X10*3/uL (0.00-0.03); Imm Gran Pct Auto 0.6 % (0.0-0.4); Lymphocytes Absolute Auto 0.7 X10*3/uL (1.2-4.9); Lymphocytes Percent Auto 13.5 % (20-40); Mean Corpuscular HGB Conc 35.4 g/dl (31.0-35.0); Mean Corpuscular Hemoglobin 31.8 pg (27.0-33.0); Mean Corpuscular Volume 89.8 fL (80.0-98.0); Mean Platelet Volume 12.7 fL (9.4-12.3); Monocytes Absolute Auto 0.4 X10*3/uL (0.1-1.2); Monocytes Percent Auto 7.7 % (2-11); Neutrophils Absolute Auto 4.1 x10*3/uL (2.0-8.3); Neutrophils Percent Auto 76.7 % (45-73); Platelet Count 120 X10*3/uL (160-400); Red Blood Count 3.24 X10*6/uL (4.20-5.50); Red Cell Distribution Width 11.9 % (11.0-16.0); White Blood Count 5.3 X10*3/uL (4.8-10.8)
[2024-07-08 14:33] LABS: Alanine Aminotransferase 15 U/L (0-31); Albumin Level 3.7 g/dL (3.5-5.0); Alkaline Phosphatase 84 U/L (39-117); Anion Gap 11 (12-20); Aspartate Amino Transferase 13 U/L (5-31); Bilirubin Total 0.2 mg/dL (0.0-1.0); Blood Urea Nitrogen 17 mg/dL (9-16); Carbon Dioxide 25 mmol/L (22-29); Chloride 101 mmol/L (96-108); Creatinine Clr Calc Pharmacy 30.3; Estimated Glomerular Filt Rate 35; Glucose Random 110 mg/dL (60-115); Potassium 3.9 mmol/L (3.3-5.1); Sodium 133 mmol/L (135-145); Total Protein 6.8 g/dL (6.5-8.0)
--- NOTE | 2024-07-08 15:34 | PM.HPGS ---
History of Present Illness History of Present Illness Date of Service: 07/08/24 Chief complaint: gerd,anemia Narrative: Tabitha Graham is a 78 year old female presenting for an EGD today found to have a duodenal polyp on examination. Patient underwent polypectomy performed by Dr. Marin. Postoperatively the patient reported increased abdominal pain greater than typical. There was a concern for perforation therefore CT abdomen and pelvis was obtained. This revealed no free air or fluid collections. There was some air in the wall of the duodenum but no clear evidence of a perforation. The patient was being admitted for further observation and pain control to the surgical service. Review of Systems Review of Systems: Yes all other systems are reviewed and are negative [facility] Past Medical History Medical History Depression Nocturnal hypoxemia SHORTY (obstructive sleep apnea) COPD (chronic obstructive pulmonary disease) (Unknown) Cardiomyopathy Insomnia GERD (gastroesophageal reflux disease) Hypercholesteremia Asthma Hypertension Family History Family History Son No problems noted. Son No problems noted. Son No problems noted. Son No problems noted. Mother Diabetes Paternal Grandmother Ovarian cancer Surgical History Surgical History History of heart surgery History of implantable cardioverter-defibrillator (ICD) insertion Social History Social History Household Members: None Household Members Other:: lives alone Housing: Apartment Are you a primary point of care specialist to a significant other at home: No Do you presently have visiting nurse or other home services: No Alcohol intake: never Patient Tobacco Use Status: Former Tobacco user Cigarette Packs Per Day: 0.5 Years Smoked: 5 Use of substances other than those prescribed or required for medical reasons: No Have you been hit, kicked, punched, or otherwise hurt by someone within the past year? If so, by whom?: No Are you DNR?: No Advance Directives: No Advance Directives Information Provided: Yes Advance Directives on File: No Recently lost weight without trying: No Nutrition Risks: No Nutritional Risk Patient : No service: No Current occupational status: retired Meds Allergies Allergy/AdvReac Type Severity Reaction Status Date / Time No Known Allergies Allergy Verified 06/24/24 14:18 [No Known Allergies*] Active Medications: Current Medications Acetaminophen (Acetaminophen 325 Mg Tablet) 650 mg PO Q6H PRN PRN Reason: Pain, Mild 1-3,fever,headache Albuterol Sulfate (Albuterol Sulfate (0.083%) 2.5 Mg/3 Ml Vial.Neb) 2.5 mg INHALE Q6H PRN PRN Reason: Shortness Of Breath Calcium Carbonate (Calcium Carbonate 750 Mg Tab.Chew) 750 mg PO Q4H PRN PRN Reason: Heartburn Furosemide (Furosemide 20 Mg Tablet) 20 mg PO DAILY [facility]; Protocol Hydromorphone HCl (Hydromorphone Hcl 0.5 Mg/0.5 Ml Syringe) 0.25 mg IVPUSH Q4H PRN; Protocol PRN Reason: Pain, Severe (Pain Scale 7-10) Last Admin: 07/08/24 13:30 Dose: 0.25 mg Hydromorphone HCl (Hydromorphone Hcl 0.5 Mg/0.5 Ml Syringe) 0.5 mg IVPUSH Q3H PRN; Protocol PRN Reason: Pain, Severe (Pain Scale 7-10) Lactated Ringer's (Lr) 1,000 mls @ 100 mls/hr IVCONT .Q10H [facility] Last Admin: 07/08/24 12:37 Dose: 100 mls/hr Dextrose/Lactated Ringer's (D5lr) 1,000 mls @ 100 mls/hr IVCONT .Q10H [facility] Piperacillin Sod/Tazobactam (Sod 3.375 gm/ Sodium Chloride) 50 mls @ 100 mls/hr IV Q6H [facility] Magnesium Hydroxide (Milk Of Magnesia 30 Ml Oral.Susp) 30 ml PO DAILY PRN PRN Reason: Constipation Melatonin (Melatonin 3 Mg Tablet) 6 mg PO BEDTIME PRN PRN Reason: Insomnia Metoprolol Succinate (Metoprolol Succinate Er 50 Mg Tab.Er.24h) 50 mg PO DAILY [facility]; Protocol Mirtazapine (Mirtazapine 30 Mg Tablet) 30 mg PO BEDTIME [facility] Omeprazole (Omeprazole 20 Mg Capsule.Dr) 20 mg PO DAILY@0630 [facility] Ondansetron HCl (Ondansetron Hcl 4 Mg/2 Ml Vial) 4 mg IVPUSH Q4H PRN PRN Reason: Nausea and Vomiting Last Admin: 07/08/24 13:36 Dose: 4 mg Ondansetron HCl (Ondansetron Hcl 4 Mg/2 Ml Vial) 4 mg IVPUSH QID PRN PRN Reason: Nausea Oxycodone HCl (Oxycodone Hcl Immed Release 5 Mg Tablet) 5 mg PO Q6H PRN PRN Reason: Pain, Moderate(Pain Scale 4-6) Sodium Chloride (0.9 % Sodium Chloride Flush 3 Ml Syringe) 3 ml IVFLUSH [facility] Medications ?Medication ?Instructions ?Recorded ?Confirmed ?Last Taken ?Type albuterol sulfate 90 mcg/actuation 90 mcg inhalation Q OTHER DAY 02/18/20 07/08/24 07/08/24 08:00 History aerosol inhaler cholecalciferol (vitamin D3) 50 50 mcg PO DAILY 02/18/20 07/06/24 06/20/22 08:00 History mcg (2,000 unit) tablet melatonin 5 mg tablet 5 mg PO BEDTIME PRN insomnia 04/19/20 07/06/24 Unknown History albuterol sulfate 2.5 mg/3 mL 2.5 mg inhalation Q6H PRN 05/02/21 07/06/24 Unknown History (0.083 %) solution for nebulization Shortness Of Breath docusate sodium 100 mg capsule 100 mg PO BID PRN Constipation 05/02/21 02/24/24 Unknown History (Stool Softener) folic acid 1 mg tablet 1 mg PO DAILY 05/02/21 02/24/24 06/20/22 08:00 History rosuvastatin 10 mg tablet 10 mg PO BEDTIME 05/02/21 07/06/24 06/20/22 08:00 History apixaban 5 mg tablet (Eliquis) 5 mg PO BID 11/13/21 07/08/24 07/05/24 History fluticasone propionate 110 1 puff inhalation BID PRN Wheezing 01/07/23 02/24/24 Unknown History mcg/actuation HFA aerosol inhaler (Flovent HFA) metoprolol succinate 50 mg 50 mg PO DAILY 01/07/23 07/06/24 Unknown History tablet,extended release 24 hr mirtazapine 30 mg tablet 30 mg PO BEDTIME 06/24/24 07/06/24 Unknown History multivitamin 1 tab PO DAILY 06/24/24 Unknown History omeprazole 20 mg capsule,delayed 20 mg PO QAM 06/24/24 07/06/24 Unknown History release Physical Exam Vital Signs: Vital Signs: Last Vital Signs Temp 97.4 F 07/08/24 14:31 Pulse 71 07/08/24 14:47 Resp 16 07/08/24 14:47 BP 106/57 L 07/08/24 14:47 Pulse Ox 93 07/08/24 14:47 O2 Del Method Room Air 07/08/24 14:47 BMI result Body Mass Index 31.9 Const: Other: Patient resting comfortably in recovery room in no acute distress Resp: Other: Breathing comfortably with no respiratory distress, no wheezing, no coughing GI: Other: Mild distention with minimal tenderness to deep palpation in the right upper quadrant, no peritoneal signs. Skin: Other: Warm, dry, no rash Results Results Labs: Short CBC 07/08/24 Range/Units 14:10 WBC 5.3 (4.8-10.8) X10*3/uL Hgb 10.3 L (12.0-16.0) g/dl Hct 29.1 L (37.0-47.0) % Plt Count 120 L D (160-400) X10*3/uL BMP 07/08/24 14:10 Sodium 133 L Potassium 3.9 Chloride 101 Carbon Dioxide 25 BUN 17 H Creatinine 1.44 H Calcium 9.0 D Liver Function 07/08/24 Range/Units 14:10 Total Bilirubin 0.2 (0.0-1.0) mg/dL AST 13 (5-31) U/L ALT 15 (0-31) U/L Alkaline Phosphatase 84 (39-117) U/L Albumin 3.7 (3.5-5.0) g/dL Assessment and Plan (1) Adenomatous duodenal polyp: Status: Acute Plan The patient is admitted to the surgical service for observation and pain control. I will keep her NPO for tonight with IV fluids. If she remains stable overnight we will start diet in a.m.. Pain meds and antibiotics added. Quality Stroke Does the patient have a stroke diagnosis?: No VTE Prior VTE?: No VTE Risk Level:: Surgical - moderate VTE Device Contraindication: N/A - Device Ordered VTE Drug Contraindication: Treatment Not Indicated Procedures Date of Service Date of Service: 07/08/24
[2024-07-08] MEDS: Piperacillin Sodium/Tazobactam 3.375 GM in 0.9 % Sodium Chloride 50 ML IV ×2 (15:57→20:41)
[2024-07-08] MEDS: Dextrose 5 % and Lactated Ring 1,000 ML 100 ML IVCONT (16:19)
--- NOTE | 2024-07-08 17:18 | PHA.MEDREC ---
Addendum entered by Ankit Nixon, [facility] 07/08/24 17:30: Med rec reviewed Original Note: Pharmacy Consult ? Medication Reconciliation Pharmacy has completed the medication reconciliation. Spoke with patient to confirm. She has been taking both cetirizine and loratadine, says the cetirizine is from a different doctor and only for 30 days. She did not recognize famotidine or bisacodyl, left off of med list. Metoprolol rx says bid but patient takes daily. She takes melatonin every night and miralax 1-2x/day. Furosemide says bid but she takes one daily +1 prn edema. She uses albuterol and arnuity as needed and takes flovent bid (no claims for flovent but says she takes). She only took cetirizine, metoprolol, and omeprazole this morning.
[2024-07-08] MEDS: Melatonin 3 MG TABLET 6 MG PO (20:42)
[2024-07-08] MEDS: Mirtazapine 30 MG TABLET PO (20:42)
[2024-07-08] MEDS: Acetaminophen 325 MG TABLET 650 MG PO (20:42)
[2024-07-08] MEDS: 0.9 % Sodium Chloride Flush 3 ML SYRINGE IVFLUSH (20:48)
[2024-07-09] VITALS (8 sets, daily range): BP systolic 100–152; BP diastolic 54–72; PULSE 57–75; RESP 16–18; TEMP 36.1–37; O2SAT 96–99
[2024-07-09] MEDS: Dextrose 5 % and Lactated Ring 1,000 ML 100 ML IVCONT ×2 (01:59→10:33)
[2024-07-09] MEDS: Piperacillin Sodium/Tazobactam 3.375 GM in 0.9 % Sodium Chloride 50 ML IV ×4 (02:05→20:48)
[2024-07-09 05:36] LABS: MANUAL DIFF FLAG NO
[2024-07-09] MEDS: Omeprazole 20 MG CAPSULE.DR PO (05:44)
[2024-07-09 06:34] LABS: Eosinophils Percent Auto 0.7 % (0-4); Hematocrit 26.8 % (37.0-47.0); Hemoglobin 9.3 g/dl (12.0-16.0); Imm Gran Abs Auto 0.01 X10*3/uL (0.00-0.03); Imm Gran Pct Auto 0.2 % (0.0-0.4); Lymphocytes Absolute Auto 0.8 X10*3/uL (1.2-4.9); Mean Corpuscular HGB Conc 34.7 g/dl (31.0-35.0); Mean Corpuscular Hemoglobin 31.4 pg (27.0-33.0); Mean Corpuscular Volume 90.5 fL (80.0-98.0); Mean Platelet Volume 12.7 fL (9.4-12.3); Monocytes Absolute Auto 0.7 X10*3/uL (0.1-1.2); Monocytes Percent Auto 11.3 % (2-11); Neutrophils Absolute Auto 4.3 x10*3/uL (2.0-8.3); Neutrophils Percent Auto 74.8 % (45-73); Platelet Count 129 X10*3/uL (160-400); Red Blood Count 2.96 X10*6/uL (4.20-5.50); Red Cell Distribution Width 11.9 % (11.0-16.0); White Blood Count 5.8 X10*3/uL (4.8-10.8)
[2024-07-09 06:52] LABS: Anion Gap 11 (12-20); Blood Urea Nitrogen 13 mg/dL (9-16); Calcium 8.8 mg/dL (8.4-10.2); Carbon Dioxide 24 mmol/L (22-29); Chloride 102 mmol/L (96-108); Creatinine Clr Calc Pharmacy 33.6; Estimated Glomerular Filt Rate 39; Glucose Random 101 mg/dL (60-115); Potassium 3.4 mmol/L (3.3-5.1); Sodium 134 mmol/L (135-145)
--- NOTE | 2024-07-09 07:43 | P.PNGS_ITS ---
Subjective Subjective Date of Service: 07/09/24 <Milagros Chavez PA-C - Last Filed: 07/09/24 07:47> 07/09/24 <Wil Cueva MD - Last Filed: 07/09/24 07:58> Interval history: Feels much better this morning, pain is significantly improved and minimal, in lower abd. Passing flatus. Feels hungry. Has been OOB to bathroom. <Milagros Chavez PA-C - Last Filed: 07/09/24 07:47> Feels much better this morning, pain is significantly improved and minimal, in lower abd. Passing flatus. Feels hungry. Has been OOB to bathroom. <Wil Cueva MD - Last Filed: 07/09/24 07:58> Physical Exam 2 Vital Signs: Vital Signs: Last Vital Signs Temp 97.9 F 07/09/24 06:49 Pulse 58 07/09/24 06:49 Resp 16 07/09/24 06:49 BP 100/54 L 07/09/24 06:49 Pulse Ox 96 07/09/24 06:49 O2 Del Method Room Air 07/09/24 06:49 BMI result Body Mass Index 31.9 <Milagros Chavez PA-C - Last Filed: 07/09/24 07:47> Const: General: comfortable, no acute distress and alert <JESSI Jones Last Filed: 07/09/24 07:47> Orientation/consciousness: patient oriented x3 <Milagros Chavez PA-C - Last Filed: 07/09/24 07:47> Resp: Effort & Inspection: normal respiratory effort <Milagros Chavez PA-C - Last Filed: 07/09/24 07:47> GI: Inspection: No distended <JESSI Jones Last Filed: 07/09/24 07:47> Palpation (GI): Soft to palpation, Tenderness to palpation present (GI) (mild upper abdominal tenderness), no guarding and not rigid <JESSI Jones Last Filed: 07/09/24 07:47> Skin: General skin exam: no rashes or lesions noted <Milagros Chavez PA-C - Last Filed: 07/09/24 07:47> Neuro: General: patient oriented x3 <Milagros Chavez PA-C - Last Filed: 07/09/24 07:47> Objective Data Active Medications Acetaminophen (Acetaminophen 325 Mg Tablet) 650 mg PO Q6H PRN PRN Reason: Pain, Mild 1-3,fever,headache Last Admin: 07/08/24 20:42 Dose: 650 mg Documented By: KENNEDY Albuterol Sulfate (Albuterol Sulfate (0.083%) 2.5 Mg/3 Ml Vial.Neb) 2.5 mg INHALE Q6H PRN PRN Reason: Shortness Of Breath Albuterol Sulfate (Albuterol Sulfate 90 Mcg 8 Gm Inhaler) 1 puff INHALE Q4H PRN PRN Reason: Shortness of Breath Calcium Carbonate (Calcium Carbonate 750 Mg Tab.Chew) 750 mg PO Q4H PRN PRN Reason: Heartburn Furosemide (Furosemide 20 Mg Tablet) 20 mg PO DAILY [facility]; Protocol Hydromorphone HCl (Hydromorphone Hcl 0.5 Mg/0.5 Ml Syringe) 0.5 mg IVPUSH Q3H PRN; Protocol PRN Reason: Pain, Severe (Pain Scale 7-10) Dextrose/Lactated Ringer's (D5lr) 1,000 mls @ 100 mls/hr IVCONT .Q10H [facility] Last Infusion: 07/09/24 02:35 Dose: 100 mls/hr Documented By: KENNEDY Piperacillin Sod/Tazobactam (Sod 3.375 gm/ Sodium Chloride) 50 mls @ 100 mls/hr IV Q6H [facility] Last Infusion: 07/09/24 02:34 Dose: Infused Documented By: KENNEDY Magnesium Hydroxide (Milk Of Magnesia 30 Ml Oral.Susp) 30 ml PO DAILY PRN PRN Reason: Constipation Melatonin (Melatonin 3 Mg Tablet) 6 mg PO BEDTIME PRN PRN Reason: Insomnia Last Admin: 07/08/24 20:42 Dose: 6 mg Documented By: KENNEDY Metoprolol Succinate (Metoprolol Succinate Er 50 Mg Tab.Er.24h) 50 mg PO DAILY [facility]; Protocol Mirtazapine (Mirtazapine 30 Mg Tablet) 30 mg PO BEDTIME [facility] Last Admin: 07/08/24 20:42 Dose: 30 mg Documented By: KENNEDY Omeprazole (Omeprazole 20 Mg Capsule.Dr) 20 mg PO DAILY@0630 [facility] Last Admin: 07/09/24 05:44 Dose: 20 mg Documented By: KENNEDY Ondansetron HCl (Ondansetron Hcl 4 Mg/2 Ml Vial) 4 mg IVPUSH Q4H PRN PRN Reason: Nausea and Vomiting Last Admin: 07/08/24 13:36 Dose: 4 mg Documented By: GUNJAN Ondansetron HCl (Ondansetron Hcl 4 Mg/2 Ml Vial) 4 mg IVPUSH QID PRN PRN Reason: Nausea Oxycodone HCl (Oxycodone Hcl Immed Release 5 Mg Tablet) 5 mg PO Q6H PRN PRN Reason: Pain, Moderate(Pain Scale 4-6) Sodium Chloride (0.9 % Sodium Chloride Flush 3 Ml Syringe) 3 ml IVFLUSH QSHIFT [facility] Last Admin: 07/08/24 20:48 Dose: 3 ml Documented By: KENNEDY <Milagros Chavez PA-C - Last Filed: 07/09/24 07:47> Labs CBC & Chem 7: 07/09/24 05:26 07/09/24 05:26 <Milagros Chavez PA-C - Last Filed: 07/09/24 07:47> Labs: Laboratory Results - last 24 hr 07/08/24 07/09/24 14:10 05:26 MCV 89.8 90.5 MCH 31.8 31.4 MCHC 35.4 H 34.7 RDW 11.9 11.9 Plt Count 120 L D 129 L MPV 12.7 H 12.7 H Immature Gran % (Auto) 0.6 H 0.2 Neut % (Auto) 76.7 H 74.8 H Lymph % (Auto) 13.5 L 13.0 L [place] % (Auto) 7.7 11.3 H Eos % (Auto) 1.3 0.7 Baso % (Auto) 0.2 0.0 Lymph # (Auto) 0.7 L 0.8 L [place] # (Auto) 0.4 0.7 Eos # (Auto) 0.1 0.0 Baso # (Auto) 0.0 0.0 Abs Immat Gran (auto) 0.03 0.01 Absolute Neuts (auto) 4.1 4.3 Absolute Nucleated RBC 0.000 0.000 Nucleated RBC % (auto) 0.0 0.0 Anion Gap 11 L 11 L Estim Creat Clear Calc 30.3 33.6 Estimated GFR 35 39 Random Glucose 110 101 Calcium 9.0 D 8.8 Total Bilirubin 0.2 AST 13 ALT 15 Alkaline Phosphatase 84 Total Protein 6.8 Albumin 3.7 Blood Type O Positive Antibody Screen NEGATIVE <Milagros Chavez PA-C - Last Filed: 07/09/24 07:47> Procedures Date of Service Date of Service: 07/09/24 <Milagros Chavez PA-C - Last Filed: 07/09/24 07:47> 07/09/24 <Wil Cueva MD - Last Filed: 07/09/24 07:58> Progress Note: A&P Assessment and plan (1) Adenomatous duodenal polyp: Status: Acute <iMlagros Chavez PA-C - Last Filed: 07/09/24 07:47> Assessment and Plan: Admitted for observation following EGD/polypectomy with increased abdominal pain post op with CT showing no free air or fluid collections but some air in the wall of the duodenum but no clear evidence of a perforation. She feels improved this morning with less pain. VSS- afebrile. Abd with mild upper abd tenderness, no peritoneal signs. WBC normal. Will advance to clear liquids and then further as tolerated. Cont IV zosyn, IVF for now. <Milagros Chavez PA-C - Last Filed: 07/09/24 07:47> Admitted for observation following EGD/polypectomy with increased abdominal pain post op with CT showing no free air or fluid collections but some air in the wall of the duodenum but no clear evidence of a perforation. She feels improved this morning with less pain. VSS- afebrile. Abd with mild upper abd tenderness, no peritoneal signs. WBC normal. Will advance to clear liquids and then further as tolerated. Cont IV zosyn, IVF for now. Agree with the above assessment and plan. Overall the patient feels improved but still has some abdominal tenderness to palpation. No peritoneal signs identified. WBC is normal. Agree with advancing to clear liquids and advancing as tolerated. Possible discharge later today if diet tolerated. Patient expressed understanding and agrees with the plan. <Wil Cueva MD - Last Filed: 07/09/24 07:58> Time Spent With Patient Time: Total time managing care of this patient today ____ minutes. <Milagros Chavez PA-C - Last Filed: 07/09/24 07:47> Quality Stroke Does the patient have a stroke diagnosis?: No <Milagros Chavez PA-C - Last Filed: 07/09/24 07:47> VTE Prior VTE?: No <Milagros Chavez PA-C - Last Filed: 07/09/24 07:47> VTE Risk Level:: Surgical - moderate <Milagros Chavez PA-C - Last Filed: 07/09/24 07:47> VTE Device Contraindication: N/A - Device Ordered <Milagros Chavez PA-C - Last Filed: 07/09/24 07:47> VTE Drug Contraindication: Treatment Not Indicated <Milagros Chavez PA-C - Last Filed: 07/09/24 07:47>
--- NOTE | 2024-07-09 08:26 | HO.POSTANES ---
Post Anesthesia Evaluation Post Anesthesia Evaluation Date of Service: 07/09/24 Vital Signs: Vital Signs Temp Pulse Resp BP Pulse Ox O2 Del Method 07/09/24 06:49 97.9 F 58 16 100/54 L 96 Room Air 07/09/24 03:12 96.9 F 57 16 101/55 L 96 Room Air Anesthesia: Monitored Mental Status: Awake Pain Control: Satisfactory Nausea/Vomiting: None Hydration: Adequate Anesthesia-Related Issues: No Anes. Related Issues
[2024-07-09] MEDS: Metoprolol Succinate ER 50 MG TAB.ER.24H PO (09:36)
[2024-07-09] MEDS: Furosemide 20 MG TABLET PO (09:36)
[2024-07-09] MEDS: 0.9 % Sodium Chloride Flush 3 ML SYRINGE IVFLUSH ×2 (09:46→20:47)
[2024-07-09 11:04] LABS: Glucose, Whole Blood 145 mg/dL (60-115)
--- NOTE | 2024-07-09 11:15 | HO.PM.IMCN ---
History of Present Illness Data of Consult Service Date: 07/09/24 Primary Care Provider: Yasmeen Willams MD HPI Reason for consult: Medical management Pt is an 78-year-old female with a PMH significant for CHF, cardiomyopathy, paroxysmal AFib on Eliquis, s/p AICD in place, anemia follows with Dr. Escobedo, has been, and SHORTY on NC at night who was admitted to the hospital under general surgery services for observation after increased abdominal pain s/p EGD/polypectomy. CT of abdomen and pelvis showed no free air or fluid collections to suggest perforation, but some hyperdense material in the duodenum possibly reflecting ingested oral contrast. POD1. Pt already been seen by General surgery today and been advanced to clear liquid diet. Pt reports that abdominal pain has subsided and overall feels much better. Had some nausea earlier in the morning while eating soup, but no vomiting. Has been able to tolerate p.o. liquids since then. Also complains of intermittent lightheadedness especially when she closes her eyes for the past few days, though noted yesterday symptoms were not very prevalent. Has been up and out bed to the bathroom, and denies any difficulty ambulating or increased lightheadedness with positional changes. No chest pain/pressure, palpitations. Denies shortness or breath or difficulty breathing. Review of Systems Review of Systems: Negative except for that which is stated in the HPI. [facility]LY [facility] Medical History Depression Nocturnal hypoxemia SHORTY (obstructive sleep apnea) COPD (chronic obstructive pulmonary disease) (Unknown) Cardiomyopathy Insomnia GERD (gastroesophageal reflux disease) Hypercholesteremia Asthma Hypertension Family History Son No problems noted. Son No problems noted. Son No problems noted. Son No problems noted. Mother Diabetes Paternal Grandmother Ovarian cancer Surgical History History of heart surgery History of implantable cardioverter-defibrillator (ICD) insertion Social History Household Members: None Household Members Other:: lives alone Housing: Apartment Are you a primary chronic care nurse to a significant other at home: No Do you presently have visiting nurse or other home services: No Alcohol intake: never Patient Tobacco Use Status: Former Tobacco user Cigarette Packs Per Day: 0.5 Years Smoked: 5 Use of substances other than those prescribed or required for medical reasons: No Currently Displaying Signs/Symptoms of Drug Intoxication Withdrawal: No Have you been hit, kicked, punched, or otherwise hurt by someone within the past year? If so, by whom?: No Are you DNR?: No Advance Directives: No Advance Directives Information Provided: Yes Advance Directives on File: No Do you have a plan to hurt others: No Plan Recently lost weight without trying: No Nutrition Risks: No Nutritional Risk Patient : No service: No Current occupational status: retired Meds Allergies Allergy/AdvReac Type Severity Reaction Status Date / Time No Known Allergies Allergy Verified 06/24/24 14:18 [No Known Allergies*] Active Medications: Current Medications Acetaminophen (Acetaminophen 325 Mg Tablet) 650 mg PO Q6H PRN PRN Reason: Pain, Mild 1-3,fever,headache Last Admin: 07/08/24 20:42 Dose: 650 mg Albuterol Sulfate (Albuterol Sulfate (0.083%) 2.5 Mg/3 Ml Vial.Neb) 2.5 mg INHALE Q6H PRN PRN Reason: Shortness Of Breath Albuterol Sulfate (Albuterol Sulfate 90 Mcg 8 Gm Inhaler) 1 puff INHALE Q4H PRN PRN Reason: Shortness of Breath Calcium Carbonate (Calcium Carbonate 750 Mg Tab.Chew) 750 mg PO Q4H PRN PRN Reason: Heartburn Furosemide (Furosemide 20 Mg Tablet) 20 mg PO DAILY [facility]; Protocol Last Admin: 07/09/24 09:36 Dose: 20 mg Hydromorphone HCl (Hydromorphone Hcl 0.5 Mg/0.5 Ml Syringe) 0.5 mg IVPUSH Q3H PRN; Protocol PRN Reason: Pain, Severe (Pain Scale 7-10) Dextrose/Lactated Ringer's (D5lr) 1,000 mls @ 100 mls/hr IVCONT .Q10H [facility] Last Admin: 07/09/24 10:33 Dose: 100 mls/hr Piperacillin Sod/Tazobactam (Sod 3.375 gm/ Sodium Chloride) 50 mls @ 100 mls/hr IV Q6H [facility] Last Admin: 07/09/24 09:35 Dose: 100 mls/hr Magnesium Hydroxide (Milk Of Magnesia 30 Ml Oral.Susp) 30 ml PO DAILY PRN PRN Reason: Constipation Melatonin (Melatonin 3 Mg Tablet) 6 mg PO BEDTIME PRN PRN Reason: Insomnia Last Admin: 07/08/24 20:42 Dose: 6 mg Metoprolol Succinate (Metoprolol Succinate Er 50 Mg Tab.Er.24h) 50 mg PO DAILY [facility]; Protocol Last Admin: 07/09/24 09:36 Dose: 50 mg Mirtazapine (Mirtazapine 30 Mg Tablet) 30 mg PO BEDTIME [facility] Last Admin: 07/08/24 20:42 Dose: 30 mg Omeprazole (Omeprazole 20 Mg Capsule.Dr) 20 mg PO DAILY@0630 [facility] Last Admin: 07/09/24 05:44 Dose: 20 mg Ondansetron HCl (Ondansetron Hcl 4 Mg/2 Ml Vial) 4 mg IVPUSH Q4H PRN PRN Reason: Nausea and Vomiting Last Admin: 07/08/24 13:36 Dose: 4 mg Ondansetron HCl (Ondansetron Hcl 4 Mg/2 Ml Vial) 4 mg IVPUSH QID PRN PRN Reason: Nausea Oxycodone HCl (Oxycodone Hcl Immed Release 5 Mg Tablet) 5 mg PO Q6H PRN PRN Reason: Pain, Moderate(Pain Scale 4-6) Sodium Chloride (0.9 % Sodium Chloride Flush 3 Ml Syringe) 3 ml IVFLUSH QSHIFT [facility] Last Admin: 07/09/24 09:46 Dose: 3 ml Home Medications ?Medication ?Instructions ?Recorded ?Confirmed ?Last Taken ?Type albuterol sulfate 90 mcg/actuation 90 mcg inhalation Q4-6H PRN 02/18/20 07/08/24 07/08/24 08:00 History aerosol inhaler Shortness Of Breath Or Wheezing cholecalciferol (vitamin D3) 50 50 mcg PO DAILY 02/18/20 07/06/24 06/20/22 08:00 History mcg (2,000 unit) tablet melatonin 5 mg tablet 10 mg PO BEDTIME insomnia 04/19/20 07/08/24 Unknown History albuterol sulfate 2.5 mg/3 mL 2.5 mg inhalation Q6H PRN 05/02/21 07/06/24 Unknown History (0.083 %) solution for nebulization Shortness Of Breath docusate sodium 100 mg capsule 100 mg PO DAILY Constipation 05/02/21 07/08/24 Unknown History (Stool Softener) folic acid 1 mg tablet 1 mg PO DAILY 05/02/21 07/08/24 06/20/22 08:00 History rosuvastatin 10 mg tablet 10 mg PO BEDTIME 05/02/21 07/06/24 06/20/22 08:00 History apixaban 5 mg tablet (Eliquis) 5 mg PO BID 11/13/21 07/08/24 07/05/24 History fluticasone propionate 110 1 puff inhalation BID Wheezing 01/07/23 07/08/24 Unknown History mcg/actuation HFA aerosol inhaler (Flovent HFA) metoprolol succinate 50 mg 50 mg PO DAILY 01/07/23 07/06/24 07/08/24 History tablet,extended release 24 hr mirtazapine 30 mg tablet 30 mg PO BEDTIME 06/24/24 07/06/24 Unknown History omeprazole 20 mg capsule,delayed 20 mg PO QAM 06/24/24 07/06/24 07/08/24 History release clotrimazole 1 % topical cream 1 appl topical Q12H PRN Rash 07/08/24 07/08/24 Unknown History cyanocobalamin (vitamin B-12) 1,000 mcg PO DAILY 07/08/24 07/08/24 Unknown History 1,000 mcg tablet fluticasone furoate 100 1 inh inhalation DAILY PRN 07/08/24 07/08/24 Unknown History mcg/actuation blister powder for Shortness Of Breath Or Wheezing inhalation (Arnuity Ellipta) furosemide 20 mg tablet 20 mg PO DAILY PRN Edema 07/08/24 07/08/24 Unknown History loratadine 10 mg tablet 10 mg PO DAILY 07/08/24 07/08/24 Unknown History nystatin 100,000 unit/gram topical 1 appl topical BID PRN Rash 07/08/24 07/08/24 Unknown History powder polyethylene glycol 3350 17 17 g PO QD-BID 07/08/24 07/08/24 Unknown History gram/dose oral powder Physical Exam Vital Signs and Narrative: Vital Signs: Last Vital Signs Temp 97.9 F 07/09/24 06:49 Pulse 75 07/09/24 09:36 Resp 16 07/09/24 06:49 BP 100/59 L 07/09/24 09:36 Pulse Ox 96 07/09/24 06:49 O2 Del Method Room Air 07/09/24 06:49 BMI result Body Mass Index 31.9 General: AOx3, no acute distress Resp: CTA bilaterally CVS: S1, S2, RRR GI: +BS, NT, no distention Skin: Warm, dry Neuro: Cranial nerves II-XII grossly intact bilaterally. Motor grossly intact bilaterally Extremities: No edema Psych: Appropriate affect Results Labs 07/09/24 05:26 07/09/24 05:26 Labs: Laboratory Results - last 24 hr 07/08/24 07/09/24 07/09/24 14:10 05:26 10:44 MCV 89.8 90.5 MCH 31.8 31.4 MCHC 35.4 H 34.7 RDW 11.9 11.9 Plt Count 120 L D 129 L MPV 12.7 H 12.7 H Immature Gran % (Auto) 0.6 H 0.2 Neut % (Auto) 76.7 H 74.8 H Lymph % (Auto) 13.5 L 13.0 L [place] % (Auto) 7.7 11.3 H Eos % (Auto) 1.3 0.7 Baso % (Auto) 0.2 0.0 Lymph # (Auto) 0.7 L 0.8 L [place] # (Auto) 0.4 0.7 Eos # (Auto) 0.1 0.0 Baso # (Auto) 0.0 0.0 Abs Immat Gran (auto) 0.03 0.01 Absolute Neuts (auto) 4.1 4.3 Absolute Nucleated RBC 0.000 0.000 Nucleated RBC % (auto) 0.0 0.0 Anion Gap 11 L 11 L Estim Creat Clear Calc 30.3 33.6 Estimated GFR 35 39 POC Glucose 145 H Random Glucose 110 101 Calcium 9.0 D 8.8 Total Bilirubin 0.2 AST 13 ALT 15 Alkaline Phosphatase 84 Total Protein 6.8 Albumin 3.7 Blood Type O Positive Antibody Screen NEGATIVE Imaging Radiologist's Impressions: Impressions Chest X-Ray 07/08/24 12:11 IMPRESSION: No acute cardiopulmonary abnormality. Electronically signed by: Byron Pastrana MD 07/08/2024 12:50 PM EDT RP KUB X-Ray 07/08/24 12:11 IMPRESSION: Unremarkable bowel gas pattern. Electronically signed by: Byron Pastrana MD 07/08/2024 12:49 PM EDT RP Abdomen/Pelvis CT 07/08/24 12:50 IMPRESSION: 1. No evidence of free intraperitoneal gas to suggest perforation. 2. Hyperdense material in the duodenum which may reflect a small amount of ingested oral contrast material. Clinical correlation is recommended. This is felt to be too dense to represent hemorrhage. 3. Cholelithiasis. Bilateral nephrolithiasis as described. 4. Diverticulosis of the descending and sigmoid colon, without evidence of diverticulitis. Electronically signed by: Byron Pastrana MD 07/08/2024 01:45 PM EDT RP Assessment and Plan (1) Abdominal pain: Status: Acute Plan t is an 78-year-old female with a PMH significant for CHF, cardiomyopathy, paroxysmal AFib on Eliquis, s/p AICD in place, anemia follows with Dr. Escobedo, has been, and SHORTY on NC at night who was admitted to the hospital under general surgery services for observation after increased abdominal pain s/p EGD/polypectomy. Hospitalist consult for medical management. POD1 Abdominal pain S/p EGD/polypectomy Pt reports abdominal pain has subsided Has been tolerated clear liquid diet Diet will advance as tolerated Plan as per General surgery Lightheadedness Reports lightheadedness at rest when closes eyes, ongoing the past 2-3 days BP stable, H&H stable Pt has received IVF Will check orthostatics Elevated creatinine Creatinine 1.44 yesterday, elevated from 1.19 on 02/24/2024 Likely secondary to reduced p.o. intake while on diuretics Improved 1.30 after IVF Stop IVF as pt is tolerating p.o. and given hx of CHF Follow creatinine tomorrow if pt still admitted Hyponatremia, mild Sodium 133 yesterday, 134 today Pt with chronically low-normal sodium No other intervention necessary at this time Paroxysmal AFib Resume Eliquis as per General surgery Continue metoprolol CHF unspecified Not in acute exacerbation Pt appears euvolemic Continue home Lasix HLD Continue statin Asthma Not in acute exacerbation Continue home inhalers GERD Continue PPI SHORTY Not tolerant of CPAP Continue 2L NC at bedtime Mood disorder Continue mirtazapine Thank you for allowing us to participate in the care of this pt. Will continue to follow along with you.
--- NOTE | 2024-07-09 15:29 | MHC.CM.PN ---
DORINA lugo. Patient lives in an apartment alone. Her son lives across the o[place]ole in the same aparment building. Independent w/ ADL's. Has a cane and walker, but reports she does not use them. Uses O2 @ [facility], but is unsure of supplier. PCP Yasmeen Willams MD Reports she has an HCP naming her son, Skip, as HCA. Copy requested. DP: Goal is home self care. Son Mat to transport. CM will continue to follow.
[2024-07-09] MEDS: Melatonin 3 MG TABLET 6 MG PO (20:47)
[2024-07-09] MEDS: Mirtazapine 30 MG TABLET PO (20:47)
[2024-07-10] MEDS: Dextrose 5 % and Lactated Ring 1,000 ML 100 ML IVCONT (01:53)
[2024-07-10] MEDS: Piperacillin Sodium/Tazobactam 3.375 GM in 0.9 % Sodium Chloride 50 ML IV ×2 (02:25→08:00)
[2024-07-10 03:51] VITALS: BP 98/48; PULSE 60; RESP 16; TEMP 36.1; O2SAT 97
[2024-07-10] MEDS: Omeprazole 20 MG CAPSULE.DR PO (05:54)
[2024-07-10 07:05] LABS: Anion Gap 10 (12-20); Blood Urea Nitrogen 9 mg/dL (9-16); Calcium 8.6 mg/dL (8.4-10.2); Carbon Dioxide 25 mmol/L (22-29); Chloride 104 mmol/L (96-108); Creatinine Clr Calc Pharmacy 39.7; Estimated Glomerular Filt Rate 48; Glucose Random 95 mg/dL (60-115); Potassium 3.2 mmol/L (3.3-5.1); Sodium 136 mmol/L (135-145)
[2024-07-10 07:19] LABS: Hematocrit 26.8 % (37.0-47.0); Hemoglobin 9.1 g/dl (12.0-16.0); Mean Corpuscular Hemoglobin 31.1 pg (27.0-33.0); Mean Corpuscular Volume 91.5 fL (80.0-98.0); Mean Platelet Volume 12.8 fL (9.4-12.3); Platelet Count 131 X10*3/uL (160-400); Red Blood Count 2.93 X10*6/uL (4.20-5.50); Red Cell Distribution Width 11.9 % (11.0-16.0); White Blood Count 3.3 X10*3/uL (4.8-10.8)
[2024-07-10 07:35] VITALS: BP 111/53; PULSE 60; RESP 16; TEMP 36.6; O2SAT 95
[2024-07-10] MEDS: Furosemide 20 MG TABLET PO (08:00)
[2024-07-10] MEDS: Metoprolol Succinate ER 50 MG TAB.ER.24H PO (08:00)
[2024-07-10] MEDS: 0.9 % Sodium Chloride Flush 3 ML SYRINGE IVFLUSH (08:01)
--- NOTE | 2024-07-10 08:43 | PM.PNGS ---
Subjective Subjective Date of Service: 07/10/24 Interval history: Feels great. Denies pain. Tolerating liquids. Feels hungry. Wants to eat and go home. Physical Exam Vital Signs: Vital Signs: Last Vital Signs Temp 97.9 F 07/10/24 07:35 Pulse 60 07/10/24 07:35 Resp 16 07/10/24 07:35 BP 111/53 L 07/10/24 07:35 Pulse Ox 95 07/10/24 07:35 O2 Del Method Room Air 07/10/24 07:35 BMI result Body Mass Index 31.9 Const: General: comfortable, no acute distress and alert Orientation/consciousness: patient oriented x3 Resp: Effort & Inspection: normal respiratory effort GI: Inspection: No distended Palpation (GI): Soft to palpation, nontender, no guarding and not rigid Skin: General skin exam: no rashes or lesions noted Neuro: General: patient oriented x3 and moves all extremities Objective Data Active Medications Acetaminophen (Acetaminophen 325 Mg Tablet) 650 mg PO Q6H PRN PRN Reason: Pain, Mild 1-3,fever,headache Last Admin: 07/08/24 20:42 Dose: 650 mg Documented By: KENNEDY Albuterol Sulfate (Albuterol Sulfate (0.083%) 2.5 Mg/3 Ml Vial.Neb) 2.5 mg INHALE Q6H PRN PRN Reason: Shortness Of Breath Albuterol Sulfate (Albuterol Sulfate 90 Mcg 8 Gm Inhaler) 1 puff INHALE Q4H PRN PRN Reason: Shortness of Breath Calcium Carbonate (Calcium Carbonate 750 Mg Tab.Chew) 750 mg PO Q4H PRN PRN Reason: Heartburn Furosemide (Furosemide 20 Mg Tablet) 20 mg PO DAILY [facility]; Protocol Last Admin: 07/10/24 08:00 Dose: 20 mg Documented By: RODRIGUEZ Hydromorphone HCl (Hydromorphone Hcl 0.5 Mg/0.5 Ml Syringe) 0.5 mg IVPUSH Q3H PRN; Protocol PRN Reason: Pain, Severe (Pain Scale 7-10) Dextrose/Lactated Ringer's (D5lr) 1,000 mls @ 100 mls/hr IVCONT .Q10H [facility] Last Admin: 07/10/24 01:53 Dose: 100 mls/hr Documented By: KENNEDY Piperacillin Sod/Tazobactam (Sod 3.375 gm/ Sodium Chloride) 50 mls @ 100 mls/hr IV Q6H [facility] Last Admin: 07/10/24 08:00 Dose: 100 mls/hr Documented By: RODRIGUEZ Magnesium Hydroxide (Milk Of Magnesia 30 Ml Oral.Susp) 30 ml PO DAILY PRN PRN Reason: Constipation Melatonin (Melatonin 3 Mg Tablet) 6 mg PO BEDTIME PRN PRN Reason: Insomnia Last Admin: 07/09/24 20:47 Dose: 6 mg Documented By: KENNEDY Metoprolol Succinate (Metoprolol Succinate Er 50 Mg Tab.Er.24h) 50 mg PO DAILY [facility]; Protocol Last Admin: 07/10/24 08:00 Dose: 50 mg Documented By: RODRIGUEZ Mirtazapine (Mirtazapine 30 Mg Tablet) 30 mg PO BEDTIME [facility] Last Admin: 07/09/24 20:47 Dose: 30 mg Documented By: KENNEDY Omeprazole (Omeprazole 20 Mg Capsule.Dr) 20 mg PO DAILY@0630 [facility] Last Admin: 07/10/24 05:54 Dose: 20 mg Documented By: KENNEDY Ondansetron HCl (Ondansetron Hcl 4 Mg/2 Ml Vial) 4 mg IVPUSH Q4H PRN PRN Reason: Nausea and Vomiting Last Admin: 07/08/24 13:36 Dose: 4 mg Documented By: GUNJAN Ondansetron HCl (Ondansetron Hcl 4 Mg/2 Ml Vial) 4 mg IVPUSH QID PRN PRN Reason: Nausea Oxycodone HCl (Oxycodone Hcl Immed Release 5 Mg Tablet) 5 mg PO Q6H PRN PRN Reason: Pain, Moderate(Pain Scale 4-6) Sodium Chloride (0.9 % Sodium Chloride Flush 3 Ml Syringe) 3 ml IVFLUSH QSHIFT [facility] Last Admin: 07/10/24 08:01 Dose: 3 ml Documented By: RODRIGUEZ Labs 07/10/24 06:38 07/10/24 06:38 Labs: Laboratory Results - last 24 hr 07/09/24 07/10/24 10:44 06:38 MCV 91.5 MCH 31.1 MCHC 34.0 RDW 11.9 Plt Count 131 L MPV 12.8 H Absolute Nucleated RBC 0.000 Nucleated RBC % (auto) 0.0 Anion Gap 10 L Estim Creat Clear Calc 39.7 Estimated GFR 48 POC Glucose 145 H Random Glucose 95 Calcium 8.6 Procedures Date of Service Date of Service: 07/10/24 Progress Note: A&P Assessment and plan (1) Abdominal pain: Status: Acute (2) Adenomatous duodenal polyp: Status: Acute Plan Admitted for observation following EGD/polypectomy with increased abdominal pain post op with CT showing no free air or fluid collections but some air in the wall of the duodenum but no clear evidence of a perforation. Feels well without any abdominal pain. Abd very benign, soft, nontender. Will advance to solid diet and discharge later today if tolerating. Patient comfortable with plan. Time Spent With Patient Time: Total time managing care of this patient today ____ minutes. Quality Stroke Does the patient have a stroke diagnosis?: No VTE Prior VTE?: No VTE Risk Level:: Surgical - moderate VTE Device Contraindication: N/A - Device Ordered VTE Drug Contraindication: Treatment Not Indicated
--- NOTE | 2024-07-10 11:42 | PM.EVENT ---
Event Note Date of Service: 07/10/24 Event Note: Reports multiple episodes of dark tarry stools. Becoming incontinent. Likely postpolypectomy bleeding. CBC this am unchanged from yesterday. Will hold on discharge, repeat CBC in AM. If stable and symptoms improved, ok for dc tomorrow. On prilosec, will make BID. Time Spent With Patient Time: Total time managing care of this patient today ____ minutes.
[2024-07-10] MEDS: Potassium Chloride Packet 20 MEQ PACKET 40 MEQ PO (11:58)
--- NOTE | 2024-07-10 12:01 | MHC.CM.PN ---
Patient not medically cleared for dc. CM will continue to follow.
--- NOTE | 2024-07-10 12:32 | HO.PM.IMPN ---
Subjective Subjective Date of Service: 07/10/24 Interval History: Follow up for pt s/p polypectomy with resulting abdominal pain Reports abdominal pain has resolved No longer experiencing lightheadedness or dizziness; has been able to ambulate in room without difficulty Pt does complain of black colored diarrhea that began yesterday after lunch Last episode earlier this morning Continues to deny abdominal pain Reports feels very good and wants to go home, even if has to sign out AMA Review of Systems Negative except for that which is stated in the HPI Physical Exam Vital Signs: Vital Signs: Last Vital Signs Temp 97.9 F 07/10/24 07:35 Pulse 60 07/10/24 07:35 Resp 16 07/10/24 07:35 BP 111/53 L 07/10/24 07:35 Pulse Ox 95 07/10/24 07:35 O2 Del Method Room Air 07/10/24 07:35 BMI result Body Mass Index 31.9 General: AOx3, no acute distress Resp: CTA bilaterally CVS: S1, S2, RRR GI: +BS, NT, no distention Skin: Warm, dry Neuro: Cranial nerves II-XII grossly intact bilaterally. Motor grossly intact bilaterally Extremities: No edema Psych: Appropriate affect Objective Data Active Medications Acetaminophen (Acetaminophen 325 Mg Tablet) 650 mg PO Q6H PRN PRN Reason: Pain, Mild 1-3,fever,headache Last Admin: 07/08/24 20:42 Dose: 650 mg Documented By: KENNEDY Albuterol Sulfate (Albuterol Sulfate (0.083%) 2.5 Mg/3 Ml Vial.Neb) 2.5 mg INHALE Q6H PRN PRN Reason: Shortness Of Breath Albuterol Sulfate (Albuterol Sulfate 90 Mcg 8 Gm Inhaler) 1 puff INHALE Q4H PRN PRN Reason: Shortness of Breath Calcium Carbonate (Calcium Carbonate 750 Mg Tab.Chew) 750 mg PO Q4H PRN PRN Reason: Heartburn Furosemide (Furosemide 20 Mg Tablet) 20 mg PO DAILY [facility]; Protocol Last Admin: 07/10/24 08:00 Dose: 20 mg Documented By: RODRIGUEZ Hydromorphone HCl (Hydromorphone Hcl 0.5 Mg/0.5 Ml Syringe) 0.5 mg IVPUSH Q3H PRN; Protocol PRN Reason: Pain, Severe (Pain Scale 7-10) Dextrose/Lactated Ringer's (D5lr) 1,000 mls @ 100 mls/hr IVCONT .Q10H [facility] Last Infusion: 07/10/24 12:13 Dose: Infused Documented By: RODRIGUEZ Piperacillin Sod/Tazobactam (Sod 3.375 gm/ Sodium Chloride) 50 mls @ 100 mls/hr IV Q6H [facility] Last Infusion: 07/10/24 08:58 Dose: Infused Documented By: RODRIGUEZ Magnesium Hydroxide (Milk Of Magnesia 30 Ml Oral.Susp) 30 ml PO DAILY PRN PRN Reason: Constipation Melatonin (Melatonin 3 Mg Tablet) 6 mg PO BEDTIME PRN PRN Reason: Insomnia Last Admin: 07/09/24 20:47 Dose: 6 mg Documented By: KENNEDY Metoprolol Succinate (Metoprolol Succinate Er 50 Mg Tab.Er.24h) 50 mg PO DAILY [facility]; Protocol Last Admin: 07/10/24 08:00 Dose: 50 mg Documented By: RODRIGUEZ Mirtazapine (Mirtazapine 30 Mg Tablet) 30 mg PO BEDTIME [facility] Last Admin: 07/09/24 20:47 Dose: 30 mg Documented By: KENNEDY Omeprazole (Omeprazole 20 Mg Capsule.Dr) 20 mg PO BID [facility] Ondansetron HCl (Ondansetron Hcl 4 Mg/2 Ml Vial) 4 mg IVPUSH Q4H PRN PRN Reason: Nausea and Vomiting Last Admin: 07/08/24 13:36 Dose: 4 mg Documented By: GUNJAN Ondansetron HCl (Ondansetron Hcl 4 Mg/2 Ml Vial) 4 mg IVPUSH QID PRN PRN Reason: Nausea Oxycodone HCl (Oxycodone Hcl Immed Release 5 Mg Tablet) 5 mg PO Q6H PRN PRN Reason: Pain, Moderate(Pain Scale 4-6) Sodium Chloride (0.9 % Sodium Chloride Flush 3 Ml Syringe) 3 ml IVFLUSH QSHIFT [facility] Last Admin: 07/10/24 08:01 Dose: 3 ml Documented By: RODRIGUEZ Labs 07/10/24 06:38 07/10/24 06:38 Labs: Laboratory Results - last 24 hr 07/10/24 06:38 MCV 91.5 MCH 31.1 MCHC 34.0 RDW 11.9 Plt Count 131 L MPV 12.8 H Absolute Nucleated RBC 0.000 Nucleated RBC % (auto) 0.0 Anion Gap 10 L Estim Creat Clear Calc 39.7 Estimated GFR 48 Random Glucose 95 Calcium 8.6 Assessment and Plan (1) Abdominal pain: Status: Acute Plan Pt is an 78-year-old female with a PMH significant for CHF, cardiomyopathy, paroxysmal AFib on Eliquis, s/p AICD in place, anemia follows with Dr. Escobedo, has been, and SHORTY on NC at night who was admitted to the hospital under general surgery services for observation after increased abdominal pain s/p EGD/polypectomy. Hospitalist consult for medical management. POD2 Abdominal pain S/p EGD/polypectomy Pt reports abdominal pain resolved yesterday, none since Has tolerated full diet Plan as per General surgery Lightheadedness Reported lightheadedness at rest when closes eyes, ongoing the past 2-3 days Reports symptoms resolved sometime yesterday, no lightheadedness today BP stable, H&H stable Pt has received IVF Orthostatics yesterday borderline Repeat orthostatics Black stool Reports black-colored diarrhea since yesterday afternoon until early this morning H&H 9.1/26.8 today, similar to yesterday 9.3/26.8 Likely secondary to post-polypectomy bleeding Monitor H&H Elevated creatinine, resolved Creatinine 1.44 on 07/08/2024, currently back to baseline of 1.10 after IVF Likely secondary to reduced p.o. intake while on diuretics Stop IVF as pt is tolerating p.o. and given hx of CHF Follow creatinine tomorrow if pt still admitted Hyponatremia, mild Sodium 133 on 07/08/2024, now back to baseline Pt with chronically low-normal sodium No other intervention necessary at this time Hypokalemia, mild Potassium 3.2 today Supplemented by potassium chloride 40 meq Follow potassium tomorrow if still admitted Paroxysmal AFib Resume Eliquis as per General surgery Continue metoprolol CHF unspecified Not in acute exacerbation Pt appears euvolemic Continue home Lasix HLD Continue statin Asthma Not in acute exacerbation Continue home inhalers GERD Continue PPI SHORTY Not tolerant of CPAP Continue 2L NC at bedtime Mood disorder Continue mirtazapine Will continue to follow along with you. Quality Stroke Does the patient have a stroke diagnosis?: No VTE Prior VTE?: No VTE Risk Level:: Surgical - moderate VTE Device Contraindication: N/A - Device Ordered VTE Drug Contraindication: Treatment Not Indicated
--- NOTE | 2024-07-10 13:40 | PM.EVENT ---
Event Note Date of Service: 07/10/24 Event Note: Patient states she is leaving AMA. She reports her stools are improved and more formed but still dark and she does not think this is an issue because she feels well. Again discussed she is having melena suggesting GI bleed post polypectomy and she should stay in the hospital for observation. She continues to state she is leaving AMA. Son is at bedside. Discussed returning if this does not improve, develops BRBPR. Time Spent With Patient Time: Total time managing care of this patient today ____ minutes.
--- NOTE | 2024-07-10 14:37 | PC.NURSE ---
pt alert and oriented x4, states they want to leave AMA. Educated pt on continued care, including ongoing diarrhea. pt verbalized understanding but remained adamant about leaving. GEORGE Chavez notified and arrived to bedside. AMA form offered, pt signed. Advised to follow up with Dr. Marin per discharge instructions.
--- NOTE | 2024-07-10 16:17 | PM.DS ---
DS: Providers Provider Date of Service: 07/10/24 Date of admission: 07/08/24 15:34 Date of discharge: 07/10/24 Primary care physician: Yasmeen Willams MD Attending physician on admission: Wil Cueva Consults: 07/08/24 15:08 Consult to Hospitalist Routine Comment: Consulting Provider: [facility] Hospitalists Reason For Exam: pain post endoscopy, med management Attending physician on discharge: Wil Cueva DS: Diagnosis Discharge Diagnosis (1) Abdominal pain: Status: Acute DS: Summary Hospital Course Hospital Course: HPI AT ADMISSION: Tabitha Graham is a 78 year old female presenting for an EGD today found to have a duodenal polyp on examination. Patient underwent polypectomy performed by Dr. Marin. Postoperatively the patient reported increased abdominal pain greater than typical. There was a concern for perforation therefore CT abdomen and pelvis was obtained. This revealed no free air or fluid collections. There was some air in the wall of the duodenum but no clear evidence of a perforation. HOSPITAL COURSE: The patient was being admitted to the surgical service for further observation and pain control. She was nontoxic appearing with a very benign abd exam. She was kept NPO with IV fluids. She was started on IV zosyn, PRN analgesics. Hospitalist consult was obtained for management of her medical comorbdities. She had improvement in her symptoms and had only very mild tenderness. Her abdomen remained benign without peritoneal signs. Her WBC count remained normal. She was advanced to clear liquids. The following day she was tolerating clears without any abd pain. She was advanced to a solid diet. She was being discharged however became incontinent of dark tarry stools. She then reported she had had multiple episodes of melena yesterday and today likely due to GI bleed postpolypectomy. Her H/H was stable. The discharge was therefore cancelled and it was recommended to remain inpatient for continued observation, serial monitoring of her H/H. She however became very upset and refused to stay inpatient and said she was leaving. Her son was at bedside at this point and it was discussed with the patient and her family that it was against medical advice to leave as she had a GI bleed and is on chronic anticoagulation and needs to monitored. She however stated she felt well and she had a more formed stool that was less dark and continued to state she was leaving. She had also been seen by the hospitalist GEORGE as well. She signed the AMA form. She was educated if she continued to have dark tarry stools or blood per rectum, symptoms of lightheadedness or dizziness, she was to return to the ED for evaluation. She is to follow up withy her PCP next week. She is to hold eliquis until she sees her primary care provider. She expressed understanding. Time Attestation Discharge Coordination Time (in mins): 60 Quality: Safe Use of Opioids Does Pt have an Active Cancer Diagnosis on the Problem List?: No Quality: Stroke Does the patient have a stroke diagnosis?: No Physical Exam Vital Signs: Vital Signs: Last Vital Signs Temp 97.9 F 07/10/24 07:35 Pulse 60 07/10/24 07:35 Resp 16 07/10/24 07:35 BP 111/53 L 07/10/24 07:35 Pulse Ox 95 07/10/24 07:35 O2 Del Method Room Air 07/10/24 07:35 BMI result Body Mass Index 31.9 DS: Data Data Completed and Pending Completed studies during hospitalization [Text1]: Pending at discharge 07/08/24 11:02 Surgical [PTH] Routine Labs on day of discharge: Laboratory Results - last 24 hr 07/10/24 06:38 WBC 3.3 L RBC 2.93 L Hgb 9.1 L Hct 26.8 L MCV 91.5 MCH 31.1 MCHC 34.0 RDW 11.9 Plt Count 131 L MPV 12.8 H Absolute Nucleated RBC 0.000 Nucleated RBC % (auto) 0.0 Sodium 136 Potassium 3.2 L Chloride 104 Carbon Dioxide 25 Anion Gap 10 L BUN 9 Creatinine 1.10 Estim Creat Clear Calc 39.7 Estimated GFR 48 Random Glucose 95 Calcium 8.6 Discharge Plan Discharge Patient Disposition: Left Against Medical Advice Referrals: Kendal Marin MD [Physician] - 3 Months Yasmeen Willams MD [Primary Care Provider] - 1 Week Discharge Medications: Continued furosemide [Lasix] 20 mg tablet 20 mg PO QAM Qty: 30 0RF cyanocobalamin (vitamin B-12) 1,000 mcg tablet 1,000 mcg PO DAILY furosemide 20 mg tablet 20 mg PO DAILY PRN (Reason: Edema) nystatin 100,000 unit/gram powder 1 appl topical BID PRN (Reason: Rash) polyethylene glycol 3350 17 gram/dose powder 17 g PO QD-BID clotrimazole 1 % cream 1 appl topical Q12H PRN (Reason: Rash) loratadine 10 mg tablet 10 mg PO DAILY Arnuity Ellipta 100 mcg/actuation blister with device 1 inh inhalation DAILY PRN (Reason: Shortness Of Breath Or Wheezing) melatonin 5 mg tablet 10 mg PO BEDTIME cholecalciferol (vitamin D3) 50 mcg (2,000 unit) tablet 50 mcg PO DAILY albuterol sulfate 90 mcg/actuation HFA aerosol inhaler 90 mcg inhalation Q4-6H PRN (Reason: Shortness Of Breath Or Wheezing) docusate sodium [Stool Softener] 100 mg capsule 100 mg PO DAILY Flovent HFA 110 mcg/actuation HFA aerosol inhaler 1 puff inhalation BID Eliquis 5 mg tablet 5 mg PO BID metoprolol succinate 50 mg tablet extended release 24 hr 50 mg PO DAILY Rx Instructions: Please call and schedule an appointment for refills rosuvastatin 10 mg tablet 10 mg PO BEDTIME folic acid 1 mg tablet 1 mg PO DAILY albuterol sulfate 2.5 mg /3 mL (0.083 %) solution for nebulization 2.5 mg inhalation Q6H PRN (Reason: Shortness Of Breath) omeprazole 20 mg capsule,delayed release(DR/EC) 20 mg PO QAM mirtazapine 30 mg tablet 30 mg PO BEDTIME cetirizine [Zyrtec] 10 mg tablet 10 mg PO DAILY PRN (Reason: allergy symptoms) Qty: 30 0RF Discharge Orders: Discharge Order (Routine); Ordered 07/10/24 Ordered By: Milagros Chavez Diet: Advance to usual diet Activity on Discharge: As tolerated Print Language: Puerto Rican Activity Restrictions/Additional Instructions: Endoscopy Findings: fundic gland polyps duodenal polyp hiatal hernia Colonoscopy Findings: diverticulosis colon polyps internal hemorrhoids Plan: Await Pathology results Repeat Colonoscopy in 5 years if health allows or earlier if clinically indicated High fiber diet leaflet avoid straining at stool, epsom salts and sitz bath, anusol supps or cream repeat EGD in about 6-12 weeks range Hold eliquis until 07/11/24 Please return to ED if your symptoms do not improve, develop bright red blood per rectum or develop dizziness or lightheadedness. Care Plan Goals: Return to baseline health. Health Concerns: abdominal pain following EGD/polypectomy Plan of Treatment: observation F/u Dr. Marin in office Assessment: Stable Patient Instructions: High Fiber Diet (DC) Discharge Date/Time: 07/10/24 14:49
== END 2024-07-10 14:49 | disposition left against medical advice (07) ==
LOC: HO.S3 15:35
PROVIDERS: Internal Medicine Gastroenterology; Physician Assistant; Student in an Organized Health Care Education/Training Program; Admitting Provider Surgery; PCP General Practice; Visit Provider Surgery
PROC: (CPT 45385; principal; 2024-07-08 11:10)
DX: D64.9 Anemia, unspecified (principal); R10.9 Unspecified abdominal pain; G89.18 Other acute postprocedural pain; D12.2 Benign neoplasm of ascending colon; D12.0 Benign neoplasm of cecum; K57.30 Diverticulosis of large intestine without perforation or abscess without bleeding; K64.0 First degree hemorrhoids; K92.1 Melena; D13.2 Benign neoplasm of duodenum; K44.9 Diaphragmatic hernia without obstruction or gangrene; R42 Dizziness and giddiness; E87.1 Hypo-osmolality and hyponatremia; E87.6 Hypokalemia; I48.0 Paroxysmal atrial fibrillation; I11.0 Hypertensive heart disease with heart failure; I50.9 Heart failure, unspecified; E78.00 Pure hypercholesterolemia, unspecified; J45.909 Unspecified asthma, uncomplicated; G47.33 Obstructive sleep apnea (adult) (pediatric); K21.9 Gastro-esophageal reflux disease without esophagitis; I42.9 Cardiomyopathy, unspecified; Z79.01 Long term (current) use of anticoagulants; Z79.899 Other long term (current) drug therapy; Z87.891 Personal history of nicotine dependence
CPT/HCPCS: 45385; 45380; 43236; 43251; 36415; 71045; 74018; 74176; 80048; 80053; 82947; 85025; 85027; 86850; 86900; 86901; 88305; 99221; C1889; J0690; J1171; J1836; J2405; J2543; J2704; J3010

== ENCOUNTER → 2024-07-08 15:34 | Outpatient (BNV) | payer OTHER, SELFPAY | PROVIDERS: Admitting Provider Surgery; PCP General Practice; Visit Provider Surgery | DX: D13.2 Benign neoplasm of duodenum (principal) | CPT/HCPCS: 99232; 99239; 99499 ==

== ENCOUNTER → 2024-07-08 15:34 | Outpatient (BNV) | payer OTHER, SELFPAY | PROVIDERS: Admitting Provider Surgery; PCP General Practice; Visit Provider Student in an Organized Health Care Education/Training Program | DX: R10.9 Unspecified abdominal pain (principal) | CPT/HCPCS: 99222; 99232 ==

== ENCOUNTER 2024-07-12 20:54 | Emergency (ER) | payer OTHER, SELFPAY ==
[2024-07-12 21:38] VITALS: BP 173/92; PULSE 90; RESP 18; TEMP 36.9; O2SAT 100; BMI 32.2
--- NOTE | 2024-07-12 21:46 | ECG_ITS ---
Test Reason : GI BLEED ? Blood Pressure : */* mmHG Vent. Rate : 77 BPM Atrial Rate : 77 BPM P-R Int : 234 ms QRS Dur : 144 ms QT Int : 446 ms P-R-T Axes : 32 -1 8 degrees QTcB Int : 504 ms Sinus rhythm with 1st degree A-V block Right bundle branch block Inferior infarct (cited on or before 27-Jun-2022) Abnormal ECG When compared with ECG of 25-Sep-2022 11:54, Sinus rhythm has replaced Electronic atrial pacemaker Referred By: Generic ED Physician Electronically Signed By: LATRICE CALHOUN
[2024-07-12 22:15] LABS: MANUAL DIFF FLAG NO
[2024-07-12 22:20] LABS: Basophils Percent Auto 0.5 % (0-2); Eosinophils Percent Auto 0.9 % (0-4); Hematocrit 28.3 % (37.0-47.0); Hemoglobin 9.8 g/dl (12.0-16.0); Imm Gran Abs Auto 0.01 X10*3/uL (0.00-0.03); Imm Gran Pct Auto 0.2 % (0.0-0.4); Lymphocytes Absolute Auto 0.9 X10*3/uL (1.2-4.9); Lymphocytes Percent Auto 21.1 % (20-40); Mean Corpuscular HGB Conc 34.6 g/dl (31.0-35.0); Mean Corpuscular Hemoglobin 31.6 pg (27.0-33.0); Mean Corpuscular Volume 91.3 fL (80.0-98.0); Mean Platelet Volume 12.1 fL (9.4-12.3); Monocytes Absolute Auto 0.5 X10*3/uL (0.1-1.2); Monocytes Percent Auto 10.9 % (2-11); Neutrophils Absolute Auto 2.9 x10*3/uL (2.0-8.3); Neutrophils Percent Auto 66.4 % (45-73); Platelet Count 161 X10*3/uL (160-400); White Blood Count 4.3 X10*3/uL (4.8-10.8)
[2024-07-12 22:31] LABS: Alanine Aminotransferase 10 U/L (0-31); Alkaline Phosphatase 71 U/L (39-117); Anion Gap 11 (12-20); Aspartate Amino Transferase 12 U/L (5-31); Bilirubin Total 0.3 mg/dL (0.0-1.0); Blood Urea Nitrogen 20 mg/dL (9-16); Calcium 9.7 mg/dL (8.4-10.2); Carbon Dioxide 25 mmol/L (22-29); Chloride 103 mmol/L (96-108); Estimated Glomerular Filt Rate 52; Glucose Random 108 mg/dL (60-115); Lipase 27 U/L (8-78); Potassium 3.3 mmol/L (3.3-5.1); Sodium 136 mmol/L (135-145); Total Protein 7.3 g/dL (6.5-8.0)
--- NOTE | 2024-07-12 22:41 | ED_ITS ---
HPI - General Adult General Chief complaint: GI Bleed Stated complaint: Black Stools Time Seen by Provider: 07/12/24 22:28 Source: patient Limitations: no limitations History of Present Illness ED Provider: Arielle Rivera PA-C HPI narrative: 78 y/o F with hx of CHF, cardiomyopathy, paroxysmal AFib on Eliquis, s/p AICD in place, anemia follows with Dr. Escobedo, has been, and SHORTY on NC at night who was admitted to the hospital under general surgery services for observation after increased abdominal pain s/p EGD/polypectomy 07/08, who developed melena status post her procedure, presents with a ongoing dark stool. Patient was discharged from the hospital on the , her abdominal discomfort resolved, she was still having some degree of melena. Patient was advised not to leave from hospital admission, however she signed out against medical advice. Patient reached out to her radio communications mechanician given continued melena at home, they advised she come to the emergency room for assessment. Patient also complains of ongoing indigestion and burning sensation in her chest since her endoscopy. She was supposed to have received a medication at the time of her hospital discharge, however she left against medical advice. Patient denies abdominal pain, she states she is no longer having loose stool, however her stool is still dark. No bright red blood per rectum. Related Data Home Medications ?Medication ?Instructions ?Recorded ?Confirmed albuterol sulfate 90 mcg/actuation 90 mcg inhalation Q4-6H PRN 02/18/20 07/08/24 aerosol inhaler Shortness Of Breath Or Wheezing cholecalciferol (vitamin D3) 50 50 mcg PO DAILY 02/18/20 07/06/24 mcg (2,000 unit) tablet melatonin 5 mg tablet 10 mg PO BEDTIME insomnia 04/19/20 07/08/24 albuterol sulfate 2.5 mg/3 mL 2.5 mg inhalation Q6H PRN 05/02/21 07/06/24 (0.083 %) solution for nebulization Shortness Of Breath docusate sodium 100 mg capsule 100 mg PO DAILY Constipation 05/02/21 07/08/24 (Stool Softener) folic acid 1 mg tablet 1 mg PO DAILY 05/02/21 07/08/24 rosuvastatin 10 mg tablet 10 mg PO BEDTIME 05/02/21 07/06/24 apixaban 5 mg tablet (Eliquis) 5 mg PO BID 11/13/21 07/08/24 fluticasone propionate 110 1 puff inhalation BID Wheezing 01/07/23 07/08/24 mcg/actuation HFA aerosol inhaler (Flovent HFA) metoprolol succinate 50 mg 50 mg PO DAILY 01/07/23 07/06/24 tablet,extended release 24 hr mirtazapine 30 mg tablet 30 mg PO BEDTIME 06/24/24 07/06/24 omeprazole 20 mg capsule,delayed 20 mg PO QAM 06/24/24 07/06/24 release clotrimazole 1 % topical cream 1 appl topical Q12H PRN Rash 07/08/24 07/08/24 cyanocobalamin (vitamin B-12) 1,000 mcg PO DAILY 07/08/24 07/08/24 1,000 mcg tablet fluticasone furoate 100 1 inh inhalation DAILY PRN 07/08/24 07/08/24 mcg/actuation blister powder for Shortness Of Breath Or Wheezing inhalation (Arnuity Ellipta) furosemide 20 mg tablet 20 mg PO DAILY PRN Edema 07/08/24 07/08/24 loratadine 10 mg tablet 10 mg PO DAILY 07/08/24 07/08/24 nystatin 100,000 unit/gram topical 1 appl topical BID PRN Rash 07/08/24 07/08/24 powder polyethylene glycol 3350 17 17 g PO QD-BID 07/08/24 07/08/24 gram/dose oral powder Previous Rx's ?Medication ?Instructions ?Recorded furosemide 20 mg tablet (Lasix) 20 mg PO QAM #30 tabs 03/12/22 cetirizine 10 mg tablet (Zyrtec) 10 mg PO DAILY PRN allergy 06/24/24 symptoms #30 tabs sucralfate 100 mg/mL oral 10 ml PO QID PRN indigestion #300 07/13/24 suspension (Carafate) mL Allergies Allergy/AdvReac Type Severity Reaction Status Date / Time No Known Allergies Allergy Verified 07/12/24 21:44 [No Known Allergies*] Review of Systems 2 Review of Systems: Yes all other systems are reviewed and are negative Constitutional: Constitutional: Denies fatigue and Denies fever(s) Cardiovascular: Cardiovascular: Denies chest pain and Denies dyspnea Respiratory: Respiratory: Denies dyspnea Gastrointestinal: Gastrointestinal: Denies abdominal pain, Denies diarrhea, Denies nausea, Denies vomiting and Reports other (Dark stool) Endocrine: Endocrine: Denies fatigue PMFSH Past Medical History Attestation statement: The following information was validated with the patient. Medical History Depression Nocturnal hypoxemia SHORTY (obstructive sleep apnea) COPD (chronic obstructive pulmonary disease) (Unknown) Cardiomyopathy Insomnia GERD (gastroesophageal reflux disease) Hypercholesteremia Asthma Hypertension Surgical History History of heart surgery History of implantable cardioverter-defibrillator (ICD) insertion Family History Family History Son No problems noted. Son No problems noted. Son No problems noted. Son No problems noted. Mother Diabetes Paternal Grandmother Ovarian cancer Social History Social History Household Members: None Household Members Other:: lives alone Housing: Apartment Are you a primary home health care provider to a significant other at home: No Do you presently have visiting nurse or other home services: No Alcohol intake: never Patient Tobacco Use Status: Former Tobacco user Cigarette Packs Per Day: 0.5 Years Smoked: 5 Smoked in Last 30 Days: No Use of substances other than those prescribed or required for medical reasons: No Advance Directives: No Advance Directives Information Provided: Yes Do you have a plan to hurt others: No Plan service: No Current occupational status: retired Physical Exam ED Vital Signs: Vital Signs - 24 hr 07/12/24 21:38 07/12/24 23:52 Temperature 98.4 F Pulse Rate 90 88 Respiratory Rate 18 14 Blood Pressure 173/92 H 163/78 H Pulse Oximetry 100 100 Oxygen Delivery Method Room Air Room Air BMI result Body Mass Index 32.2 Const Other: Alert Orientation/consciousness: patient oriented x3 Resp Effort & Inspection: normal respiratory effort Cardio Other: Normal peripheral perfusion GI Other: External hemorrhoid noted it was not thrombosed it was not painful, stool color brown, no melena no bright red blood per rectum Skin Other: Warm dry no rash Neuro General: patient oriented x3, gait normal, no focal motor deficits and CN's II- XI intact bilaterally Psych Other: Cooperative Medications Administered Discontinued Medications Generic Name Dose Route Start Last Admin Trade Name Tarik PRN Reason Stop Dose Admin Sucralfate 1 gm 07/13/24 00:02 07/13/24 00:27 Sucralfate Oral Suspension 1 Gm/10 Ml Oral.Susp PO 07/13/24 00:03 1 gm ONCE ONE Administration Medical Decision Making Medical Decision Making MDM Narrative: 78 y/o F with hx of CHF, cardiomyopathy, paroxysmal AFib on Eliquis, s/p AICD in place, anemia follows with Dr. Escobedo, has been, and SHORTY on NC at night who was admitted to the hospital under general surgery services for observation after increased abdominal pain s/p EGD/polypectomy 07/08, who developed melena status post her procedure, presents with a ongoing dark stool. Patient was discharged from the hospital on the , her abdominal discomfort resolved, she was still having some degree of melena. Patient was advised not to leave from hospital admission, however she signed out against medical advice. Patient reached out to her radio communications mechanician given continued melena at home, they advised she come to the emergency room for assessment. Patient also complains of ongoing indigestion and burning sensation in her chest since her endoscopy. She was supposed to have received a medication at the time of her hospital discharge, however she left against medical advice. Patient denies abdominal pain, she states she is no longer having loose stool, however her stool is still dark. No bright red blood per rectum. Problem: Recent endoscopy and polypectomy with colonoscopy, recent GI bleeding, patient was anticoagulated History: Per patient I have considered the following differential diagnoses: Lower GI bleed, upper GI bleed, anemia, GERD Plan: Screening labs were already obtained from triage, her H&H are stable, in fact they are subtly increased from 2 days ago. On exam, the patient no longer has melena there was no bright red blood per rectum. I sent a guaiac off for confirmation. The patient was supposed to have received a medication for her ?indigestion?, I suspect she is having the burning sensation in her chest secondary to having endoscopy, we will give Carafate and send a script with Carafate. We will be advising the patient to follow up with her radio communications mechanician. I have independently reviewed the following tests: Labs: No leukocytosis, stable anemia, no electrolyte abnormality, guaiac positive Lab Data 07/12/24 22:11 07/12/24 22:11 Labs: Lab Results 07/12/24 07/12/24 Range/Units 22:11 23:05 WBC 4.3 L (4.8-10.8) X10*3/uL RBC 3.10 L (4.20-5.50) X10*6/uL Hgb 9.8 L (12.0-16.0) g/dl Hct 28.3 L (37.0-47.0) % MCV 91.3 (80.0-98.0) fL MCH 31.6 (27.0-33.0) pg MCHC 34.6 (31.0-35.0) g/dl RDW 12.0 (11.0-16.0) % Plt Count 161 (160-400) X10*3/uL MPV 12.1 (9.4-12.3) fL Immature Gran % (Auto) 0.2 (0.0-0.4) % Neut % (Auto) 66.4 (45-73) % Lymph % (Auto) 21.1 (20-40) % [place] % (Auto) 10.9 (2-11) % Eos % (Auto) 0.9 (0-4) % Baso % (Auto) 0.5 (0-2) % Lymph # (Auto) 0.9 L (1.2-4.9) X10*3/uL [place] # (Auto) 0.5 (0.1-1.2) X10*3/uL Eos # (Auto) 0.0 (0.0-0.4) X10*3/uL Baso # (Auto) 0.0 (0.0-0.2) X10*3/uL Abs Immat Gran (auto) 0.01 (0.00-0.03) X10*3/uL Absolute Neuts (auto) 2.9 (2.0-8.3) x10*3/uL Absolute Nucleated RBC 0.000 (0.0-0.012) X10*3/uL Nucleated RBC % (auto) 0.0 (0.0-0.2) /100WBC Sodium 136 (135-145) mmol/L Potassium 3.3 (3.3-5.1) mmol/L Chloride 103 (96-108) mmol/L Carbon Dioxide 25 (22-29) mmol/L Anion Gap 11 L (12-20) BUN 20 H (9-16) mg/dL Creatinine 1.02 (0.5-1.4) mg/dL Estim Creat Clear Calc 43.0 Estimated GFR 52 Random Glucose 108 (60-115) mg/dL Calcium 9.7 D (8.4-10.2) mg/dL Total Bilirubin 0.3 (0.0-1.0) mg/dL AST 12 (5-31) U/L ALT 10 (0-31) U/L Alkaline Phosphatase 71 (39-117) U/L Total Protein 7.3 (6.5-8.0) g/dL Albumin 4.0 (3.5-5.0) g/dL Lipase 27 (8-78) U/L Stool Occult Blood POSITIVE (NEGATIVE) Discharge Plan Discharge Clinical Impression: Indigestion, Blood in stool Patient Disposition: Home, Self-Care Instructions: Indigestion (ED) Additional Instructions: All of your labs were stable, your blood counts are slightly increased from 2 days ago. Your stool is still positive for occult blood, the stool is pale brown, there is no melena there was no bright red blood on exam. You need to continue following up with your radio communications mechanician. You do have an external hemorrhoid, you can apply [id number] hydrocortisone cream to alleviate the itching. Take the Carafate as directed. This medication is used for indigestion, it helps to coat your stomach. Prescriptions: New sucralfate [Carafate] 100 mg/mL suspension 10 ml PO QID PRN (Reason: indigestion) Qty: 300 0RF Rx Instructions: swish in mouth and swallow; use after food/drink No Action furosemide [Lasix] 20 mg tablet 20 mg PO QAM Qty: 30 0RF cyanocobalamin (vitamin B-12) 1,000 mcg tablet 1,000 mcg PO DAILY furosemide 20 mg tablet 20 mg PO DAILY PRN (Reason: Edema) nystatin 100,000 unit/gram powder 1 appl topical BID PRN (Reason: Rash) polyethylene glycol 3350 17 gram/dose powder 17 g PO QD-BID clotrimazole 1 % cream 1 appl topical Q12H PRN (Reason: Rash) loratadine 10 mg tablet 10 mg PO DAILY Arnuity Ellipta 100 mcg/actuation blister with device 1 inh inhalation DAILY PRN (Reason: Shortness Of Breath Or Wheezing) melatonin 5 mg tablet 10 mg PO BEDTIME cholecalciferol (vitamin D3) 50 mcg (2,000 unit) tablet 50 mcg PO DAILY albuterol sulfate 90 mcg/actuation HFA aerosol inhaler 90 mcg inhalation Q4-6H PRN (Reason: Shortness Of Breath Or Wheezing) docusate sodium [Stool Softener] 100 mg capsule 100 mg PO DAILY Flovent HFA 110 mcg/actuation HFA aerosol inhaler 1 puff inhalation BID Eliquis 5 mg tablet 5 mg PO BID metoprolol succinate 50 mg tablet extended release 24 hr 50 mg PO DAILY Rx Instructions: Please call and schedule an appointment for refills rosuvastatin 10 mg tablet 10 mg PO BEDTIME folic acid 1 mg tablet 1 mg PO DAILY albuterol sulfate 2.5 mg /3 mL (0.083 %) solution for nebulization 2.5 mg inhalation Q6H PRN (Reason: Shortness Of Breath) omeprazole 20 mg capsule,delayed release(DR/EC) 20 mg PO QAM mirtazapine 30 mg tablet 30 mg PO BEDTIME cetirizine [Zyrtec] 10 mg tablet 10 mg PO DAILY PRN (Reason: allergy symptoms) Qty: 30 0RF Print Language: Urdu
[2024-07-12 23:09] LABS: OBS1 POSITIVE (NEGATIVE)
[2024-07-12 23:10] LABS: OBS Int Ctl Valid YES
[2024-07-12 23:52] VITALS: BP 163/78; PULSE 88; RESP 14; O2SAT 100
[2024-07-13] MEDS: Sucralfate Oral Suspension 1 GM/10 ML ORAL.SUSP PO (00:27)
[2024-07-13 00:41] VITALS: BP 163/78; PULSE 88; RESP 14; TEMP 37.1; O2SAT 100
== END 2024-07-13 00:42 | disposition home or self-care (01) ==
PROVIDERS: Physician Assistant Medical; Emergency Provider Emergency Medicine; PCP General Practice
DX: K92.1 Melena (principal); K30 Functional dyspepsia; D64.9 Anemia, unspecified; I48.0 Paroxysmal atrial fibrillation; Z79.01 Long term (current) use of anticoagulants; Z95.810 Presence of automatic (implantable) cardiac defibrillator
CPT/HCPCS: 36415; 80053; 82272; 83690; 85025; 93005; 99283; 99284

== ENCOUNTER → 2024-07-12 21:46 | Outpatient (BNV) | payer OTHER, SELFPAY | PROVIDERS: Emergency Provider Emergency Medicine; PCP General Practice; Visit Provider Internal Medicine | DX: I44.0 Atrioventricular block, first degree (principal); I45.10 Unspecified right bundle-branch block; I25.2 Old myocardial infarction | CPT/HCPCS: 93010 ==

== ENCOUNTER 2024-07-22 13:19 | Outpatient (REF) | payer OTHER, SELFPAY ==
[2024-07-22 14:10] LABS: Hemoglobin 9.6 g/dl (12.0-16.0); Mean Corpuscular Hemoglobin 30.8 pg (27.0-33.0); Mean Corpuscular Volume 96.2 fL (80.0-98.0); Mean Platelet Volume 12.2 fL (9.4-12.3); Platelet Count 205 X10*3/uL (160-400); Red Blood Count 3.12 X10*6/uL (4.20-5.50); Red Cell Distribution Width 12.6 % (11.0-16.0)
--- OUTSIDE RECORDS SUMMARY | 2024-07-22 16:13 | XMS_ITS | Clinical Summary ---
Author Organization [employer] Address [address] [facility] 7t [place] [address] Care Team Providers Care Senior Program Analyst Name Role Phone Yasmeen Willams MD Primary Care Provider [phone] Allergies No known active allergies Medications amiodarone [...] 11 10/01/19 24 025 Active nystatin (Mycostatin) 151396 UNIT/GM powderIndications: Candidiasis of skin Apply topically [...] appt Jan 01, 2023, recommend talking to county auditor then about travelling Mild major depression 10/11/2022 [...] by cards in [facility] Monoclonal gammopathy of unknown significance (M MERCEDES) [...] Beta zheng and diuretics daily Follows with [facility] every 3-4 months Assessment & Plan [...] ICD in place and regular followup at [facility] Run of alerts 04/05 for VF, which was actually AF with RVR, at that point cardiology increased Metoprolol to 75mg daily Cardiac rehab ongoing Assessment & Plan (07/05/2022 2:45 PM EDT): Continue Metoprolol 50mg daily, which she has been doing for past week, contact [facility] for followup BNP of 241, [...] Department Care Team Description 07/15/2024 Patient Outreach [facility] [address] [place] [address] Yasmeen Willams MD 07/08/2024 Orders Only [facility] External Provider, [facility] 07/01/2024 Refill [facility] [address] [place] [address] Yasmeen Willams MD 06/09/2024 Refill [facility] [address] [place] [address] Yasmeen Willams MD 06/07/2024 Refill [facility] [address] [place] [address] Yasmeen Willams MD Insomnia, unspecified type; Gastroesophageal reflux disease without esophagitis 05/20/2024 Telephone [facility] [address] [place] [address] Lori Casas [place] Appointment Request 05/19/2024 Telephone [facility] [address] [place] [address] Lori Casas [place] recall 05/05/2024 Refill [facility] [address] [place] [address] Yasmeen Willams MD Monoclonal gammopathy of unknown [...] Description 07/24/2024 2:15 PM EDT Office Visit [facility] [address] [place] [address] Yasmeen Willams MD [address] [place] [address] Health Maintenance Due Date Last Done Comments [...] Blood Count 5.0 4.8 - 10.8 X10*3/uL [facility] Red Blood Count 3.12(L) 4.20 - 5.50 X10*6/uL [facility] Hemoglobin 9.6(L) 12.0 - 16.0 g/dl [facility] Hematocrit 30.0(L) 37.0 - 47.0 % [facility] Mean Corpuscular Volume 96.2 80.0 - 98.0 fL [facility] Mean Corpuscular Hemoglobin 30.8 27.0 - 33.0 pg [facility] Mean Corpuscular HGB Conc 32.0 31.0 - 35.0 g/dl [facility] Red Cell Distribution Width 12.6 11.0 - 16.0 % [facility] Platelet Count 205 160 - 400 X10*3/uL [facility] Mean Platelet Volume 12.2 9.4 - 12.3 fL [facility] NRBC Pct Auto 0.0 0.0 - 0.2 /100WBC [facility] NRBC Abs Auto 0.000 0.0 - 0.012 X10*3/uL [facility] 07/22/2024 2:03 PM EDT 07/22/2024 2:03 PM EDT Generic External Data Provider LAB BLOOD ORDERAB LES Final Result Performing Organization Address City/[facility]/ZIP Co de Phone Number [facility] [address] [place] [address] [phone] * OBSX1 (07/12/2024 11:05 PM EDT) [facility] OBS1 POSITIVE NEGATIVE [facility] 07/12/2024 11:0 5 PM EDT 07/12/2024 11:09 PM EDT Generic External Data Provider LAB BLOOD ORDERAB LES Final Result Performing Organization Address [facility] de Phone Number [facility] [address] [place] [address] [phone] * (ABNORMAL) CBC auto differential (07/12/2024 10:11 PM EDT) Only the most recent of2 resultswithin the time period is included. [facility] White Blood Count 4.3(L) 4.8 - 10.8 X10*3/uL [facility] Red Blood Count 3.10(L) 4.20 - 5.50 X10*6/uL [facility] Hemoglobin 9.8(L) 12.0 - 16.0 g/dl [facility] Hematocrit 28.3(L) 37.0 - 47.0 % [facility] Mean Corpuscular Volume 91.3 80.0 - 98.0 [facility] Mean Corpuscular Hemoglobin 31.6 27.0 - 33.0 pg [facility] Mean Corpuscular HGB Conc 34.6 31.0 - 35.0 g/dl [facility] Red Cell Distribution Width 12.0 11.0 - 16.0 % [facility] Platelet Count 161 160 - 400 X10*3/uL [facility] Mean Platelet Volume 12.1 9.4 - 12.3 fL [facility] Neutrophils Percent Auto 66.4 45 - 73 % [facility] Imm Gran Pct Auto 0.2 0.0 - 0.4 % [facility] Lymphocytes Percent Auto 21.1 20 - 40 % [facility] Monocytes Percent Auto 10.9 2 - 11 % [facility] Eosinophils Percent Auto 0.9 0 - 4 % [facility] Basophils Percent Auto 0.5 0 - 2 % [facility] NRBC Pct Auto 0.0 0.0 - 0.2 /100WBC [facility] Neutrophils Absolute Auto 2.9 2.0 - 8.3 x10*3/uL [facility] Imm Gran Abs Auto 0.01 0.00 - 0.03 X10*3/uL [facility] Lymphocytes Absolute Auto 0.9(L) 1.2 - 4.9 X10*3/uL [facility] Monocytes Absolute Auto 0.5 0.1 - 1.2 X10*3/uL [facility] Eosinophils Absolute Auto 0.0 0.0 - 0.4 X10*3/uL [facility] Basophils Absolute Auto 0.0 0.0 - 0.2 X10*3/uL [facility] NRBC Abs Auto 0.000 0.0 - 0.012 X10*3/uL [facility] 07/12/2024 10:1 1 PM EDT 07/12/2024 10:14 PM EDT us Generic External Data Provider LAB BLOOD ORDERAB LES Final Result [facility] [address] [place] [address] [phone] * Lipase (07/12/2024 10:11 PM EDT) Lipase 27 8 - 78 U/L [facility] 07/12/2024 10:1 1 PM EDT 07/12/2024 10:14 PM EDT us Generic External Data Provider LAB BLOOD ORDERAB LES Final Result [facility] [address] [place] [address] [phone] * (ABNORMAL) Comprehensive Metabolic Panel (07/12/2024 10:11 PM EDT) Only the most recent of2 resultswithin the time period is included. Sodium 136 135 - 145 mmol/L [facility] Potassium 3.3 3.3 - 5.1 mmol/L [facility] Chloride 103 96 - 108 mmol/L [facility] Carbon Dioxide 25 22 - 29 mmol/L [facility] Anion Gap 11(L) 12 - 20 [facility] Urea Nitrogen (BUN) 20(H) 9 - 16 mg/dL [facility] Creatinine, Serum 1.02 0.5 - 1.4 mg/dL [facility] Creatinine Clr Calc Pharmacy 43.0 [facility] Comment:Provided height and weight: 157.48 cm,79.8 kg.eGFR (calculated from the MDRD study equation) and eCrCl(calculated from the Cockcroft-Gault equation) are based ondifferent parameters and may not yield comparable results.If eCrCl result is absurd, please check patient'sheight/weight. Estimated Glomerular Filt Rate 52 [facility] Comment:Chronic Kidney Disea se: Estimated GFR < 60 mL/min/1.20i0Xvjofk Kidney Disease: Estimated GFR < 15 mL/min/1.73m2 Glucose 108 60 - 115 mg/dL [facility] Calcium 9.7 8.4 - 10.2 mg/dL [facility] Bilirubin, Total 0.3 0.0 - 1.0 mg/dL [facility] Aspartate Amino Transferase 12 5 - 31 U/L [facility] Alanine Aminotransferase 10 0 - 31 U/L [facility] Total Protein 7.3 6.5 - 8.0 g/dL [facility] Albumin Level 4.0 3.5 - 5.0 g/dL [facility] Alkaline Phosphatase 71 39 - 117 U/L [facility] 07/12/2024 10:1 1 PM EDT 07/12/2024 10:14 PM EDT Generic External Data Provider LAB BLOOD ORDERAB LES Final Result Performing Organization Address [facility] de Phone Number [facility] [address] [place] [address] [phone] * Type and screen (07/08/2024 2:10 PM EDT) Blood Type OP [facility] Antibody Screen NEGATIVE [facility] 07/08/2024 2:10 PM EDT 07/08/2024 2:15 PM EDT Generic External Data Provider LAB BLOOD BANK TE ST ORDERABLES Final Result Performing Organization Address [facility] de Phone Number [facility] [address] [place] [address] [phone] * CT Abdomen Pelvis w/o Contrast (07/08/2024 12:50 PM EDT) Anatomical Region Laterality Modality Body, Pelvis, Abdomen Computed T omography 07/08/2024 12:5 0 PM EDT Narrative 07/08/2024 1:48 PM EDT ? [facility] ?[address] ?[place] [address] ? CT Scan Report ? Signed ? Patient: Huntington,Tabitha ?MR#: [id number] ? : 1945 ?Acct:[id number] ? Age/Sex: 78 / F ?ADM Date: 03/26/25 ? Loc: HO.SSS ? Attending Dr: Kendal Marin MD ? Ordering Physician: Kendal Marin MD ?? Date of Service: 07/08/24 ?? Procedure(s): CT abdomen pelvis wo IV con ?? Accession Number(s): [id number] ? cc: Kendal Marin MD; Yasmeen Willams ? Report Number: ?? [id number]: Total DLP = ??585.00 mGy-cm ?? EXAMINATION: [...] DD/ 1250 ? TD/TT: 07/08/24 1329 ? Mess Attendant: ? Procedure Note Wayne Johnston - 07/08/[address] [address] [address] Scan Report Signed Patient: Roxanne Graham#: [id number] : 4Acct:[id number] Age/Sex: 78 / FADM Date: 07/08/24 Loc: HO.SSS Attending Dr: Kendal Marin MD Ordering Physician: Kendal Marin MD Date of Service: 07/08/24 Procedure(s): CT abdomen pelvis wo IV con Accession Number(s): [id number] cc: Kendal Marin MD; Yasmeen Willams Report Number: [id number]: Total DLP = 585.00 mGy-cm EXAMINATION: CT [...] 07/08/24 1345 DD/ 1250 TD/TT: 07/08/24 1329 Mess Attendant: [facility] External Provider IMG CT PROCEDURES Final Result * XR KUB and Upright 2 Views (07/08/2024 12:11 PM EDT) Anatomical Region Laterality Modality Radiographic Brianna ging 07/08/2024 12:1 1 PM EDT Narrative 07/08/2024 12:51 PM EDT ? [facility] ?[address] ?[place] [address] ?XRay Report ? Signed ? Patient: Huntington,Tabitha ?MR#: [id number] ? : 1945 ?Acct:[id number] ? Age/Sex: 78 / F ?ADM Date: 03/26/25 ? Loc: HO.SSS ? Attending Dr: Kendal Marin MD ? Ordering Physician: Kendal Marin MD ?? Date of Service: 07/08/24 ?? Procedure(s): XR KUB ?? Accession Number(s): [id number] ? cc: Kendal Marin MD; Yasmeen Willams [...] gas pattern. ? Electronically signed by: ??Byron aPstrana MD ??07/08/2024 12:49 PM EDT ?? RP ? Dictated By: ?Byron Pastrana MD ? Signed By: ?<Electronically signed by Byron Pastrana MD in OV> ?07/08/24 1249 ? DD/ 1211 ? TD/TT: 07/08/24 1240 ? Mess Attendant: ? Procedure Note Vickie, Image - 07/08/2024 [place] [address] XRay Report Signed Patient: Roxanne Graham#: [id number] : 4Acct:[id number] Age/Sex: 78 / FADM Date: 07/08/24 Loc: HO[facility] Attending Dr: Kendal Marin MD Ordering Physician: Kendal Marin MD Date of Service: 07/08/24 Procedure(s): XR KUB Accession Number(s): [id number] cc: Kendal Marin MD; Yasmeen Willams EXAMINATION: [...] 07/08/24 1249 DD/ 1211 TD/TT: 07/08/24 1240 Mess Attendant: [facility] External Provider IMG XR PROCEDURES Final Result * XR Chest 1 View (07/08/2024 12:11 PM EDT) Anatomical Region Laterality Modality Chest Radiographic Brianna ging 07/08/2024 12:1 1 PM EDT Narrative 07/08/2024 12:53 PM EDT ? [facility] ?[address] ?[place] [address] ?XRay Report ? Signed ? Patient: Huntington,Tabitha ?MR#: [id number] ? : 1945 ?Acct:[id number] ? Age/Sex: 78 / F ?ADM Date: 07/08/24 ? Loc: HO.SSS ? Attending Dr: Kendal Marin MD ? Ordering Physician: Kendal Marin MD ?? Date of Service: 07/08/24 ?? Procedure(s): XR chest 1V ?? Accession Number(s): [id number] ? cc: Kendal Marin MD; Yasmeen Willams [...] DD/ 1211 ? TD/TT: 07/08/24 1240 ? Mess Attendant: ? Procedure Note Donaditya, Wayne - 07/08/[address] [address] XRay Report Signed Patient: Roxanne Graham#: [id number] : 4Acct:[id number] Age/Sex: 78 / FADM Date: 07/08/24 Loc: HO.[facility] Attending Dr: Kendal Marin MD Ordering Physician: Kendal Marin MD Date of Service: 07/08/24 Procedure(s): XR chest 1V Accession Number(s): [id number] cc: Kendal Marin MD; Yasmeen Willams EXAMINATION: [...] 07/08/24 1250 DD/ 1211 TD/TT: 07/08/24 1240 Mess Attendant: [facility] External Provider IMG XR PROCEDURES Final [...] ?? Akash ALFREDO et al. ROLDAN. 2013;310(19): 2963-4508 ?? (http://education.CDP/faq/QWT678) Non-HDL Cholesterol 132(H) <130 mg/dL (calc) [facility] Comment: For patients with diabetes plus 1 major ASCVD risk ?? factor, treating to a non-HDL-C goal of <100 mg/dL ?? (LDL-C of <70 mg/dL) is considered a therapeutic ?? option. Triglycerides 99 <150 mg/dL [facility] 12/20/2021 2:35 PM EDT Radha Howard MOTEL FRONT DESK CLERK LAB BLOOD ORDERABLES Final Res ult [facility] [address] from Last 3 Months or Most Recently Relevant to Health Maintenance [place] [address] [place] [address] - [place] Care Teams Senior Program Analyst Relationship Specialty Start Date End Date Yasmeen Willams MD [address] [place] [phone] PCP - General Family Medicine 12/09/21
--- OUTSIDE RECORDS SUMMARY | 2024-07-22 16:13 | XMS_ITS | Encounter Summary ---
Author Organization [employer] Address [address] [facility] 7t [place] [address] Care Team Providers Care Coat Operator Insulator Name Role Phone Yasmeen Willams MD Primary Care Provider [phone] Reason for Visit * Reason Onset Date Comments Resend Script 06/21/2022 Encounter Details Date Type Department Care Team ([facility] st Contact Info) Description 06/21/2022 Telephone [facility] [address] [place] [address] Yasmeen Willams MD [address] [place] [address] Resend Script Social History Tobacco Use Types [...] - 06/21/2022 10:46 AM EST Tc judith Eugene with [facility] requesting script for rosuvastatin (Crestor) 10 MG tablet andfolic acid (Folvite) 1 MG tablet. Pharmacy claims script was never received. Please contact pharmacy if any questions [phone] documented in this encounter Plan of Treatment Upcoming Encounters Date Type Department Care Team (Late st Contact Info) Description 07/24/2024 2:15 PM EDT Office Visit [facility] [address] [place], [place] [phone] Yasmeen Willams MD [address] [place] [address] documented as of this encounter Visit Diagnoses Diagnosis Monoclonal gammopathy of unknown significance (MGUS) Other hyperlipidemia documented in this encounter Care Teams Coat Operator Insulator Relationship Specialty Start Date End Date Yasmeen Willams MD [address] [place], [place] [phone] PCP - General Family Medicine 12/09/21 documented as of this encounter
--- OUTSIDE RECORDS SUMMARY | 2024-07-22 16:13 | XMS_ITS | Encounter Summary ---
Author Organization [employer] Address [address] [facility] 7t [place] [address] Care Team Providers Care Activities Coordinator Name Role Phone Yasmeen Willams MD Primary Care Provider [phone] Reason for Visit * Reason Comments Med Refill Encounter Details Date Type Department Care Team ([facility] Contact Info) Description 09/03/2022 Refill [facility] [address] [place] [address] [phone] Yasmeen Willams MD [address] [place] [address] [phone] Primary insomnia Social History Tobacco Use Types [...] Upcoming Encounters Date Type Department Care Team ([facility] Contact Info) Description 07/24/2024 2:15 PM EDT Office Visit [facility] [address] [place] [address] [phone] Yasmeen Willams MD [address] [place] [phone] documented as of this encounter Visit Diagnoses Diagnosis Primary insomnia Persistent disorder of initiating or maintaining sleep documented in this encounter Care Teams Activities Coordinator Relationship Specialty Start Date End Date Yasmeen Willams MD [address] [place] [address] PCP - General Family Medicine 12/09/21 documented as of this encounter
--- OUTSIDE RECORDS SUMMARY | 2024-07-22 16:13 | XMS_ITS | Encounter Summary ---
Author Organization [employer] Address [address] [facility] 7t [place] [address] Care Team Providers Care Artificial Snow Making Machine Operator Name Role Phone Yasmeen Willams MD Primary Care Provider [phone] Reason for Visit * Reason Comments Med Refill Encounter Details Date Type Department Care Team ([facility] st Contact Info) Description 02/14/2023 Refill [facility] [address] [place], [place] [phone] Yasmeen Willams MD [address] [place], [place] [phone] Other hyperlipidemia Social History Tobacco Use Types [...] Description 07/24/2024 2:15 PM EDT Office Visit [facility] [address] [place], [place] [phone] Yasmeen Willams MD [address] [place] [phone] documented as of this encounter Visit Diagnoses Diagnosis Other hyperlipidemia documented in this encounter Care Teams Artificial Snow Making Machine Operator Relationship Specialty Start Date End Date Yasmeen Willams MD [address] [place] [phone] PCP - General Family Medicine 12/09/21 documented as of this encounter
--- OUTSIDE RECORDS SUMMARY | 2024-07-22 16:13 | XMS_ITS | Encounter Summary ---
Author Organization [employer] Address [address] [facility] 7t [place] [address] Care Team Providers Care Professional Builder Name Role Phone Yasmeen Willams MD Primary Care Provider [phone] Reason for Visit * Reason Comments Med Refill Encounter Details Date Type Department Care Team ([facility] st Contact Info) Description 12/12/2023 Refill [facility] [address] [place], [place] [phone] Stella Maher MD [address] [place], [place] [phone] Gastroesophageal reflux disease without esophagitis Social History [...] the past 12 months, has t he [employer], oil or water company threatened to shut [...] Description 07/24/2024 2:15 PM EDT Office Visit [facility] [address] [place], [place] [phone] Yasmeen Willams MD [address] [place] [phone] documented as of this encounter Visit Diagnoses Diagnosis Gastroesophageal reflux disease without esophagitis Esophageal reflux documented in this encounter Care Teams Professional Builder Relationship Specialty Start Date End Date Yasmeen Willams MD [address] [place] [address] [phone] PCP - General Family Medicine 12/09/21 documented as of this encounter
--- OUTSIDE RECORDS SUMMARY | 2024-07-22 16:13 | XMS_ITS | Encounter Summary ---
Author Organization [employer] Address [address] [facility] 7t [place] [address] Care Team Providers Care Intelligence Agent Name Role Phone Yasmeen Willams MD Primary Care Provider [phone] Reason for Visit * Reason Comments Med Refill Encounter Details Date Type Department Care Team ([facility] st Contact Info) Description 03/16/2023 Refill [facility] [address] [place], [place] [phone] Yasmeen Willams MD [address] [place], [place] [phone] Social History Tobacco Use Types Packs/Day Years [...] t he electric, gas, oil or water [employer] threatened to shut off services in your [...] Description 07/24/2024 2:15 PM EDT Office Visit [facility] [address] [place] [address] [phone] Yasmeen Willams MD [address] [place] [address] documented as of this encounter Visit Diagnoses Not on filedocumented in this encounter Care Teams Intelligence Agent Relationship Specialty Start Date End Date Yasmeen Willams MD [address] [place] [phone] PCP - General Family Medicine 12/09/21 documented as of this encounter
== END 2024-07-22 13:20 | disposition home or self-care (01) ==
LOC: HO.LAB 13:19
PROVIDERS: PCP General Practice; Visit Provider Nurse Practitioner Family
DX: K21.9 Gastro-esophageal reflux disease without esophagitis (principal); D50.9 Iron deficiency anemia, unspecified; D13.30 Benign neoplasm of unspecified part of small intestine
CPT/HCPCS: 36415; 85027; 99212

== ENCOUNTER 2024-07-22 13:19 | Outpatient (AMB) | payer OTHER, SELFPAY ==
[2024-07-22 13:21] VITALS: BP 126/58; PULSE 68; O2SAT 97; BMI 31.4
--- NOTE | 2024-07-22 13:21 | A.OFFVIS_ITS ---
Vital Signs 07/22/24 13:21 Height 5 ft 2 in Weight 171 lb 8.314 oz BMI 31.4 BP 126/58 L Blood Pressure Location Rt brachial Position Sitting Pulse 68 Pulse Source Pulse Oximeter Pulse Oximetry (%) 97 Oxygen Delivery Method Room Air Intake Visit Reasons: s/p colo and EGD evans Intake Note: ESTABLISHED PATIENT for s/p duo. Pt had procedure after being seen in ED for black stools. Chief Complaint; C/O lingering but intermittent B/L LQ abd pain. Pt denies any fecal abn to this point. Denies any melena or hematochezia. Reflux under good control per pt. Pt also has a rash which is she concerned about and possible medication reaction she has had for a few weeks now. No additional concerns. Paramedic Rn Required: No Accompanied by: Spouse Allergies No Known Allergies [No Known Allergies*] Allergy (Verified 07/22/24 13:21) HPI HPI s/p colo and EGD evans: Details: LAST VISIT: Anemia Screen for colon cancer GERD (gastroesophageal reflux disease) Plan Continue current dose of pantoprazole. Avoid dietary triggers and late night snacking. Staying upright for minimum 3 hours after meals discussed with patient. Patient will be sent for upper endoscopy as well as colonoscopy. Procedure is scheduled for July 08. What to expect before during and after procedure discussed with patient. Stressed the importance of good bowel prep and clear liquid diet day before procedure. Patient will follow-up in our office after the procedure, sooner on as needed basis. She is agreeable to this plan and verbalizes understanding of instructions. She was given the opportunity to ask questions and all questions answered. ? Thank you for allowing me to participate in her care Medications New polyethylene glycol 3350 (Miralax) As directed by gastroenterology department at [facility] 238 grams PO ONCE 238 grams 0RF Z12.11 bisacodyl (Dulcolax (bisacodyl)) 10 mg (2 x 5 mg) PO BEDTIME 180 tabs 4RF cetirizine (Zyrtec) 10 mg PO DAILY PRN 30 tabs 0RF allergy symptoms J31.0 ADDENDUM Patient feeling much better but has burning sensation in epigastrium. abdomen is not rigid or tense, soft, mild tenderness mid abdomen. 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 son Mat was updated. Addendum Dictated By: Kendal Evans MD Findings: Larynx:normal Esophagus: GE junction at 36 cm, diaphragm hiatus at 40 cm, consistent with 4 cm hiatal hernia Stomach: scattered fundic gland polyps. Biopsies were obtained. Grade 2 flap valve on retroflexed examination of the cardia. Duodenum: Normal bulb. In second part a large adenomatous appearing polyp noted on the posterior wall. It measured about 14-18 mm in length. It was lifted with eleview and then injected and sprayed with epinephrine. The polyp was removed piece meal using cold snare and cold forceps for residual tissue. The base of the defect was then ablated using APC and sprayed with hemospray Intervention: eleview and epinephrine lift with polypectomy and APC with hemospray COLONOSCOPY Instrument: Olympus variable stiffness pediatric scope 190L Colonoscopy Monitoring: Vital signs and clinical assessment, continuous EKG monitoring, Pulse oximetry, Carbon Dioxide monitoring and blood pressure monitoring were done throughout the procedure. Colon withdrawal time was 9 minutes. Procedure: The patient was placed in the left lateral decubitis position and pre-procedure medications were administered. After a digital rectal examination of the ano-rectum, the video colonoscope was inserted into the rectum and advanced through the colon to the cecum/TI. The colonoscope was slowly withdrawn in a retrograde panoramic fashion and the colon mucosa was carefully examined including a retroflexed view of the rectum. Findings and interventions are described below. Procedure Difficulty:moderate Findings: Terminal Ileum-normal Cecum: x 1 sessile polyp 4-5 mm removed with cold forceps Ascending Colon: x 2 sessile polyps 6-8 mm removed with cold snare, patchy diverticulosis Transverse Colon -normal Descending Colon: mild diverticulosis Sigmoid Colon: severe diverticulosis Rectum: Retroflexion with small internal hemorrhoids, grade I Anorectum - normal Colon preparation: [place] Bowel Preparation Scale Right colon; 2 Transverse colon: 2 Left colon; 2 (0 = Unprepared colon segment with mucosa not seen due to solid stool that wendy ot be cleared. 1 = Portion of mucosa of the colon segment seen, but other areas of the colon segment not well seen due to staining, residual stool and/or opaque liquid. 2 = Minor amount of residual staining, small fragments of stool and/or opaque liquid, but mucosa of colon segment seen well. 3 = Entire mucosa of colon segment seen well with no residual staining, small fragments of stool or opaque liquid) Impression and Post Procedure Diagnosis: Endoscopy Findings: fundic gland polyps duodenal polyp hiatal hernia Colonoscopy Findings: diverticulosis colon polyps internal hemorrhoids Plan: Await Pathology results Repeat Colonoscopy in 5 years if health allows or earlier if clinically indicated High fiber diet leaflet avoid straining at stool, epsom salts and sitz bath, anusol supps or cream repeat EGD in about 6-12 weeks range restart eliquis after 48 hrs i.e 10 July in the evening. Above findings were reviewed with the patient and relevant handouts were provided if indicated. TODAY'S VISIT: As mentioned above in HPI patient had upper endoscopy and colonoscopy. No source of bleed found either on upper endoscopy or colonoscopy. Patient reported significant abdominal pain after the procedure and was transferred to ED and then admitted for observation. Patient was seen by a surgeon. CT scan was done and no perforation seen. Patient had upper endoscopy where she had to polyps removed 1 from her stomach in 1 from her duodenum. Recommendation was made for 6-12 weeks EGD follow-up to re-evaluate both sides. Tubulovillous adenoma found in duodenum. Multiple pieces, unable to identify margin. Currently patient is on Eliquis we will do 12 weeks versus 6 weeks due to stopp ing her Eliquis and risk for stroke. Patient is taking omeprazole daily and reports that she has no epigastric pain or acid reflux. Reports that she is moving her bowels well. Denies melena, hematochezia, unintentional weight loss or ribbon like stools. Patient reports that the pain subsided. Anemia low H&H found while in ED Laboratory Tests 07/10/24 07/12/24 06:38 22:11 Hgb 9.1 L 9.8 L Hct 26.8 L 28.3 L MCV 91.5 91.3 MCH 31.1 31.6 Plt Count 131 L 161 MPV 12.8 H 12.1 We will repeat CBC again today. Unsure when patient has a follow-up appointment with Dr. Escobedo. Patient will check when she gets home. [facility] Medical History (Updated 07/22/24 @ 19:47 by Caprice Clay, [facility]) Tubulovillous adenoma of small intestine Depression Nocturnal hypoxemia SHORTY (obstructive sleep apnea) COPD (chronic obstructive pulmonary disease) (Unknown) Cardiomyopathy Insomnia GERD (gastroesophageal reflux disease) Hypercholesteremia Asthma Hypertension Surgical History History of heart surgery History of implantable cardioverter-defibrillator (ICD) insertion Family History Son No problems noted. Son No problems noted. Son No problems noted. Son No problems noted. Mother Diabetes Paternal Grandmother Ovarian cancer Social History Household Members: None Household Members Other:: lives alone Housing: Apartment Are you a primary personal care assistant to a significant other at home: No Do you presently have visiting nurse or other home services: No Alcohol intake: never Patient Tobacco Use Status: Former Tobacco user Cigarette Packs Per Day: 0.5 Years Smoked: 5 service: No Current occupational status: retired Review of Systems Const Denies weight gain and Denies weight loss ENT Reports no additional complaints, Denies dysphagia and Denies odynophagia Card Reports no additional complaints Resp Reports no additional complaints GI Denies abdominal pain, Denies belching, Denies melena, Denies bloating, Denies change in bowel habits, Denies dysphagia, Denies excessive flatus, Denies dyspepsia, Denies heartburn, Denies diarrhea, Denies loose stools, Denies nausea, Denies odynophagia and Denies vomiting Musc Reports no additional complaints Neuro Reports no additional complaints Psych Reports no additional complaints Endo Reports no additional complaints Physical Exam Vital Signs: Last Vital Signs Pulse 68 07/22/24 13:21 BP 126/58 L 07/22/24 13:21 Pulse Ox 97 07/22/24 13:21 Oxygen Delivery Method Room Air 07/22/24 13:21 BMI result Body Mass Index 31.4 Const General: healthy appearing and no acute distress Nutritional Appearance: well nourished and obese Orientation/consciousness: patient oriented x3 Resp Effort & Inspection: normal respiratory effort, able to speak in complete sentences, no tracheal deviation and symmetric chest movement Auscultation: clear to auscultation bilaterally Cardio Rate: regular rate GI Inspection: Yes normal to inspection, No distended and Yes obesity Palpation (GI): Soft to palpation, not firm, nontender and No hepatosplenomegaly present Auscultation: normal bowel sounds General: Yes no CVA tenderness Back/Spine/Pelvis Back: no CVA tenderness Skin General skin exam: elasticity normal, turgor normal and dry skin Neuro General: patient oriented x3 Psych Appearance: grossly normal Mental Status: mental status grossly normal Assessment & Plan Assessment & Plan (1) Anemia: Code(s): D64.9 - Anemia, unspecified Category: Medical Qualifiers: Anemia type: iron deficiency Iron deficiency anemia type: unspecified iron deficiency Qualified Code(s): D50.9 - Iron deficiency anemia, unspecified (2) Tubulovillous adenoma of small intestine: Code(s): D13.30 - Benign neoplasm of unspecified part of small intestine Category: Medical (3) GERD (gastroesophageal reflux disease): Code(s): K21.9 - Gastro-esophageal reflux disease without esophagitis Qualifiers: Esophagitis presence: esophagitis presence not specified Qualified Code(s): K21.9 - Gastro-esophageal reflux disease without esophagitis Plan Patient was encouraged to avoid dietary triggers. Continue taking omeprazoledaily, avoid eating late at night. Staying upright for minimal 3 hours after meals discussed with patient. Patient was encouraged to call Dr. Escobedo in follow-up if no appointment any time soon. Will check her CBC today and call patient with results. Patient is currently not and any iron. Patient reports that she never received IV iron infusions in the past. Tubulovillous adenoma found in duodenum. Message sent to Surgical schedules to call patient and book her for 12 weeks follow-up endoscopy to re-evaluate stomach and duodenal excisions and evaluate. I will see patient after the procedure, sooner on as needed basis. She is agreeable to this plan and verbalizes understanding of instructions. She was given the opportunity to ask questions and all questions answered. Thank you for allowing me to participate in her care Orders: Orders Complete Blood Count no Diff Today K21.9 - Gastro-esophageal reflux disease without esophagitis Coding Level of Care Code Est Pt Level 4 (99303) Complex EM visit Add On G2211 Diagnoses Iron deficiency anemia, unspecified iron deficiency anemia type D50.9 Anemia type: iron deficiency Iron deficiency anemia type: unspecified iron deficiency Tubulovillous adenoma of small intestine D13.30 Gastroesophageal reflux disease, unspecified whether esophagitis present K21.9 Esophagitis presence: esophagitis presence not specified Time Spent (min) 40 Comment 25 minutes spent with patient and additional 15 minutes spent reviewing her records
--- OUTSIDE RECORDS SUMMARY | 2024-07-22 15:25 | XMS_ITS | Clinical Summary ---
Author Organization [employer] Address [address] [place] [address] Care Team Providers Care Student Services Director Name Role Phone Yasmeen Willams MD Primary Care Provider [phone] Allergies No known active allergies Medications amiodarone (Pacerone) 100 MG tablet Take 1 tablet by mouth every 12 (twelve) hours. Active apixaban (Eliquis) 5 MG tablet Take 1 tablet by mouth every 12 (twelve) hours. Active neomycin-bacitraci n-polymyxin (Neosporin) ointment apply to blistered skin once daily after cleansing 08/25/19 22 Active psyllium (Metamucil) 0.52 g capsule take one daily for constipation 12/27/19 22 Active metoprolol succinate XL (Toprol-XL) 50 MG 24 hr tablet TAKE 1 TABLET BY MOUTH TWICE DAILY 02/28/20 22 Active dilTIAZem CD (Cardizem CD) 240 MG 24 hr capsule 07/01/19 22 Active Acetaminophen Extra Strength 500 MG tablet 09/01/19 23 Active aluminum-magnesium hydroxide-simethic one (Mintox Maximum Strength) 400-400-40 MG/5ML suspension TAKE 5 ML BY MOUTH EVERY 6 HOURS NEEDED FOR INDIGESTION OR HEARTBURN FOR UP TO 10 DAYS Active montelukast (Singulair) 10 MG tablet TAKE 1 TABLET BY MOUTH EVERY EVENING 90 tablet 1 08/21/19 24 Active Multiple Vitamin (multivitamin) tablet Take 1 tablet by mouth Once per day. 90 tablet 3 09/17/19 24 Active cholecalciferol (Vitamin D-3) 50 MCG (2000 UT) tablet Take 1 Units by mouth Once per day. 90 tablet 3 09/19/19 24 025 Active albuterol (Ventolin HFA) 108 (90 Base) MCG/ACT inhalerIndications :Mild persistent asthma without complication Inhale 2 puffs by inhalation route every 4-6 hours as needed 18 g 6 09/30/19 24 Active albuterol (2.5 MG/3ML) 0.083% nebulizer solutionIndication s:Mild persistent asthma without complication Inhale 3 mL by nebulization route every 6 hours as needed 90 mL 6 09/30/19 24 Active loratadine (Claritin) 10 MG tablet Take 1 tablet (10 mg) by mouth Once per day. 90 tablet 3 09/30/19 24 025 Active fluticasone furoate (Arnuity Ellipta) 100 MCG/ACT inhaler Inhale 1 puff Once per day. Rinse mouth with water after use to reduce aftertaste and incidence of candidiasis. Do not swallow. 1 each 11 10/01/19 24 025 Active nystatin (Mycostatin) 361834 UNIT/GM powderIndications: Candidiasis of skin Apply topically 2 times daily. Put powder on after shower, no body spray! 60 g 3 02/03/20 24 025 Active clotrimazole (Lotrimin) 1 % creamIndications:C andidiasis of skin Apply topically every 12 (twelve) hours. Under skin under the stomach in the morning and nighttime 85 g 3 02/03/20 24 Active melatonin 10 MG tabletIndications: Primary insomnia TAKE 1 TABLET BY MOUTH NEEDED EVERY NIGHT AT BEDTIME 90 tablet 3 02/03/20 24 Active chlorhexidine (Peridex) 0.12 % solution SWISH 15 ML IN THE MOUTH FOR 30 SECONDS THEN SPIT TWICE DAILY AFTER A MEAL 946 mL 02/12/20 24 Active rosuvastatin (Crestor) 10 MG tabletIndications: Other hyperlipidemia Take 1 tablet (10 mg) by mouth Once per day. 90 tablet 3 02/25/20 24 Active docusate sodium (Colace) 100 MG capsuleIndications :Constipation, unspecified constipation type TAKE ONE CAPSULE BY MOUTH EVERY DAY IF NEEDED FOR CONSTIPATION 90 capsule 3 04/13/20 24 Active polyethylene glycol, PEG, 3350 (Glycolax) 17 GM/SCOOP powder DISSOLVE 17 GIVE IN LIQUID AND DRINK BY MOUTH 1-2 TIMES EVERY DAY NEEDED FOR CONSTIPATION 527 g 3 04/22/19 25 Active folic acid (Folvite) 1 MG tabletIndications: Monoclonal gammopathy of unknown significance (MGUS) TAKE 1 TABLET(1000 MCG) BY MOUTH IN THE MORNING 90 tablet 3 05/05/19 25 Active mirtazapine (Remeron) 30 MG tabletIndications: Insomnia, unspecified type TAKE 1 TABLET BY MOUTH AT BEDTIME 90 tablet 3 06/08/19 25 Active omeprazole (PriLOSEC) [address] capsuleIndications :Gastroesophageal reflux disease without esophagitis TAKE 1 CAPSULE BY MOUTH EVERY MORNING BEFORE BREAKFAST 90 capsule 1 06/08/19 25 Active furosemide (Lasix) 20 MG tablet TAKE 1 TABLET BY MOUTH TWICE DAILY 60 tablet 3 06/10/19 25 Active cyanocobalamin (Vitamin B-12) 1000 MCG tablet TAKE 1 TABLET BY MOUTH EVERY DAY 90 tablet 3 07/02/19 25 Active Active Problems Problem Noted Date Diagnosed Date [...] appt Jan 01, 2023, recommend talking to mangle catcher then about travelling Mild major depression 10/11/2022 [...] AM EST): Managed by cards in [facility] Monoclonal gammopathy of unknown significance (M MERCEDES) [...] Beta zheng and diuretics daily Follows with [facility] every 3-4 months Assessment & Plan [...] ICD in place and regular followup at [facility] Run of alerts 04/05 for VF, which was actually AF with RVR, at that point cardiology increased Metoprolol to 75mg daily Cardiac rehab ongoing Assessment & Plan (07/05/2022 2:45 PM EDT): Continue Metoprolol 50mg daily, which she has been doing for past week, contact [facility] for followup BNP of 241, [...] Encounters Date Type Department Care Team Description 07/15/2024 Patient Outreach [facility] [address] [place] [address] Yasmeen Willams MD 07/08/2024 Orders Only [facility] External Provider, [facility] 07/01/2024 Refill [facility] [address] [place] [address] Yasmeen Willams MD 06/09/2024 Refill [facility] [address] [place] [address] Yasmeen Willams MD 06/07/2024 Refill [facility] [address] [place] [address] Yasmeen Willams MD Insomnia, unspecified type; Gastroesophageal reflux disease without esophagitis 05/20/2024 Telephone [facility] [address] [place] [address] Lori Casas [place] Appointment Request 05/19/2024 Telephone [facility] [address] [place] [address] Lori Casas [place] recall 05/05/2024 Refill [facility] [address] [place] [address] Yasmeen Willams MD Monoclonal gammopathy of unknown significance (MGUS) from Last 3 Months Immunizations Name Administration Dates Next Due Influenza injectable quadriv alent preservative free 03/20/2023,05/30/2022,04/04/2021 Influenza, High Dose Seasona l, Preservative Free 02/03/2024,03/05/2019,01/28/2017,01/08 Moderna Covid-19 Vaccine 12+ 04/04/2021,06/25/19 21,05/27/2020 Pfizer Covid-19 Vaccine 12+ 02/03/2024 Pneumococcal Conjugate [...] your housing situation today? I have annabel sing 06/14/[address] you li [...] Access Answer Date Recorded Internet Access Q1 No 07/15/2024 Internet Access Q2 Not on file 07/15/2024 Comments Unknown Sex and Gender Information Value [...] Description 07/24/2024 2:15 PM EDT Office Visit [facility] [address] [place] [address] Yasmeen Willams MD [address] [place] [address] Health Maintenance Due Date Last Done Comments Zoster Vaccines (2 of 3) 06/28/2015 05/03/2015 RSV Patients and Patients Aged 60 years or older (1 - 1-dose 75+ series) 10/05/2018 DTaP/Tdap/Td Vaccines (2 - Td or Tdap) 11/04/2021 11/05/2011, 11/08/2005, 11/08/2005, Additional history exists Alcohol/Substance Use Screening 02/02/2025 02/03/2024 Depression Screening 02/02/2025 02/03/2024, 02/03/20 Tobacco Screening 02/02/2025 02/03/2024 SDOH Screening 07/15/2025 07/15/2024 Lipid Panel 12/20/2026 12/20/2021, 04/04/2021 Pneumococcal Vaccine: [...] Procedure Name Priority Date/Time Associated Diagnosis Comments CBC Routine 07/22/2024 2:03 PM EDT OBSX1 Routine 07/12/2024 11:05 PM EDT LIPASE Routine 07/12/2024 10:11 PM EDT COMPREHENSIVE METABOLIC PANEL Routine 07/12/2024 10:11 PM EDT CBC WITH AUTO DIFFERENTIAL Routine 07/12/2024 10:11 PM EDT TYPE AND SCREEN Routine 07/08/2024 2:10 PM EDT COMPREHENSIVE METABOLIC PANEL Routine 07/08/2024 2:10 PM EDT CBC WITH AUTO DIFFERENTIAL Routine 07/08/2024 2:[address] ABDOMEN PELVIS WO CONTRAST Routine 07/08/2024 12:50 PM EDT XR CHEST 1 VIEW Routine 07/08/2024 12:11 PM EDT XR KUB AND UPRIGHT 2 VIEWS Routine 07/08/2024 12:11 PM EDT LIPID PANEL, STANDARD Routine 12/20/2021 2:35 PM EDT from Last 3 Months or Most Recently Relevant to Health Maintenance Results * (ABNORMAL) CBC (07/22/2024 2:03 PM EDT) White Blood Count 5.0 4.8 - 10.8 X10*3/uL [facility] Red Blood Count 3.12(L) 4.20 - 5.50 X10*6/uL [facility] Hemoglobin 9.6(L) 12.0 - 16.0 g/dl [facility] Hematocrit 30.0(L) 37.0 - 47.0 % [facility] Mean Corpuscular Volume 96.2 80.0 - 98.0 fL [facility] Mean Corpuscular Hemoglobin 30.8 27.0 - 33.0 pg [facility] Mean Corpuscular HGB Conc 32.0 31.0 - 35.0 g/dl [facility] Red Cell Distribution Width 12.6 11.0 - 16.0 % [facility] Platelet Count 205 160 - 400 X10*3/uL [facility] Mean Platelet Volume 12.2 9.4 - 12.3 fL [facility] NRBC Pct Auto 0.0 0.0 - 0.2 /100WBC [facility] NRBC Abs Auto 0.000 0.0 - 0.012 X10*3/uL [facility] 07/22/2024 2:03 PM EDT 07/22/2024 2:03 PM EDT Generic External Data Provider LAB BLOOD ORDERAB LES Final Result Performing Organization Address City/[facility]/ZIP Co de Phone Number [facility] [address] [place] [address] [phone] * OBSX1 (07/12/2024 11:05 PM EDT) [facility] OBS1 POSITIVE NEGATIVE [facility] 07/12/2024 11:0 5 PM EDT 07/12/2024 11:09 PM EDT Generic External Data Provider LAB BLOOD ORDERAB LES Final Result Performing Organization Address [facility] de Phone Number [facility] [address] [place] [address] [phone] * (ABNORMAL) CBC auto differential (07/12/2024 10:11 PM EDT) Only the most recent of2 resultswithin the time period is included. [facility] White Blood Count 4.3(L) 4.8 - 10.8 X10*3/uL [facility] Red Blood Count 3.10(L) 4.20 - 5.50 X10*6/uL [facility] Hemoglobin 9.8(L) 12.0 - 16.0 g/dl [facility] Hematocrit 28.3(L) 37.0 - 47.0 % [facility] Mean Corpuscular Volume 91.3 80.0 - 98.0 [facility] Mean Corpuscular Hemoglobin 31.6 27.0 - 33.0 pg [facility] Mean Corpuscular HGB Conc 34.6 31.0 - 35.0 g/dl [facility] Red Cell Distribution Width 12.0 11.0 - 16.0 % [facility] Platelet Count 161 160 - 400 X10*3/uL [facility] Mean Platelet Volume 12.1 9.4 - 12.3 fL [facility] Neutrophils Percent Auto 66.4 45 - 73 % [facility] Imm Gran Pct Auto 0.2 0.0 - 0.4 % [facility] Lymphocytes Percent Auto 21.1 20 - 40 % [facility] Monocytes Percent Auto 10.9 2 - 11 % [facility] Eosinophils Percent Auto 0.9 0 - 4 % [facility] Basophils Percent Auto 0.5 0 - 2 % [facility] NRBC Pct Auto 0.0 0.0 - 0.2 /100WBC [facility] Neutrophils Absolute Auto 2.9 2.0 - 8.3 x10*3/uL [facility] Imm Gran Abs Auto 0.01 0.00 - 0.03 X10*3/uL [facility] Lymphocytes Absolute Auto 0.9(L) 1.2 - 4.9 X10*3/uL [facility] Monocytes Absolute Auto 0.5 0.1 - 1.2 X10*3/uL [facility] Eosinophils Absolute Auto 0.0 0.0 - 0.4 X10*3/uL [facility] Basophils Absolute Auto 0.0 0.0 - 0.2 X10*3/uL [facility] NRBC Abs Auto 0.000 0.0 - 0.012 X10*3/uL [facility] 07/12/2024 10:1 1 PM EDT 07/12/2024 10:14 PM EDT us Generic External Data Provider LAB BLOOD ORDERAB LES Final Result [facility] [address] [place] [address] [phone] * Lipase (07/12/2024 10:11 PM EDT) Lipase 27 8 - 78 U/L [facility] 07/12/2024 10:1 1 PM EDT 07/12/2024 10:14 PM EDT us Generic External Data Provider LAB BLOOD ORDERAB LES Final Result [facility] [address] [place] [address] [phone] * (ABNORMAL) Comprehensive Metabolic Panel (07/12/2024 10:11 PM EDT) Only the most recent of2 resultswithin the time period is included. Sodium 136 135 - 145 mmol/L [facility] Potassium 3.3 3.3 - 5.1 mmol/L [facility] Chloride 103 96 - 108 mmol/L [facility] Carbon Dioxide 25 22 - 29 mmol/L [facility] Anion Gap 11(L) 12 - 20 [facility] Urea Nitrogen (BUN) 20(H) 9 - 16 mg/dL [facility] Creatinine, Serum 1.02 0.5 - 1.4 mg/dL [facility] Creatinine Clr Calc Pharmacy 43.0 [facility] Comment:Provided height and weight: 157.48 cm,79.8 kg.eGFR (calculated from the MDRD study equation) and eCrCl(calculated from the Cockcroft-Gault equation) are based ondifferent parameters and may not yield comparable results.If eCrCl result is absurd, please check patient'sheight/weight. Estimated Glomerular Filt Rate 52 [facility] Comment:Chronic Kidney Disea se: Estimated GFR < 60 mL/min/1.15q4Wkpkew Kidney Disease: Estimated GFR < 15 mL/min/1.73m2 Glucose 108 60 - 115 mg/dL [facility] Calcium 9.7 8.4 - 10.2 mg/dL [facility] Bilirubin, Total 0.3 0.0 - 1.0 mg/dL [facility] Aspartate Amino Transferase 12 5 - 31 U/L [facility] Alanine Aminotransferase 10 0 - 31 U/L [facility] Total Protein 7.3 6.5 - 8.0 g/dL [facility] Albumin Level 4.0 3.5 - 5.0 g/dL [facility] Alkaline Phosphatase 71 39 - 117 U/L [facility] 07/12/2024 10:1 1 PM EDT 07/12/2024 10:14 PM EDT Generic External Data Provider LAB BLOOD ORDERAB LES Final Result Performing Organization Address [facility] de Phone Number [facility] [address] [place] [address] [phone] * Type and screen (07/08/2024 2:10 PM EDT) Blood Type OP [facility] Antibody Screen NEGATIVE [facility] 07/08/2024 2:10 PM EDT 07/08/2024 2:15 PM EDT Generic External Data Provider LAB BLOOD BANK TE ST ORDERABLES Final Result Performing Organization Address [facility] de Phone Number [facility] [address] [place] [address] [phone] * CT Abdomen Pelvis w/o Contrast (07/08/2024 12:50 PM EDT) Anatomical Region Laterality Modality Body, Pelvis, Abdomen Computed T omography 07/08/2024 12:5 0 PM EDT Narrative 07/08/2024 1:48 PM EDT ? [facility] ?[address] ?[place] [address] ? CT Scan Report ? Signed ? Patient: Caroline,Tabitha ?MR#: [id number] ? : 1945 ?Acct:[id number] ? Age/Sex: 78 / F ?ADM Date: 03/26/25 ? Loc: HO.SSS ? Attending Dr: Kendal Marin MD ? Ordering Physician: Kendal Marin MD ?? Date of Service: 07/08/24 ?? Procedure(s): CT abdomen pelvis wo IV con ?? Accession Number(s): [id number] ? cc: Kendal Marin MD; Yasmeen Willams ? Report Number: ?? [id number]: Total DLP = ??585.00 mGy-cm ?? EXAMINATION: ??CT ABDOMEN PELVIS WITHOUT IV CONTRAST ? HISTORY: abd pain s/p EGD and colonoscopy-r/o perf ? COMPARISON: Comparison is made with the prior examination dated ?? 06/06/2017. ? TECHNIQUE: CT scan of the abdomen and pelvis was performed without ?? contrast using standard departmental protocol. ?? Coronal and sagittal ?? reformatted images were generated and reviewed. ? This CT exam was performed with one or more of the following dose ?? reduction techniques: automated exposure control, adjustment of the mA ?? and/or kV according to patient size, use of iterative reconstruction ?? technique. ? DLP: 585 mGy-cm ? FINDINGS: ? LOWER CHEST: The visualized lung bases are clear. There is no pleural ?? effusion. ? CARDIOVASCULATURE: The heart is normal in size. ??There is no ?? pericardial effusion. ? LIVER: ??The liver is normal in size and contour. ??The liver has an ?? unremarkable unenhanced appearance. ? GALLBLADDER / BILE DUCTS: ??There is a calcified stone in the ?? gallbladder. There is no intra or extrahepatic biliary ductal ?? dilatation. ? SPLEEN: The spleen is normal in size and has an unremarkable unenhanced ?? appearance. ? PANCREAS: The pancreas has an unremarkable unenhanced appearance. ? ADRENAL GLANDS: Unremarkable. ? KIDNEYS/RETROPERITONEUM: There are punctate nonobstructing calculi at ?? the lower poles of both kidneys. There is no hydronephrosis. ? LYMPH NODES: ??No retroperitoneal lymphadenopathy is identified in the ?? abdomen or pelvis. ? VASCULATURE: ??There is atherosclerotic calcification of the abdominal ?? aorta which demonstrates 2.9 cm in maximum diameter. ? MESENTERY/PERITONEUM: No free fluid. No masses. ??There is no free ?? intraperitoneal gas. ? STOMACH: ??There is a moderate hiatal hernia. The remainder of the ?? stomach is largely collapsed. ? SMALL BOWEL: ?? There is hyperdense material in the duodenum which may ?? represent a small amount of ingested oral contrast material. This is ?? felt to be too dense to represent hemorrhage (314 HU). There is a ?? moderate-sized duodenal diverticulum. ? COLON: ??There is diverticulosis of the descending and sigmoid colon ?? without evidence of diverticulitis. ? APPENDIX: ??Normal. ? URINARY BLADDER/PELVIC ORGANS: The urinary bladder is unremarkable. ? The uterus is unremarkable unenhanced appearance. ? BONES / SOFT TISSUES: ??There is degenerative disc disease of the spine. ? CT/CT abdomen pelvis wo IV con ?? IMPRESSION: ? 1. No evidence of free intraperitoneal gas to suggest perforation. ? 2. Hyperdense material in the duodenum which may reflect a small amount ?? of ingested oral contrast material. Clinical correlation is ?? recommended. This is felt to be too dense to represent hemorrhage. ? 3. Cholelithiasis. Bilateral nephrolithiasis as described. ? 4. Diverticulosis of the descending and sigmoid colon, without evidence ?? of diverticulitis. ? Electronically signed by: ??Byron Pastrana MD ??07/08/2024 01:45 PM EDT ?? RP ? Dictated By: ?Byron Pastrana MD ? Signed By: ?<Electronically signed by Byron Pastrana MD in OV> ?07/08/24 1345 ? DD/ 1250 ? TD/TT: 07/08/24 1329 ? Chemical Engraver: ? Procedure Note Wayne Johnston - 07/08/[address] [address] [address] Scan Report Signed Patient: Roxanne Graham#: [id number] : 4Acct:[id number] Age/Sex: 78 / FADM Date: 07/08/24 Loc: HO.SSS Attending Dr: Kendal Marin MD Ordering Physician: Kendal Marin MD Date of Service: 07/08/24 Procedure(s): CT abdomen pelvis wo IV con Accession Number(s): [id number] cc: Kendal Marin MD; Yasmeen Willams Report Number: [id number]: Total DLP = 585.00 mGy-cm EXAMINATION: CT ABDOMEN PELVIS WITHOUT IV CONTRAST HISTORY: abd pain s/p EGD and colonoscopy-r/o perf COMPARISON: Comparison is made with the prior examination dated 06/06/2017. TECHNIQUE: CT scan of the abdomen and pelvis was performed without contrast using standard departmental protocol. Coronal and sagittal reformatted images were generated and reviewed. This CT exam was performed with one or more of the following dose reduction techniques: automated exposure control, adjustment of the mA and/or kV according to patient size, use of iterative reconstruction technique. DLP: 585 mGy-cm FINDINGS: LOWER CHEST: The visualized lung bases are clear. There is no pleural effusion. CARDIOVASCULATURE: The heart is normal in size. There is no pericardial effusion. LIVER: The liver is normal in size and contour. The liver has an unremarkable unenhanced appearance. GALLBLADDER / BILE DUCTS: There is a calcified stone in the gallbladder. There is no intra or extrahepatic biliary ductal dilatation. SPLEEN: The spleen is normal in size and has an unremarkable unenhanced appearance. PANCREAS: The pancreas has an unremarkable unenhanced appearance. ADRENAL GLANDS: Unremarkable. KIDNEYS/RETROPERITONEUM: There are punctate nonobstructing calculi at the lower poles of both kidneys. There is no hydronephrosis. LYMPH NODES: No retroperitoneal lymphadenopathy is identified in the abdomen or pelvis. VASCULATURE: There is atherosclerotic calcification of the abdominal aorta which demonstrates 2.9 cm in maximum diameter. MESENTERY/PERITONEUM: No free fluid. No masses. There is no free intraperitoneal gas. STOMACH: There is a moderate hiatal hernia. The remainder of the stomach is largely collapsed. SMALL BOWEL: There is hyperdense material in the duodenum which may represent a small amount of ingested oral contrast material. This is felt to be too dense to represent hemorrhage (314 HU). There is a moderate-sized duodenal diverticulum. COLON: There is diverticulosis of the descending and sigmoid colon without evidence of diverticulitis. APPENDIX: Normal. URINARY BLADDER/PELVIC ORGANS: The urinary bladder is unremarkable. The uterus is unremarkable unenhanced appearance. BONES / SOFT TISSUES: There is degenerative disc disease of the spine. CT/CT abdomen pelvis wo IV con IMPRESSION: 1. No evidence of free intraperitoneal gas to suggest perforation. 2. Hyperdense material in the duodenum which may reflect a small amount of ingested oral contrast material. Clinical correlation is recommended. This is felt to be too dense to represent hemorrhage. 3. Cholelithiasis. Bilateral nephrolithiasis as described. 4. Diverticulosis of the descending and sigmoid colon, without evidence of diverticulitis. Electronically signed by: Byron Pastrana MD 07/08/2024 01:45 PM EDT RP Dictated By: Byron Pastrana MD Signed By: <Electronically signed by Byron Pastrana MD in OV> 07/08/24 1345 DD/ 1250 TD/TT: 07/08/24 1329 Chemical Engraver: [facility] External Provider IMG CT PROCEDURES Final Result * XR KUB and Upright 2 Views (07/08/2024 12:11 PM EDT) Anatomical Region Laterality Modality Radiographic Brianna ging 07/08/2024 12:1 1 PM EDT Narrative 07/08/2024 12:51 PM EDT ? [facility] ?[address] ?[place] [address] ?XRay Report ? Signed ? Patient: Caroline,Tabitha ?MR#: [id number] ? : 1945 ?Acct:[id number] ? Age/Sex: 78 / F ?ADM Date: 03/26/25 ? Loc: HO.SSS ? Attending Dr: Kendal Marin MD ? Ordering Physician: Kendal Marin MD ?? Date of Service: 07/08/24 ?? Procedure(s): XR KUB ?? Accession Number(s): [id number] ? cc: Kendal Marin MD; Yasmeen Willams ? EXAMINATION: ??XR ABDOMEN 1 VIEW (KUB) ? HISTORY: pain after EGD, colonoscopy ? COMPARISON: There are no prior studies for comparison. ? FINDINGS: ??Two portable supine views of the abdomen performed at 12:25 ?? PM are submitted. ?? The bowel gas pattern is unremarkable, without ?? evidence of mechanical obstruction. ?? There are vascular calcifications ?? in the pelvis. ?? There are no abnormal soft tissue masses. ??There is ?? moderate degenerative disc disease of the spine. ? XR/XR KUB ?? IMPRESSION: ?? Unremarkable bowel gas pattern. ? Electronically signed by: ??Byron Pastrana MD ??07/08/2024 12:49 PM EDT ?? RP ? Dictated By: ?Byron Pastrana MD ? Signed By: ?<Electronically signed by Byron Pastrana MD in OV> ?07/08/24 1249 ? DD/ 1211 ? TD/TT: 07/08/24 1240 ? Chemical Engraver: ? Procedure Note Vickie, Image - 07/08/2024 [place] [address] XRay Report Signed Patient: Roxanne Graham#: [id number] : 4Acct:[id number] Age/Sex: 78 / FADM Date: 07/08/24 [facility]: [facility] Attending Dr: Kendal Marin MD Ordering Physician: Kendal Marin MD Date of Service: 07/08/24 Procedure(s): XR KUB Accession Number(s): [id number] cc: Kendal Marin MD; Yasmeen Willams EXAMINATION: XR ABDOMEN 1 VIEW (KUB) HISTORY: pain after EGD, colonoscopy COMPARISON: There are no prior studies for comparison. FINDINGS: Two portable supine views of the abdomen performed at 12:25 PM are submitted. The bowel gas pattern is unremarkable, without evidence of mechanical obstruction. There are vascular calcifications in the pelvis. There are no abnormal soft tissue masses. There is moderate degenerative disc disease of the spine. XR/XR KUB IMPRESSION: Unremarkable bowel gas pattern. Electronically signed by: Byron Pastrana MD 07/08/2024 12:49 PM EDT RP Dictated By: Byron Pastrana MD Signed By: <Electronically signed by Byron Pastrana MD in OV> 07/08/24 1249 DD/ 1211 TD/TT: 07/08/24 1240 Chemical Engraver: [facility] External Provider IMG XR PROCEDURES Final Result * XR Chest 1 View (07/08/2024 12:11 PM EDT) Anatomical Region Laterality Modality Chest Radiographic Brianna ging 07/08/2024 12:1 1 PM EDT Narrative 07/08/2024 12:53 PM EDT ? [facility] ?[address] ?[place] [address] ?XRay Report ? Signed ? Patient: Caroline,Tabitha ?MR#: [id number] ? : 1945 ?Acct:[id number] ? Age/Sex: 78 / F ?ADM Date: 07/08/24 ? Loc: HO.SSS ? Attending Dr: Kendal Marin MD ? Ordering Physician: Kendal Marin MD ?? Date of Service: 07/08/24 ?? Procedure(s): XR chest 1V ?? Accession Number(s): [id number] ? cc: Kendal Marin MD; Yasmeen Willams ? EXAMINATION: ??XR CHEST 1 VIEW ? HISTORY: pain after EGD, colonoscopy-r/o perf ? COMPARISON: Comparison is made with the prior examination dated ?? 09/25/2022. ? FINDINGS: ??A single AP portable view of the chest performed at 12:27 PM ?? is submitted. A left-sided dual-chamber pacemaker is unchanged in ?? position. Again seen is scarring in the left midlung zone. The right ?? lung is clear. ??There is no pleural effusion, pneumothorax, or ?? pulmonary vascular congestion. ??The heart is normal in size. The aorta ?? is calcified. ??There is degenerative disc disease of the spine. ? XR/XR chest 1V ?? IMPRESSION: ?? No acute cardiopulmonary abnormality. ? Electronically signed by: ??Byron Pastrana MD ??07/08/2024 12:50 PM EDT ? Dictated By: ?Byron Pastrana MD ? Signed By: ?<Electronically signed by Byron Pastrana MD in OV> ?07/08/24 1250 ? DD/ 1211 ? TD/TT: 07/08/24 1240 ? Chemical Engraver: ? Procedure Note Donaditya, Wayne - 07/08/[address] [address] XRay Report Signed Patient: Roxanne Graham#: [id number] : 4Acct:[id number] Age/Sex: 78 / FADM Date: 07/08/24 Loc: [facility] Attending Dr: Kendal Marin MD Ordering Physician: Kendal Marin MD Date of Service: 07/08/24 Procedure(s): XR chest 1V Accession Number(s): [id number] cc: Kendal Marin MD; Yasmeen Willams EXAMINATION: XR CHEST 1 VIEW HISTORY: pain after EGD, colonoscopy-r/o perf COMPARISON: Comparison is made with the prior examination dated 09/25/2022. FINDINGS: A single AP portable view of the chest performed at 12:27 PM is submitted. A left-sided dual-chamber pacemaker is unchanged in position. Again seen is scarring in the left midlung zone. The right lung is clear. There is no pleural effusion, pneumothorax, or pulmonary vascular congestion. The heart is normal in size. The aorta is calcified. There is degenerative disc disease of the spine. XR/XR chest 1V IMPRESSION: No acute cardiopulmonary abnormality. Electronically signed by: Byron Pastrana MD 07/08/2024 12:50 PM EDT Dictated By: Byron Pastrana MD Signed By: <Electronically signed by Byron Pastrana MD in OV> 07/08/24 1250 DD/ 1211 TD/TT: 07/08/24 1240 Chemical Engraver: [facility] External Provider IMG XR PROCEDURES Final Result * (ABNORMAL) LIPID PANEL, STANDARD (12/20/2021 2:35 [...] ?? Akash ALFREDO et al. ROLDAN. 2013;310(19): 8171-0895 ?? (http://education.[employer]/faq/YQA234) Non-HDL Cholesterol 132(H) <130 mg/dL (calc) [facility] Comment: For patients with diabetes plus 1 major ASCVD risk ?? factor, treating to a non-HDL-C goal of <100 mg/dL ?? (LDL-C of <70 mg/dL) is considered a therapeutic ?? option. Triglycerides 99 <150 mg/dL [facility] 12/20/2021 2:35 PM EDT Radha Howard RADIOLOGICAL TECHNOLOGIST LAB BLOOD ORDERABLES Final Res ult [facility] [address] from Last 3 Months or Most Recently Relevant to Health Maintenance [place] [address] [place] [address] - HIO Care Teams Student Services Director Relationship Specialty Start Date End Date Yasmeen Willams MD [address] [place] [phone] PCP - General Family Medicine 12/09/21
--- OUTSIDE RECORDS SUMMARY | 2024-07-22 15:25 | XMS_ITS | Encounter Summary ---
Author Organization [employer] Address [address] [facility] 7t [place] [address] Care Team Providers Care Plant Superintendent Name Role Phone Yasmeen Willams MD Primary Care Provider [phone] Reason for Visit * Reason Comments Med Refill Encounter Details Date Type Department Care Team ([facility] Contact Info) Description 09/03/2022 Refill [facility] MEDICINE [address] [place] [address] [phone] Yasmeen Willams MD [address] [place] [address] [phone] Primary insomnia Social History Tobacco Use Types [...] Upcoming Encounters Date Type Department Care Team ([facility] Contact Info) Description 07/24/2024 2:15 PM EDT Office Visit [facility] MEDICINE [address] [place] [address] [phone] Yasmeen Willams MD [address] [place] [phone] documented as of this encounter Visit Diagnoses Diagnosis Primary insomnia Persistent disorder of initiating or maintaining sleep documented in this encounter Care Teams Plant Superintendent Relationship Specialty Start Date End Date Yasmeen Willams MD [address] [place] [address] PCP - General Family Medicine 12/09/21 documented as of this encounter
--- OUTSIDE RECORDS SUMMARY | 2024-07-22 15:25 | XMS_ITS | Data Portability ---
Author Organization [employer] Address [address] [place] [address] Care Team Providers Care Iron Pellet Tester Name Role Phone [facility] Referring Provider [phone] Assessment Encounter Date Assessment Date Assessment LastModified by Organization Details LastModified Time 09/25/2022 09/25/2022 I provided real -time medical direction via phone for this encounter, and was available for additional phone based assistance as needed. I have reviewed and agree with the Assessment and Plan as documented by the Compliance Clerk. Patient given the opportunity to ask questions. [email or web address] Not available 09/25/2022 14:59:32 04/01/2023 04/01/2023 I provided real -time medical direction via phone for this encounter, and was available for additional phone based assistance as needed. I have reviewed and agree with the Assessment and Plan as documented by the Compliance Clerk. Patient given the opportunity to ask questions. [...] days and a Z-Joe were sent to [facility] which was a pharmacy of her choice. [...] Imaging electrocard iogram 2022 023 [email or web address] 0 Main - [facility], [address] [place] [address], [id number] 15:06:51 Medication Orders prednisone 20 mg tablet 2022 023 [id number], [address] [place], [place], [id number], 18:39:46 azithromyci n 250 mg tablet 2022 023 [facility] #[id number], [address] [place], [place], [id number], 18:39:46 Mucinex 600 mg tablet, extended release 2022 023 [facility] #[id number], [address] [place], [place], [id number], 18:42:07 nitroglycer in 0.4 mg sublingual tablet 2022 023 [email or web address] 0 Not available 15:06:51 Patient TargetsNo targets recorded. Patient Instructions Encounter Date Encounter Id Patient Instructions Last Modified By Organization Details Last Modified Time 09/25/2022 [id number] IV lock, initiate* [email or web address] Not available 09/25/2022 15:06:51 Reason for Referral None Reported. Results Created Date Observation Date Name Description Value Unit Range Abnormal Flag Note LastModifiedBy Organization Detail LastModifiedTime 09/26/19 23 09/25/2022 elect blanca vann am No observ ation record ed. [email or web address] [address], [phone] 09/25/2022 15:06:49 Result Notes None recorded. Procedures Surgical History None recorded. Imaging Results Imaging Date Name Status LastModified by Organization Details LastModified Time 09/25/2022 electrocardiogram completed [email or web address] [address], [phone] 09/25/2022 15:06:49 Procedure Notes None recorded. Medical [...] % 98 % 72 /min 16 /min 40054.5 6 g 136 mm[Hg] 75 mm[Hg] Not Available [employer] 3 11:07:08 Date Recorded Oxygen saturation Oxygen saturation in Arterial blood by Pulse oximetry Respiratory rate Body height Body temperature Heart rate Body weight Systolic blood pressure Diastolic blood pressure Provider Name and Address Organization Details Last Updated DateTime 3 97 % 97 % 16 /min 157.48 cm 98.7 [degF] 75 /min 27987.6 g 144 mm[Hg] 84 mm[Hg] Not Available [employer] 3 18:37:54 Social History None recorded. Functional Status None recorded. Mental Status None recorded. Family History Nothing Reported. Medical History No medical history recorded. Gynecological HistoryNo gynecological history recorded. Obstetrics History GPAL:G 0 P 0 0 0 0 Past Encounters Encounter ID Performer Location Encounter Start Date Encounter Closed Date Diagnosis/Indication Diagnosis SNOMED-CT Code Diagnosis ICD10 Code Diagnosis Note [id number] Paola Weaver MD Main - [facility] [address] [place] [phone] 09/25/2022 11:06:51 09/26/2022 10:31:30 Chest pain 04358102 R07.9 GIven patient's significan t cardiac PMH- [...] to give another-re port called to the [place] [facility] [id number] Verónica Childs MD Main - [facility] [address] [place] [phone] 04/01/2023 18:37:41 04/02/2023 10:22:53 Acute exacerbation of chronic obstructive pulmonary disease 902834780 J44.1 Health Concerns Section Related Observation LastModified by Organization Detai ls LastModified Time None Recorded Concern Status LastModified by Organization Details LastModified Time None Recorded Advance Directives Directive None Recorded Payers Encounter Date Sequence Insurance Name Policy Number Policy Chu Covered Member ID Chu Member ID Guarantor Name 09/25/2022 [address] [facility] - DOS ON OR AFTER 2022 - DUAL ELIGIBLE - LONG-TERM OPTIONS AND ONE CARE (MEDICARE REPLACEMENT/ADV ANTAGE - HMO) Tabitha [employer] [id number] [employer] 04/01/2023 [address] [facility] - DOS ON OR AFTER 2022 - DUAL ELIGIBLE - LONG-TERM OPTIONS AND ONE CARE (MEDICARE REPLACEMENT/ADV ANTAGE - HMO) Tabitha [employer] [id number] [employer] Notes Date Note Type Note Provider Name [...] procedure , per member she had an FL . Member was also found to have CHF And on diuretics', also on [employer] RED FLAGS REVIEWED OF WHEN TO CALL 911 .................... .................... .................... .................... .................... .................... .................... . Compliance Clerk Note From Daniel Alexandre: Pt reports intermittent SOB CALI and CP which she describes as midline burning up from her epigastric region for 6 days. Of note, pt has hx of CAD , HTN, HLD, FL, A-fib, AICD and is currently enrolled in cardiac rehab. Pt presents alert, no distress. VSS. Afebrile. Neuro exam and gait normal. Lungs CTA. ABD is soft, non tender, non distended. No CVAT. No LLE. ECG: sinus with RBBB, several inverted T waves and prolonged QTI. [facility] [place] contacted and advised the pt be seen in the ED and requested IV access and nitro. [facility] [place] requests to hold ASA administration . IV access established and 0. 4 mg SL nitro administered with no change in pt condition or BP. Pt transported to [place] [facility] via [facility] ambulance. .................... .................... .................... .................... .................... .................... .................... . Disposition: Fulfilled SEGMD: above- has hx cardiomyopathy/ COPD/CHF /on eliquis for AF-CP/epigastric pain constant/ worse with breathing and exertion-no f/c/sweats- has some nausea- no vomiting- denied melena or BRBPR Paola Weaver MD [address] [facility], [place], [phone], [employer] 09/25/2022 17:10:10 04/01/2023 text/html HPI: PMH: Cardiomyopathy, [...] since then. Pt unable to come into [facility]. Agrees to [facility] referral. .................... .................... .................... .................... .................... .................... .................... . [facility] Nursing Assessment: Comments: Call into member for [...] .................... .................... .................... .................... .................... .................... . Compliance Clerk Note From Daniel Alexandre: Pt reports 3 [...] URI. I recommend azithromycin, prednisone and mucinex. [facility] [place] contacted and pt treated with azithromycin 500 mg PO, prednisone 40 mg PO. Pt instructed to continue her albuterol nebs q4-6h, f/u with PCP tomorrow and to seek emergent medical care for new or worsening sx, which are reviewed with her. .................... .................... .................... .................... .................... .................... .................... . Disposition: Fulfilled Verónica Childs MD [address] [facility], [place], [phone], [employer] 04/01/2023 18:42:18 OBGyn Episode No OBEpisode recorded.
--- OUTSIDE RECORDS SUMMARY | 2024-07-22 15:25 | XMS_ITS | Encounter Summary ---
Author Organization [employer] Address [address] [facility] 7t [place] [address] Care Team Providers Care Shoe Ironer Name Role Phone Yasmeen Willams MD Primary Care Provider Reason for Visit * Reason Comments Med Refill Encounter Details Date Type Department Care Team ([facility] st Contact Info) Description 02/14/[address] [facility] MEDICINE [address] [place], [place] [phone] Yasmeen Willams MD [address] [place], [place] [phone] Other hyperlipidemia Social History Tobacco Use Types [...] 2:15 PM EDT Office Visit [facility] MEDICINE [address] [place], [place] [phone] Yasmeen Willams MD [address] [place] [phone] documented as of this encounter Visit Diagnoses Diagnosis Other hyperlipidemia documented in this encounter Care Teams Shoe Ironer Relationship Specialty Start Date End Date Yasmeen Willams MD [address] [place] [phone] PCP - General Family Medicine 12/09/21 documented as of this encounter
--- OUTSIDE RECORDS SUMMARY | 2024-07-22 15:25 | XMS_ITS | Encounter Summary ---
Author Organization [employer] Address [address] [facility] [address] [place] [address] Care Team Providers Care Tire Care Manager Name Role Phone Yasmeen Willams MD Primary Care Provider [phone] Reason for Visit * Reason Comments Med Refill Encounter Details Date Type Department Care Team ([facility] st Contact Info) Description 03/16/2023 Refill [facility] MEDICINE [address] [place], [place] [phone] Yasmeen Willams MD [address] [place], [place] [phone] Social History Tobacco Use Types Packs/Day Years [...] t he electric, gas, oil or water [employer] threatened to shut off services in your [...] 2:15 PM EDT Office Visit [facility] MEDICINE [address] [place] [address] [phone] Yasmeen Willams MD [address] [place] [phone] documented as of this encounter Visit Diagnoses Not on filedocumented in this encounter Care Teams Tire Care Manager Relationship Specialty Start Date End Date Yasmeen Willams MD [address] [place] [phone] PCP - General Family Medicine 12/09/21 documented as of this encounter
--- OUTSIDE RECORDS SUMMARY | 2024-07-22 15:25 | XMS_ITS | Encounter Summary ---
Author Organization [employer] Address [address] [facility] 7t [place] [address] Care Team Providers Care Scrap Wheeler Name Role Phone Yasmeen Willams MD Primary Care Provider Reason for Visit * Reason Comments Med Refill Encounter Details Date Type Department Care Team ([facility] st Contact Info) Description 12/12/2023 Refill [facility] MEDICINE [address] [place], [place] [phone] Stella Maher MD [address] [place], [place] [phone] Gastroesophageal reflux disease without esophagitis Social History [...] the past 12 months, has t he [employer], oil or water company threatened to shut [...] Description 07/24/2024 2:15 PM EDT Office Visit [facility] MEDICINE [address] [place], [place] [phone] Yasmeen Willams MD [address] [place] [phone] documented as of this encounter Visit Diagnoses Diagnosis Gastroesophageal reflux disease without esophagitis Esophageal reflux documented in this encounter Care Teams Scrap Wheeler Relationship Specialty Start Date End Date Yasmeen Willams MD [address] [place] [address] [phone] PCP - General Family Medicine 12/09/21 documented as of this encounter
--- OUTSIDE RECORDS SUMMARY | 2024-07-22 15:25 | XMS_ITS | Encounter Summary ---
Author Organization [employer] Address [address] [facility] [address] [place] [address] Care Team Providers Care Data Clerk Name Role Phone Yasmeen Willams MD Primary Care Provider [phone] Reason for Visit * Reason Onset Date Comments Resend Script 06/21/2022 Encounter Details Date Type Department Care Team ([facility] st Contact Info) Description 06/21/2022 Telephone [facility] MEDICINE [address] [place] [address] Yasmeen Willams MD [address] [place] [address] Resend Script Social History Tobacco Use Types [...] - 06/21/2022 10:46 AM EST Tc judith [place] with [facility] requesting script for rosuvastatin (Crestor) 10 MG tablet andfolic acid (Folvite) 1 MG tablet. Pharmacy claims script was never received. Please contact pharmacy if any questions [phone] documented in this encounter Plan of Treatment Upcoming Encounters Date Type Department Care Team (Late st Contact Info) Description 07/24/2024 2:15 PM EDT Office Visit [facility] MEDICINE [address] [place], [place] [phone] Yasmeen Willams MD [address] [place] [address] documented as of this encounter Visit Diagnoses Diagnosis Monoclonal gammopathy of unknown significance (MGUS) Other hyperlipidemia documented in this encounter Care Teams Data Clerk Relationship Specialty Start Date End Date Yasmeen Willams MD [address] [place], [place] [phone] PCP - General Family Medicine 12/09/21 documented as of this encounter
== END 2024-07-22 13:52 | disposition home or self-care (01) ==
PROVIDERS: PCP General Practice; Visit Provider Nurse Practitioner Family
DX: D50.9 Iron deficiency anemia, unspecified (principal); D13.30 Benign neoplasm of unspecified part of small intestine; K21.9 Gastro-esophageal reflux disease without esophagitis
CPT/HCPCS: 99214; G2211

== ENCOUNTER 2024-10-29 13:23 | Outpatient (REF) | payer OTHER, SELFPAY ==
--- OUTSIDE RECORDS SUMMARY | 2024-10-29 13:55 | XMS_ITS | Clinical Summary ---
Author Organization [employer] Address [address] [place] [address] [address] [place] [address] Care Team Providers Care Corn Shucker Name Role Phone Yasmeen Willams MD Primary Care Provider [phone] Allergies No known active allergies Medications amiodarone (Pacerone) 100 MG tablet Take 1 tablet by mouth every 12 (twelve) hours. Active apixaban (Eliquis) 5 MG tablet Take 1 tablet by mouth every 12 (twelve) hours. Active psyllium (Metamucil) 0.52 g capsule take one daily for constipation 022 Active Acetaminophen Extra Strength 500 MG [...] per day. 90 tablet 3 024 Active chlorhexidine (Peridex) 0.12 % solution SWISH 15 ML IN THE MOUTH FOR 30 SECONDS THEN SPIT TWICE DAILY AFTER A MEAL 946 mL 024 Active rosuvastatin (Crestor) 10 MG tabletIndications :Other hyperlipidemia Take 1 tablet (10 mg) by mouth Once per day. 90 tablet 3 024 Active folic acid (Folvite) 1 MG tabletIndications :Monoclonal gammopathy of unknown significance (MGUS) TAKE 1 TABLET(1000 MCG) BY MOUTH IN THE MORNING 90 tablet 3 01/21/2 025 Active Bisacodyl EC 5 MG EC tablet Take 10 mg by mouth at bedtime. Active albuterol (2.5 MG/3ML) 0.083% nebulizer solutionIndicatio ns:Mild persistent asthma without complication Inhale 3 mL by nebulization route every 6 hours as needed 90 mL Active albuterol (Ventolin HFA) 108 (90 Base) MCG/ACT inhalerIndication s:Mild persistent asthma without complication Inhale 2 puffs by inhalation route every 4-6 hours as needed 18 g Active cyanocobalamin (Vitamin B-12) 1000 MCG tabletIndications :Vitamin B 12 deficiency TAKE 1 TABLET BY MOUTH EVERY DAY 90 tablet Active ferrous gluconate (Fergon) 324 (38 Fe) MG tabletIndications :Iron deficiency anemia, unspecified iron deficiency anemia type Take 1 pill every Saturday, Saturday, and Saturday. Take with a full glass of water or Vit C containing juice, and ideally 1 hour before a meal or 2 hours after a meal 36 tablet Active polyethylene glycol, PEG, 3350 (Glycolax) 17 GM/SCOOP powderIndications :Other constipation DISSOLVE 17 GIVE IN LIQUID AND DRINK BY MOUTH 1-2 TIMES EVERY DAY NEEDED FOR CONSTIPATION 527 g Active cholecalciferol (Vitamin D-3) 50 MCG (2000 UT) tabletIndications :Vitamin D deficiency Take 1 Units by mouth Once per day. 90 tablet 025 2025 Active furosemide (Lasix) 20 MG tabletIndications :Benign hypertension TAKE 1 TABLET BY MOUTH TWICE DAILY 60 tablet Active docusate sodium (Colace) 100 MG capsuleIndication s:Constipation, unspecified constipation type TAKE ONE CAPSULE BY MOUTH EVERY DAY IF NEEDED FOR CONSTIPATION 90 capsule Active nystatin (Mycostatin) 380763 UNIT/GM powderIndications :Candidiasis of skin APPLY TOPICALLY TWICE A DAY. PUT POWDER ON AFTER SHOWER, NO BODY SPRAY! 60 g Active loratadine (Claritin) 10 MG tablet TAKE 1 TABLET BY MOUTH EVERY DAY 30 tablet Active fluticasone furoate (Arnuity Ellipta) 100 MCG/ACT inhaler INHALE 1 PUFF BY MOUTH ONCE A DAY. RINSE MOUTH AFTER USE. 1 each 3 025 Active famotidine (Pepcid) 20 MG tabletIndications :Gastroesophageal reflux disease without esophagitis Take 1 tablet by mouth Once per day. 025 Active sucralfate (Carafate) 1 GM/10ML suspensionIndicat ions:Gastroesopha geal reflux disease without esophagitis 025 Active melatonin 5 MG tablet take 2 tablets by mouth at bedtime as needed 025 Active metoprolol succinate XL (Toprol-XL) 50 MG 24 hr tabletIndications :Benign hypertension Take 1 tablet (50 mg) by mouth Once per day. Do not crush or chew. 90 tablet 3 025 Active mirtazapine (Remeron) 30 MG tablet Take 1 tablet (30 mg) by mouth at bedtime. 30 tablet 11 025 Active omeprazole (PriLOSEC) [address] capsuleIndication s:Gastroesophagea l reflux disease without esophagitis TAKE ONE CAPSULE BY MOUTH TWICE A DAY BEFORE MEALS ^1R1,1R3 60 capsule 2 025 Active omeprazole (PriLOSEC) [address] capsuleIndication s:Gastroesophagea l reflux disease without esophagitis Take 1 capsule (20 mg) by mouth before breakfast and before evening meal. TAKE 1 CAPSULE BY MOUTH EVERY MORNING BEFORE BREAKFAST 180 capsule 025 2024 Discontinued Active Problems Problem Noted Date Diagnosed Date Iron deficiency anemia 07/27/2024 Tubulovillous adenoma 07/24/2024 Other constipation 10/01/2023 Assessment & Plan (10/01/2023 [...] appt Jan 01, 2023, recommend talking to last scourer then about travelling Mild major depression 10/11/2022 [...] 10:43 AM EST): [facility] Monoclonal gammopathy of unknown significance (M [...] Beta zheng and diuretics daily Follows with [facility] every 3-4 months Assessment & Plan [...] ICD in place and regular followup at [facility] Run of alerts 04/05 for VF, which was actually AF with RVR, at that point cardiology increased Metoprolol to 75mg daily Cardiac rehab ongoing Assessment & Plan (07/05/2022 2:45 PM EDT): Continue Metoprolol 50mg daily, which she has been doing for past week, contact [facility] for followup BNP of 241, increase [...] Encounters Date Type Department Care Team Description 10/26/2024 Refill [facility] [address] [place] [address] Yasmeen Willams MD Gastroesophageal reflux disease without esophagitis 2024 Refill [facility] [address] [place] [address] Yasmeen Willams MD 10/05/2024 Refill [facility] [address] [place] [address] Yasmeen Willams MD Gastroesophageal reflux disease without esophagitis 09/16/2024 Orders Only [facility] [address] [place] [id number] Yasmeen Willams MD 09/16/[address] [address] Yasmeen Willams MD Medication Question 09/04/[address] [address] Yasmeen Willams MD Vitamin D deficiency 08/12/2024 Telephone [facility] [address] [place] [phone] Yasmeen Willams MD Results 08/11/[address] [address] Yasmeen Willams MD 08/10/[address] [address] Yasmeen Willams MD Medication Question 08/07/2024 3:30 PM EDT Office Visit [address] [address] Yasmeen Willams MD Iron deficiency anemia, unspecified iron deficiency anemia type (Primary Dx); Gastroesophageal reflux disease without esophagitis; Monoclonal gammopathy of unknown significance (MGUS); Paroxysmal atrial fibrillation (CMS/HCC); Tubulovillous adenoma; Benign hypertension; Seasonal allergies; Hypertrophic obstructive cardiomyopathy (CMS/HCC) 08/07/2024 Travel 08/07/[address] [address] Yasmeen Willasm MD Med Refill 08/06/[address] [address] Yasmeen Willams MD Candidiasis of skin 08/05/[address] [address] Yasmeen Willams MD Chart Prep 08/05/2024 Refill [facility] [address] [place] [phone] Yasmeen Willams MD Mild persistent asthma without complication; Primary insomnia; Other constipation; Vitamin B 12 deficiency; Iron deficiency anemia, unspecified iron deficiency anemia type; Constipation, unspecified constipation type; Vitamin D deficiency; Benign hypertension from Last 3 Months Immunizations Immunization Administration Dates Next Due Influenza High-dose Quadriva lent Preservative Free 03/05/2019,01/28/2017,01/08/2015 Influenza injectable quadriv alent preservative free 03/20/2023,05/30/2022,04/04/2021 [...] things needed for daily living? No 06/14/2023 Intimate Partner Violence Answer Date R ecorded Within the last year, have y ou been afraid of your partner or ex-partner? 2 07/24/2024 Within the last year, have y ou been humiliated or emotionally abused in other ways by your partner or ex-partner? 2 Within the last year, have y ou been kicked, hit, slapped, or otherwise physically hurt by your partner or ex-partner? 2 07/24/2024 Within the last year, have y ou been raped or forced to have any kind of sexual activity by your partner or ex-partner? 2 07/24/2024 Utilities Answer Date Recorded In the past 12 months, has t he [employer], oil or water company threatened to shut [...] Sign Reading Time Taken Comments Blood Pressure 113/61 08/07/2024 3:42 PM EDT Pulse 69 08/07/2024 3:42 PM EDT Temperature 36.7 C (98 F) 08/07/2024 3:42 PM EDT Respiratory Rate 15 08/07/2024 3:42 PM EDT Oxygen Saturation 97% 08/07/2024 3:42 PM EDT Inhaled Oxygen Concentration - - Weight 80.3 kg (177 lb) 08/07/2024 3:42 PM EDT Height 157.5 cm (5' 2 ) 08/07/2024 3:42 PM EDT Body Mass Index 32.37 08/07/2024 3:42 PM EDT Plan of Treatment Upcoming Encounters Date Type Department Care Team (Late st Contact Info) Description 11/11/2024 3:15 PM EDT Office Visit [facility] [address] [place] [address] Yasmeen Willams MD [address] [place], [place] [phone] Health Maintenance Due Date Last Done Comments Zoster Vaccines (2 of 3) 06/28/2015 05/03/2015 RSV Patients and Patients Aged 60 years or older (1 - 1-dose 75+ series) 10/05/2018 DTaP/Tdap/Td Vaccines (2 - Td or Tdap) 11/04/2021 11/05/2011, 11/08/2005, 11/08/2005, Additional history exists COVID-19 Vaccine ( season) 2024 02/03/2024, 04/04/2021, 06/24/2020, Additional history exists Influenza Vaccine (#1) 2024 , 03/20/2023, 05/30/2022, Additional history exists Alcohol/Substance Use Screening 02/02/2025 02/03/2024 Depression Screening 02/02/2025 02/03/2024, 02/03/20 24 SDOH Screening 07/15/2025 07/15/2024 Tobacco Screening 08/07/2025 08/07/2024 Lipid Panel 12/20/2026 12/20/2021, 04/04/2021 Pneumococcal Vaccine: 50+ Years Completed 05/30/2022, 01/08/2015, 11/08/2005, Additional history exists HIB Vaccines Aged Out [...] patient's age to complete this topic Meningococcal B Vaccine Aged Out No l onger eligible based on patient's age to complete [...] Procedure Name Priority Date/Time Associated Diagnosis Comments POCT HEMOGLOBIN Routine 08/07/2024 4:26 PM EDT Iron deficiency anemia, unspecified iron deficiency anemia type Monoclonal gammopathy of unknown significance (MGUS) LIPID PANEL, STANDARD Routine 12/20/2021 2:35 PM EDT from Last 3 Months or Most Recently Relevant to Health Maintenance Results * (ABNORMAL) POCT Hemoglobin (08/07/2024 4:26 PM EDT) Hemoglobin 9.2(A) 12.0 - 15.0 QC Media Lot # [id number] Lot# Expiration Date [id number] Blood 08/07/2024 4:26 PM EDT Yasmeen Willams MD POINT OF CARE TEST ENTER/EDIT ORDERABLES Final Result * (ABNORMAL) LIPID PANEL, STANDARD (12/20/2021 2:35 PM EDT) Chol/HDLC Ratio 3.6 <5.0 (calc) [facility] Cholesterol, Total 183 <200 mg/dL [facility] HDL Cholesterol 51 > OR = 50 mg/dL [facility] LDL Cholesterol 111(H) mg/dL (calc) [facility] Comment: Reference range: <100 Desirable range <100 mg/dL for primary prevention; <70 mg/dL for patients with CHD or diabetic patients with > or = 2 CHD risk factors. LDL-C is now calculated using the Warren calculation, which is a validated novel method providing better accuracy than the Friedewald equation in the estimation of LDL-C. Akash ALFREDO et al. ROLDAN. 2013;310(19): 5181-0511 (http://education.[employer]/faq/ZLU148) Non-HDL Cholesterol 132(H) <130 mg/dL (calc) [facility] Comment: For patients with diabetes plus 1 major ASCVD risk factor, treating to a non-HDL-C goal of <100 mg/dL (LDL-C of <70 mg/dL) is considered a therapeutic option. Triglycerides 99 <150 mg/dL [facility] 12/20/2021 2:35 PM EDT us Radha Howard [address] JUDGE LAB BLOOD ORDERABLES Final Res ult [facility] [address] from Last 3 Months or Most Recently Relevant to Health Maintenance Insurance [facility] [employer] ([facility] [place] [facility] [employer] ([facility]) Care Teams Corn Shucker Relationship Specialty Start Date End Date Yasmeen Willams MD [address] [place] [id number] PCP - General Family Medicine 12/09/21
--- OUTSIDE RECORDS SUMMARY | 2024-10-29 13:56 | XMS_ITS | Patient Health Record ---
Author Organization [facility] Address [address] [place] [phone] Care Team Providers Care Counter Checker Name Role Phone Abraham Amezcua Jr Reason For Referral No Information Plan Of Treatment No Information
--- OUTSIDE RECORDS SUMMARY | 2024-10-29 13:56 | XMS_ITS | Data Portability ---
Author Organization [facility], [facility] Address [address] [place] [address] Care Team Providers Care Composition Mixer Name Role Phone HIM CCA OTHER Assessment Encounter Date Assessment Date Assessment LastModified by Organization Details LastModified Time 09/25/2022 09/25/2022 I provided real -time medical direction via phone for this encounter, and was available for additional phone based assistance as needed. I have reviewed and agree with the Assessment and Plan as documented by the Holistic Specialist. Patient given the opportunity to ask questions. [email or web address] Not available 09/25/2022 14:59:32 04/01/2023 04/01/2023 I provided real -time medical direction via phone for this encounter, and was available for additional phone based assistance as needed. I have reviewed and agree with the Assessment and Plan as documented by the Holistic Specialist. Patient given the opportunity to ask questions. [...] days and a Z-Joe were sent to [facility] which was a pharmacy of her choice. [...] mental status [email or web address] Not available 04/01/2023 18:41:25 09/14/2024 09/14/2024 I provided real -time medical direction via phone for this encounter and was available for additional phone-based assistance as needed. I have reviewed and agree with the Assessment and Plan as documented by the Holistic Specialist. Patient given the opportunity to ask questions. Our service contacted for an assessment of: Possible conjunctivitis As per above, patient states she has had a clear drainage from right eye only over the course of the past week. Also complaining of allergic symptoms. Per site surveyor on the scene, Vital signs are stable patient is afebrile. Please see uploaded pictures. There is no evidence of erythema of the sclera and no discharge is present. Impression: Likely allergies Plan: start [id number] either Claritin or Zyrtec. Already has an movement education specialist who will see her over the next several weeks for routine follow-up and suggested mentioning symptoms to them at her f/u appointment. Allergies: Reviewed PCP f/u: We discussed the diagnostic uncertainty of home [...] particularly fever chills lightheadedness altered mental status [email or web address] Not available 09/14/2024 14:33:22 Plan of Treatment Reminders Order Date Submit Date Provider Last Modified By Organization Details Last Modified Time Details Appointments None recorded. Lab None recorded. Referral None recorded. Procedures None recorded. Surgeries None recorded. Imaging electrocard iogram 2022 023 [email or web address] 0 [facility], [address] [place] [address], [phone] 3 15:06:51 Medication Orders prednisone 20 mg tablet 2022 023 [id number], [address], [place], [id number], 3 18:39:46 azithromyci n 250 mg tablet 2022 023 [facility] #37233, [address], [place], [id number], 3 18:39:46 Mucinex 600 mg tablet, extended release 2022 023 [facility] #20656, [address], [place], [id number], 3 18:42:07 nitroglycer in 0.4 mg sublingual tablet 2022 023 [email or web address] Not available 15:06:51 Patient TargetsNo targets recorded. Patient Instructions Encounter Date Encounter Id Patient Instructions Last Modified By Organization Details Last Modified Time 09/25/2022 [id number] IV lock, initiate* [email or web address] Not available 09/25/2022 15:06:51 Reason for Referral None Reported. Results Created Date Observation Date Name Description Value Unit Range Abnormal Flag Note LastModifiedBy Organization Detail LastModifiedTime 09/26/19 23 09/25/2022 elect rocar diogr am No observ ation record ed. [email or web address] [address], [phone] 09/25/2022 15:06:49 Result Notes None recorded. Medical Equipment None Reported. [...] Available No t Available Vitals Date Recorded Respiratory rate Heart rate Oxygen saturation Oxygen saturation in Arterial blood by Pulse oximetry Body temperature Systolic And Diastolic Provider Name and Address Organization Details Last Updated DateTime 5 16 /min 62 /min 99 % 99 % 98.2 [degF] 146/82 mm[Hg] Not Available [facility] 5 14:05:54 Date Recorded Body temperature Oxygen saturation Oxygen saturation in Arterial blood by Pulse oximetry Heart rate Respiratory rate Body weight Systolic And Diastolic Provider Name and Address Organization Details Last Updated DateTime 3 97.9 [degF] 98 % 98 % 72 /min 16 /min 14575.5 6 g 136/75 mm[Hg] Not Available [facility] 3 11:07:08 Date Recorded Oxygen saturation Oxygen saturation in Arterial blood by Pulse oximetry Respiratory rate Body height Body temperature Heart rate Body weight Systolic And Diastolic Provider Name and Address Organization Details Last Updated DateTime 3 97 % 97 % 16 /min 157.48 cm 98.7 [degF] 75 /min 43097.6 g 144/84 mm[Hg] Not Available [facility] - production 18:37:54 Social History None recorded. Functional Status None recorded. Mental Status None recorded. Family History Nothing Reported. Medical History No medical history recorded. Gynecological HistoryNo gynecological history recorded. Obstetrics History GPAL:G 0 P 0 0 0 0 Past Encounters Encounter ID Performer Location Encounter Start Date Encounter Closed Date Diagnosis/Indication Diagnosis SNOMED-CT Code Diagnosis ICD10 Code Diagnosis Note [id number] Paola Weaver MD [facility] [address] [place] [phone] 09/25/2022 11:06:51 09/26/2022 10:31:30 Chest pain 86012652 R07.9 GIven patient's significan t cardiac PMH- [...] to give another-re port called to the [place] [facility] [id number] Verónica Childs MD Main - [facility] [address] [place] [id number] 04/01/2023 18:37:41 04/02/2023 10:22:53 Acute exacerbation of chronic obstructive pulmonary disease 269938536 J44.1 [id number] Verónica Childs MD Main - [facility] [address] [place] [id number] 09/14/2024 14:02:38 09/14/2024 17:33:55 Allergic conjunctivitis of right eye 8302042300 48760 H10.11 Health Concerns Section Related Observation LastModified by Organization Detai ls LastModified Time None Recorded Concern Status LastModified by Organization Details LastModified Time None Recorded Advance Directives Directive None Recorded Payers Insurance Date Sequence Insurance Name Policy Number Policy Chu Covered Member ID Chu Member ID Guarantor Name 09/14/2024 1 [facility] - DOS ON OR AFTER 2022 - DUAL ELIGIBLE - LONG-TERM OPTIONS AND ONE CARE (MEDICARE REPLACEMENT/ADV ANTAGE - HMO) Tabitha Graham [id number] Tabitha Graham Notes Date Note Type Note Provider Name and Address Organization Details Recorded Time 09/25/2022 text/html [facility] Nursing Assessment: Reason For Request: sob Chief [...] procedure , per member she had an IA . Member was also found to have CHF And on diuretics', also on [email or web address] RED FLAGS REVIEWED OF WHEN TO CALL 911 .................... .................... .................... .................... .................... .................... .................... . Holistic Specialist Note From Daniel Alexandre: Pt reports intermittent SOB CALI and CP which she describes as midline burning up from her epigastric region for 6 days. Of note, pt has hx of CAD , HTN, HLD, IA, A-fib, AICD and is currently enrolled in cardiac rehab. Pt presents alert, no distress. VSS. Afebrile. Neuro exam and gait normal. Lungs CTA. ABD is soft, non tender, non distended. No CVAT. No LLE. ECG: sinus with RBBB, several inverted T waves and prolonged QTI. [facility] contacted and advised the pt be seen in the ED and requested IV access and nitro. [facility] requests to hold ASA administration . IV access established and 0. 4 mg SL nitro administered with no change in pt condition or BP. Pt transported to [place] [facility] via [facility] ambulance. .................... .................... .................... .................... .................... .................... .................... . Disposition: Fulfilled SEGMD: above- has hx cardiomyopathy/ COPD/CHF /on eliquis for AF-CP/epigastric pain constant/ worse with breathing and exertion-no f/c/sweats- has some nausea- no vomiting- denied melena or BRBPR Paola Weaver MD [address] [place] [address],[address], [place], [address], [facility] 09/25/2022 17:10:10 04/01/2023 text/html HPI: PMH: Cardiomyopathy, [...] since then. Pt unable to come into [facility]. Agrees to [facility] referral. .................... .................... .................... .................... .................... .................... [...] .................... .................... .................... .................... .................... .................... . Holistic Specialist Note From Daniel Alexandre: Pt reports 3 [...] Rapid covid and flu negative. ECG: RBBB. Pt s sx seem c/w COPD exacerbation s/t viral URI. I recommend azithromycin, prednisone and mucinex. [facility] contacted and pt treated with azithromycin 500 mg PO, prednisone 40 mg PO. Pt instructed to continue her albuterol nebs q4-6h, f/u with PCP tomorrow and to seek emergent medical care for new or worsening sx, which are reviewed with her. .................... .................... .................... .................... .................... .................... .................... . Disposition: Allison Verónica Childs MD [address] [facility],[address], [place], [address], [facility] 04/01/2023 18:42:18 09/14/2024 text/html [facility] Nurse Triage Notes (Mana Allen): Reason For Request: Patient has Eye problems, something leaking and dripping out. Denies: Sudden onset of dental pain, unable to manage own secretions Nosebleed lasting longer than one hour; unable to stop bleeding Throat swelling/difficult swallowing Chief Complaints: Eye Complaint PMH: COPD/Asthma, Congestive Heart Failure PMH Reviewed at 09/14/2024 Allergies Reviewed at 09/14/2024:21 Comments: 78 y.o female complains of Eye Complaint Patient reports drainage from her eyes for quite some time, but has worsened over the past 2-3 days, and is primarily her right eye. She reports white drainage, looks like glue at times. She denies a redness, swelling, pain or itch, does not feel gritty- she did have some slight pain yesterday. Vision is normal but blurry when it is draining. She does endorse it being crusty in the morning. The skin under her eye and nose is dry and burning. She does use prescribed eye drops. She would like to be evaluated. I provided information on the mobile health provider response time and advised the patient and/or caregiver to monitor reported signs and symptoms. I discussed the warning signs of when to seek emergency care. .................... .................... .................... .................... .................... .................... .................... . Holistic Specialist Note From Efren Hewitt: Dispatched to the call address for the female with drainage from her eye. Pt advises that for the last three days she has had clear drainage from her right eye. She advises that it does not hurt or itch but it is constantly draining clear fluid like she is crying. She states she tried OTC allergy eye drops which helped a little. She denies fevers, cough, n/v/d, chest pain or diff breathing/sob. She has an eye doctor appr but not until November. Pt was found opening door, CAOx4, airway open and patent, breathing non labored, able to speak in full sentences, -JVD, -HEENT, skin PWD with good turgor, mucous membranes pink and moist, lungs CTA, pupils PERRL, +CMSx4, afebrile, abd soft non tender/distended. Seasonal allergies. Pt was assessed with full set of vitals. [facility] consulted. Pt advised to picker box operator OTC allergy medication (Zyrtec or [place]) and to follow up with her eye doctor. Red flags discussed. ALL times are approx. .................... .................... .................... .................... .................... .................... .................... . [facility] Consulted: Verónica Childs .................... .................... .................... .................... .................... .................... .................... . Disposition: Fulfilled Verónica Childs MD [address] [facility],[address], [place], [address], NICHOLE Tucker LinksyBENJAMIN NIELSON 09/14/2024 15:28:11 OBGyn Episode No OBEpisode recorded.
[2024-10-29 16:17] LABS: NRBC Abs Auto 0.000 X10*3/uL (0.0-0.012); NRBC Pct Auto 0.0 /100WBC (0.0-0.2)
[2024-10-29 16:18] LABS: Hematocrit 33.0 % (37.0-47.0); Hemoglobin 11.1 g/dl (12.0-16.0); Mean Corpuscular HGB Conc 33.6 g/dl (31.0-35.0); Mean Corpuscular Hemoglobin 29.7 pg (27.0-33.0); Mean Corpuscular Volume 88.2 fL (80.0-98.0); Platelet Count 177 X10*3/uL (160-400); Red Blood Count 3.74 X10*6/uL (4.20-5.50); White Blood Count 3.7 X10*3/uL (4.8-10.8)
[2024-10-29 16:20] LABS: PLT ABN DIST 1
[2024-11-03 17:57] LABS: PES - Abn Protein Band 1 0.8 g/dL (NONE DETECTED); Prot Elec - Albumin 4.2 g/dL (3.8-4.8); Prot Elec - Alpha1 0.5 g/dL (0.2-0.3); Prot Elec - Alpha2 0.7 g/dL (0.5-0.9); Prot Elec - Beta 1 0.4 g/dL (0.4-0.6); Prot Elec - Beta 2 0.3 g/dL (0.2-0.5); Prot Elec - Gamma 1.8 g/dL (0.8-1.7); Prot Elec - Total Protein 7.9 g/dL (6.1-8.1)
== END 2024-10-29 13:24 | disposition home or self-care (01) ==
LOC: HO.HHCL 13:23
PROVIDERS: Nurse Practitioner Family; PCP General Practice; Visit Provider General Practice
DX: K21.9 Gastro-esophageal reflux disease without esophagitis (principal); D47.2 Monoclonal gammopathy
CPT/HCPCS: 36415; 84165; 85027

== ENCOUNTER 2024-12-25 12:47 | Outpatient (REF) | payer OTHER, SELFPAY ==
--- OUTSIDE RECORDS SUMMARY | 2024-12-24 15:15 | XMS_ITS | Encounter Summary ---
Author Organization [employer] Address [address] [place] [address] [address] [place] [address] Care Team Providers Care Wood Gluer Name Role Phone Yasmeen Willams MD Primary Care Provider [phone] Lennox Jennings MD Unavailable [phone] Reason for Referral * Consultation (Routine) - Closed Specialty Diagnoses / Procedures Referred By Contralph t Referred To Contact Otolaryngology Diagnoses Epistaxis Stella Herman MD [address] [place] [address] Phone: tel: fax: [facility] [address] [facility] [address] [place] [address] Phone: tel: fax: Referral ID Status Reason Start Date Expiration Date V isits Requested Visits Authorized [id number] Closed Specialty Services Required 12/24/2024 12/24/2025 1 1 Reason for Visit * Reason Comments Epistaxis (Nose Bleed) Encounter Details Date Type Department Care Team (Late st Contact Info) Description 12/24/2024 3:15 PM EDT Office Visit [facility] [address] [place] [address] Stella Herman MD [address] [place] [address] Epistaxis (Primary Dx); Dizziness Social History Tobacco Use Types Packs/Day Years [...] AM EDT documented as of this encounter Last Filed Vital Signs Vital Sign Reading Time Taken Comments Blood Pressure 126/64 12/25/2024 8:10 AM EDT Pulse 78 12/25/2024 8:10 AM EDT Temperature 36.1 C (96.9 F) 12/24/2024 3:44 PM EDT Respiratory Rate 20 12/24/2024 3:44 PM EDT Oxygen Saturation 99% 12/24/2024 3:44 PM EDT Inhaled Oxygen Concentration - - Weight 76.5 kg (168 lb 9.6 oz) 12/24/2024 3:44 P M EDT Height 157.5 cm (5' 2 ) 12/24/2024 3:44 PM EDT Body Mass Index 30.84 12/24/2024 3:44 PM EDT documented in this encounter Plan of Treatment Scheduled Referrals Name Type Priority Associated Diagnoses Orde r Schedule Referral to ENT Outpatient Referral Routine Epistaxis Expected: 12/24/2024 (Approximate), Expires: 12/24/2025 documented as of this encounter Procedures Procedure Name Priority Date/Time Associated Diagnosis Comments CBC WITH AUTO DIFFERENTIAL Routine 12/25/2024 1:07 PM EDT Epistaxis TSH Routine 12/25/2024 1:07 PM EDT Dizziness COMPREHENSIVE METABOLIC PANEL Routine 12/25/2024 1:07 PM EDT Epistaxis ECG 12-LEAD Routine 12/24/2024 9:42 PM EDT Dizziness documented in this encounter Results * TSH (12/25/2024 1:07 PM EDT) Thyroid Stimulating Hormone 2.15 0.32 - 4.0 uIU/mL [facility] Comment:TSH 3rd Generation ( [facility]) Blood Venous blood specimen / Unknown 12/25/2024 1:07 PM EDT 12/25/2024 1:12 PM EDT us Stella Felix MD LAB BLOOD ORDERAB LES Final Result [facility] [address] [place] [address] [phone] * (ABNORMAL) CBC auto differential (12/25/2024 1:07 PM EDT) White Blood Count 4.7(L) 4.8 - 10.8 X10*3/uL [facility] Red Blood Count 3.49(L) 4.20 - 5.50 X10*6/uL [facility] Hemoglobin 10.1(L) 12.0 - 16.0 g/dl [facility] Hematocrit 30.5(L) 37.0 - 47.0 % [facility] Mean Corpuscular Volume 87.4 80.0 - 98.0 fL [facility] Mean Corpuscular Hemoglobin 28.9 27.0 - 33.0 pg [facility] Mean Corpuscular HGB Conc 33.1 31.0 - 35.0 g/dl [facility] Red Cell Distribution Width 13.8 11.0 - 16.0 % [facility] Platelet Count 216 160 - 400 X10*3/uL [facility] Mean Platelet Volume 11.7 9.4 - 12.3 fL [facility] Neutrophils Percent Auto 61.4 45 - 73 % [facility] Imm Gran Pct Auto 0.4 0.0 - 0.4 % [facility] Lymphocytes Percent Auto 22.0 20 - 40 % [facility] Monocytes Percent Auto 12.4(H) 2 - 11 % [facility] Eosinophils Percent Auto 3.4 0 - 4 % [facility] Basophils Percent Auto 0.4 0 - 2 % [facility] NRBC Pct Auto 0.0 0.0 - 0.2 /100WBC [facility] Neutrophils Absolute Auto 2.9 2.0 - 8.3 x10*3/uL [facility] Imm Gran Abs Auto 0.02 0.00 - 0.03 X10*3/uL [facility] Lymphocytes Absolute Auto 1.0(L) 1.2 - 4.9 X10*3/uL [facility] Monocytes Absolute Auto 0.6 0.1 - 1.2 X10*3/uL [facility] Eosinophils Absolute Auto 0.2 0.0 - 0.4 X10*3/uL [facility] Basophils Absolute Auto 0.0 0.0 - 0.2 X10*3/uL [facility] NRBC Abs Auto 0.000 0.0 - 0.012 X10*3/uL [facility] Blood Venous blood specimen / Unknown 12/25/2024 1:07 PM EDT 12/25/2024 1:12 PM EDT us Stella Felix MD LAB BLOOD ORDERAB LES Final Result [facility] [address] [place] [address] [phone] * (ABNORMAL) Comprehensive Metabolic Panel (12/25/2024 1:07 PM EDT) Sodium 133(L) 135 - 145 mmol/L [facility] Potassium 4.5 3.3 - 5.1 mmol/L [facility] Chloride 99 96 - 108 mmol/L [facility] Carbon Dioxide 28 22 - 29 mmol/L [facility] Anion Gap 11(L) 12 - 20 [facility] Urea Nitrogen (BUN) 19(H) 9 - 16 mg/dL [facility] Creatinine, Serum 1.14 0.5 - 1.4 mg/dL [facility] Estimated Glomerular Filt Rate 46 [facility] Comment:Chronic Kidney Disea se: Estimated GFR < 60 mL/min/1.19a9Gsqcol Kidney Disease: Estimated GFR < 15 mL/min/1.73m2 Glucose 84 60 - 115 mg/dL [facility] Calcium 9.3 8.4 - 10.2 mg/dL [facility] Bilirubin, Total 0.4 0.0 - 1.0 mg/dL [facility] Aspartate Amino Transferase 15 5 - 31 U/L [facility] Alanine Aminotransferase 15 0 - 31 U/L [facility] Total Protein 7.5 6.5 - 8.0 g/dL [facility] Albumin Level 4.0 3.5 - 5.0 g/dL [facility] Alkaline Phosphatase 80 39 - 117 U/L [facility] Blood Venous blood specimen / Unknown 12/25/2024 1:07 PM EDT 12/25/2024 1:12 PM EDT us Stella Felix MD LAB BLOOD ORDERAB LES Final Result Performing Organization Address City/State/[facility] Co de Phone Number [facility] [address] [place] [address] [phone] * ECG 12 lead (12/24/2024 9:42 PM EDT) Narrative Stella Herman MD - 12/24/2024 9:42 PM EDT EKG 1st degree AV block ,sinus rhythm,RBBB HR 74 QTC 476 us Stella Felix MD ECG ORDERABLES F inal Result documented in this encounter Visit Diagnoses Diagnosis Epistaxis- Primary Dizziness Dizziness and giddiness documented in this encounter Additional Health Concerns Assessment Noted Time PHQ-9 Depression Total Score: 0 02/03/20 24 1:41 PM EDT documented as of this encounter Care Teams Wood Gluer Relationship Specialty Start Date End Date Yasmeen Willams MD [address] [place] [address] PCP - General Family Medicine 12/09/21 Lennox Jennings MD [address] [place] [phone] Cardiology 12/24/24 documented as of this encounter
[2024-12-25 13:14] LABS: MANUAL DIFF FLAG NO
[2024-12-25 13:50] LABS: Hematocrit 30.5 % (37.0-47.0); Hemoglobin 10.1 g/dl (12.0-16.0); Imm Gran Abs Auto 0.02 X10*3/uL (0.00-0.03); Imm Gran Pct Auto 0.4 % (0.0-0.4); Lymphocytes Absolute Auto 1.0 X10*3/uL (1.2-4.9); Mean Corpuscular HGB Conc 33.1 g/dl (31.0-35.0); Mean Corpuscular Hemoglobin 28.9 pg (27.0-33.0); Mean Corpuscular Volume 87.4 fL (80.0-98.0); NRBC Abs Auto 0.000 X10*3/uL (0.0-0.012); NRBC Pct Auto 0.0 /100WBC (0.0-0.2); Platelet Count 216 X10*3/uL (160-400); Red Blood Count 3.49 X10*6/uL (4.20-5.50); White Blood Count 4.7 X10*3/uL (4.8-10.8)
[2024-12-25 14:40] LABS: Alanine Aminotransferase 15 U/L (0-31); Albumin Level 4.0 g/dL (3.5-5.0); Alkaline Phosphatase 80 U/L (39-117); Anion Gap 11 (12-20); Aspartate Amino Transferase 15 U/L (5-31); Blood Urea Nitrogen 19 mg/dL (9-16); Calcium 9.3 mg/dL (8.4-10.2); Carbon Dioxide 28 mmol/L (22-29); Chloride 99 mmol/L (96-108); Estimated Glomerular Filt Rate 46; Potassium 4.5 mmol/L (3.3-5.1); Sodium 133 mmol/L (135-145); Total Protein 7.5 g/dL (6.5-8.0)
[2024-12-25 14:54] LABS: Thyroid Stimulating Hormone 2.15 uIU/mL (0.32-4.0)
--- OUTSIDE RECORDS SUMMARY | 2024-12-25 15:09 | XMS_ITS | Clinical Summary ---
Author Organization [employer] Address [address] [facility] 7t [place] [address] Care Team Providers Care Naval Aircrewman Helicopter Name Role Phone Yasmeen Willams MD Primary Care Provider [phone] Lennox Jennings MD Unavailable [phone] Allergies No known active allergies Medications amiodarone (Pacerone) 100 MG tablet Take 1 tablet by mouth every 12 (twelve) hours. Active apixaban (Eliquis) 5 MG tablet Take 1 tablet by mouth every 12 (twelve) hours. Active Acetaminophen Extra Strength 500 MG tablet 023 Active aluminum-magnesiu m hydroxide-simethi cone (Mintox Maximum Strength) 400-400-40 MG/5ML suspension TAKE 5 ML BY MOUTH EVERY 6 HOURS NEEDED FOR INDIGESTION OR HEARTBURN FOR UP TO 10 DAYS Active Multiple Vitamin (multivitamin) tablet Take 1 tablet by mouth Once per day. 90 tablet 3 024 Active rosuvastatin (Crestor) 10 MG tabletIndications :Other hyperlipidemia Take 1 tablet (10 mg) by mouth Once per day. 90 tablet 3 024 Active albuterol (2.5 MG/3ML) 0.083% nebulizer solutionIndicatio ns:Mild persistent asthma without complication Inhale 3 mL by nebulization route every 6 hours as needed 90 mL 6 025 Active albuterol (Ventolin HFA) 108 (90 Base) MCG/ACT inhalerIndication s:Mild persistent asthma without complication Inhale 2 puffs by inhalation route every 4-6 hours as needed 18 g 6 025 Active cyanocobalamin (Vitamin B-12) 1000 MCG tabletIndications :Vitamin B 12 deficiency TAKE 1 TABLET BY MOUTH EVERY DAY 90 tablet 3 Active cholecalciferol (Vitamin D-3) 50 MCG (1999 UT) tabletIndications :Vitamin D deficiency Take 1 Units by mouth Once per day. 90 tablet 3 025 2025 Active furosemide (Lasix) 20 MG tabletIndications :Benign hypertension TAKE 1 TABLET BY MOUTH TWICE DAILY 60 tablet 3 025 Active famotidine (Pepcid) 20 MG tabletIndications :Gastroesophageal reflux disease without esophagitis Take 1 tablet by mouth Once per day. 025 Active sucralfate (Carafate) 1 GM/10ML suspensionIndicat ions:Gastroesopha geal reflux disease without esophagitis 025 Active metoprolol succinate XL (Toprol-XL) 50 MG 24 hr tabletIndications :Benign hypertension Take 1 tablet (50 mg) by mouth Once per day. Do not crush or chew. 90 tablet 3 025 Active mirtazapine (Remeron) 30 MG tablet Take 1 tablet (30 mg) by mouth at bedtime. 30 tablet 11 Active fluticasone furoate (Arnuity Ellipta) 100 MCG/ACT inhaler INHALE 1 PUFF BY MOUTH ONCE A DAY. RINSE MOUTH AFTER USE (BULK) 30 each Active loratadine (Claritin) 10 MG tablet TAKE 1 TABLET BY MOUTH EVERY DAY 30 tablet 3 Active nystatin (Mycostatin) 297337 UNIT/GM powderIndications :Candidiasis of skin APPLY TOPICALLY TWICE A DAY. PUT POWDER ON AFTER SHOWER. NO BODY SPRAY! (BULK) 60 g 025 Active omeprazole (PriLOSEC) [address] capsuleIndication s:Gastroesophagea l reflux disease without esophagitis Take 2 capsules (40 mg) by mouth before breakfast and before evening meal. Do not crush or chew. 120 capsule 025 Active psyllium (Metamucil) 0.52 g capsuleIndication s:Other constipation Take 1 capsule (0.52 g) by mouth Once per day. To help bulk stool 90 capsule 3 025 Active hydrocortisone 2.5 % creamIndications: Actinic keratosis Apply to areas of keratosis 60 g 2 025 Active ascorbic acid (Vitamin C) 500 MG tabletIndications :Other iron deficiency anemia Take 1 tablet (500 mg) by mouth Once per day. 30 tablet 2 025 2025 Active ferrous gluconate (Fergon) 324 (38 Fe) MG tabletIndications :Iron deficiency anemia, unspecified iron deficiency anemia type TAKE 1 TABLET BY MOUTH EVERY SATURDAY, SATURDAY AND SATURDAY - TAKE WITH FULL GLASS OF WATER OR VITAMIN-C CONTAINING JUICE AND IDEALLY 1 HOUR BEFORE A MEAL OR 2 HOURS AFTER A MEAL 12 tablet 2 Active Additional Information Patient not taking.Reported on 12/24/2024 ferrous gluconate (Fergon) 324 (38 Fe) MG tabletIndications :Iron deficiency anemia, unspecified iron deficiency anemia type Take 1 pill every Saturday, Saturday, and Saturday. Take with a full glass of water or Vit C containing juice, and ideally 1 hour before a meal or 2 hours after a meal 36 tablet 025 2024 Discontinued Active Problems Problem Noted Date Diagnosed Date Iron deficiency anemia 07/27/2024 Assessment & Plan (11/13/2024 12:51 PM EDT): Continue iron tablet every other day, add vitamin C tablet with it Tubulovillous adenoma 07/24/2024 Other constipation 10/01/2023 Assessment [...] appt Jan 01, 2023, recommend talking to fiberglass grinder then about travelling Atypical chest pain 10/11/2022 Overview (10/11/2022): DDX: [...] 10:43 AM EST): Managed by cards in [facility] Monoclonal gammopathy of unknown significance [...] obstructive cardiomyopathy 07/31/19 15 Assessment & Plan (11/13/2024 12:49 PM EDT): At dry weight currently BP < 130/80 Beta zheng and diuretics daily Follows with [facility] every 3-4 months Assessment & Plan (10/01/2023 4:33 PM EDT): At dry weight currently BP < 130/80 Beta zheng and diuretics daily Follows with [facility] every 3-4 months Assessment & Plan (03/21/2023 11:32 AM EST): Will check renal function and BNP with increased dyspnea recently Unsure what to make of bleeding sensation in chest? Blood from nose bleed digesting? Will check CBC also Assessment & Plan (09/04/2022 9:16 PM EDT): Continue Metoprolol 50mg daily, HR 70-80s Check BNP, CMP today With ICD in place and regular followup at [facility] Run of alerts 04/05 for VF, which was actually AF with RVR, at that point cardiology increased Metoprolol to 75mg daily Cardiac rehab ongoing Assessment & Plan (07/05/2022 2:45 PM EDT): Continue Metoprolol 50mg daily, which she has been doing for past week, contact [facility] for followup BNP of 241, increase Lasix [...] symptoms Benign hypertension 04/15/1961 Assessment & Plan (11/13/2024 12:49 PM EDT): At goal <140/90 Assessment & Plan (09/04/2022 9:17 PM EDT): At goal <140/90 Assessment & Plan (05/31/2022 10:41 AM EST): At goal <140/90 Depressive disorder 04/15/1961 Assessment & Plan (03/21/2023 11:32 AM EST): Glad that her therapist is someone that she likes to talk to Assessment & Plan (05/31/2022 10:43 AM EST): In remission currently Gastroesophageal reflux disease 04/15/1961 Assessment & Plan (11/13/2024 12:51 PM EDT): Trouble sleeping at night due to symptoms of heartburn currently on Omeprazole 20mg BID Increase Omeprazole to 40mg BID x one month Continue Pepcid 20mg prn Continue Maalox prn Keep head of recliner elevated > 45 degrees Assessment & Plan (03/21/2023 11:32 AM EST): Start Mylanta prn for bloating at nighttime Tobacco dependence due to cigarettes, in remissi on 04/15/1959 Assessment & Plan (05/31/2022 10:44 AM EST): Quit in 2020, has not started smoking again Resolved Problems Problem Noted Date Diagnosed Date Resolved Date Mild major depression 10/11/20222024 Encounters Date Type Department Care Team Description 12/25/2024 Results Follow-Up [address] [address] Stella Herman MD Comprehensive Metabolic Panel, CBC auto differential, TSH 12/24/2024 3:15 PM EDT Office Visit [facility] [address] [place] [address] Stella Herman MD Epistaxis (Primary Dx); Dizziness 12/24/2024 Telephone [facility] [address] [place] [address] Stella Herman MD EKG sent to cardiology 12/24/2024 Travel 12/23/2024 Telephone [facility] [address] [place] [address] Luzmaria Ship[place] 12/23/[address] [address] Yasmeen Willams MD Nurse Triage 12/01/[address] [address] Yasmeen Willams MD Iron deficiency anemia, unspecified iron deficiency anemia type 11/11/2024 3:15 PM EDT Office Visit [address] [address] Yasmeen Willams MD Benign hypertension (Primary Dx); Low hemoglobin; Gastroesophageal reflux disease without esophagitis; Hypertrophic obstructive cardiomyopathy (CMS/HCC); Monoclonal gammopathy of unknown significance (MGUS); ICD (implantable cardioverter-defibrilla tor) in place; Other constipation; Tubulovillous adenoma; Other iron deficiency anemia; Actinic keratosis 11/11/2024 Travel 11/10/[address] [address] Yasmeen Willams MD Chart Prep 11/03/[address] [address] Yasmeen Willams MD Candidiasis of skin; Other constipation 10/29/2024 Orders Only GENERIC EXTERNAL DATA DEPARTMENT Provider, Generic External Data 10/26/2024 Refill [facility] [address] [place] [address] Yasmeen Willams MD Gastroesophageal reflux disease without esophagitis 2024 Refill [facility] [address] [place] [address] Yasmeen Willams MD 10/05/2024 Refill [facility] [address] [place] [address] Yasmeen Willams MD Gastroesophageal reflux disease without esophagitis from Last 3 Months Immunizations Immunization Administration [...] Mass Index 30.84 12/24/2024 3:44 PM EDT Plan of Treatment Health Maintenance Due Date Last Done Comments [...] 24 SDOH Screening 07/15/2025 07/15/2024 Tobacco Screening 12/24/2025 12/24/2024 Lipid Panel 12/20/2026 12/20/2021, 04/04/2021 Pneumococcal Vaccine: [...] Procedure Name Priority Date/Time Associated Diagnosis Comments TSH Routine 12/25/2024 1:07 PM EDT Dizziness CBC WITH AUTO DIFFERENTIAL Routine 12/25/2024 1:07 PM EDT Epistaxis COMPREHENSIVE METABOLIC PANEL Routine 12/25/2024 1:07 PM EDT Epistaxis ECG 12-LEAD Routine 12/24/2024 9:42 PM EDT Dizziness POCT HEMOGLOBIN Routine 11/11/2024 3:18 PM EDT Other iron deficiency anemia CBC Routine 10/29/2024 1:29 PM EDT PROTEIN, TOTAL AND PROTEIN ELECTROPHORESIS Routine 10/29/2024 1:29 PM EDT Monoclonal gammopathy of unknown significance (MGUS) LIPID PANEL, STANDARD Routine 12/20/2021 2:35 PM EDT from Last 3 Months or Most Recently Relevant to Health Maintenance Results * (ABNORMAL) CBC auto differential (12/25/2024 1:07 PM EDT) White Blood Count 4.7(L) 4.8 - 10.8 X10*3/uL [facility] Red Blood Count 3.49(L) 4.20 - 5.50 X10*6/uL [facility] Hemoglobin 10.1(L) 12.0 - 16.0 g/dl [facility] Hematocrit 30.5(L) 37.0 - 47.0 % [facility] Mean Corpuscular Volume 87.4 80.0 - 98.0 fL [facility] Mean Corpuscular Hemoglobin 28.9 27.0 - 33.0 pg [facility] Mean Corpuscular HGB Conc 33.1 31.0 - 35.0 g/dl [facility] Red Cell Distribution Width 13.8 11.0 - 16.0 % [facility] Platelet Count 216 160 - 400 X10*3/uL [facility] Mean Platelet Volume 11.7 9.4 - 12.3 fL [facility] Neutrophils Percent Auto 61.4 45 - 73 % [facility] Imm Gran Pct Auto 0.4 0.0 - 0.4 % [facility] Lymphocytes Percent Auto 22.0 20 - 40 % [facility] Monocytes Percent Auto 12.4(H) 2 - 11 % [facility] Eosinophils Percent Auto 3.4 0 - 4 % [facility] Basophils Percent Auto 0.4 0 - 2 % [facility] NRBC Pct Auto 0.0 0.0 - 0.2 /100WBC [facility] Neutrophils Absolute Auto 2.9 2.0 - 8.3 x10*3/uL [facility] Imm Gran Abs Auto 0.02 0.00 - 0.03 X10*3/uL [facility] Lymphocytes Absolute Auto 1.0(L) 1.2 - 4.9 X10*3/uL [facility] Monocytes Absolute Auto 0.6 0.1 - 1.2 X10*3/uL [facility] Eosinophils Absolute Auto 0.2 0.0 - 0.4 X10*3/uL [facility] Basophils Absolute Auto 0.0 0.0 - 0.2 X10*3/uL [facility] NRBC Abs Auto 0.000 0.0 - 0.012 X10*3/uL [facility] Blood Venous blood specimen / Unknown 12/25/2024 1:07 PM EDT 12/25/2024 1:12 PM EDT us Stella Felix MD LAB BLOOD ORDERAB LES Final Result Performing Organization Address City/[facility]/ZIP Co de Phone Number [facility] [address] [place] [address] [phone] * TSH (12/25/2024 1:07 PM EDT) Thyroid Stimulating Hormone 2.15 0.32 - 4.0 uIU/mL [facility] Comment:TSH 3rd Generation ( [employer]) Blood Venous blood specimen / Unknown 12/25/2024 1:07 PM EDT 12/25/2024 1:12 PM EDT Stella Felix MD LAB BLOOD ORDERAB LES Final Result Performing Organization Address [facility] Co de Phone Number [facility] [address] [place] [phone] * (ABNORMAL) Comprehensive Metabolic Panel (12/25/2024 1:07 PM EDT) Pathologist [facility] Sodium 133(L) 135 - 145 mmol/L [facility] Potassium 4.5 3.3 - 5.1 mmol/L [facility] Chloride 99 96 - 108 mmol/L [facility] Carbon Dioxide 28 22 - 29 mmol/L [facility] Anion Gap 11(L) 12 - 20 [facility] Urea Nitrogen (BUN) 19(H) 9 - 16 mg/dL [facility] Creatinine, Serum 1.14 0.5 - 1.4 mg/dL [facility] Estimated Glomerular Filt Rate 46 [facility] Comment:Chronic Kidney Disea se: Estimated GFR < 60 mL/min/1.02i1Ehtukh Kidney Disease: Estimated GFR < 15 mL/min/1.73m2 Glucose 84 60 - 115 mg/dL [facility] Calcium 9.3 8.4 - 10.2 mg/dL [facility] Bilirubin, Total 0.4 0.0 - 1.0 mg/dL [facility] Aspartate Amino Transferase 15 5 - 31 U/L [facility] Alanine Aminotransferase 15 0 - 31 U/L [facility] Total Protein 7.5 6.5 - 8.0 g/dL [facility] Albumin Level 4.0 3.5 - 5.0 g/dL [facility] Alkaline Phosphatase 80 39 - 117 U/L [facility] Blood Venous blood specimen / Unknown 12/25/2024 1:07 PM EDT 12/25/2024 1:12 PM EDT us Stella Felix MD LAB BLOOD ORDERAB LES Final Result [facility] [address] [place] [phone] * ECG 12 lead (12/24/2024 9:42 PM EDT) Narrative Stella Herman MD - 12/24/2024 9:42 PM EDT EKG 1st degree AV block ,sinus rhythm,RBBB HR 74 QTC 476 Stella Felix MD ECG ORDERABLES F inal Result * (ABNORMAL) POCT Hemoglobin (11/11/2024 3:18 PM EDT) [facility] Hemoglobin 10.1(A) 12.0 - 15.0 QC Media Lot # [id number] Lot# Expiration Date Blood 11/11/2024 3:18 PM EDT Yasmeen Willams MD POINT OF CARE TEST ENTER/EDIT ORDERABLES Final Result * (ABNORMAL) CBC (10/29/2024 1:29 PM EDT) [facility] White Blood Count 3.7(L) 4.8 - 10.8 X10*3/uL [facility] Red Blood Count 3.74(L) 4.20 - 5.50 X10*6/uL [facility] Hemoglobin 11.1(L) 12.0 - 16.0 g/dl [facility] Hematocrit 33.0(L) 37.0 - 47.0 % [facility] Mean Corpuscular Volume 88.2 80.0 - 98.0 fL [facility] Mean Corpuscular Hemoglobin 29.7 27.0 - 33.0 pg [facility] Mean Corpuscular HGB Conc 33.6 31.0 - 35.0 g/dl [facility] Red Cell Distribution Width 12.8 11.0 - 16.0 % [facility] Platelet Count 177 160 - 400 X10*3/uL [facility] Mean Platelet Volume 13.3(H) 9.4 - 12.3 fL [facility] NRBC Pct Auto 0.0 0.0 - 0.2 /100WBC [facility] NRBC Abs Auto 0.000 0.0 - 0.012 X10*3/uL [facility] 10/29/2024 1:29 PM EDT 10/29/2024 4:06 PM EDT us Generic External Data Provider LAB BLOOD ORDERAB LES Final Result [facility] [address] [place] [phone] * (ABNORMAL) Protein, Total and Protein??Electrophoresis (10/29/2024 1:29 PM EDT) Prot Elec - Total Protein 7.9 6.1 - 8.1 g/dL [facility] Prot Elec - Albumin 4.2 3.8 - 4.8 g/dL [facility] Prot Elec - Alpha1 0.5(A) 0.2 - 0.3 g/dL [facility] Prot Elec - Alpha2 0.7 0.5 - 0.9 g/dL [facility] Prot Elec - Beta 1 0.4 0.4 - 0.6 g/dL [facility] Prot Elec - Beta 2 0.3 0.2 - 0.5 g/dL [facility] Prot Elec - Gamma 1.8(A) 0.8 - 1.7 g/dL [facility] PES - Abn Protein Band 1 0.8(A) NONE DETECTED g/dL [facility] PES-Abn Protein Band 2 TNP [facility] PES-Abn Protein Band 3 TNP [facility] Prot Elec - Interpretation SEE NOTE [facility] Comment:Evaluation reveals a restricted band (M-spike)migrating in the gamma globulin region. If notalready requested, Immunofixation should beconsidered.THIS TEST WAS PERFORMED AT:[employer] [place] [phone] DUTTON MD Blood Venous blood specimen / Unknown 10/29/2024 1:29 PM EDT 10/29/2024 4:06 PM EDT us Yasmeen Willams MD LAB BLOOD ORDERABLES Final Res ult [facility] [address] [place] [phone] * (ABNORMAL) LIPID PANEL, STANDARD (12/20/2021 2:35 [...] factors. LDL-C is now calculated using the Akash-Asa calculation, which is a validated novel method providing better accuracy than the Friedewald equation in the estimation of LDL-C. Akash ALFREDO et al. ROLDAN. 2013;310(19): 7723-9549 (http://education.Exercise.com/faq/EPY605) Non-HDL Cholesterol 132(H) <130 mg/dL (calc) [facility] Comment: For patients with diabetes plus 1 major ASCVD risk factor, treating to a non-HDL-C goal of <100 mg/dL (LDL-C of <70 mg/dL) is considered a therapeutic option. Triglycerides 99 <150 mg/dL [facility] 12/20/2021 2:35 PM EDT us Radha Lee HEMOTHERAPIST LAB BLOOD ORDERABLES Final Res ult [facility] [address] from Last 3 Months or Most Recently Relevant to Health Maintenance Insurance [facility] (O D-SNP) [place] [id number] Care Teams Naval [employer]cre[employer] Helicopter Relationship Specialty Start Date End Date Yasmeen Willams MD [address] [place] [phone] PCP - General Family Medicine 12/09/21 Lennox Jennings MD [address] [place] [address] Cardiology 12/24/24
--- OUTSIDE RECORDS SUMMARY | 2024-12-25 15:09 | XMS_ITS | Encounter Summary ---
Author Organization [employer] Address [address] [place] [address] 7t [place] [address] Care Team Providers Care Forging Press Setter Up Name Role Phone Yasmeen Willams MD Primary Care Provider [phone] Lennox Jennings MD Unavailable [phone] Reason for Visit * Reason Comments Med Refill Encounter Details Date Type Department Care Team ([facility] st Contact Info) Description 09/03/2022 Refill [facility] [address] [place] [address] Yasmeen Willams MD [address] [place] [address] Primary insomnia Social History Tobacco Use Types [...] as of this encounter Plan of Treatment Not on file documented as of this encounter Visit Diagnoses Diagnosis Primary insomnia Persistent disorder of initiating or maintaining sleep documented in this encounter Care Teams Forging Press Setter Up Relationship Specialty Start Date End Date Yasmeen Willams MD [address] [place] [address] PCP - General Family Medicine 12/09/21 Lennox Jennings MD [address] [place] [address] Cardiology 12/24/24 documented as of this encounter
--- OUTSIDE RECORDS SUMMARY | 2024-12-25 15:09 | XMS_ITS | Encounter Summary ---
Author Organization [employer] Address [address] [place] [address] 7t [place] [address] Care Team Providers Care Basketball Scout Name Role Phone Yasmeen Willams MD Primary Care Provider [phone] Lennox Jennings MD Unavailable [phone] Reason for Visit * Reason Comments Med Refill Encounter Details Date Type Department Care Team ([facility] st Contact Info) Description 12/12/2023 Refill [facility] [address] [place] [address] Stella Maher MD [address] [place] [address] Gastroesophageal reflux disease without esophagitis Social History [...] reflux documented in this encounter Care Teams Basketball Scout Relationship Specialty Start Date End Date Yasmeen Willams MD [address] [place] [address] PCP - General Family Medicine 12/09/21 Lennox Jennings MD [address] [place] [phone] Cardiology 12/24/24 documented as of this encounter
--- OUTSIDE RECORDS SUMMARY | 2024-12-25 15:09 | XMS_ITS | Encounter Summary ---
Author Organization [employer] Address [address] [place] [address] [address] [place] [address] Care Team Providers Care Sand Slinger Name Role Phone Yasmeen Willams MD Primary Care Provider [phone] Lennox Jennings MD Unavailable [phone] Reason for Visit * Reason Onset Date Comments Resend Script 06/21/2022 Encounter Details Date Type Department Care Team ([facility] st Contact Info) Description 06/21/2022 Telephone [facility] [address] [place] [address] Yasmeen Willams MD [address] [place] [address] Resend Script Social History Tobacco Use Types [...] Miscellaneous Notes * Telephone Encounter - Shima Palacios Tay - 06/21/2022 10:46 AM EST Franco Tavarez with [facility] requesting script for rosuvastatin (Crestor) 10 MG tablet andfolic acid (Folvite) 1 MG tablet. Pharmacy claims script was never received. Please contact pharmacy if any questions [phone] documented in this encounter Plan of Treatment Not on file documented as of this encounter Visit Diagnoses Diagnosis Monoclonal gammopathy of unknown significance (MGUS) Other hyperlipidemia documented in this encounter Care Teams Sand Slinger Relationship Specialty Start Date End Date Yasmeen Willams MD [address] [place] [address] PCP - General Family Medicine 12/09/21 Lennox Jennings MD [address] [place] [address] Cardiology 12/24/24 documented as of this encounter
--- OUTSIDE RECORDS SUMMARY | 2024-12-25 15:10 | XMS_ITS | Encounter Summary ---
Author Organization [employer] Address [address] [facility] 7t [place] [address] Care Team Providers Care Claims Vice President Name Role Phone Yasmeen Willams MD Primary Care Provider [phone] Lennox Jennings MD Unavailable [phone] Encounter Details Date Type Department Care Team (Latest Contact Info) Description 12/24/2024 Travel Social History Tobacco Use Types Packs/Day Years [...] documented as of this encounter Care Teams Claims Vice President Relationship Specialty Start Date End Date Yasmeen Willams MD [address] [place] [address] PCP - General Family Medicine 12/09/21 Lennox Jenninsg MD [address] [place] [address] Cardiology 12/24/24 documented as of this encounter
--- OUTSIDE RECORDS SUMMARY | 2024-12-25 15:10 | XMS_ITS | Encounter Summary ---
Author Organization [employer] Address [address] [place] [address] 7t [place] [address] Care Team Providers Care Quality Compliance Consultant Name Role Phone Yasmeen Willams MD Primary Care Provider [phone] Lennox Jennings MD Unavailable [phone] Reason for Visit * Reason Comments Med Refill Encounter Details Date Type Department Care Team ([facility] st Contact Info) Description 09/04/2024 Refill [facility] [address] [place] [address] Yasmeen Willams MD [address] [place] [address] Vitamin D deficiency Social History Tobacco Use Types Packs/Day Years [...] the past 12 months, has t he [employer], gas, oil or water [employer] threatened to shut off services in your [...] as of this encounter Visit Diagnoses Diagnosis Vitamin D deficiency documented in this encounter Additional Health Concerns Assessment Noted Time PHQ-9 Depression Total Score: 0 02/03/20 24 1:41 PM EDT documented as of this encounter Care Teams Quality Compliance Consultant Relationship Specialty Start Date End Date Yasmeen Willams MD [address] [place] [address] PCP - General Family Medicine 12/09/21 Lennox Jennings MD [address] [place] [address] Cardiology 12/24/24 documented as of this encounter
--- OUTSIDE RECORDS SUMMARY | 2024-12-25 15:10 | XMS_ITS | Patient Health Record ---
Author Organization [employer] [facility] Address [address] [place] [phone] Care Team Providers Care Sorter Upholstery Parts Name Role Phone Abraham Amezcua Jr Reason For Referral No Information Plan Of Treatment No Information
--- OUTSIDE RECORDS SUMMARY | 2024-12-25 15:10 | XMS_ITS | Encounter Summary ---
Author Organization [employer] Address [address] [facility] 7t [place] [address] Care Team Providers Care Candy Mixer Name Role Phone Yasmeen Willams MD Primary Care Provider [phone] Lennox Jennings MD Unavailable [phone] Reason for Visit * Reason Comments Med Refill Encounter Details Date Type Department Care Team ([facility] st Contact Info) Description 02/14/2023 Refill [facility] MED[facility] [address] [place] [address] Yasmeen Willams MD [address] [place] [address] Other hyperlipidemia Social History Tobacco Use Types Packs/Day Years Used Date Smoking Tobacco: Former Cigarettes Smokeless Tobacco: Never Alcohol Use Standard Drinks/Week Comments Never 0 (1 standard drink = 0.6 oz pur e alcohol) Housing Stability Answer Date Recorded What is your housing situation today? I have annabel bautista 01/30/[address] you [...] hyperlipidemia documented in this encounter Care Teams Candy Mixer Relationship Specialty Start Date End Date Yasmeen Willams MD 230 [place] [address] PCP - General Family Medicine 12/09/21 Lennox Jennings MD [address] [place] [address] Cardiology 12/24/24 documented as of this encounter
--- OUTSIDE RECORDS SUMMARY | 2024-12-25 15:10 | XMS_ITS | Encounter Summary ---
Author Organization [employer] Address [address] [facility] 7t [place] [address] Care Team Providers Care Oil Field Roustabout Name Role Phone Yasmeen Willams MD Primary Care Provider [phone] Lennox Jennings MD Unavailable [phone] Reason for Visit * Reason Comments Med Refill Encounter Details Date Type Department Care Team ([facility] st Contact Info) Description 03/16/2023 Refill [facility] MED[facility] [address] [place] [address] Yasmeen Willams MD [address] [place] [address] Social History Tobacco Use Types Packs/Day Years [...] on filedocumented in this encounter Care Teams Oil Field Roustabout Relationship Specialty Start Date End Date Yasmeen Willams MD [address] [place] [address] PCP - General Family Medicine 12/09/21 Lennox Jennings MD [address] [place] [address] Cardiology 12/24/24 documented as of this encounter
--- OUTSIDE RECORDS SUMMARY | 2024-12-25 15:10 | XMS_ITS | Encounter Summary ---
Author Organization [email or web address] Address [address] [facility] [address] 7t [place] [address] Care Team Providers Care Library Clerical Assistant Name Role Phone Yasmeen Willams MD Primary Care Provider [phone] Encounter Details Date Type Department Care Team (Late st Contact Info) Description 12/23/2024 Telephone [facility] 230 [place], [place] [id number] Luzmaria Shipley MA Social History Tobacco Use Types Packs/Day Years [...] encounter Miscellaneous Notes * Telephone Encounter - Luzmaria Shipley MA - 12/23/2024 4:14 PM EDT Chart Prep Labs: done Images: done Referrals: not applicable Vaccines due: Covid, Flu, and Tdap Screenings: not applicable Overdue care gaps: Not applicable documented in this encounter Plan of Treatment Not on file documented as of this encounter Visit Diagnoses Not on filedocumented in this encounter Additional Health Concerns Assessment Noted Time PHQ-9 Depression Total Score: 0 02/03/20 24 1:41 PM EDT documented as of this encounter Care Teams Library Clerical Assistant Relationship Specialty Start Date End Date Yasmeen Willams MD [address] [place] [address] PCP - General Family Medicine 12/09/21 documented as of this encounter
--- OUTSIDE RECORDS SUMMARY | 2024-12-25 15:10 | XMS_ITS | Encounter Summary ---
Author Organization [employer] Address [address] [place] [address] 7t [place] [address] Care Team Providers Care Meteorological Engineer Name Role Phone Yasmeen Willams MD Primary Care Provider [phone] Lennox Jennings MD Unavailable [phone] Reason for Visit * Reason Comments Med Refill Encounter Details Date Type Department Care Team ([facility] st Contact Info) Description 2024 Refill [facility] 230 [place] [address] Yasmeen Willams MD 230 [place] [address] Social History Tobacco Use Types Packs/Day Years [...] the past 12 months, has t he [employer], gas, oil or water [employer] threatened to shut off services in your [...] documented as of this encounter Care Teams Meteorological Engineer Relationship Specialty Start Date End Date Yasmeen Willams MD 230 [place] [address] PCP - General Family Medicine 12/09/21 Lennox Jennings MD [address] [place] [address] Cardiology 12/24/24 documented as of this encounter
--- OUTSIDE RECORDS SUMMARY | 2024-12-25 15:10 | XMS_ITS | Encounter Summary ---
Author Organization [employer] Address [address] [place] [address] 7t [place] [address] Care Team Providers Care Copy Supervisor Name Role Phone Yasmeen Willams MD Primary Care Provider [phone] Lennox Jennings MD Unavailable [phone] Reason for Visit * Reason Comments Med Refill Encounter Details Date Type Department Care Team ([facility] st Contact Info) Description 10/05/2024 Refill [facility] MEDICINE [address] [place] [address] Yasmeen Willams MD [address] [place] [address] Gastroesophageal reflux disease without esophagitis Social History [...] the past 12 months, has t he [employer], gas, oil or water [employer] threatened to shut off services in your [...] documented as of this encounter Care Teams Copy Supervisor Relationship Specialty Start Date End Date Yasmeen Willams MD [address] [place] [address] PCP - General Family Medicine 12/09/21 Lennox Jennings MD [address] [place] [address] Cardiology 12/24/24 documented as of this encounter
--- OUTSIDE RECORDS SUMMARY | 2024-12-25 15:10 | XMS_ITS | Encounter Summary ---
Author Organization [employer] Address [address] [place] [address] 7t [place] [address] Care Team Providers Care Bean Sprout Laborer Name Role Phone Yasmeen Willams MD Primary Care Provider [phone] Lennox Jennings MD Unavailable [phone] Reason for Visit * Reason Onset Date Comments EKG sent to cardiology 12/24/2024 Encounter Details Date Type Department Care Team ([facility] st Contact Info) Description 12/24/2024 Telephone [facility] 230 [place] [address] Stella Herman MD 230 [place] [address] EKG sent to cardiology Social History Tobacco Use Types Packs/Day Years [...] encounter Miscellaneous Notes * Telephone Encounter - Dimple Fowler MA - 12/24/2024 4:30 PM EDT Fax- Data Deliverables Manager sent EKG to Cardiology documented in this encounter Plan of Treatment Not on file documented as of this encounter Visit Diagnoses Not on filedocumented in this encounter Additional Health Concerns Assessment Noted Time PHQ-9 Depression Total Score: 0 02/03/20 24 1:41 PM EDT documented as of this encounter Care Teams Bean Sprout Laborer Relationship Specialty Start Date End Date Yasmeen Willams MD [address] [place] [address] PCP - General Family Medicine 12/09/21 Lennox Jennings MD [address] [place] [address] Cardiology 12/24/24 documented as of this encounter
--- OUTSIDE RECORDS SUMMARY | 2024-12-25 15:10 | XMS_ITS | Encounter Summary ---
Author Organization [employer] Address [address] [place] [address] 7t [place] [address] Care Team Providers Care Software Developer Mid Level Name Role Phone Yasmeen Willams MD Primary Care Provider [phone] Lennox Jennings MD Unavailable [phone] Reason for Visit * Reason Onset Date Comments Nurse Triage 12/23/2024 Encounter Details Date Type Department Care Team ([facility] st Contact Info) Description 12/23/2024 Telephone [facility] MEDICINE 230 [place] [address] Yasmeen Willams MD [address] [place], [place] [id number] Nurse Triage Social History Tobacco Use Types Packs/Day Years [...] the past 12 months, has t he [employer], gas, oil or water [employer] threatened to shut off services in your [...] encounter Miscellaneous Notes * Telephone Encounter - Velma Soares RN - 12/23/2024 3:58 PM EDT Triage call Pt reports several recent nose bleeds for the last 3 days. Pt reports 12/20/24 nose bleedlasted for 15-20 min. Pt reports last nose bleed was 12/21/24 which lasted only about 5 min. Home care reviewed regarding how to stop nose bleed. Pt has had some lingering headache and dizziness since 11/27/24 and reports drinking adequate liquids. Pt does have cardiology apt. In Jan. Pt last OV with PCP was 11/11/24. ASK apt with Dr. Montoya 12/24/24 @ 315pm. Pt agrees with disposition. Pt insurance isverified as active prior to booking. Protocol Used: Nosebleed (Adult) Protocol-Based Disposition: See in Office or Video Visit Today Override (Final) Disposition: See in Office or Video Visit Today or Tomorrow Override Reason: No appointments available Video visit not offered Positive Triage Question: * Patient wants to be seen * All higher-acuity triage questions were negative Care Advice Discussed: * Reassurance and Education - Nosebleed * Pinch the Nostrils to Stop a Nosebleed * Reasons To Call Back - Nosebleed lasts longer than 30 minutes with using direct pressure - Lightheadedness or weakness occurs - Nosebleeds become worse - You become worse * Telephone Encounter - Mohini Vargas - 12/23/2024 3:29 PM EDT Symptoms: Nosebleed, Dizziness, Headache, Lethargic (Tired) Outcome: Schedule an urgent appointment (within 4 hours) or talk to a nurse or provider soon Reason: Getting worse The caller accepted this outcome. Contact pt at [phone] documented in this encounter Plan of Treatment Not on file documented as of this encounter Visit Diagnoses Not on filedocumented in this encounter Additional Health Concerns Assessment Noted Time PHQ-9 Depression Total Score: 0 02/03/20 24 1:41 PM EDT documented as of this encounter Care Teams Software Developer Mid Level Relationship Specialty Start Date End Date Yasmeen Willams MD [address] [place] [address] PCP - General Family Medicine 12/09/21 Lennox Jennings MD [address] [place] [address] Cardiology 12/24/24 documented as of this encounter
--- OUTSIDE RECORDS SUMMARY | 2024-12-25 15:10 | XMS_ITS | Encounter Summary ---
Author Organization [employer] Address [address] [facility] 7t [place] [address] Care Team Providers Care Maintenance Craftsman Name Role Phone Yasmeen Willams MD Primary Care Provider [phone] Lennox Jennings MD Unavailable [phone] Encounter Details Date Type Department Care Team (Late st Contact Info) Description 09/16/2024 Orders Only [facility] MEDICINE [address] [place] [address] Yasmeen Willams MD [address] [place] [address] Social History Tobacco Use Types Packs/Day Years [...] the past 12 months, has t he [employer], gas, oil or water company threatened to [...] documented as of this encounter Care Teams Maintenance Craftsman Relationship Specialty Start Date End Date Yasmeen Willams MD [address] [place] [address] PCP - General Family Medicine 12/09/21 Lennox Jennings MD [address] [place] [address] Cardiology 12/24/24 documented as of this encounter
--- OUTSIDE RECORDS SUMMARY | 2024-12-25 15:10 | XMS_ITS | Encounter Summary ---
Author Organization [employer] Address [address] [place] [address] 7t [place] [address] Care Team Providers Care Director Inbound Sales Name Role Phone Yasmeen Willams MD Primary Care Provider [phone] Lennox Jennings MD Unavailable [phone] Encounter Details Date Type Department Care Team (Latest Contact Info) Description 12/25/2024 Results Follow-Up [facility] MEDICINE 230 [place] [address] Stella Herman MD 230 [place] [address] Comprehensive Metabolic Panel, CBC auto differential, TSH Social History Tobacco Use Types Packs/Day Years [...] the past 12 months, has t he [employer], gas, oil or water [employer] threatened to shut off services in your [...] as of this encounter Miscellaneous Notes * Result Encounter Note - Stella Felix MD - 12/25/2024 3:08 PM EDT Please can you help pt getting a f up apt w her PCP ideally in next 4 to 6 weeks to monitor for dizziness and mild hyponatremia Thanks * Result Encounter Note - Stella Felix MD - 12/25/2024 3:07 PM EDT I called pt and inform from lab results chem is showing mild hyponatremia NA 133, stable renal function and normal LFTs, anemia seems stable ,TSh wnl -advised pt to resume her iron every other day as rec by PCP -pt states she is very careful to not consume sodium in diet , she also takes amiodarone and lasix that can contribute to hyponatremia I advised pt to still be careful w sodium but to be slightly bit more liberal -requesting Red Team RN to help pt w follow up apt w PCP in next 4 to 6 weeks to monitor symptoms and monitor hyponatremia documented in this encounter Plan of Treatment Not on file documented as of this encounter Visit Diagnoses Not on filedocumented in this encounter Additional Health Concerns Assessment Noted Time PHQ-9 Depression Total Score: 0 02/03/20 24 1:41 PM EDT documented as of this encounter Care Teams Director Inbound Sales Relationship Specialty Start Date End Date Yasmeen Willams MD 230 [place] [address] PCP - General Family Medicine 12/09/21 Lennox Jennings MD [address] [place] [address] Cardiology 12/24/24 documented as of this encounter
== END 2024-12-25 12:48 | disposition home or self-care (01) ==
LOC: HO.LAB 12:47
PROVIDERS: PCP General Practice; Visit Provider Student in an Organized Health Care Education/Training Program
DX: R04.0 Epistaxis (principal); R42 Dizziness and giddiness
CPT/HCPCS: 36415; 80053; 84443; 85025

== ENCOUNTER → 2025-02-04 07:32 | Day surgery (SDC) | payer OTHER, SELFPAY ==
--- OUTSIDE RECORDS SUMMARY | 2025-01-12 06:53 | XMS_ITS | Encounter Summary ---
Author Organization [employer] Address [address] [facility] 7t [place] [address] Care Team Providers Care Protective Services Social Worker Name Role Phone Yasmeen Willams MD Primary Care Provider [phone] Lennox Jennings MD Unavailable [phone] Reason for Visit * Reason Comments Med Refill Encounter Details Date Type Department Care Team ([facility] st Contact Info) Description 03/16/2023 Refill [facility] MEDICINE [address] [place] [address] Yasmeen Willams MD [address] [place] [address] Social History Tobacco Use Types Packs/Day Years [...] Care Team (Late st Contact Info) Description 01/27/2025 3:30 PM EDT Office Visit [facility] MEDICINE [address] [place] [address] Yasmeen Willams MD [address] [place] [address] documented as of this encounter Visit Diagnoses Not on filedocumented in this encounter Care Teams Protective Services Social Worker Relationship Specialty Start Date End Date Yasmeen Willams MD [address] [place] [address] PCP - General Family Medicine 12/09/21 Lennox Jennings MD [address] [place] [address] Cardiology 12/24/24 documented as of this encounter
--- OUTSIDE RECORDS SUMMARY | 2025-01-12 06:53 | XMS_ITS | Encounter Summary ---
Demographics Address [address] [place] [address] Home Phone Preferred Language unv Marital Status Unknown Jain Affiliation Unknown Race Unknown Ethnic Group Unavailable Author Organization [facility] Address [address] [facility] [address] [place] [address] Phone Care Team Providers Care Linseed Oil Temperer Name Role Phone Unknown, Unknown Primary Care Provider Leroy franklin Encounter Details Date Type Department Care Team (Latest Contact Info) Description 12/08/2018 Ancillary Orders [facility] [address] [place] [address] [place] [address] Armando Pressley MD [address] [facility] [place] [address] [email or web address] Hypertrophic cardiomyopathy Social History Tobacco Use Types Packs/Day Years Used Date Smoking Tobacco: Never Assessed Comments Unknown Sex and Gender Information Value Date Recorded Sex Assigned at Not on file Legal Sex Female 12:08 PM EDT Gender Identity Not on file Sexual Orientation Not on file documented as of this encounter Plan of Treatment Not on file documented as of this encounter Results * Holter Monitor 48 Hours (12/08/2018 11:49 AM EDT) Anatomical Region Laterality Modality Heart Other Narrative 12/08/2018 12:18 PM EDT Holter monitor report Indication hypertrophic cardia myopathy. Findings: The underlying rhythm is a sinus rhythm with an average heart rate of 58 bpm, minimal heart rate 40 bpm, maximum heart rate 101 bpm. There were frequent PVCs occurring 9% of total beats. There was also frequent ventricular bigeminy. There were rare ventricular couplets. There were several short runs of what I believe is nonsustained ventricular tachycardia. Most of these were short only about 3 beats but there was one 6 beat run at a rate of 154 bpm. It has a fairly narrow complex but it looks similar to the PVCs. There were rare premature atrial contractions. Conclusion: Frequent PVCs occurring 9% of total beats with rare short runs of nonsustained ventricular tachycardia. The longest being 6 beats. The ventricular ectopy has a narrow QRS but has a different morphology from the [place] beat and I suspect it is ventricular in nature. Procedure Note Mejia Baumann MD - 12/08/2018 Holter monitor report Indication hypertrophic cardia myopathy. Findings: The underlying rhythm is a sinus rhythm with an average heart rate of 58bpm, minimal heart rate 40 bpm, maximum heart rate 101 bpm. There were frequent PVCs occurring 9% of total beats. There was alsofrequent ventricular bigeminy. There were rare ventricular couplets. There were several short runs of what I believe is nonsustainedventricular tachycardia. Most of these were short only about 3 beats butthere was one 6 beat run at a rate of 154 bpm. It has a fairly narrowcomplex but it looks similar to the PVCs. There were rare premature atrial contractions. Conclusion: Frequent PVCs occurring 9% of total beats with rare short runs ofnonsustained ventricular tachycardia. The longest being 6 beats. Theventricular ectopy has a narrow QRS but has a different morphology fromthe [place] beat and I suspect it is ventricular in nature. us Armando Pressley MD [facility] ORDERABLES F inal Result documented in this encounter Visit Diagnoses Diagnosis Hypertrophic cardiomyopathy Other primary cardiomyopathies Hypertrophic cardiomyopathy Other primary cardiomyopathies documented in this encounter Care Teams Linseed Oil Temperer Relationship Specialty Start Date End Date Unknown, Unknown, PCP - General 11/26/18 documented as of this encounter Additional Source Comments The information contained in this document represents components of the legal health record. It is not the complete legal health record.[facility]
--- OUTSIDE RECORDS SUMMARY | 2025-01-12 06:53 | XMS_ITS | Encounter Summary ---
Author Organization [employer] Address [address] [place] [address] 7t [place] [address] Care Team Providers Care Bilingual Account Manager Name Role Phone Yasmeen Willams MD Primary Care Provider [phone] Lennox Jennings MD Unavailable [phone] Reason for Visit * Reason Comments Med Refill Encounter Details Date Type Department Care Team ([facility] st Contact Info) Description 10/05/2024 Refill [facility] MEDICINE [address] [place] [address] Yasmeen Willams MD [address] [place] [address] Gastroesophageal reflux disease without esophagitis Social History [...] the past 12 months, has t he [employer], gas, oil or water [email or web address] threatened to shut off services in your [...] Description 01/27/2025 3:30 PM EDT Office Visit [facility] MEDICINE [address] [place] [address] Yasmeen Willams MD [address] [place] [address] documented as of this encounter Visit Diagnoses Diagnosis Gastroesophageal reflux disease without esophagitis Esophageal reflux documented in this encounter Additional Health Concerns Assessment Noted Time PHQ-9 Depression Total Score: 0 02/03/20 24 1:41 PM EDT documented as of this encounter Care Teams Bilingual Account Manager Relationship Specialty Start Date End Date Yasmeen Willams MD [address] [place] [address] PCP - General Family Medicine 12/09/21 Lennox Jennings MD [address] [place] [address] Cardiology 12/24/24 documented as of this encounter
--- OUTSIDE RECORDS SUMMARY | 2025-01-12 06:53 | XMS_ITS | Encounter Summary ---
Author Organization [employer] Address [address] [place] [address] 7t [place] [address] Care Team Providers Care Senior Electrical Controls Engineer Name Role Phone Yasmeen Willams MD Primary Care Provider [phone] Lennox Jennings MD Unavailable [phone] Reason for Visit * Reason Comments Med Refill Encounter Details Date Type Department Care Team ([facility] st Contact Info) Description 12/12/2023 Refill [facility] MEDICINE [address] [place] [address] Stella Maher MD [address] [place] [address] Gastroesophageal reflux disease without esophagitis Social History [...] Description 01/27/2025 3:30 PM EDT Office Visit [facility] MEDICINE [address] [place] [address] Yasmeen Willams MD [address] [place] [address] documented as of this encounter Visit Diagnoses Diagnosis Gastroesophageal reflux disease without esophagitis Esophageal reflux documented in this encounter Care Teams Senior Electrical Controls Engineer Relationship Specialty Start Date End Date Yasmeen Willams MD [address] [place] [address] PCP - General Family Medicine 12/09/21 Lennox Jennings MD [address] [place] [address] Cardiology 12/24/24 documented as of this encounter
--- OUTSIDE RECORDS SUMMARY | 2025-01-12 06:53 | XMS_ITS | Encounter Summary ---
Author Organization [employer] Address [address] [facility] 7t [place] [address] Care Team Providers Care Irrigation Manager Name Role Phone Yasmeen Willams MD Primary Care Provider [phone] Lennox Jennings MD Unavailable [phone] Encounter Details Date Type Department Care Team (Late st Contact Info) Description 09/16/2024 Orders Only [facility] MEDICINE [address] [place] [address] Yasmeen Willams MD [address] [place] [address] Social History Tobacco Use Types Packs/Day Years [...] the past 12 months, has t he [employer], gas, oil or water company threatened to [...] Description 01/27/2025 3:30 PM EDT Office Visit [facility] MEDICINE [address] [place] [address] Yasmeen Willams MD [address] [place] [address] documented as of this encounter Visit Diagnoses Not on filedocumented in this encounter Additional Health Concerns Assessment Noted Time PHQ-9 Depression Total Score: 0 02/03/20 24 1:41 PM EDT documented as of this encounter Care Teams Irrigation Manager Relationship Specialty Start Date End Date Yasmeen Willams MD [address] [place] [address] PCP - General Family Medicine 12/09/21 Lennox Jennings MD [address] [place] [address] Cardiology 12/24/24 documented as of this encounter
--- OUTSIDE RECORDS SUMMARY | 2025-01-12 06:53 | XMS_ITS | Clinical Summary ---
Author Organization [employer] Address [address] [facility] [address] [place] [address] Care Team Providers Care Artifacts Conservator Name Role Phone Yasmeen Willams MD Primary Care Provider [phone] Lennox Jennings MD Unavailable [phone] Allergies No known active allergies Medications amiodarone [...] BY MOUTH EVERY DAY 90 tablet 3 025 Active cholecalciferol (Vitamin D-3) 50 MCG (2000 UT) tabletIndications :Vitamin D deficiency Take 1 Units by mouth Once per day. 90 tablet 025 2025 Active famotidine (Pepcid) 20 MG tabletIndications :Gastroesophageal reflux disease without esophagitis Take 1 tablet by mouth Once per day. Active sucralfate (Carafate) 1 GM/10ML suspensionIndicat ions:Gastroesopha geal reflux disease without esophagitis Active metoprolol succinate XL (Toprol-XL) 50 MG 24 hr tabletIndications :Benign hypertension Take 1 tablet (50 mg) by mouth Once per day. Do not crush or chew. 90 tablet Active mirtazapine (Remeron) 30 MG tablet Take 1 tablet (30 mg) by mouth at bedtime. 30 tablet Active fluticasone furoate (Arnuity Ellipta) 100 MCG/ACT inhaler INHALE 1 PUFF BY MOUTH ONCE A DAY. RINSE MOUTH AFTER USE (BULK) 30 each Active loratadine (Claritin) 10 MG tablet TAKE 1 TABLET BY MOUTH EVERY DAY 30 tablet Active nystatin (Mycostatin) 662842 UNIT/GM powderIndications :Candidiasis of skin APPLY TOPICALLY TWICE A DAY. PUT POWDER ON AFTER SHOWER. NO BODY SPRAY! (BULK) 60 g Active omeprazole (PriLOSEC) [address] capsuleIndication s:Gastroesophagea l reflux disease without esophagitis Take 2 capsules (40 mg) by mouth before breakfast and before evening meal. Do not crush or chew. 120 capsule Active psyllium (Metamucil) 0.52 g capsuleIndication s:Other constipation Take 1 capsule (0.52 g) by mouth Once per day. To help bulk stool 90 capsule 3 Active ferrous gluconate (Fergon) 324 (38 Fe) MG tabletIndications :Iron deficiency anemia, unspecified iron deficiency anemia type TAKE 1 TABLET BY MOUTH EVERY SATURDAY, SATURDAY AND SATURDAY - TAKE WITH FULL GLASS OF WATER OR VITAMIN-C CONTAINING JUICE AND IDEALLY 1 HOUR BEFORE A MEAL OR 2 HOURS AFTER A MEAL 12 tablet 2 08/20/2 025 Active Additional Information Patient not taking.Reported on 12/24/2024 furosemide (Lasix) 20 MG tabletIndications :Benign hypertension TAKE 1 TABLET BY MOUTH TWICE DAILY (#28 VIAL) 60 tablet 3 025 Active hydrocortisone 2.5 % creamIndications: Actinic keratosis APPLY TO AREAS OF KERATOSIS (BULK) 60 g 2 025 Active rosuvastatin (Crestor) 10 MG tabletIndications :Other hyperlipidemia TAKE 1 TABLET BY MOUTH ONCE DAILY ^1R4 30 tablet 5 025 Active Ascorbic Acid (vitamin C) 500 MG tabletIndications :Other iron deficiency anemia TAKE ONE TABLET BY MOUTH EVERY DAY ^1R1 30 tablet 2 025 Active rosuvastatin (Crestor) 10 MG tabletIndications :Other hyperlipidemia Take 1 tablet (10 mg) by mouth Once per day. 90 tablet 3 024 2024 Discontinued furosemide (Lasix) 20 MG tabletIndications :Benign hypertension TAKE 1 TABLET BY MOUTH TWICE DAILY 60 tablet 3 025 2024 Discontinued hydrocortisone 2.5 % creamIndications: Actinic keratosis Apply to areas of keratosis 60 g 2 025 2024 Discontinued ascorbic acid (Vitamin C) 500 MG tabletIndications :Other iron deficiency anemia Take 1 tablet (500 mg) by mouth Once per day. 30 tablet 2 025 2024 Discontinued Active Problems Problem Noted Date Diagnosed Date Dizziness 12/26/2024 Assessment & Plan (12/27/2024 12:03 AM EDT): From today examination normal complete neuro exam ,regular pulse No hematomas no skin bruises noted , no active nasal bleeding -10/2024 hb 11.1<-- 9.2 WBC 3.7,platelet 177 -Orthostatic VS neg -EKG today 1st degree AV block ,sinus rhythm,RBBB HR 74 QTC 476 Was able to obtain previous EKG from 2021 QTC 469,NSR,LVH criteria there is no RBBB -TTE 02/2024 Hypertrophic cardiomyopathy status post septal ablation. There is moderate concentric LV hypertrophy with maximal wall thickness 14 mm. There is no LV outflow obstruction at baseline or with Valsalva. There is chrodal ELIANA without septal contact. estimated LVEF = 65%,Markedly dilated left atrium. Moderate mitral annular calcification with mild mitral stenosis (mean mitral gradient 4 mmHg at HR 60 bpm). Mild to moderate mitral regurgitation. Mild tricuspid regurgitation. -CBC,chem ,TSH ordered today -has cards apt 01/20/25 -pt to call tomorrow for earlier visit -alarm signs and symptoms discussed in length w pt -advised hydration and to resume her iron every other day -f w PCP in next 4 to 6 weeks Addendum 12/25/2024 I called his farm service consultant office # [phone] but was not able to reach because of time of the day, called again next morning and received a call back from farm service consultant -Dr Jennings who states received EKG done and reports there are no changes w EKGs they have recently including RBBB . States he is not really concern w cardiac etiology but he will have his staff to call pt for evaluation and further testing to r/o cardiac etiology of dizziness. Iron deficiency anemia 07/27/2024 Assessment & Plan [...] treatments Severe epistaxis 06/23/2023 Assessment & Plan (12/27/2024 12:01 AM EDT): 10/2024 hb 11.1<-- 9.2 WBC 3.7,platelet 177 -last saw forest aide in 08/2024 to f in 02/2025 Likely from AC use -advised pt if recurs nose bleed to apply pressure in septum ,ice use can help over nose -alarm signs and symptoms discussed of when needs to go to ED -referred today to ENT for chronic issue -pt already f w forest aide Assessment & Plan (06/23/2023 9:21 PM EDT): [...] appt Jan 01, 2023, recommend talking to farm service consultant then about travelling Atypical chest pain 10/11/2022 Overview (10/11/2022): DDX: sinus arrhythmia, myocardial infarction, malfunctioning ICD, aggravated GERD, MSK pain, anxiety Pertinent neg: Cardiac workup at ED on 09/25/22 was normal Osteopenia after menopause 03/17/2022 Paroxysmal atrial fibrillation (CMS/HCC) 022 Assessment & Plan (06/23/2023 9:25 PM EDT): On Metoprolol and Diltiazem for rate control On Eliquis 5mg BID for anticoagulation Assessment & Plan (05/31/2022 10:43 AM EST): On Metoprolol for rate control On Eliquis for anticoagulation ICD (implantable cardioverter-defibrillator) in place 11/09/2021 Assessment & Plan (05/31/2022 10:43 AM EST): Managed by cards in [facility], [facility] Monoclonal gammopathy of unknown significance [...] oral devices for SHORTY Hypertrophic obstructive cardiomyopathy ([facility] ) 07/30/2014 Assessment & Plan (11/13/2024 12:49 PM EDT): At dry weight currently BP < 130/80 Beta zheng and diuretics daily Follows with [facility] clinic every 3-4 months Assessment & Plan (10/01/2023 4:33 PM EDT): At dry weight currently BP < 130/80 Beta zheng and diuretics daily Follows with [facility] clinic every 3-4 months Assessment & Plan [...] ICD in place and regular followup at [facility] Run of alerts 04/05 for VF, which was actually AF with RVR, at that point cardiology increased Metoprolol to 75mg daily Cardiac rehab ongoing Assessment & Plan (07/05/2022 2:45 PM EDT): Continue Metoprolol 50mg daily, which she has been doing for past week, contact [facility] for followup BNP of 241, increase [...] Encounters Date Type Department Care Team Description 12/29/[address] [address] Yasmeen Willams MD Benign hypertension; Actinic keratosis; Other hyperlipidemia; Other iron deficiency anemia 12/25/2024 Results Follow-Up [address] [address] Stella Herman MD Comprehensive Metabolic Panel, CBC auto differential, TSH 12/24/2024 3:15 PM EDT Office Visit [address] [address] Stella Herman MD Epistaxis (Primary Dx); Dizziness; Severe epistaxis; Hypertrophic obstructive cardiomyopathy (CMS/HCC); ICD (implantable cardioverter-defibrilla tor) in place; Paroxysmal atrial fibrillation (CMS/HCC) 12/24/[address] [address] Stella Herman MD EKG sent to cardiology 12/24/2024 Travel 12/23/2024 Telephone [facility] [address] [place] [phone] Luzmaria Shipley [place] 12/23/[address] [address] Yasmeen Willams MD Nurse Triage 12/01/[address] [address] Yasmeen Willams MD Iron deficiency anemia, unspecified iron deficiency anemia type 11/11/2024 3:15 PM EDT Office Visit [address] [address] Yasmeen Willams MD Benign hypertension (Primary Dx); Low hemoglobin; Gastroesophageal reflux disease without esophagitis; Hypertrophic obstructive cardiomyopathy (CMS/HCC); Monoclonal gammopathy of unknown significance (MGUS); ICD (implantable cardioverter-defibrilla tor) in place; Other constipation; Tubulovillous adenoma; Other iron deficiency anemia; Actinic keratosis 11/11/2024 Travel 11/10/2024 Telephone [facility] [address] [place], [place] [phone] Yasmeen Willams MD Chart Prep 11/03/2024 Refill [facility] [address] [place], [place] [phone] Yasmeen Willams MD Candidiasis of skin; Other constipation 10/29/2024 Orders Only GENERIC EXTERNAL DATA DEPARTMENT Provider, Generic External Data 10/26/2024 Refill [facility] [address] [place] [address] Yasmeen Willams MD Gastroesophageal reflux disease without [...] 12/24/2024 3:44 PM EDT Plan of Treatment Upcoming Encounters Date Type Department Care Team (Late st Contact Info) Description 01/27/2025 3:30 PM EDT Office Visit [facility] [address] [place] [address] Yasmeen Willams MD [address] [place] [address] Health Maintenance Due Date Last Done Comments Zoster Vaccines (2 of 3) 06/28/2015 05/03/2015 RSV Patients and Patients Aged 60 years or older (1 - 1-dose 75+ series) 10/05/2018 DTaP/Tdap/Td Vaccines (2 - Td or Tdap) 11/04/2021 11/05/2011, 11/08/2005, 11/08/2005, Additional history exists COVID-19 Vaccine ( - season) 2024 02/03/2024, 04/04/2021, 06/24/2020, Additional history [...] Blood Count 4.7(L) 4.8 - 10.8 X10*3/uL [facility] Red Blood Count 3.49(L) 4.20 - 5.50 X10*6/uL [facility] Hemoglobin 10.1(L) 12.0 - 16.0 g/dl [facility] Hematocrit 30.5(L) 37.0 - 47.0 % [facility] Mean Corpuscular Volume 87.4 80.0 - 98.0 fL [facility] Mean Corpuscular Hemoglobin 28.9 27.0 - 33.0 pg [facility] Mean Corpuscular HGB Conc 33.1 31.0 - 35.0 g/dl [facility] Red Cell Distribution Width 13.8 11.0 - 16.0 % [facility] Platelet Count 216 160 - 400 X10*3/uL [facility] Mean Platelet Volume 11.7 9.4 - 12.3 fL [facility] Neutrophils Percent Auto 61.4 45 - 73 % [facility] Imm Gran Pct Auto 0.4 0.0 - 0.4 % [facility] Lymphocytes Percent Auto 22.0 20 - 40 % [facility] Monocytes Percent Auto 12.4(H) 2 - 11 % [facility] Eosinophils Percent Auto 3.4 0 - 4 % [facility] Basophils Percent Auto 0.4 0 - 2 % [facility] NRBC Pct Auto 0.0 0.0 - 0.2 /100WBC [facility] Neutrophils Absolute Auto 2.9 2.0 - 8.3 x10*3/uL [facility] Imm Gran Abs Auto 0.02 0.00 - 0.03 X10*3/uL [facility] Lymphocytes Absolute Auto 1.0(L) 1.2 - 4.9 X10*3/uL [facility] Monocytes Absolute Auto 0.6 0.1 - 1.2 X10*3/uL [facility] Eosinophils Absolute Auto 0.2 0.0 - 0.4 X10*3/uL [facility] Basophils Absolute Auto 0.0 0.0 - 0.2 X10*3/uL [facility] NRBC Abs Auto 0.000 0.0 - 0.012 X10*3/uL [facility] Blood Venous blood specimen / Unknown 12/25/2024 1:07 PM EDT 12/25/2024 1:12 PM EDT Stella Felix MD LAB BLOOD ORDERAB LES Final Result Performing Organization Address City/[facility]/ZIP Co de Phone Number [facility] [address] [place] [phone] * TSH (12/25/2024 1:07 PM EDT) Pathologist [facility] Thyroid Stimulating Hormone 2.15 0.32 - 4.0 uIU/mL [facility] Comment:TSH 3rd Generation ( [facility]) Blood Venous blood specimen / Unknown 12/25/2024 1:07 PM EDT 12/25/2024 1:12 PM EDT us Stella Felix MD LAB BLOOD ORDERAB LES Final Result Performing Organization Address City/[facility]/ZIP Co de Phone Number [facility] [address] [place] [phone] * (ABNORMAL) Comprehensive Metabolic Panel (12/25/2024 1:07 PM EDT) Sodium 133(L) 135 - 145 mmol/L [facility] Potassium 4.5 3.3 - 5.1 mmol/L [facility] Chloride 99 96 - 108 mmol/L [facility] Carbon Dioxide 28 22 - 29 mmol/L [facility] Anion Gap 11(L) 12 - 20 [facility] Urea Nitrogen (BUN) 19(H) 9 - 16 mg/dL [facility] Creatinine, Serum 1.14 0.5 - 1.4 mg/dL [facility] Estimated Glomerular Filt Rate 46 [facility] Comment:Chronic Kidney Disea se: Estimated GFR < 60 mL/min/1.36m4Oimmzy Kidney Disease: Estimated GFR < 15 mL/min/1.73m2 Glucose 84 60 - 115 mg/dL [facility] Calcium 9.3 8.4 - 10.2 mg/dL [facility] Bilirubin, Total 0.4 0.0 - 1.0 mg/dL [facility] Aspartate Amino Transferase 15 5 - 31 U/L [facility] Alanine Aminotransferase 15 0 - 31 U/L [facility] Total Protein 7.5 6.5 - 8.0 g/dL [facility] Albumin Level 4.0 3.5 - 5.0 g/dL [facility] Alkaline Phosphatase 80 39 - 117 U/L [facility] Blood Venous blood specimen / Unknown 12/25/2024 1:07 PM EDT 12/25/2024 1:12 PM EDT us Stella Felix MD LAB BLOOD ORDERAB LES Final Result [facility] [address] [place] [phone] * ECG 12 lead (12/24/2024 9:42 PM EDT) Narrative Stella Herman MD - 12/24/2024 9:42 PM EDT EKG 1st degree AV block ,sinus rhythm,RBBB HR 74 QTC 476 us Stella Felix MD ECG ORDERABLES F inal Result * (ABNORMAL) POCT Hemoglobin (11/11/2024 3:18 PM EDT) Hemoglobin 10.1(A) 12.0 - 15.0 QC Media Lot # [id number] Lot# Expiration Date [id number] Blood 11/11/2024 3:18 PM EDT Yasmeen Willams MD POINT OF CARE TEST ENTER/EDIT ORDERABLES Final Result * (ABNORMAL) CBC (10/29/2024 1:29 PM EDT) Pathologist [facility] White Blood Count 3.7(L) 4.8 - 10.8 X10*3/uL [facility] Red Blood Count 3.74(L) 4.20 - 5.50 X10*6/uL [facility] Hemoglobin 11.1(L) 12.0 - 16.0 g/dl [facility] Hematocrit 33.0(L) 37.0 - 47.0 % [facility] Mean Corpuscular Volume 88.2 80.0 - 98.0 fL [facility] Mean Corpuscular Hemoglobin 29.7 27.0 - 33.0 pg [facility] Mean Corpuscular HGB Conc 33.6 31.0 - 35.0 g/dl [facility] Red Cell Distribution Width 12.8 11.0 - 16.0 % [facility] Platelet Count 177 160 - 400 X10*3/uL [facility] Mean Platelet Volume 13.3(H) 9.4 - 12.3 fL [facility] NRBC Pct Auto 0.0 0.0 - 0.2 /100WBC [facility] NRBC Abs Auto 0.000 0.0 - 0.012 X10*3/uL [facility] 10/29/2024 1:29 PM EDT 10/29/2024 4:06 PM EDT us Generic External Data Provider LAB BLOOD ORDERAB LES Final Result [facility] [address] [place] [phone] * (ABNORMAL) Protein, Total and Protein??Electrophoresis (10/29/2024 1:29 PM EDT) Pathologist [facility] Prot Elec - Total Protein 7.9 6.1 - 8.1 g/dL [facility] Prot Elec - Albumin 4.2 3.8 - 4.8 g/dL [facility] Prot Elec - Alpha1 0.5(A) 0.2 - 0.3 g/dL [facility] Prot Elec - Alpha2 0.7 0.5 - 0.9 g/dL [facility] Prot Elec - Beta 1 0.4 0.4 - 0.6 g/dL [facility] Prot Elec - Beta 2 0.3 0.2 - 0.5 g/dL [facility] Prot Elec - Gamma 1.8(A) 0.8 - 1.7 g/dL [facility] PES - Abn Protein Band 1 0.8(A) NONE DETECTED g/dL [facility] PES-Abn Protein Band 2 TNP [facility] Prot Elec - Interpretation SEE NOTE [facility] Comment:Evaluation reveals a restricted band (M-spike)migrating in the gamma globulin region. If notalready requested, Immunofixation should beconsidered.THIS TEST WAS PERFORMED AT:[facility] [place] [phone] DUTTON MD Blood Venous blood specimen / Unknown 10/29/2024 1:29 PM EDT 10/29/2024 4:06 PM EDT us Yasmeen Willams MD LAB BLOOD ORDERABLES Final Res ult [facility] [address] [place] [phone] * (ABNORMAL) LIPID PANEL, STANDARD (12/20/2021 2:35 PM EDT) [facility] Chol/HDLC Ratio 3.6 <5.0 (calc) [facility] equation in the estimation of LDL-C. Akash SS et al. ROLDAN. 2013;310(19): 2577-9382 (http://education.2[place]ancouver.Tipser/faq/GKV371) Non-HDL Cholesterol 132(H) <130 mg/dL (calc) [facility] Comment: For patients with diabetes plus 1 major ASCVD risk factor, treating to a non-HDL-C goal of <100 mg/dL (LDL-C of <70 mg/dL) is considered a therapeutic option. Triglycerides 99 <150 mg/dL [facility] 12/20/2021 2:35 PM EDT us Radha Howard DISTRIBUTION SUPERINTENDENT LAB BLOOD ORDERABLES Final Res ult [facility] [address] from Last 3 Months or Most Recently Relevant to Health Maintenance Insurance [facility] LONG-TERM OPTIONS (HMO D-SNP) [place]IER [id number] * Guarantor: Tabitha Graham Account Type Relation to Patient Date of Phone Billing Address Personal/Family Self [place], [place] * Guarantor: Tabitha Graham Account Type Relation to Patient Date of Phone Billing Address Personal/Family Self [place], [place] * Guarantor: Tabitha Graham Account Type Relation to Patient Date of Phone Billing Address Personal/Family Self [place], [place] Care Teams Artifacts Conservator Relationship Specialty Start Date End Date Yasmeen Willams MD [address] [place] [address] PCP - General Family Medicine 12/09/21 Lennox Jennings MD [address] [place] [phone] Cardiology 12/24/24
--- OUTSIDE RECORDS SUMMARY | 2025-01-12 06:53 | XMS_ITS | Encounter Summary ---
Author Organization [employer] Address [address] [place] [address] [address] [place] [address] Care Team Providers Care Tallow Pumper Name Role Phone Yasmeen Willams MD Primary Care Provider [phone] Lennox Jennings MD Unavailable [phone] Reason for Visit * Reason Onset Date Comments Nurse Triage 12/23/2024 Encounter Details Date Type Department Care Team ([facility] st Contact Info) Description 12/23/2024 Telephone [facility] [address] [place] [address] Yasmeen Willams MD [address] [place], [place] [phone] Nurse Triage Social History Tobacco Use Types [...] the past 12 months, has t he [email or web address], gas, oil or water [employer] threatened to shut off services in your [...] caller accepted this outcome. Contact pt at [phone] documented in this encounter Plan of Treatment Upcoming Encounters Date Type Department Care Team (Late st Contact Info) Description 01/27/2025 3:30 PM EDT Office Visit [facility] [address] [place] [address] Yasmeen Willams MD [address] [place] [address] documented as of this encounter Visit Diagnoses Not on filedocumented in this encounter Additional Health Concerns Assessment Noted Time PHQ-9 Depression Total Score: 0 02/03/20 24 1:41 PM EDT documented as of this encounter Care Teams Tallow Pumper Relationship Specialty Start Date End Date Yasmeen Willams MD [address] [place] [address] PCP - General Family Medicine 12/09/21 Lennox Jennings MD [address] [place] [address] Cardiology 12/24/24 documented as of this encounter
--- OUTSIDE RECORDS SUMMARY | 2025-01-12 06:53 | XMS_ITS | Encounter Summary ---
Author Organization [employer] Address [address] [facility] [address]t [place] [address] Care Team Providers Care Metal Welder Name Role Phone Yasmeen Willams MD Primary Care Provider [phone] Lennox Jennings MD Unavailable [phone] Reason for Visit * Reason Comments Med Refill Encounter Details Date Type Department Care Team ([facility] st Contact Info) Description 02/14/2023 Refill [facility] [address] [place] [address] Yasmeen Willams MD [address] [place] [address] Other hyperlipidemia Social History Tobacco Use Types [...] Description 01/27/2025 3:30 PM EDT Office Visit [facility] [address] [place] [address] Yasmeen Willams MD [address] [place] [address] documented as of this encounter Visit Diagnoses Diagnosis Other hyperlipidemia documented in this encounter Care Teams Metal Welder Relationship Specialty Start Date End Date Yasmeen Willams MD [address] [place] [address] PCP - General Family Medicine 12/09/21 Lennox Jennings MD [address] [place] [address] Cardiology 12/24/24 documented as of this encounter
--- OUTSIDE RECORDS SUMMARY | 2025-01-12 06:53 | XMS_ITS | Encounter Summary ---
Author Organization [employer] Address [address] [place] [address] [address] [place] [address] Care Team Providers Care General Dentist/Owner Name Role Phone Yasmeen Willams MD Primary Care Provider [phone] Lennox Jennings MD Unavailable Reason for Visit * Reason Onset Date Comments Resend Script 06/21/2022 Encounter Details Date Type Department Care Team ([facility] st Contact Info) Description 06/21/2022 Telephone [facility] [address] [place] [address] Yasmeen Willams MD [address] [place] [address] Resend Script Social History Tobacco Use Types [...] received. Please contact pharmacy if any questions [phone] documented in this encounter Plan of Treatment Upcoming Encounters Date Type Department Care Team (Late st Contact Info) Description 01/27/2025 3:30 PM EDT Office Visit [facility] [address] [place] [address] Yasmeen Willams MD [address] [place] [phone] documented as of this encounter Visit Diagnoses Diagnosis Monoclonal gammopathy of unknown significance (MGUS) Other hyperlipidemia documented in this encounter Care Teams General Dentist/Owner Relationship Specialty Start Date End Date Yasmeen Willams MD [address] [place] [address] PCP - General Family Medicine 12/09/21 Lennox Jennings MD [address] [place] [address] Cardiology 12/24/24 documented as of this encounter
--- OUTSIDE RECORDS SUMMARY | 2025-01-12 06:53 | XMS_ITS | Encounter Summary ---
Author Organization [employer] Address [address] [place] [address] 7t [place] [address] Care Team Providers Care Precision Agronomist Name Role Phone Yasmeen Willams MD Primary Care Provider [phone] Lennox Jennings MD Unavailable [phone] Reason for Visit * Reason Comments Med Refill Encounter Details Date Type Department Care Team ([facility] Contact Info) Description 09/03/2022 Refill [facility] [address] [place] [phone] Yasmeen Willams MD [address] [place], [place] [phone] Primary insomnia Social History Tobacco Use Types [...] Care Team ([facility] Contact Info) Description 01/27/2025 3:30 PM EDT Office Visit [facility] [address] [place] [phone] Yasmeen Willams MD [address] [place] [address] documented as of this encounter Visit Diagnoses Diagnosis Primary insomnia Persistent disorder of initiating or maintaining sleep documented in this encounter Care Teams Precision Agronomist Relationship Specialty Start Date End Date Yasmeen Willams MD [address] [place] [address] PCP - General Family Medicine 12/09/21 Lennox Jennings MD [address] [place] [address] Cardiology 12/24/24 documented as of this encounter
--- OUTSIDE RECORDS SUMMARY | 2025-01-12 06:53 | XMS_ITS | Encounter Summary ---
Author Organization [employer] Address [address] [place] [address] 7t [place] [address] Care Team Providers Care Inventory Control Assistant Name Role Phone Yasmeen Willams MD Primary Care Provider [phone] Lennox Jennings MD Unavailable [phone] Reason for Visit * Reason Comments Med Refill Encounter Details Date Type Department Care Team ([facility] st Contact Info) Description 09/04/2024 Refill [facility] [address] [place] [address] Yasmeen Willams MD [address] [place] [address] Vitamin D deficiency Social History Tobacco Use [...] the past 12 months, has t he [employer], gas, oil or water [employer] threatened to shut off services in your [...] Description 01/27/2025 3:30 PM EDT Office Visit [facility] [address] [place] [address] Yasmeen Willams MD [address] [place] [address] documented as of this encounter Visit Diagnoses Diagnosis Vitamin D deficiency documented in this encounter Additional Health Concerns Assessment Noted Time PHQ-9 Depression Total Score: 0 02/03/20 24 1:41 PM EDT documented as of this encounter Care Teams Inventory Control Assistant Relationship Specialty Start Date End Date Yasmeen Willams MD [address] [place] [address] PCP - General Family Medicine 12/09/21 Lennox Jennings MD [address] [place] [address] Cardiology 12/24/24 documented as of this encounter
--- OUTSIDE RECORDS SUMMARY | 2025-01-12 06:53 | XMS_ITS | Clinical Summary ---
Author Organization [facility] Address [address] [address] Phone Care Team Providers Care Lead Pourer Name Role Phone Unknown, Unknown Primary Care Provider Leroy franklin Social History Tobacco Use Types Packs/Day Years Used Date Smoking Tobacco: Never Assessed Education Answer Date Recorded Are you interested in more education? Not on hussein e 08/10/2022 Are you concerned about learning? Not on file 08/10/2022 No 08/10/2022 No 08/10/2022 Digital Access Answer Date Recorded No 09/11/2022 No 09/11/2022 No 09/11/2022 Reliable internet access at home? Not on file 09/11/2022 Device with a working camera? Not on file Comments Unknown Sex and Gender Information Value Date Recorded Sex Assigned at Not on file Legal Sex Female 12:08 PM EDT Gender Identity Not on file Sexual Orientation Not on file Plan of Treatment Health Maintenance Due Date Last Done Comments Adult Td,Tdap Booster 1945 DEPRESSION SCREENING 1955 PNEUMOCOCCAL VACCINES (50+ years) (1 of 1 - PCV) 10/05/1993 OSTEOPOROSIS SCREENING INITI AL (ONE-TIME) 10/05/2008 ZOSTER VACCINES (2 of 3) 06/28/2015 05/03/2015 RSV VACCINE (1 - 1-dose 75+ series) 10/05/2018 INFLUENZA VACCINE (#1) 2024 9, 01/28/2017, 01/08/2015 COVID-19 VACCINE (3 - 2024-2 6 season) 2024 06/24/2020, 05/27/2020 HEPATITIS A VACCINES Aged Out No long er eligible based on patient's age to complete this topic HIB VACCINES Aged Out No longer eligi ble based on patient's age to complete this topic MENINGOCOCCAL VACCINES (ACWY) Aged Out No longer eligible based on patient's age to complete this topic MENINGOCOCCAL VACCINES (B) Aged Out N o longer eligible based on patient's age to complete this topic Medical Devices Not on file Insurance * Guarantor: Tabitha Graham Account Type Relation to Patient Date of Phone Billing Address Personal/Family Self 1945 [address] [place] [address] [facility] MEDICARE REPLACEMENT [place] [id number] * Guarantor: Tabitha Graham Account Type Relation to Patient Date of Phone Billing Address Personal/Family Self 1945 [address] [place], [place] [facility] MEDICARE REPLACEMENT [place] [id number] * Guarantor: Tabitha Graham Account Type Relation to Patient Date of Phone Billing Address Personal/Family Self 1945 [address] [place], [place] [facility] MEDICARE REPLACEMENT * Guarantor: Tabitha Graham Account Type Relation to Patient Date of Phone Billing Address Personal/Family Self [address] [place] [address] [facility] MEDICARE REPLACEMENT * Guarantor: Tabitha Graham Account Type Relation to Patient Date of Phone Billing Address Personal/Family Self [address] [place] [address] [facility] MEDICARE REPLACEMENT * Guarantor: Tabitha Graham Account Type Relation to Patient Date of Phone Billing Address Personal/Family Self [address] [place] [address] [facility] MEDICARE REPLACEMENT * Guarantor: Tabitha Graham Account Type Relation to Patient Date of Phone Billing Address Personal/Family Self [address] [place] [address] [facility] MEDICARE REPLACEMENT * Guarantor: Tabitha Graham Account Type Relation to Patient Date of Phone Billing Address Personal/Family Self [address] [place], [place] [id number] [place] [address] MEDICARE REPLACEMENT * Guarantor: Tabitha Graham Account Type Relation to Patient Date of Phone Billing Address Personal/Family Self [address] [place] [address] [facility] MEDICARE REPLACEMENT Care Teams Lead Pourer Relationship Specialty Start Date End Date Unknown, Unknown, PCP - General 11/26/18 Additional Source Comments The information contained in this document represents components of the legal health record. It is not the complete legal health record.[facility]
--- OUTSIDE RECORDS SUMMARY | 2025-01-12 06:53 | XMS_ITS | Encounter Summary ---
Author Organization [employer] Address [address] [place] [address] 7t [place] [address] Care Team Providers Care Timekeeping Supervisor Name Role Phone Yasmeen Willams MD Primary Care Provider [phone] Lennox Jennings MD Unavailable [phone] Reason for Visit * Reason Comments Med Refill Encounter Details Date Type Department Care Team ([facility] st Contact Info) Description 2024 Refill [facility] [address] [place] [address] Yasmeen Willams MD [address] [place] [address] Social History Tobacco Use Types Packs/Day Years [...] the past 12 months, has t he [employer], gas, oil or water [employer] threatened to shut off services in your [...] Description 01/27/2025 3:30 PM EDT Office Visit [facility] [address] [place] [address] Yasmeen Willams MD [address] [place], [place] [phone] documented as of this encounter Visit Diagnoses Not on filedocumented in this encounter Additional Health Concerns Assessment Noted Time PHQ-9 Depression Total Score: 0 02/03/20 24 1:41 PM EDT documented as of this encounter Care Teams Timekeeping Supervisor Relationship Specialty Start Date End Date Yasmeen Willams MD [address] [place] [address] PCP - General Family Medicine 12/09/21 Lennox Jennings MD [address] [place] [address] Cardiology 12/24/24 documented as of this encounter
--- OUTSIDE RECORDS SUMMARY | 2025-01-12 06:53 | XMS_ITS | Patient Health Record ---
Author Organization [facility] Address [address] [place] [phone] Care Team Providers Care Manager Intern Name Role Phone Abraham Amezcua Jr Reason For Referral No Information Plan Of Treatment No Information
--- OUTSIDE RECORDS SUMMARY | 2025-01-12 06:53 | XMS_ITS | Encounter Summary ---
Author Organization [facility] Address [address] [place] [address] Phone Care Team Providers Care Welder Setter Electron Beam Machine Name Role Phone Unknown, Unknown Primary Care Provider Leroy franklin Encounter Details Date Type Department Care Team (Late st Contact Info) Description 12/08/2018 Ancillary Orders [facility] [address] [facility] [address], [address] [place] [address] Armando Pressley MD [address] [place] [address] Social History Tobacco Use Types Packs/Day Years [...] on filedocumented in this encounter Care Teams Welder Setter Electron Beam Machine Relationship Specialty Start Date End Date Unknown, Unknown, PCP - General 11/26/18 documented as of this encounter Additional Source Comments The information contained in this document represents components of the legal health record. It is not the complete legal health record.[facility]
--- NOTE | 2025-02-02 08:43 | HO.ANESPROP2 ---
HPI - Anesthesia Eval Consult details Narrative: 79 yr old female for upper endoscopy s/p upper endoscopy, colonoscopy 06/2024 with TIVA. COPD/Asthma: on Arnuity Cardiomyopathy: per device check note 01/20/25 pt had TTE 02/18/24, EF 65%; next [facility] visit Apr 2025 Nonsustained V tach: s/p ICD, follows with device clinic at [facility] & Dr. Jennings, next [facility] visit 03/09 Spoke to pt 02/02/25, denies CP/SOB with light housework. SHORTY: could not tolerate CPAP, using O2 MGUS: follows with [facility] oncology, last visit 08/2024, blood counts stable; she does IV iron for anemia with good effect PMFSH Active Problems Active Problems: All Active Problems Tubulovillous adenoma of small intestine (Acute) Anemia (Acute) Varicose veins of left lower extremity with inflammation (Acute) MGUS (monoclonal gammopathy of unknown significance) (Acute) HOCM (hypertrophic obstructive cardiomyopathy) (Acute) Nocturnal hypoxemia (Acute) SHORTY (obstructive sleep apnea) (Acute) COPD (chronic obstructive pulmonary disease) (Acute Unknown) Asthma (Acute) Hypertension (Acute) Past Medical History Medical History (Updated 08/24/24 @ 15:48 by Zechariah Escobedo MD) Tubulovillous adenoma of small intestine Depression Nocturnal hypoxemia SHORTY (obstructive sleep apnea) COPD (chronic obstructive pulmonary disease) (Unknown) Cardiomyopathy Insomnia GERD (gastroesophageal reflux disease) Hypercholesteremia Asthma Hypertension Family History Family History Son No problems noted. Son No problems noted. Son No problems noted. Son No problems noted. Mother Diabetes Paternal Grandmother Ovarian cancer Family history of problems with anesthesia: No Surgical History Surgical History (Updated 08/24/24 @ 15:48 by Zechariah Escobedo MD) History of heart surgery History of implantable cardioverter-defibrillator (ICD) insertion History of Problems with Anesthesia: No Social History Social History Household Members: None Household Members Other:: lives alone Housing: Apartment Are you a primary transitional care nurse to a significant other at home: No Do you presently have visiting nurse or other home services: No Alcohol intake: never Patient Tobacco Use Status: Former Tobacco user Cigarette Packs Per Day: 0.5 Years Smoked: 5 service: No Current occupational status: retired Meds Allergies Allergy/AdvReac Type Severity Reaction Status Date / Time No Known Allergies (No Known Allergy Verified 08/24/24 15:07 Allergies*) Home Medications ?Medication ?Instructions ?Recorded ?Confirmed ?Last Taken ?Type albuterol sulfate 90 mcg/actuation 90 mcg inhalation Q4-6H PRN 02/18/20 02/02/25 07/08/24 08:00 History aerosol inhaler Shortness Of Breath Or Wheezing cholecalciferol (vitamin D3) 50 50 mcg PO DAILY 02/18/20 02/02/25 06/20/22 08:00 History mcg (2,000 unit) tablet melatonin 5 mg tablet 10 mg PO BEDTIME insomnia 04/19/20 02/02/25 Unknown History albuterol sulfate 2.5 mg/3 mL 2.5 mg inhalation Q6H PRN 05/02/21 02/02/25 Unknown History (0.083 %) solution for nebulization Shortness Of Breath folic acid 1 mg tablet 1 mg PO DAILY 05/02/21 02/02/25 06/20/22 08:00 History rosuvastatin 10 mg tablet 10 mg PO BEDTIME 05/02/21 02/02/25 06/20/22 08:00 History apixaban 5 mg tablet (Eliquis) 5 mg PO BID 11/13/21 02/02/25 07/05/24 History fluticasone propionate 110 1 puff inhalation BID Wheezing 01/07/23 02/02/25 Unknown History mcg/actuation HFA aerosol inhaler (Flovent HFA) metoprolol succinate 50 mg 50 mg PO DAILY 01/07/23 02/02/25 07/08/24 History tablet,extended release 24 hr mirtazapine 30 mg tablet 30 mg PO BEDTIME 06/24/24 02/02/25 Unknown History clotrimazole 1 % topical cream 1 appl topical Q12H PRN Rash 07/08/24 02/02/25 Unknown History cyanocobalamin (vitamin B-12) 1,000 mcg PO DAILY 07/08/24 02/02/25 Unknown History 1,000 mcg tablet fluticasone furoate 100 1 inh inhalation DAILY PRN 07/08/24 02/02/25 Unknown History mcg/actuation blister powder for Shortness Of Breath Or Wheezing inhalation (Arnuity Ellipta) furosemide 20 mg tablet 20 mg PO DAILY PRN Edema 07/08/24 02/02/25 Unknown History loratadine 10 mg tablet 10 mg PO DAILY 07/08/24 02/02/25 Unknown History nystatin 100,000 unit/gram topical 1 appl topical BID PRN Rash 07/08/24 02/02/25 Unknown History powder polyethylene glycol 3350 17 17 g PO QD-BID 07/08/24 02/02/25 Unknown History gram/dose oral powder bisacodyl 5 mg tablet,delayed 10 mg PO BEDTIME 07/22/24 02/02/25 Unknown History release Exam Pertinent Lab Results Pertinent Lab Results: Laboratory Tests 12/25/24 13:07 WBC 4.7 L RBC 3.49 L Hgb 10.1 L Hct 30.5 L Plt Count 216 Sodium 133 L Potassium 4.5 Chloride 99 BUN 19 H Creatinine 1.14 Narrative Narrative: Device check 01/20/25 VF 220 bpm Fast VT 150 bpm no shocks delivered Battery life: 10.5 yrs AP 48%; REVIVAL CLERK 4.0% EKG 06/2024 Vent. Rate : 77 BPM Atrial Rate : 77 BPM P-R Int : 234 ms QRS Dur : 144 ms QT Int : 446 ms P-R-T Axes : 32 -1 8 degrees QTcB Int : 504 ms Sinus rhythm with 1st degree A-V block Right bundle branch block Inferior infarct (cited on or before 27-Jun-2022) Abnormal ECG When compared with ECG of 25-Sep-2022 11:54, Sinus rhythm has replaced Electronic atrial pacemaker Assessment and Plan Final Anesthetic Review Family History of Problems with Anesthesia: No History of Problems with Anesthesia: No
[2025-02-02 12:35] VITALS: BMI 31.3
--- NOTE | 2025-02-04 07:42 | PC.NURSE ---
patient reported to author in waiting room that she accidentally took her eliquis yesterday. author spoke with dr. evans and he stated that patient needed to be off of it for 2 days as ordered and will need to be rescheduled. patient and ride okay with plan and will reschedule and follow eliquis guidelines.
== END ==
LOC: HO.SSS 07:33
PROVIDERS: PCP General Practice; Visit Provider Internal Medicine Gastroenterology
DX: K31.7 Polyp of stomach and duodenum (principal); Z53.8 Procedure and treatment not carried out for other reasons; Z79.01 Long term (current) use of anticoagulants

== ENCOUNTER 2025-03-05 | Outpatient (REF) | payer OTHER, SELFPAY ==
--- OUTSIDE RECORDS SUMMARY | 2025-03-05 15:33 | XMS_ITS | Encounter Summary ---
Author Organization [facility] Address [address] [place] [address] Phone Care Team Providers Care Barrel Scraper Name Role Phone Unknown, Unknown Primary Care Provider Leroy franklin Encounter Details Date Type Department Care Team (Late st Contact Info) Description 12/08/2018 Ancillary Orders [facility] [address] [facility] [address] [place] [address] Armando Pressley MD [address] [place] [address] Social History Tobacco Use Types Packs/Day Years [...] on filedocumented in this encounter Care Teams Barrel Scraper Relationship Specialty Start Date End Date Unknown, Unknown, PCP - General 11/26/18 documented as of this encounter Additional Source Comments The information contained in this document represents components of the legal health record. It is not the complete legal health record.[facility]
--- OUTSIDE RECORDS SUMMARY | 2025-03-05 15:33 | XMS_ITS | Clinical Summary ---
Author Organization [employer] Address [address] [place] [address] 7[address] [place] [address] Care Team Providers Care Chrome Cleaner Name Role Phone Yasmeen Willams MD Primary Care Provider [phone] Lennox Jennings MD Unavailable Allergies No known active allergies Medications amiodarone [...] per day. 90 tablet 3 024 Active cyanocobalamin (Vitamin B-12) 1000 MCG tabletIndications :Vitamin B 12 deficiency TAKE 1 TABLET BY MOUTH EVERY DAY 90 tablet 3 025 Active cholecalciferol (Vitamin D-3) 50 MCG (1999) tabletIndications :Vitamin D deficiency Take 1 Units by mouth Once per day. 90 tablet 3 025 2025 Active famotidine (Pepcid) 20 MG [...] at bedtime. 30 tablet 11 025 Active psyllium (Metamucil) 0.52 g capsuleIndication s:Other constipation Take 1 capsule (0.52 g) by mouth Once per day. To help bulk stool 90 capsule 3 025 Active furosemide (Lasix) 20 MG tabletIndications :Benign [...] DAY ^1R1 30 tablet 2 025 Active albuterol (2.5 MG/3ML) 0.083% nebulizer solutionIndicatio ns:Mild persistent asthma without complication INHALE 3ML VIA NEBULIZER EVERY 6 HOURS NEEDED (BULK) 90 mL 6 025 Active omeprazole (PriLOSEC) [address] capsuleIndication s:Gastroesophagea l reflux disease without esophagitis TAKE TWO CAPSULES BY MOUTH EVERY MORNING BEFORE BREAKFAST AND BEFORE EVENING MEAL. DO NOT CRUSH OR CHEW ^1R1,1R3 120 capsule 3 025 Active albuterol (Ventolin HFA) 108 (90 Base) MCG/ACT inhalerIndication s:Mild persistent asthma without complication INHALE 2 PUFFS BY MOUTH EVERY 4-6 HOURS NEEDED (BULK) 18 g 6 025 Active esomeprazole (NexIUM) [address] capsule Take 1 capsule by mouth Once per day. 025 Active triamcinolone (Kenalog) 0.1 % cream Apply topically if needed in the morning and at bedtime (pain and swelling). 30 g 2 Active cetirizine (ZyrTEC) 10 MG tablet Take 1 tablet (10 mg) by mouth Once per day. 90 tablet 3 025 2025 Active Arnuity Ellipta 100 MCG/ACT inhaler INHALE 1 PUFF BY MOUTH ONCE A DAY. RINSE MOUTH AFTER USE (BULK) 30 each 3 Active Clotrimazole Anti-Fungal 1 % cream APPLY TOPICALLY EVERY 12 HOURS (MORNING AND NIGHT) UNDER THE SKIN UNDER THE STOMACH (BULK) 45 g 3 Active nystatin (Mycostatin) 987873 UNIT/GM powderIndications :Candidiasis of skin APPLY TOPICALLY TWICE A DAY. PUT POWDER ON AFTER SHOWER. NO BODY SPRAY! (BULK) 60 g 3 Active fluticasone furoate (Arnuity Ellipta) 100 MCG/ACT inhaler INHALE 1 PUFF BY MOUTH ONCE A DAY. RINSE MOUTH AFTER USE (BULK) 30 each 3 025 2024 Discontinued loratadine (Claritin) 10 MG tablet TAKE 1 TABLET BY MOUTH EVERY DAY 30 tablet 3 025 2024 Discontinued(I neffective) nystatin (Mycostatin) 565327 UNIT/GM powderIndications :Candidiasis of skin APPLY TOPICALLY TWICE A DAY. PUT POWDER ON AFTER SHOWER. NO BODY SPRAY! (BULK) 60 g 3 025 2024 Discontinued ferrous gluconate (Fergon) 324 (38 Fe) MG tabletIndications :Iron deficiency anemia, unspecified iron deficiency anemia type TAKE 1 TABLET BY MOUTH EVERY SATURDAY, SATURDAY AND SATURDAY - TAKE WITH FULL GLASS OF WATER OR VITAMIN-C CONTAINING JUICE AND IDEALLY 1 HOUR BEFORE A MEAL OR 2 HOURS AFTER A MEAL 12 tablet 2 025 2024 Discontinued(T herapy completed) Active Problems Problem Noted Date Diagnosed Date Mild episode of depression 02/05/2025 Assessment & Plan (03/21/2023 11:32 AM EST): Glad that her therapist is someone that she likes to talk to Assessment & Plan (05/31/2022 10:43 AM EST): In remission currently Dizziness 12/26/2024 Assessment & Plan (12/27/2024 12:03 [...] 6 weeks Addendum 12/25/2024 I called his aluminum siding installer office # [phone] but was not able to reach because of time of the day, called again next morning and received a call back from aluminum siding installer -Dr Jennings who states received EKG done [...] 11.1<-- 9.2 WBC 3.7,platelet 177 -last saw shoe parts caser in 08/2024 to f in 02/2025 Likely from AC use -advised pt if recurs nose bleed to apply pressure in septum ,ice use can help over nose -alarm signs and symptoms discussed of when needs to go to ED -referred today to ENT for chronic issue -pt already f w shoe parts caser Assessment & Plan (06/23/2023 9:21 PM EDT): [...] appt Jan 01, 2023, recommend talking to aluminum siding installer then about travelling Atypical chest pain 10/11/2022 [...] EST): Managed by cards in [facility], [facility] Monoclonal gammopathy of unknown significance [...] oral devices for SHORTY Hypertrophic obstructive cardiomyopathy ([facility] ) 07/30/2014 Assessment & Plan (11/13/2024 12:49 PM EDT): At dry weight currently BP < 130/80 Beta zheng and diuretics daily Follows with [facility] clinic every 3-4 months Assessment & Plan (10/01/2023 4:33 PM EDT): At dry weight currently BP < 130/80 Beta zheng and diuretics daily Follows with [facility] clinic every 3-4 months Assessment & Plan [...] ICD in place and regular followup at [facility] Run of alerts 04/05 for VF, which was actually AF with RVR, at that point cardiology increased Metoprolol to 75mg daily Cardiac rehab ongoing Assessment & Plan (07/05/2022 2:45 PM EDT): Continue Metoprolol 50mg daily, which she has been doing for past week, contact [facility] for followup BNP of 241, [...] (05/31/2022 10:41 AM EST): At goal <140/90 Gastroesophageal reflux disease 04/15/1961 Assessment & Plan [...] Encounters Date Type Department Care Team Description 02/23/2025 Refill [facility] [address] [place] [address] Yasmeen Willams MD Iron deficiency anemia, unspecified iron deficiency anemia type; Candidiasis of skin; Other constipation 02/08/2025 3:30 PM EDT Office Visit [facility] [address] [place] [address] Yasmeen Willams MD Paroxysmal atrial fibrillation (CMS/HCC) (HCC) (Primary Dx); Encounter for immunization; ICD (implantable cardioverter-defibrill ator) in place; Hypertrophic obstructive cardiomyopathy (CMS/HCC) (HCC); Benign hypertension; Iron deficiency anemia secondary to inadequate dietary iron intake; Mild episode of depression; Primary insomnia; Obstructive sleep apnea syndrome 02/08/2025 Travel 02/05/2025 Telephone [facility] [address] [place] [address] Yasmeen Willams MD chart prep 01/26/2025 Refill [facility] [address] [place] [address] Yasmeen Willams MD Mild persistent asthma without complication; Gastroesophageal reflux disease without esophagitis 12/29/2024 Refill [facility] [address] [place] [address] Yasmeen Willams MD Benign hypertension; Actinic keratosis; Other hyperlipidemia; Other iron deficiency anemia 12/25/2024 Results Follow-Up [facility] [address] [place] [address] Stella Herman MD Comprehensive Metabolic Panel, CBC auto differential, TSH 12/24/2024 3:15 PM EDT Office Visit [address] [address] Stella Herman MD Epistaxis (Primary Dx); Dizziness; Severe epistaxis; Hypertrophic obstructive cardiomyopathy (CMS/HCC); ICD (implantable cardioverter-defibrill ator) in place; Paroxysmal atrial fibrillation (CMS/HCC) 12/24/[address] [address] Stella Herman MD EKG sent to cardiology 12/24/2024 Travel 12/23/2024 Telephone [facility] [address] [place] [address] [place]ia [place] 12/23/[address] [address] Yasmeen Willams MD Nurse Triage from Last 3 Months Immunizations Immunization Administration Dates Next Due Influenza High-dose Quadriva lent Preservative Free 03/05/2019,01/28/2017,01/08/2015 Influenza injectable quadriv alent preservative free 03/20/2023,05/30/2022,04/04/2021 Influenza, High Dose Seasona l, Preservative Free 02/08/2025,02/03/2024,03/05/2019,01/28,01/08/2015 Moderna Covid-19 Vaccine 12+ 04/04/2021,06/25/19 21,05/27/2020 Pfizer [...] pur e alcohol) Alcohol Answer Date Recorded How often do you have a drink containing alcohol ? 2 02/10/2025 How many drinks containing a lcohol do you have on a typical day when you are drinking? 0 02/10/2025 How often do you have six or more drinks on one occasion? 0 02/10/2025 Depression Answer Date Recorded Patient Health Questionnaire-9 Score 6 02/10/2025 Patient Health Questionnaire-9 Score 6 02/10/2025 Last PHQ-9: Questionnaire Data Not on file [...] Answer Date Recorded Patient Health Questionnaire-2 Score 3 02/10/2025 Internet Access Answer Date Recorded Internet Access [...] Sign Reading Time Taken Comments Blood Pressure 110/60 02/08/2025 4:02 PM EDT Pulse 84 02/08/2025 4:02 PM EDT Temperature 36.6 C (97.9 F) 02/08/2025 4:02 PM EDT Respiratory Rate 16 02/08/2025 4:02 PM EDT Oxygen Saturation 98% 02/08/2025 4:02 PM EDT Inhaled Oxygen Concentration - - Weight 77.1 kg (170 lb) 02/08/2025 4:02 PM EDT Height 160 cm (5' 3 ) 02/08/2025 4:02 PM EDT Body Mass Index 30.11 02/08/2025 4:02 PM EDT Plan of Treatment Health Maintenance Due Date Last Done Comments Zoster Vaccines (2 of 3) 06/28/2015 05/03/2015 RSV Patients and Patients Aged 60 years or older (1 - 1-dose 75+ series) 10/05/2018 DTaP/Tdap/Td Vaccines (2 - Td or Tdap) 11/04/2021 11/05/2011, 11/08/2005, 11/08/2005, Additional history exists COVID-19 Vaccine ( season) 2024 02/03/2024, 04/04/2021, 06/24/2020, Additional history exists SDOH Screening 07/15/2025 07/15/2024 Alcohol/Substance Use Screening 02/10/2026 02/10/2025 Depression Screening 02/10/2026 02/10/2025, 02/11/20 Tobacco Screening 02/10/2026 02/10/2025 Lipid Panel 12/20/2026 12/20/2021, 04/04/2021 Pneumococcal Vaccine: 50+ Years Completed 05/30/2022, 01/08/2015, 11/08/2005, Additional history exists Influenza Vaccine Completed 02/08/2025, , 03/20/2023, Additional history exists HIB Vaccines Aged Out [...] 12-LEAD Routine 12/24/2024 9:42 PM EDT Dizziness LIPID PANEL, STANDARD Routine 12/20/2021 2:35 PM EDT from Last 3 Months or Most Recently Relevant to Health Maintenance Results * (ABNORMAL) CBC auto differential (12/25/2024 1:07 PM EDT) White Blood Count 4.7(L) 4.8 - 10.8 X10*3/uL [facility] Red Blood Count 3.49(L) 4.20 - 5.50 X10*6/uL [facility] Hemoglobin 10.1(L) 12.0 - 16.0 g/dl [facility] Hematocrit 30.5(L) 37.0 - 47.0 % [facility] Mean Corpuscular Volume 87.4 80.0 - 98.0 fL [facility] Mean Corpuscular Hemoglobin 28.9 27.0 - 33.0 pg [facility] Mean Corpuscular HGB Conc 33.1 31.0 - 35.0 g/dl [facility] Red Cell Distribution Width 13.8 11.0 - 16.0 % [facility] Platelet Count 216 160 - 400 X10*3/uL [facility] Mean Platelet Volume 11.7 9.4 - 12.3 fL [facility] Neutrophils Percent Auto 61.4 45 - 73 % [facility] Imm Gran Pct Auto 0.4 0.0 - 0.4 % [facility] Lymphocytes Percent Auto 22.0 20 - 40 % [facility] Monocytes Percent Auto 12.4(H) 2 - 11 % [facility] Eosinophils Percent Auto 3.4 0 - 4 % [facility] Basophils Percent Auto 0.4 0 - 2 % [facility] NRBC Pct Auto 0.0 0.0 - 0.2 /100WBC [facility] Neutrophils Absolute Auto 2.9 2.0 - 8.3 x10*3/uL [facility] Imm Gran Abs Auto 0.02 0.00 - 0.03 X10*3/uL [facility] Lymphocytes Absolute Auto 1.0(L) 1.2 - 4.9 X10*3/uL [facility] Monocytes Absolute Auto 0.6 0.1 - 1.2 X10*3/uL [facility] Eosinophils Absolute Auto 0.2 0.0 - 0.4 X10*3/uL [facility] Basophils Absolute Auto 0.0 0.0 - 0.2 X10*3/uL [facility] NRBC Abs Auto 0.000 0.0 - 0.012 X10*3/uL [facility] Blood Venous blood specimen / Unknown 12/25/2024 1:07 PM EDT 12/25/2024 1:12 PM EDT us Stella Felix MD LAB BLOOD ORDERAB LES Final Result Performing Organization Address City/[facility]/ZIP Co de Phone Number [facility] [address] [place] [phone] * TSH (12/25/2024 1:07 PM EDT) Pathologist [facility] Thyroid Stimulating Hormone 2.15 0.32 - 4.0 uIU/mL [facility] Comment:TSH 3rd Generation ( [employer]) Blood Venous blood specimen / Unknown 12/25/2024 1:07 PM EDT 12/25/2024 1:12 PM EDT us Stella Felix MD LAB BLOOD ORDERAB LES Final Result Performing Organization Address [facility]/ZIP Co de Phone Number [facility] [address] [place] [phone] * (ABNORMAL) Comprehensive Metabolic Panel (12/25/2024 1:07 PM EDT) Sodium 133(L) 135 - 145 mmol/L [facility] Potassium 4.5 3.3 - 5.1 mmol/L [facility] Chloride 99 96 - 108 mmol/L [facility] Carbon Dioxide 28 22 - 29 mmol/L [facility] Anion Gap 11(L) 12 - 20 [facility] Urea Nitrogen (BUN) 19(H) 9 - 16 mg/dL [facility] Creatinine, Serum 1.14 0.5 - 1.4 mg/dL [facility] Estimated Glomerular Filt Rate 46 [facility] Comment:Chronic Kidney Disea se: Estimated GFR < 60 mL/min/1.94m3Uxzvup Kidney Disease: Estimated GFR < 15 mL/min/1.73m2 Glucose 84 60 - 115 mg/dL [facility] Calcium 9.3 8.4 - 10.2 mg/dL [facility] Bilirubin, Total 0.4 0.0 - 1.0 mg/dL [facility] Aspartate Amino Transferase 15 5 - 31 U/L [facility] Alanine Aminotransferase 15 0 - 31 U/L [facility] Total Protein 7.5 6.5 - 8.0 g/dL [facility] Albumin Level 4.0 3.5 - 5.0 g/dL [facility] Alkaline Phosphatase 80 39 - 117 U/L [facility] Blood Venous blood specimen / Unknown 12/25/2024 1:07 PM EDT 12/25/2024 1:12 PM EDT us Stella Felix MD LAB BLOOD ORDERAB LES Final Result [facility] [address] [place] [phone] * ECG 12 lead (12/24/2024 9:42 PM EDT) Narrative Stella Herman MD - 12/24/2024 9:42 PM EDT EKG 1st degree AV block ,sinus rhythm,RBBB HR 74 QTC 476 us Stella Felix MD ECG ORDERABLES F inal Result * (ABNORMAL) LIPID PANEL, STANDARD (12/20/2021 [...] factors. LDL-C is now calculated using the Akash-Bray calculation, which is a validated novel method providing better accuracy than the Friedewald equation in the estimation of LDL-C. Akash ALFREDO et al. ROLDAN. 2013;310(19): 7733-6424 (http://education.Daishu.com.Pets are family too/faq/NLB526) Non-HDL Cholesterol 132(H) <130 mg/dL (calc) [facility] Comment: For patients with diabetes plus 1 major ASCVD risk factor, treating to a non-HDL-C goal of <100 mg/dL (LDL-C of <70 mg/dL) is considered a therapeutic option. Triglycerides 99 <150 mg/dL [facility] 12/20/2021 2:35 PM EDT us Radha Howard [facility] LAB BLOOD ORDERABLES Final Res ult [facility] [address] from Last 3 Months or Most Recently Relevant to Health Maintenance Insurance [facility] HALF-WAY OPTIONS (O D-SNP) [place] [id number] Care Teams Chrome Cleaner Relationship Specialty Start Date End Date Yasmeen Willams MD [address] [place] [address] PCP - General Family Medicine 12/09/21 Lennox Jennings MD [address] [place] [phone] Cardiology 12/24/24
--- OUTSIDE RECORDS SUMMARY | 2025-03-05 15:33 | XMS_ITS | Encounter Summary ---
Author Organization [employer] Address [address] [place] [address] [address] [place] [address] Care Team Providers Care Intake Rn Name Role Phone Yasmeen Willams MD Primary Care Provider [phone] Lennox Jennings MD Unavailable [phone] Reason for Visit * Reason Comments Med Refill Encounter Details Date Type Department Care Team ([facility] st Contact Info) Description 09/03/2022 Refill [facility] [address] [place] [address] Yasmeen Willams MD [address] [place] [address] Primary insomnia Social History Tobacco Use Types [...] sleep documented in this encounter Care Teams Intake Rn Relationship Specialty Start Date End Date Yasmeen Willams MD [address] [place] [address] PCP - General Family Medicine 12/09/21 Lennox Jennings MD [address] [place] [address] Cardiology 12/24/24 documented as of this encounter
--- OUTSIDE RECORDS SUMMARY | 2025-03-05 15:33 | XMS_ITS | Clinical Summary ---
Author Organization [facility] Address [address] [address] Phone Care Team Providers Care Scanning Supervisor Name Role Phone Unknown, Unknown Primary Care [...] Personal/Family Self 1945 [address] [place] [address] [facility] MEDICARE REPLACEMENT [place] [id number] * Guarantor: Tabitha Graham Account Type Relation to Patient Date of Phone Billing Address Personal/Family Self 1945 [address] [place], [place] [facility] MEDICARE REPLACEMENT [place] [id number] * Guarantor: Tabitha Graham Account Type Relation to Patient Date of Phone Billing Address Personal/Family Self 1945 [address] [place], [place] [facility] MEDICARE REPLACEMENT * Guarantor: Tabitha Graham Account Type Relation to Patient Date of Phone Billing Address Personal/Family Self [address] [place] [address] [facility] MEDICARE REPLACEMENT * Guarantor: Tabitha Graham Account Type Relation to Patient Date of Phone Billing Address Personal/Family Self [address] [place] [address] [facility] MEDICARE REPLACEMENT * Guarantor: Tabitha Graham Account Type Relation to Patient Date of Phone Billing Address Personal/Family Self [address] [place] [address] [facility] MEDICARE REPLACEMENT * Guarantor: Tabitha Graham Account Type Relation to Patient Date of Phone Billing Address Personal/Family Self [address] [place] [address] [facility] MEDICARE REPLACEMENT * Guarantor: Tabitha Graham Account Type Relation to Patient Date of Phone Billing Address Personal/Family Self [address] [place], [place] [id number] [place] [address] MEDICARE REPLACEMENT * Guarantor: Tabitha Graham Account Type Relation to Patient Date of Phone Billing Address Personal/Family Self [address] [place] [address] [facility] MEDICARE REPLACEMENT Care Teams Scanning Supervisor Relationship Specialty Start Date End Date Unknown, Unknown, PCP - General 11/26/18 Additional Source Comments The information contained in this document represents components of the legal health record. It is not the complete legal health record.[facility]
--- OUTSIDE RECORDS SUMMARY | 2025-03-05 15:33 | XMS_ITS | Encounter Summary ---
Author Organization [employer] Address [address] [place] [address] [address] [place] [address] Care Team Providers Care Program Aide Name Role Phone Yasmeen Willams MD Primary Care Provider [phone] Lennox Jennings MD Unavailable [phone] Reason for Visit * Reason Onset Date Comments Resend Script 06/21/2022 Encounter Details Date Type Department Care Team ([facility] st Contact Info) Description 06/21/2022 Telephone [facility] [address] [place] [address] Yasmeen Willams MD [address] [place] [address] Resend Script Social History Tobacco Use Types [...] received. Please contact pharmacy if any questions [phone] documented in this encounter Plan of Treatment Not on file documented as of this encounter Visit Diagnoses Diagnosis Monoclonal gammopathy of unknown significance (MGUS) Other hyperlipidemia documented in this encounter Care Teams Program Aide Relationship Specialty Start Date End Date Yasmeen Willams MD [address] [place] [address] PCP - General Family Medicine 12/09/21 Lennox Jennings MD [address] [place] [address] Cardiology 12/24/24 documented as of this encounter
--- OUTSIDE RECORDS SUMMARY | 2025-03-05 15:33 | XMS_ITS | Encounter Summary ---
Author Organization [employer] Address [address] [place] [address] [address] [place] [address] Care Team Providers Care Auto Damage Insurance Appraiser Name Role Phone Yasmeen Willams MD Primary Care Provider [phone] Lennox Jennings MD Unavailable [phone] Reason for Visit * Reason Comments Med Refill Encounter Details Date Type Department Care Team ([facility] st Contact Info) Description 12/12/2023 Refill [facility] [address] [place] [address] Stella Maher MD [address] [place] [address] Gastroesophageal reflux disease without esophagitis Social History [...] reflux documented in this encounter Care Teams Auto Damage Insurance Appraiser Relationship Specialty Start Date End Date Yasmeen Willams MD [address] [place] [address] PCP - General Family Medicine 12/09/21 Lennox Jennings MD [address] [place] [phone] Cardiology 12/24/24 documented as of this encounter
--- OUTSIDE RECORDS SUMMARY | 2025-03-05 15:33 | XMS_ITS | Encounter Summary ---
Author Organization [employer] Address [address] [place] [address] Care Team Providers Care House Nurse Name Role Phone Yasmeen Willams MD Primary Care Provider Lennox Jennings MD Unavailable [phone] Reason for Visit * Reason Comments Med Refill Encounter Details Date Type Department Care Team ([facility] st Contact Info) Description 03/16/2023 Refill [facility] [address] [place] [address] Yasmeen Willams MD [address] [place] [address] Social History Tobacco Use Types Packs/Day Years [...] on filedocumented in this encounter Care Teams House Nurse Relationship Specialty Start Date End Date Yasmeen Willams MD [address] [place] [address] PCP - General Family Medicine 12/09/21 Lennox Jennings MD [address] [place] [phone] Cardiology 12/24/24 documented as of this encounter
--- OUTSIDE RECORDS SUMMARY | 2025-03-05 15:33 | XMS_ITS | Encounter Summary ---
Demographics Address [address] [place] [address] Home Phone Preferred Language unv Marital Status Unknown Jainism Affiliation Unknown Race Unknown Ethnic Group Unavailable Author Organization [facility] Address [address] [place] [address] Phone Care Team Providers Care Organ Grinder Name Role Phone Unknown, Unknown Primary Care Provider Leroy franklin Encounter Details Date Type Department Care Team (Latest Contact Info) Description 12/08/2018 Ancillary [facility] [address] [place] [address] [place] [address] Armando Pressley MD [address] [place] [address] [email or web address] Hypertrophic cardiomyopathy Social History Tobacco Use [...] but has a different morphology from the [place] beat and I suspect it is ventricular [...] QRS but has a different morphology from[place] beat and I suspect it is ventricular in nature. us Armando Pressley MD [facility] ORDERABLES F inal Result documented in this encounter Visit Diagnoses Diagnosis Hypertrophic cardiomyopathy Other primary cardiomyopathies Hypertrophic cardiomyopathy Other primary cardiomyopathies documented in this encounter Care Teams Organ Grinder Relationship Specialty Start Date End Date Unknown, Unknown, PCP - General 11/26/18 documented as of this encounter Additional Source Comments The information contained in this document represents components of the legal health record. It is not the complete legal health record.[facility]
--- OUTSIDE RECORDS SUMMARY | 2025-03-05 15:33 | XMS_ITS | Encounter Summary ---
Author Organization [employer] Address [address] [facility] 7t [place] [address] Care Team Providers Care Development Eng Name Role Phone Yasmeen Willams MD Primary Care Provider [phone] Lennox Jennings MD Unavailable [phone] Reason for Visit * Reason Comments Med Refill Encounter Details Date Type Department Care Team ([facility] st Contact Info) Description 02/14/2023 Refill [facility] MEDICINE [address] [place] [address] Yasmeen Willams MD [address] [place] [address] Other hyperlipidemia Social History Tobacco Use Types [...] hyperlipidemia documented in this encounter Care Teams Development Eng Relationship Specialty Start Date End Date Yasmeen Willams MD [address] [place] [address] PCP - General Family Medicine 12/09/21 Lennox Jennings MD [address] [place] [address] Cardiology 12/24/24 documented as of this encounter
--- OUTSIDE RECORDS SUMMARY | 2025-03-05 15:34 | XMS_ITS | Encounter Summary ---
Author Organization [employer] Address [address] [facility] 7t [place] [address] Care Team Providers Care Implementation Services Analyst Name Role Phone Yasmeen Willams MD Primary Care Provider [phone] Lennox Jennings MD Unavailable [phone] Encounter Details Date Type Department Care Team (Late st Contact Info) Description 09/16/2024 Orders Only [facility] MEDICINE [address] [place] [address] Yasmeen Willams MD [address] [place] [address] Social History Tobacco Use Types Packs/Day Years [...] the past 12 months, has t he [employer], gas, oil or water company threatened to [...] documented as of this encounter Care Teams Implementation Services Analyst Relationship Specialty Start Date End Date Yasmeen Willams MD [address] [place] [address] PCP - General Family Medicine 12/09/21 Lennox Jennings MD [address] [place] [address] Cardiology 12/24/24 documented as of this encounter
--- OUTSIDE RECORDS SUMMARY | 2025-03-05 15:34 | XMS_ITS | Encounter Summary ---
Author Organization [employer] Address [address] [place] [address] 7t [place] [address] Care Team Providers Care Outsole Tacker Name Role Phone Yasmeen Willams MD Primary Care Provider [phone] Lennox Jennings MD Unavailable [phone] Reason for Visit * Reason Comments Med Refill Encounter Details Date Type Department Care Team ([facility] st Contact Info) Description 09/04/2024 Refill [facility] MEDICINE [address] [place] [address] Yasmeen Willams MD [address] [place] [address] Vitamin D deficiency Social History Tobacco Use [...] the past 12 months, has t he [employer], gas, oil or water [employer] threatened to shut off services in your [...] documented as of this encounter Care Teams Outsole Tacker Relationship Specialty Start Date End Date Yasmeen Willams MD [address] [place] [address] PCP - General Family Medicine 12/09/21 Lennox Jennings MD [address] [place] [address] Cardiology 12/24/24 documented as of this encounter
--- OUTSIDE RECORDS SUMMARY | 2025-03-05 15:34 | XMS_ITS | Patient Health Record ---
Author Organization [facility] [facility] Address [address] [place] [address] Care Team Providers Care Morphologist Name Role Phone Abraham Amezcua Jr Reason For Referral No Information Plan Of Treatment No Information
--- OUTSIDE RECORDS SUMMARY | 2025-03-05 15:34 | XMS_ITS | Data Portability ---
Author Organization [employer] Address [address] [place] [address] Care Team Providers Care Blind Hanger Name Role Phone HIM CCA OTHER Assessment Encounter Date Assessment Date Assessment LastModified by Organization Details LastModified Time 09/25/2022 09/25/2022 I provided real -time medical direction via phone for this encounter, and was available for additional phone based assistance as needed. I have reviewed and agree with the Assessment and Plan as documented by the Palliative Care Specialist. Patient given the opportunity to ask questions. [email or web address] Not available 09/25/2022 14:59:32 04/01/2023 04/01/2023 I provided real -time medical direction via phone for this encounter, and was available for additional phone based assistance as needed. I have reviewed and agree with the Assessment and Plan as documented by the Palliative Care Specialist. Patient given the opportunity to ask [...] days and a Z-Joe were sent to [facility] which was a pharmacy of her choice. [...] Assessment and Plan as documented by the Palliative Care Specialist. Patient given the opportunity to ask questions. Our service contacted for an assessment of: Possible conjunctivitis As per above, patient states she has had a clear drainage from right eye only over the course of the past week. Also complaining of allergic symptoms. Per director of coding on the scene, Vital signs are stable patient is afebrile. Please see uploaded pictures. There is no evidence of erythema of the sclera and no discharge is present. Impression: Likely allergies Plan: start [id number] either Claritin or Zyrtec. Already has an medicaid business analyst who will see her over the next [...] particularly fever chills lightheadedness altered mental status [email or web address] [id number] Not available 09/14/2024 14:33:22 Plan of Treatment Reminders Order Date Submit Date Provider Last Modified By Organization Details Last Modified Time Details Appointments None recorded. Lab None recorded. Referral None recorded. Procedures None recorded. Surgeries None recorded. Imaging electrocard iogram 2022 023 [email or web address] 0 [facility], [address] [place] [address], [id number] 3 15:06:51 Medication Orders prednisone 20 mg tablet 2022 023 [id number], [address] [place], [place], [id number], 3 18:39:46 azithromyci n 250 mg tablet [address] [facility][id number], [address] [place], [place], [id number], 3 18:39:46 Mucinex 600 mg tablet, extended release [address] [facility] #[id number], [address] [place], [place], [id number], 3 18:42:07 nitroglycer in 0.4 mg sublingual tablet 2022 023 [email or web address] 0 Not available 15:06:51 Patient TargetsNo targets recorded. Patient Instructions Encounter Date Encounter Id Patient Instructions Last Modified By Organization Details Last Modified Time 09/25/2022 [id number] IV lock, initiate* [email or web address] Not available 09/25/2022 15:06:51 Reason for Referral None Reported. Results Created Date Observation Date Name Description Value Unit Range Abnormal Flag Note LastModifiedBy Organization Detail LastModifiedTime 09/26/19 23 09/25/2022 elect rocar diogr am No observ ation record ed. [email or web address] [address], [phone] 09/25/2022 15:06:49 Result Notes None recorded. Medical [...] Recorded Respiratory rate Heart rate Oxygen saturation Body temperature Systolic And Diastolic Provider Name and Address Organization Details Last Updated DateTime 5 16 /min 62 /min 99 % 98.2 [degF] 146/82 mm[Hg] Not Available [employer] 5 14:05:54 Date Recorded Body temperature Oxygen saturation Heart rate Respiratory rate Body weight Systolic And Diastolic Provider Name and Address Organization Details Last Updated DateTime 3 97.9 [degF] 98 % 72 /min 16 /min 57015.5 6 g 136/75 mm[Hg] Not Available [employer] 3 11:07:08 Date Recorded Oxygen saturation Respiratory rate Body height Body temperature Heart rate Body weight Systolic And Diastolic Provider Name and Address Organization Details Last Updated DateTime 3 97 % 16 /min 157.48 cm 98.7 [degF] 75 /min 02600.6 g 144/84 mm[Hg] Not Available [employer] 3 18:37:54 Social History None recorded. Functional Status None recorded. Mental Status None recorded. Family History Nothing Reported. Medical History No medical history recorded. Gynecological HistoryNo gynecological history recorded. Obstetrics History GPAL:G 0 P 0 0 0 0 Past Encounters Encounter ID Performer Location Encounter Start Date Encounter Closed Date Diagnosis/Indication Diagnosis SNOMED-CT Code Diagnosis ICD10 Code Diagnosis IMO Codes Diagnosis Note [id number] Paola Weaver MD Main [facility] [address] [place] [id number] 09/25/2022 11:06:51 09/26/2022 10:31:30 Chest pain 53821335 R07.9 GIven patient's significan t cardiac PMH- [...] to give another-re port called [place] [facility] [id number] Verónica Childs MD Main [facility] [address] [place] [id number] 04/01/2023 18:37:41 04/02/2023 10:22:53 Acute exacerbation of chronic obstructive pulmonary disease 964545260 J44.1 [id number] Verónica Childs MD Main - [facility] [address] [place] [id number] 09/14/2024 14:02:38 09/14/2024 17:33:55 Allergic conjunctivitis of right eye 8938610597 23066 H10.11 [id number] Health Concerns Section Related Observation LastModified by Organization Detai ls LastModified Time None Recorded Concern Status LastModified by Organization Details LastModified Time None Recorded Advance Directives Directive None Recorded Payers Insurance Date Sequence Insurance Name Policy Number Policy Chu Covered Member ID Chu Member ID Guarantor Name 09/14/2024 1 [facility] - DOS ON OR AFTER 2022 - DUAL ELIGIBLE - SKILLED NURSING OPTIONS AND ONE CARE (MEDICARE REPLACEMENT/ADV ANTAGE - HMO) Tabitha Graham [id number] Tabitha Graham Notes Date Note Type Note Provider Name and Address Organization Details Recorded Time 09/25/2022 text/html ROS as noted in the HPI CRC Nursing Assessment: Reason For Request: sob [...] procedure , per member she had an [place] . Member was also found to have CHF And on diuretics', also on [employer] RED FLAGS REVIEWED OF WHEN TO CALL 911 .................... .................... .................... .................... .................... .................... .................... . Palliative Care Specialist Note From Daniel Alexandre: Pt reports intermittent SOB CALI and CP which she describes as midline burning up from her epigastric region for 6 days. Of note, pt has hx of CAD , HTN, HLD, MN, A-fib, AICD and is currently enrolled in cardiac rehab. Pt presents alert, no distress. VSS. Afebrile. Neuro exam and gait normal. Lungs CTA. ABD is soft, non tender, non distended. No CVAT. No LLE. ECG: sinus with RBBB, several inverted T waves and prolonged QTI. [facility] contacted and advised the pt be seen in the ED and requested IV access and nitro. [facility] requests to hold ASA administration . IV access established and 0. 4 mg SL nitro administered with no change in pt condition or BP. Pt transported to [facility] via [facility] ambulance. .................... .................... .................... .................... .................... .................... .................... . Disposition: Fulfilled SEGMD: above- has hx cardiomyopathy/ COPD/CHF /on eliquis for AF-CP/epigastric pain constant/ worse with breathing and exertion-no f/c/sweats- has some nausea- no vomiting- denied melena or BRBPR Paola Weaver MD [address] [place] [address],[address], [place], [address], [facility] [employer] 09/25/2022 17:10:10 04/01/2023 text/html HPI: PMH: Cardiomyopathy, [...] since then. Pt unable to come into [facility]. Agrees to [employer] referral. .................... .................... .................... .................... .................... .................... [...] .................... .................... .................... .................... .................... .................... . Palliative Care Specialist Note From Daniel Alexandre: Pt reports [...] URI. I recommend azithromycin, prednisone and mucinex. [facility] contacted and pt treated with azithromycin 500 mg PO, prednisone 40 mg PO. Pt instructed to continue her albuterol nebs q4-6h, f/u with PCP tomorrow and to seek emergent medical care for new or worsening sx, which are reviewed with her. .................... .................... .................... .................... .................... .................... .................... . Disposition: Allison Verónica Childs MD [address] [facility],[address], [place], [address], [employer] 04/01/2023 18:42:18 09/14/2024 text/html CRC Nurse Triage Notes (Mana Allen): Reason For Request: Patient has Eye problems, something leaking and dripping out. Denies: Sudden onset of dental pain, unable to manage own secretions Nosebleed lasting longer than one hour; unable to stop bleeding Throat swelling/difficult swallowing Chief Complaints: Eye Complaint PMH: COPD/Asthma, Congestive Heart Failure PMH Reviewed at 09/14/2024: Allergies Reviewed at 09/14/2024: Comments: 78 y.o female complains of Eye [...] .................... .................... .................... .................... .................... .................... . Palliative Care Specialist Note From Efren Hewitt: Dispatched to [...] was assessed with full set of vitals. [facility] consulted. Pt advised to pick up worker OTC allergy medication (Zyrtec or [place]) and to follow up with her eye doctor. Red flags discussed. ALL times are approx. .................... .................... .................... .................... .................... .................... .................... . [facility] Consulted: Verónica Childs .................... .................... .................... .................... .................... .................... .................... . Disposition: Fulfilled Verónica Childs MD [address] [facility],[address] [facility], [place], [address], NICHOLE BENJAMIN QUINONES 09/14/2024 15:28:11 OBGyn Episode No OBEpisode recorded.
--- OUTSIDE RECORDS SUMMARY | 2025-03-05 15:34 | XMS_ITS | Encounter Summary ---
Author Organization [employer] Address [address] [place] [address] 7t [place] [address] Care Team Providers Care Transplant Coordinator Name Role Phone Yasmeen Willams MD Primary Care Provider [phone] Lennox Jennings MD Unavailable [phone] Reason for Visit * Reason Comments Med Refill Encounter Details Date Type Department Care Team ([facility] st Contact Info) Description 10/05/2024 Refill [facility] MEDICINE [address] [place] [address] Yasmeen Willams MD [address] [place] [address] Gastroesophageal reflux disease without esophagitis Social History [...] the past 12 months, has t he [employer], gas, oil or water [employer] threatened to shut off services in your [...] documented as of this encounter Care Teams Transplant Coordinator Relationship Specialty Start Date End Date Yasmeen Willams MD [address] [place] [address] PCP - General Family Medicine 12/09/21 Lennox Jennings MD [address] [place] [address] Cardiology 12/24/24 documented as of this encounter
--- OUTSIDE RECORDS SUMMARY | 2025-03-05 15:34 | XMS_ITS | Encounter Summary ---
Author Organization [employer] Address [address] [place] [address] 7t [place] [address] Care Team Providers Care Sample Washer Name Role Phone Yasmeen Willams MD Primary Care Provider [phone] Lennox Jennings MD Unavailable [phone] Reason for Visit * Reason Comments Med Refill Encounter Details Date Type Department Care Team ([facility] st Contact Info) Description 2024 Refill [facility] MEDICINE [address] [place] [address] Yasmeen Willams MD [address] [place] [address] Social History Tobacco Use Types Packs/Day Years [...] the past 12 months, has t he [employer], gas, oil or water [employer] threatened to shut off services in your [...] documented as of this encounter Care Teams Sample Washer Relationship Specialty Start Date End Date Yasmeen Willams MD [address] [place] [address] PCP - General Family Medicine 12/09/21 Lennox Jennings MD [address] [place] [address] Cardiology 12/24/24 documented as of this encounter
--- OUTSIDE RECORDS SUMMARY | 2025-03-05 15:34 | XMS_ITS | Encounter Summary ---
Author Organization [employer] Address [address] [place] [address] 7t [place] [address] Care Team Providers Care Mainspring Reverse Winder Name Role Phone Yasmeen Willams MD Primary Care Provider [phone] Lennox Jennings MD Unavailable [phone] Reason for Visit * Reason Onset Date Comments Nurse Triage 12/23/2024 Encounter Details Date Type Department Care Team ([facility] st Contact Info) Description 12/23/2024 Telephone [facility] MEDICINE [address] [place] [address] Yasmeen Willams MD [address] [place], [place] [id number] Nurse Triage Social History Tobacco Use Types [...] the past 12 months, has t he [employer], gas, oil or water [employer] threatened to shut off services in your [...] caller accepted this outcome. Contact pt at [phone] documented in this encounter Plan of Treatment Not on file documented as of this encounter Visit Diagnoses Not on filedocumented in this encounter Additional Health Concerns Assessment Noted Time PHQ-9 Depression Total Score: 0 02/03/20 24 1:41 PM EDT documented as of this encounter Care Teams Mainspring Reverse Winder Relationship Specialty Start Date End Date Yasmeen Willams MD [address] [place] [address] PCP - General Family Medicine 12/09/21 Lennox Jennings MD [address] [place] [address] Cardiology 12/24/24 documented as of this encounter
[2025-03-05 17:47] LABS: Anion Gap 8 (12-20); Blood Urea Nitrogen 18 mg/dL (9-16); Calcium 9.2 mg/dL (8.4-10.2); Carbon Dioxide 29 mmol/L (22-29); Chloride 99 mmol/L (96-108); Estimated Glomerular Filt Rate 47; Potassium 4.3 mmol/L (3.3-5.1); Sodium 132 mmol/L (135-145)
--- OUTSIDE RECORDS SUMMARY | 2025-03-09 16:12 | XMS_ITS | Encounter Summary ---
Author Organization [employer] Address [address] [place] [address] 7t [place] [address] Care Team Providers Care Marine Equipment Engineer Name Role Phone Yasmeen Willams MD Primary Care Provider [phone] Lennox Jennings MD Unavailable [phone] Reason for Visit * Reason Comments Med Refill Encounter Details Date Type Department Care Team ([facility] st Contact Info) Description 09/03/2022 Refill [facility] MEDICINE [address] [place] [address] Yasmeen Willams MD [address] [place] [address] Primary insomnia Social History Tobacco Use Types [...] sleep documented in this encounter Care Teams Marine Equipment Engineer Relationship Specialty Start Date End Date Yasmeen Willams MD [address] [place] [address] PCP - General Family Medicine 12/09/21 Lennox Jennings MD [address] [place] [address] Cardiology 12/24/24 documented as of this encounter
--- OUTSIDE RECORDS SUMMARY | 2025-03-09 16:12 | XMS_ITS | Encounter Summary ---
Demographics Address [address] [place] [address] Home Phone Preferred Language unv Marital Status Unknown Advent Affiliation Unknown Race Unknown Ethnic Group Unavailable Author Organization [facility] Address [address] [facility] [address] [place] [address] Phone Care Team Providers Care Mortgage Originator Name Role Phone Unknown, Unknown Primary Care Provider Leroy franklin Encounter Details Date Type Department Care Team (Latest Contact Info) Description 12/08/2018 Ancillary Orders [facility] [address] [place] [address] [place] [address] Armando Pressley MD [address] [facility] [place] [address] [email or web address] Hypertrophic cardiomyopathy Social History Tobacco Use [...] but has a different morphology from the [place] and I suspect it is ventricular [...] QRS but has a different morphology fromthe [place] beat and I suspect it is ventricular in nature. us Armando Pressley MD [facility] ORDERABLES F inal Result documented in this encounter Visit Diagnoses Diagnosis Hypertrophic cardiomyopathy Other primary cardiomyopathies Hypertrophic cardiomyopathy Other primary cardiomyopathies documented in this encounter Care Teams Mortgage Originator Relationship Specialty Start Date End Date Unknown, Unknown, PCP - General 11/26/18 documented as of this encounter Additional Source Comments The information contained in this document represents components of the legal health record. It is not the complete legal health record.[facility]
--- OUTSIDE RECORDS SUMMARY | 2025-03-09 16:12 | XMS_ITS | Clinical Summary ---
Author Organization [facility] Address [address] [address] Phone Care Team Providers Care Reliability Technicians Name Role Phone Unknown, Unknown Primary Care [...] Personal/Family Self 1945 [address] [place] [address] [facility] MEDICARE REPLACEMENT [place] [id number] * Guarantor: Tabitha Graham Account Type Relation to Patient Date of Phone Billing Address Personal/Family Self 1945 [address] [place], [place] [facility] MEDICARE REPLACEMENT [place] [id number] * Guarantor: Tabitha Graham Account Type Relation to Patient Date of Phone Billing Address Personal/Family Self 1945 [address] [place], [place] [facility] MEDICARE REPLACEMENT * Guarantor: Tabitha Graham Account Type Relation to Patient Date of Phone Billing Address Personal/Family Self [address] [place] [address] [facility] MEDICARE REPLACEMENT * Guarantor: Tabitha Graham Account Type Relation to Patient Date of Phone Billing Address Personal/Family Self [address] [place] [address] [facility] MEDICARE REPLACEMENT * Guarantor: Tabitha Graham Account Type Relation to Patient Date of Phone Billing Address Personal/Family Self [address] [place] [address] [facility] MEDICARE REPLACEMENT * Guarantor: Tabitha Graham Account Type Relation to Patient Date of Phone Billing Address Personal/Family Self [address] [place] [address] [facility] MEDICARE REPLACEMENT * Guarantor: Tabitha Graham Account Type Relation to Patient Date of Phone Billing Address Personal/Family Self [address] [place], [place] [id number] [place] [address] MEDICARE REPLACEMENT * Guarantor: Tabitha Graham Account Type Relation to Patient Date of Phone Billing Address Personal/Family Self [address] [place] [address] [facility] MEDICARE REPLACEMENT Care Teams Reliability Technicians Relationship Specialty Start Date End Date Unknown, Unknown, PCP - General 11/26/18 Additional Source Comments The information contained in this document represents components of the legal health record. It is not the complete legal health record.[facility]
--- OUTSIDE RECORDS SUMMARY | 2025-03-09 16:12 | XMS_ITS | Encounter Summary ---
Author Organization [employer] Address [address] [place] [address] 7t [place] [address] Care Team Providers Care Supervisor Graphite Name Role Phone Yasmeen Willams MD Primary Care Provider [phone] Lennox Jennings MD Unavailable [phone] Reason for Visit * Reason Comments Med Refill Encounter Details Date Type Department Care Team ([facility] st Contact Info) Description 2024 Refill [facility] MEDICINE [address] [place] [address] Yasmeen Willams MD [address] [place] [address] Social History Tobacco Use Types Packs/Day Years [...] the past 12 months, has t he [employer], gas, oil or water [employer] threatened to shut off services in your [...] documented as of this encounter Care Teams Supervisor Graphite Relationship Specialty Start Date End Date Yasmeen Wilalms MD [address] [place] [address] PCP - General Family Medicine 12/09/21 Lennox Jennings MD [address] [place] [address] Cardiology 12/24/24 documented as of this encounter
--- OUTSIDE RECORDS SUMMARY | 2025-03-09 16:12 | XMS_ITS | Encounter Summary ---
Author Organization [employer] Address [address] [place] [address] 7t [place] [address] Care Team Providers Care Drivematic Machine Operator Name Role Phone Yasmeen Willams MD Primary Care Provider [phone] Lennox Jennings MD Unavailable [phone] Reason for Visit * Reason Onset Date Comments Nurse Triage 12/23/2024 Encounter Details Date Type Department Care Team ([facility] st Contact Info) Description 12/23/2024 Telephone [facility] [address] [place] [address] Yasmeen Willams MD 230 [place], [place] [phone] Nurse Triage Social History Tobacco Use Types [...] the past 12 months, has t he [employer], gas, oil or water [employer] threatened to shut off services in your [...] caller accepted this outcome. Contact pt at [phone] documented in this encounter Plan of Treatment Not on file documented as of this encounter Visit Diagnoses Not on filedocumented in this encounter Additional Health Concerns Assessment Noted Time PHQ-9 Depression Total Score: 0 02/03/20 24 1:41 PM EDT documented as of this encounter Care Teams Drivematic Machine Operator Relationship Specialty Start Date End Date Yasmeen Willams MD 230 [place] [address] PCP - General Family Medicine 12/09/21 Lennox Jennings MD [address] [place] [address] Cardiology 12/24/24 documented as of this encounter
--- OUTSIDE RECORDS SUMMARY | 2025-03-09 16:12 | XMS_ITS | Encounter Summary ---
Author Organization [employer] Address [address] [place] [address] 7t [place] [address] Care Team Providers Care Chronometer Tester Name Role Phone Yasmeen Willams MD Primary Care Provider [phone] Lennox Jennings MD Unavailable [phone] Reason for Visit * Reason Comments Med Refill Encounter Details Date Type Department Care Team ([facility] st Contact Info) Description 12/12/2023 Refill [facility] MED[facility]INE [address] [place] [address] Stella Maher MD 230 [place] [address] Gastroesophageal reflux disease without esophagitis Social History [...] reflux documented in this encounter Care Teams Chronometer Tester Relationship Specialty Start Date End Date Yasmeen Willams MD 230 [place] [address] PCP - General Family Medicine 12/09/21 Lennox Jennings MD [address] [place] [address] Cardiology 12/24/24 documented as of this encounter
--- OUTSIDE RECORDS SUMMARY | 2025-03-09 16:12 | XMS_ITS | Patient Health Record ---
Author Organization [facility] [facility] Address [address] [place] [phone] Care Team Providers Care Spragger Name Role Phone Abraham Amezcua Jr Reason For Referral No Information Plan Of Treatment No Information
--- OUTSIDE RECORDS SUMMARY | 2025-03-09 16:12 | XMS_ITS | Encounter Summary ---
Author Organization [employer] Address [address] [place] [address] 7t [place] [address] Care Team Providers Care Corporate Banking Officer Name Role Phone Yasmeen Willams MD Primary Care Provider [phone] Lennox Jennings MD Unavailable [phone] Reason for Visit * Reason Comments Med Refill Encounter Details Date Type Department Care Team ([facility] st Contact Info) Description 10/05/2024 Refill [facility] [address] [place] [address] Yasmeen Willams MD [address] [place] [address] Gastroesophageal reflux disease without esophagitis Social History [...] the past 12 months, has t he [employer], gas, oil or water [employer] threatened to shut off services in your [...] documented as of this encounter Care Teams Corporate Banking Officer Relationship Specialty Start Date End Date Yasmeen Willams MD [address] [place] [address] PCP - General Family Medicine 12/09/21 Lennox Jennings MD [address] [place] [address] Cardiology 12/24/24 documented as of this encounter
--- OUTSIDE RECORDS SUMMARY | 2025-03-09 16:12 | XMS_ITS | Encounter Summary ---
Author Organization [employer] Address [address] [facility] 7t [place] [address] Care Team Providers Care Glaze Grinder Name Role Phone Yasmeen Willams MD Primary Care Provider [phone] Lennox Jennings MD Unavailable [phone] Reason for Visit * Reason Comments Med Refill Encounter Details Date Type Department Care Team ([facility] st Contact Info) Description 02/14/2023 Refill [facility] MED[facility]INE 230 [place] [address] Yasmeen Willams MD [address] [place] [address] Other hyperlipidemia Social History Tobacco Use Types [...] hyperlipidemia documented in this encounter Care Teams Glaze Grinder Relationship Specialty Start Date End Date Yasmeen Willams MD 230 [place] [address] PCP - General Family Medicine 12/09/21 Lennox Jennings MD [address] [place] [address] Cardiology 12/24/24 documented as of this encounter
--- OUTSIDE RECORDS SUMMARY | 2025-03-09 16:12 | XMS_ITS | Encounter Summary ---
Author Organization [employer] Address [address] [facility] 7t [place] [address] Care Team Providers Care Research Instrumentation Technician Name Role Phone Yasmeen Willams MD Primary Care Provider [phone] Lennox Jennings MD Unavailable [phone] Encounter Details Date Type Department Care Team (Late st Contact Info) Description 09/16/2024 Orders Only [facility] MEDICINE 230 [place] [address] Yasmeen Willams MD 230 [place] [address] Social History Tobacco Use Types Packs/Day Years [...] the past 12 months, has t he [employer], gas, oil or water company threatened to [...] documented as of this encounter Care Teams Research Instrumentation Technician Relationship Specialty Start Date End Date Yasmeen Willams MD [address] [place] [address] PCP - General Family Medicine 12/09/21 Lennox Jennings MD [address] [place] [address] Cardiology 12/24/24 documented as of this encounter
--- OUTSIDE RECORDS SUMMARY | 2025-03-09 16:12 | XMS_ITS | Encounter Summary ---
Author Organization [facility] Address [address] [place] [address] Phone Care Team Providers Care Secondary School Teacher Name Role Phone Unknown, Unknown Primary Care Provider Leroy franklin Encounter Details Date Type Department Care Team (Late st Contact Info) Description 12/08/2018 Ancillary Orders [facility] [address] [facility] [address], [address] [place] [address] Armando Pressley MD [address] [place] [address] Social History Tobacco Use Types Packs/Day Years [...] on filedocumented in this encounter Care Teams Secondary School Teacher Relationship Specialty Start Date End Date Unknown, Unknown, PCP - General 11/26/18 documented as of this encounter Additional Source Comments The information contained in this document represents components of the legal health record. It is not the complete legal health record.[facility]
--- OUTSIDE RECORDS SUMMARY | 2025-03-09 16:12 | XMS_ITS | Encounter Summary ---
Author Organization [employer] Address [address] [place] [address] 7t [place] [address] Care Team Providers Care Chief Physical Therapist Name Role Phone Yasmeen Willams MD Primary Care Provider [phone] Lennox Jennings MD Unavailable [phone] Reason for Visit * Reason Comments Med Refill Encounter Details Date Type Department Care Team ([facility] st Contact Info) Description 09/04/2024 Refill [facility] MEDICINE 230 [place] [address] Yasmeen Willams MD [address] [place] [address] Vitamin D deficiency Social History Tobacco Use [...] the past 12 months, has t he [employer], gas, oil or water [employer] threatened to shut off services in your [...] documented as of this encounter Care Teams Chief Physical Therapist Relationship Specialty Start Date End Date Yasmeen Willams MD [address] [place] [address] PCP - General Family Medicine 12/09/21 Lennox Jennings MD [address] [place] [address] Cardiology 12/24/24 documented as of this encounter
--- OUTSIDE RECORDS SUMMARY | 2025-03-09 16:12 | XMS_ITS | Clinical Summary ---
Author Organization [employer] Address [address] [place] [address] 7t [place] [address] Care Team Providers Care Solid Waste Collection Worker Name Role Phone Yasmeen Willams MD Primary Care Provider [phone] Lennox Jennings MD Unavailable [phone] Allergies No known active allergies Medications amiodarone [...] (BULK) 45 g 3 Active nystatin (Mycostatin) 181831 UNIT/GM powderIndications :Candidiasis of skin APPLY TOPICALLY [...] 3 025 2024 Discontinued(I neffective) nystatin (Mycostatin) 798323 UNIT/GM powderIndications :Candidiasis of skin APPLY TOPICALLY [...] 6 weeks Addendum 12/25/2024 I called his biofuels product manager office # [phone] but was not able to reach because of time of the day, called again next morning and received a call back from biofuels product manager -Dr Jennings who states received EKG done [...] 11.1<-- 9.2 WBC 3.7,platelet 177 -last saw embroidery assistant in 08/2024 to f in 02/2025 Likely from AC use -advised pt if recurs nose bleed to apply pressure in septum ,ice use can help over nose -alarm signs and symptoms discussed of when needs to go to ED -referred today to ENT for chronic issue -pt already f w embroidery assistant Assessment & Plan (06/23/2023 9:21 PM EDT): [...] appt Jan 01, 2023, recommend talking to biofuels product manager then about travelling Atypical chest pain 10/11/2022 [...] EST): Managed by cards in [facility] Patel, [facility] Monoclonal gammopathy of unknown significance (M MERCEDES) [...] oral devices for SHORTY Hypertrophic obstructive cardiomyopathy ([facility] ) 07/30/2014 Assessment & Plan (11/13/2024 12:49 PM EDT): At dry weight currently BP < 130/80 Beta zheng and diuretics daily Follows with [facility] clinic every 3-4 months Assessment & Plan (10/01/2023 4:33 PM EDT): At dry weight currently BP < 130/80 Beta zheng and diuretics daily Follows with [facility] clinic every 3-4 months Assessment & [...] ICD in place and regular followup at [facility] Run of alerts 04/05 for VF, which was actually AF with RVR, at that point cardiology increased Metoprolol to 75mg daily Cardiac rehab ongoing Assessment & Plan (07/05/2022 2:45 PM EDT): Continue Metoprolol 50mg daily, which she has been doing for past week, contact [facility] for followup BNP of 241, increase Lasix [...] Type Department Care Team Description 02/23/2025 Refill [facility] [address] [place] [address] Yasmeen Willams MD Iron deficiency anemia, unspecified iron deficiency anemia type; Candidiasis of skin; Other constipation 02/08/2025 3:30 PM EDT Office Visit [facility] [address] [place] [address] Yasmeen Willams MD Paroxysmal atrial fibrillation (CMS/HCC) (HCC) (Primary Dx); Encounter for immunization; ICD (implantable cardioverter-defibrill ator) in place; Hypertrophic obstructive cardiomyopathy (CMS/HCC) (HCC); Benign hypertension; Iron deficiency anemia secondary to inadequate dietary iron intake; Mild episode of depression; Primary insomnia; Obstructive sleep apnea syndrome 02/08/2025 Travel 02/05/2025 Telephone [facility] MEDICINE [address] [place] [address] Yasmeen Willams MD chart prep 01/26/2025 Refill [facility] [address] [place] [address] Yasmeen Willams MD Mild persistent asthma without complication; Gastroesophageal reflux disease without esophagitis 12/29/2024 Refill [facility] [address] [place] [address] Yasmeen Willams MD Benign hypertension; Actinic keratosis; Other hyperlipidemia; Other iron deficiency anemia 12/25/2024 Results Follow-Up [facility] [address] [place] [address] Stella Herman MD Comprehensive Metabolic Panel, CBC auto differential, TSH 12/24/2024 3:15 PM EDT Office Visit [address] [address] Stella Herman MD Epistaxis (Primary Dx); Dizziness; Severe epistaxis; Hypertrophic obstructive cardiomyopathy (CMS/HCC); ICD (implantable cardioverter-defibrill ator) in place; Paroxysmal atrial fibrillation (CMS/HCC) 12/24/[address] [address] Stella Herman MD EKG sent to cardiology 12/24/2024 Travel 12/23/2024 Telephone [facility] [address] [place] [address] Luzmaria [place] 12/23/[address] [address] Yasmeen Willams MD Nurse Triage from Last [...] Blood Count 4.7(L) 4.8 - 10.8 X10*3/uL [facility] Red Blood Count 3.49(L) 4.20 - 5.50 X10*6/uL [facility] Hemoglobin 10.1(L) 12.0 - 16.0 g/dl [facility] Hematocrit 30.5(L) 37.0 - 47.0 % [facility] Mean Corpuscular Volume 87.4 80.0 - 98.0 fL [facility] Mean Corpuscular Hemoglobin 28.9 27.0 - 33.0 pg [facility] Mean Corpuscular HGB Conc 33.1 31.0 - 35.0 g/dl [facility] Red Cell Distribution Width 13.8 11.0 - 16.0 % [facility] Platelet Count 216 160 - 400 X10*3/uL [facility] Mean Platelet Volume 11.7 9.4 - 12.3 fL [facility] Neutrophils Percent Auto 61.4 45 - 73 % [facility] Imm Gran Pct Auto 0.4 0.0 - 0.4 % [facility] Lymphocytes Percent Auto 22.0 20 - 40 % [facility] Monocytes Percent Auto 12.4(H) 2 - 11 % [facility] Eosinophils Percent Auto 3.4 0 - 4 % [facility] Basophils Percent Auto 0.4 0 - 2 % [facility] NRBC Pct Auto 0.0 0.0 - 0.2 /100WBC [facility] Neutrophils Absolute Auto 2.9 2.0 - 8.3 x10*3/uL [facility] Imm Gran Abs Auto 0.02 0.00 - 0.03 X10*3/uL [facility] Lymphocytes Absolute Auto 1.0(L) 1.2 - 4.9 X10*3/uL [facility] Monocytes Absolute Auto 0.6 0.1 - 1.2 X10*3/uL [facility] Eosinophils Absolute Auto 0.2 0.0 - 0.4 X10*3/uL [facility] Basophils Absolute Auto 0.0 0.0 - 0.2 X10*3/uL [facility] NRBC Abs Auto 0.000 0.0 - 0.012 X10*3/uL [facility] Blood Venous blood specimen / Unknown 12/25/2024 1:07 PM EDT 12/25/2024 1:12 PM EDT us Stella Felix MD LAB BLOOD ORDERAB LES Final Result Performing Organization Address City/[facility]/ZIP Co de Phone Number [facility] [address] [place] [phone] * TSH (12/25/2024 1:07 PM EDT) Pathologist [facility] Thyroid Stimulating Hormone 2.15 0.32 - 4.0 uIU/mL [facility] Comment:TSH 3rd Generation ( Dragon Ports) Blood Venous blood specimen / Unknown 12/25/2024 1:07 PM EDT 12/25/2024 1:12 PM EDT us Stella Felix MD LAB BLOOD ORDERAB LES Final Result Performing Organization Address [facility]/ZIP Co de Phone Number [facility] [address] [place] [phone] * (ABNORMAL) Comprehensive Metabolic Panel (12/25/2024 1:07 PM EDT) Sodium 133(L) 135 - 145 mmol/L [facility] Potassium 4.5 3.3 - 5.1 mmol/L [facility] Chloride 99 96 - 108 mmol/L [facility] Carbon Dioxide 28 22 - 29 mmol/L [facility] Anion Gap 11(L) 12 - 20 [facility] Urea Nitrogen (BUN) 19(H) 9 - 16 mg/dL [facility] Creatinine, Serum 1.14 0.5 - 1.4 mg/dL [facility] Estimated Glomerular Filt Rate 46 [facility] Comment:Chronic Kidney Disea se: Estimated GFR < 60 mL/min/1.19p8Cdbcge Kidney Disease: Estimated GFR < 15 mL/min/1.73m2 Glucose 84 60 - 115 mg/dL [facility] Calcium 9.3 8.4 - 10.2 mg/dL [facility] Bilirubin, Total 0.4 0.0 - 1.0 mg/dL [facility] Aspartate Amino Transferase 15 5 - 31 U/L [facility] Alanine Aminotransferase 15 0 - 31 U/L [facility] Total Protein 7.5 6.5 - 8.0 g/dL [facility] Albumin Level 4.0 3.5 - 5.0 g/dL [facility] Alkaline Phosphatase 80 39 - 117 U/L [facility] Blood Venous blood specimen / Unknown 12/25/2024 1:07 PM EDT 12/25/2024 1:12 PM EDT us Stella Felix MD LAB BLOOD ORDERAB LES Final Result [facility] [address] [place] [phone] * ECG 12 lead (12/24/2024 9:42 [...] LDL-C. Akash ALFREDO et al. ROLDAN. 2013;310(19): 4774-1853 (http://education.[employer].Anpro21/faq/QBL439) Non-HDL Cholesterol 132(H) <130 mg/dL (calc) [facility] Comment: For patients with diabetes plus 1 major ASCVD risk factor, treating to a non-HDL-C goal of <100 mg/dL (LDL-C of <70 mg/dL) is considered a therapeutic option. Triglycerides 99 <150 mg/dL [facility] 12/20/2021 2:35 PM EDT us Radha Howard [facility] LAB BLOOD ORDERABLES Final Res ult [facility] [address] from Last 3 Months or Most Recently Relevant to Health Maintenance Insurance [facility] LONG-TERM OPTIONS (O D-SNP) [place] [id number] Care Teams Solid Waste Collection Worker Relationship Specialty Start Date End Date Yasmeen Willams MD [address] [place] [address] PCP - General Family Medicine 12/09/21 Lennox Jennings MD [address] [place] [phone] Cardiology 12/24/24
--- OUTSIDE RECORDS SUMMARY | 2025-03-09 16:12 | XMS_ITS | Encounter Summary ---
Author Organization [employer] Address [address] [place] [address] 7t [place] [address] Care Team Providers Care Shoe Cobbler Name Role Phone Yasmeen Willams MD Primary Care Provider [phone] Lennox Jennings MD Unavailable Reason for Visit * Reason Onset Date Comments Resend Script 06/21/2022 Encounter Details Date Type Department Care Team ([facility] st Contact Info) Description 06/21/2022 Telephone [facility] MEDICINE [address] [place] [address] Yasmeen Willams MD [address] [place] [address] Resend Script Social History Tobacco Use Types [...] received. Please contact pharmacy if any questions [phone] documented in this encounter Plan of Treatment Not on file documented as of this encounter Visit Diagnoses Diagnosis Monoclonal gammopathy of unknown significance (MGUS) Other hyperlipidemia documented in this encounter Care Teams Shoe Cobbler Relationship Specialty Start Date End Date Yasmeen Willams MD [address] [place] [address] PCP - General Family Medicine 12/09/21 Lennox Jennings MD [address] [place] [address] Cardiology 12/24/24 documented as of this encounter
--- OUTSIDE RECORDS SUMMARY | 2025-03-09 16:12 | XMS_ITS | Encounter Summary ---
Author Organization [employer] Address [address] [facility] 7t [place] [address] Care Team Providers Care Chemistry Technician Name Role Phone Yasmeen Willams MD Primary Care Provider [phone] Lennox Jennings MD Unavailable [phone] Reason for Visit * Reason Comments Med Refill Encounter Details Date Type Department Care Team ([facility] st Contact Info) Description 03/16/2023 Refill [facility] [address] [place] [address] Yasmeen Willams MD [address] [place] [address] Social History Tobacco Use Types Packs/Day Years [...] on filedocumented in this encounter Care Teams Chemistry Technician Relationship Specialty Start Date End Date Yasmeen Willams MD [address] [place] [address] PCP - General Family Medicine 12/09/21 Lennox Jennings MD [address] [place] [phone] Cardiology 12/24/24 documented as of this encounter
== END 2025-03-05 00:01 | disposition home or self-care (01) ==
LOC: HO.LAB
PROVIDERS: Absent Provider Internal Medicine Advanced Heart Failure and Transplant Cardiology; PCP Internal Medicine Advanced Heart Failure and Transplant Cardiology; Visit Provider Internal Medicine Medical Oncology
DX: Z13.89 Encounter for screening for other disorder (principal)
CPT/HCPCS: 36415; 80048